=== PATIENT | male | born 1985 | race Caucasian/White ===

== ENCOUNTER → 2017-08-15 10:59 | Outpatient (CLI) | payer MEDICAID, SELFPAY ==
--- NOTE | 2017-08-15 11:05 | RAD_ITS ---
STUDY: X-RAY - LUMBAR SPINE REASON FOR EXAM: Male, 31 years old. Lower back pain. Previous injury. TECHNIQUE: 3 view(s) of the lumbar spine were obtained. COMPARISON: Lumbar spine, August 21, 2016. FINDINGS: Normal lumbar lordosis. There is no substantial scoliosis. There is a normal alignment of the vertebrae. Normal vertebral bodies and endplates. Normal disc space heights. There is no evidence of acute fracture or loss of vertebral axial height. The soft tissue structures are unremarkable. IMPRESSION: No interval change. Normal x-ray examination of the lumbar spine. Electronically Signed: Cesar Peters DO at 18:01 EDT Tel [phone], Service support , RAD/Lumbar Spine 2 or 3 Views
--- NOTE | 2017-08-15 11:22 | RAD_ITS ---
STUDY: X-RAY CHEST REASON FOR EXAM: Male, 31 years old. Shortness of breath. TECHNIQUE: PA and lateral views of the chest. COMPARISON: None. FINDINGS: The lungs are clear and expanded. There is no demonstrated pleural abnormality. Normal size heart. Normal mediastinum and placido. Normal visualized pulmonary arteries. Normal visualized aortic arch and descending thoracic aorta. Normal visualized thoracic spine. Normal visualized ribs, clavicles, and shoulders. There is no demonstrated abnormality of the visualized soft tissue structures of the upper abdomen. RAD/Chest PA and Lateral IMPRESSION: Normal x-ray examination of the chest. Electronically Signed: Sharif Mccallum MD at 15:57 EDT Tel [phone], Service support ,
== END ==
PROVIDERS: Visit Provider Family Medicine
DX: M54.41 Lumbago with sciatica, right side (principal); M54.42 Lumbago with sciatica, left side; G89.29 Other chronic pain; R06.02 Shortness of breath; R07.9 Chest pain, unspecified
CPT/HCPCS: 71046; 72100

== ENCOUNTER 2018-03-01 14:00 | Emergency (ER) | payer MEDICAID, SELFPAY ==
[2018-03-01 14:01] VITALS: BP 185/95; PULSE 95; RESP 22; TEMP 36.8; O2SAT 97; BMI 70.5
--- NOTE | 2018-03-01 14:15 | ED.VISSUMM ---
- ER Visit Summary Date of Service: 03/01/18 Chief Complaint: Right posterior rib cage pain History of Present Illness: The patient is a 32 M history of prior diabetes for which she is not taking any medication. The only prior surgery was a thyroidectomy. Patient states he was carrying an old box TV on Tuesday. On Tuesday he started developing right posterior lateral rib cage pain. He thinks he pulled something while carrying a heavy TV. He denies any falls or trauma. He denies any shortness of breath and said just hurts to move his rib cage when he takes a deep breath or when he twists or turns. Basically any movement makes her right posterior rib cage more painful. He denies any fever or cough. Physical Examination: Well-appearing young male. Vital signs are stable. He is afebrile. His pulse ox is 97% on room air no hypoxia. No distress. H EENT exam unremarkable. Neck nontender. Lungs clear to auscultation bilaterally. He does splint on the right due to discomfort in his posterior lateral rib cage. Heart regular rate and rhythm no murmur. Abdomen is soft but obese. Nontender. He is moving all 4 extremities. Calves are nontender. Neurologically is awake and alert with no focal motor deficits. Back exam there is no cervical, thoracic or lumbar spine tenderness. He is tender on his right posterior and lateral rib cage. There is no ecchymosis or bruising. There is no subcu air. This is consistent with musculoskeletal rib cage pain. Test Results: None Emergency Department Course and Treatment: Patient's history and exam are consistent with a rib cage strain with muscle spasm. Treatment Plan: Motrin for pain. Valium for muscle relaxant. Hot shower. Warm bath. Disposition: Discharge Impression: Acute right posterior lateral rib cage strain with muscle spasm This note was generated with [employer] dictation software. It may contain incorrect words, spelling, and punctuation that were not noted in review of the chart prior to signing ED Disposition - Plan for ED Patient: Disposition: Home or Assisted Living Chief Complaint: Back Instructions: ED Spasm Back No Trauma Prescriptions: Diazepam [Valium] 10 mg PO TID PRN PRN #10 tab PRN Reason: Muscle Spasm Referrals: Care Physician,No Primary [Primary Care Provider] - 1 Week if not improving Additional Instructions: Ice to right posterior rib cage decrease pain and inflammation. Hot shower and warm bath to relax the muscles. Motrin 600-800 mg 3 times a day for pain and inflammation. Valium for muscle spasms. Follow-up your primary care physician if not improving in a week.
--- NOTE | 2018-03-01 14:18 | ED.DEP ---
ED Disposition - Plan for ED Patient: Disposition: Home or Assisted Living Chief Complaint: Back Instructions: ED Spasm Back No Trauma Prescriptions: Diazepam [Valium] 10 mg PO TID PRN PRN #10 tab PRN Reason: Muscle Spasm Referrals: Care Physician,No Primary [Primary Care Provider] - 1 Week if not improving Additional Instructions: Ice to right posterior rib cage decrease pain and inflammation. Hot shower and warm bath to relax the muscles. Motrin 600-800 mg 3 times a day for pain and inflammation. Valium for muscle spasms. Follow-up your primary care physician if not improving in a week.
--- NOTE | 2018-03-01 14:25 | ED.DEP ---
ED Disposition - Plan for ED Patient: Disposition: Home or Assisted Living Chief Complaint: Back Instructions: ED Spasm Back No Trauma Prescriptions: Diazepam [Valium] 10 mg PO TID PRN PRN #10 tab PRN Reason: Muscle Spasm Ibuprofen [Motrin] 800 mg PO Q8H #30 tab Referrals: Care Physician,No Primary [Primary Care Provider] - 1 Week if not improving Additional Instructions: Ice to right posterior rib cage decrease pain and inflammation. Hot shower and warm bath to relax the muscles. Motrin 600-800 mg 3 times a day for pain and inflammation. Valium for muscle spasms. Follow-up your primary care physician if not improving in a week.
== END 2018-03-01 14:30 | disposition home or self-care (01) ==
PROVIDERS: Emergency Provider Emergency Medicine
DX: S29.011A Strain of muscle and tendon of front wall of thorax, initial encounter (principal); S21.201A Unspecified open wound of right back wall of thorax without penetration into thoracic cavity, initial encounter; X50.0XXA Overexertion from strenuous movement or load, initial encounter; Y93.89 Activity, other specified; M62.838 Other muscle spasm
CPT/HCPCS: 99281

== ENCOUNTER → 2020-01-30 10:29 | Outpatient (CLI) | payer MEDICAID, SELFPAY ==
[2020-01-30 11:04] LABS: D-Dimer Quantitative (DVT/PE) 0.63 FEU/ug/m (0.27-0.49)
== END ==
PROVIDERS: Referring Provider Family Medicine; Visit Provider Family Medicine
DX: R07.9 Chest pain, unspecified (principal)
CPT/HCPCS: 85379

== ENCOUNTER 2020-01-30 12:00 | Emergency (ER) | payer MEDICAID, SELFPAY ==
[2020-01-30 12:01] VITALS: BP 149/89; PULSE 106; RESP 17; TEMP 36.6; O2SAT 98; BMI 82.8
--- NOTE | 2020-01-30 12:31 | VDLE_ITS ---
Reason For Study: Swelling/Elevated D-dimer RIGHT LEFT GSV is normal. GSV is normal. FV is compressible, spontaneous, phasic, FV is compressible, spontaneous, phasic, competent and demonstrates normal competent and demonstrates normal augmentation. augmentation. POP V is compressible, spontaneous, phasic, POP V is compressible, spontaneous, phasic, competent and demonstrates normal competent and demonstrates normal augmentation. augmentation. T/P Trunk is compressible. T/P Trunk is compressible. PTV is compressible. PTV is compressible. RT PerV is compressible. LT PerV is compressible. Procedure FV mid visualized with color flow only, Exam performed portable in ED. unable to compress due to body habitus. Unable to visualize bilateral CFV and SFJ due to pt body habitus. Bilateral calf veins only visualzied at distal calf. A preliminary report was called and/or faxed to ED. Interpretation Summary No evidence for acute deep venous thrombosis bilateral lower extremities with patent and compressible bilateral great saphenous veins. Technically limited examination with inability to identify bilateral common femoral/saphenofemoral junction secondary to body habitus. Additional note of inability to identify bilateral calf veins in the proximal and mid sections. Additional note made of inability to perform compressibility of the left femoral vein. Ordering Physician: Zafar Hurley Referring Physician: David Linder Performed By: Xochilt Peterson RVT
--- NOTE | 2020-01-30 12:32 | ED.DCSUM_ITS ---
History of Present Illness Chief Complaint: Abn Labs Informant: Patient Narrative: Patient states that he was sent into the emergency department for abnormal labs. He tells me that he is embarking on a fitness journey and went to see primary care. He states that he had blood work drawn today and was told to come to emergency. He cannot tell me exactly what blood work was drawn or why they needed him to come to emergency. He states that they should be faxing over some information. He notes he chronically has significantly swollen legs. He states for the past couple days he has been on a fast and that they are less swollen than normal. He notes a large amount of swelling over the medial proximal thighs bilaterally. This is gone unchanged. He states that he has had some chronic chest pain or shortness of breath that may be worse over the past couple of days. For this reason he had a d-dimer drawn that came back elevated 0.6. - Past Medical History (1) Morbid obesity Status: Acute Past Medical History - Allergies and Home Meds Allergies/Adverse Reactions: Allergies shellfish derived Allergy (Verified 01/30/20 12:01) Anaphylaxis venom-honey bee [bee venom (honey bee)] Allergy (Verified 01/30/20 12:01) Anaphylaxis Primary Care Physician: David Linder MD [Primary Care Provider] - Keep Shanice appointment Surgical History: noncontributory Smoking Status: Never smoker Drugs: None Review of Systems General: Denies: Chills, Fever, Sweats Eyes: Denies: Visual changes - bilaterally, Diplopia ENT: Denies: Rhinorrhea, Sore throat Cardiovascular: Reports: Chest pain - See history of present illness. Denies: Palpitations Respiratory: Reports: Dyspnea - See history of present illness. Denies: Cough, Dyspnea on exertion Gastrointestinal: Denies: Abdominal pain, Nausea, Vomiting, Diarrhea, Melena, Hematochezia Genitourinary: Denies: Dysuria, Hematuria, Frequency Musculoskeletal: Reports: Swelling. Denies: Back pain, Extremity Pain Skin: Denies: Rash, Wounds Neurological: Denies: Headache, Weakness, Numbness Physical Exam Vital Signs/Narrative: Vital Signs Temp Pulse Resp BP Pulse Ox 01/30/20 12:01 97.9 F 106 H 17 149/89 H 98 Inital Vital Signs reviewed: Yes General: Well nourished, Well developed, Obese, No Acute Distress Head: Normocephalic, Atraumatic Eyes: Perrl, EOMI ENT: Moist mucous membranes, No rhinorrhea Neck: Supple, Nontender Cardiovascular: Regular rate, Regular rhythm, No murmurs Respiratory: No distress, CTA bilaterally, Chest nontender Abdomen: Soft, Nondistended, Normal bowel sounds, Tender - Large ventral hernia that is easily reduced Back: Nontender, Normal Inspection Extremities: Tenderness - Patient with pitting edema of the lower extremities. He has no significant scrotal swelling but does have significant thigh swelling over the proximal medial aspect of the thigh. Skin: Normal color, No rash Neurological: Alert, Oriented x3, Cranial nerves II-XII grossly intact, Normal Strength, Normal Sensation Psychological: Normal affect, Normal Mood Diagnostic/Tx/Re-eval Clinical Impression(s) from Imaging Studies Chest CTA 01/30/20 13:43 IMPRESSION: Normal CTA chest examination, without a demonstrated pulmonary embolism or arterial dissection. Electronically Signed: Sharif Mccallum, at 15:01 EDT , Service support , Laboratory Last Values WBC 7.9 K/mm3 (4.4-11.0) 01/30/20 12:45 RBC 4.74 M/mm3 (4.6-6.2) 01/30/20 12:45 Hgb 12.9 g/dL (13.0-16.5) L 01/30/20 12:45 Hct 41.4 % (40-54) 01/30/20 12:45 MCV 87.3 fL (80-94) 01/30/20 12:45 MCH 27.2 pg (27.0-32.0) 01/30/20 12:45 MCHC 31.2 g/dL (32-36) L 01/30/20 12:45 RDW Std Deviation 43.8 fl (35.1-43.9) 01/30/20 12:45 RDW Coeff of Adrien 13.6 % (11.6-14.6) 01/30/20 12:45 Plt Count 289 K/mm3 (150-450) 01/30/20 12:45 MPV 10.2 fl (6.2-12.0) 01/30/20 12:45 Immature Gran % (Auto) 0.500 % (0.0-0.9) 01/30/20 12:45 Neut % (Auto) 66.9 % (47-70) 01/30/20 12:45 Lymph % (Auto) 23.7 % (19-41) 01/30/20 12:45 [place] % (Auto) 7.4 % (0-10) 01/30/20 12:45 Eos % (Auto) 1.4 % (0-5) 01/30/20 12:45 Baso % (Auto) 0.1 % (0-1) 01/30/20 12:45 Absolute Neuts (auto) 5.3 X10^3/uL (2.0-7.7) 01/30/20 12:45 Absolute Lymphs (auto) 1.87 X10^3/uL (0.83-4.51) 01/30/20 12:45 Nucleated RBC % 0 % (0-5) 01/30/20 12:45 Sodium 138 mmol/L (136-145) 01/30/20 12:45 Potassium 3.6 mmol/L (3.5-5.1) 01/30/20 12:45 Chloride 106 mmol/L (98-107) 01/30/20 12:45 Carbon Dioxide 30.0 mmol/L (21.0-32.0) 01/30/20 12:45 Anion Gap 2 (5-15) L 01/30/20 12:45 BUN 11 mg/dL (7-18) 01/30/20 12:45 Creatinine 1.01 mg/dL (0.70-1.30) 01/30/20 12:45 Estim Creat Clear Calc 107.69 ml/min 01/30/20 12:45 Est GFR (MDRD) Af Amer 107 mL/min (>60) 01/30/20 12:45 Est GFR (MDRD) Non-Af 89 mL/min (>60) 01/30/20 12:45 BUN/Creatinine Ratio 10.9 RATIO (10-20) 01/30/20 12:45 Glucose 114 mg/dL (74-106) H 01/30/20 12:45 Calcium 8.6 mg/dL (8.5-10.1) 01/30/20 12:45 Troponin I < 0.015 ng/mL (<0.045) 01/30/20 12:45 - EKG Initial EKG Interpretation: Sinus Rhythm - EKG demonstrates a normal sinus rhythm at a rate of 91. There is no evidence of right heart strain. - Medical Decision Making Venous duplex of the bilateral legs negative for DVT within the confines of the exam. No evidence of right heart strain EKG and troponin negative. His CTA of his chest was negative for PE. At this point patient be discharged home. I did speak with his primary care physician Dr. Linder at the beginning of his ED course and at the end. ED Disposition - Plan for ED Patient: Disposition: Home or Assisted Living Diagnosis: Morbid obesity, Lymphedema Prescriptions: Furosemide [Lasix] 40 mg PO DAILY 7 Days #7 tab Transmission Status: Pending to [facility] [place] Referrals: David Linder MD [Primary Care Provider] - Keep Shanice appointment
--- NOTE | 2020-01-30 12:36 | EKG12_ITS ---
Test Reason : ABN LABS Blood Pressure : / mmHG Vent. Rate : 091 BPM Atrial Rate : 091 BPM P-R Int : 176 ms QRS Dur : 106 ms QT Int : 364 ms P-R-T Axes : 066 023 034 degrees QTc Int : 447 ms Normal sinus rhythm Normal ECG Confirmed by JEFF ARAIZA, ALEA ([id number]), video editor DAVID LINDER ([id number]) on 02/04/2020 2:21:13 PM Referred By: Confirmed By:ALEA AGUILAR MD
[2020-01-30 12:59] LABS: Absolute Lymphocyte Count 1.87 X10^3/uL (0.83-4.51); Absolute Neutrophil Count 5.3 X10^3/uL (2.0-7.7); Basophil# 0.01 X10^3/uL; Basophil% 0.1 % (0-1); Eosinophil# 0.11 X10^3/uL; Eosinophils% 1.4 % (0-5); Hematocrit 41.4 % (40-54); Hemoglobin 12.9 g/dL (13.0-16.5); Lymphocyte # 1.87 X10^3/ul (4.0); Lymphocyte % 23.7 % (19-41); Mean Corp Hgb Conc 31.2 g/dL (32-36); Mean Corpuscular Hgb 27.2 pg (27.0-32.0); Mean Corpuscular Volume 87.3 fL (80-94); Mean Platelet Vol. 10.2 fl (6.2-12.0); Monocyte# 0.58 X10^3/uL; Monocyte% 7.4 % (0-10); NRBC Flagged by Analyzer 0 % (0-5); Neutrophil # 5.27 X10^3/uL (2.7-7.7); Neutrophil % 66.9 % (47-70); Platelet Count 289 K/mm3 (150-450); RBC Distribution Width CV 13.6 % (11.6-14.6); RBC Distribution Width SD 43.8 fl (35.1-43.9); Red Blood Count 4.74 M/mm3 (4.6-6.2); White Blood Count 7.9 K/mm3 (4.4-11.0)
[2020-01-30 13:15] LABS: Anion Gap 2 (5-15); BUN 11 mg/dL (7-18); BUN/Creat Ratio 10.9 RATIO (10-20); Calcium,Total 8.6 mg/dL (8.5-10.1); Chloride 106 mmol/L (98-107); Creatinine, Serum 1.01 mg/dL (0.70-1.30); EST Glomerular Filtration Rate 89 mL/min (>60); Est Glom Filt Rate - Afr Amer 107 mL/min (>60); Estimated Creatinine Clearance 107.69 ml/min; Glucose 114 mg/dL (74-106); Potassium 3.6 mmol/L (3.5-5.1); Sodium Level 138 mmol/L (136-145)
--- NOTE | 2020-01-30 13:43 | CT_ITS ---
STUDY: CTA CHEST REASON FOR EXAM: Male, 34 years old. Elevated D-dimer, increased SOB and chest pain x several days, bilateral lower extremity edema. Hx asthma. Very large patient. RADIATION DOSAGE (If Supplied By Facility): CTDIvol = ( 32.93 ) mGy, DLP = ( 680.85 ) mGycm TECHNIQUE: The examination was performed with the intravenous administration of IV 100mL Isovue-370. Post-processing of the angiographic images was performed, with multiplanar reformation and 3D reconstruction. Limited study due to the patient''s body habitus. Individualized dose optimization techniques were used for this CT. COMPARISON: None. FINDINGS: Normal enhancement of the main pulmonary artery and right and left pulmonary arteries. Normal enhancement of the bilateral peripheral pulmonary arteries. There is no demonstrated pulmonary embolism. Normal thoracic aorta and visualized great vessels. There is no demonstrated aortic dissection. Normal heart and pericardium. Normal mediastinum. Normal hilar regions. Normal visualized trachea and bronchi. The lungs are well expanded. Normal pulmonary parenchyma. Normal pleura. Normal chest wall structures. Normal osseous structures. Normal visualized upper abdomen. CT/CTA Chest W/WO Contrast IMPRESSION: Normal CTA chest examination, without a demonstrated pulmonary embolism or arterial dissection. Electronically Signed: Sharif Mccallum, at 15:01 EDT , Service support ,
[2020-01-30 15:46] VITALS: BP 153/88; PULSE 81; RESP 18; O2SAT 96
== END 2020-01-30 15:46 | disposition home or self-care (01) ==
PROVIDERS: Emergency Provider Emergency Medicine; PCP Family Medicine
DX: E66.01 Morbid (severe) obesity due to excess calories (principal); I89.0 Lymphedema, not elsewhere classified; R07.9 Chest pain, unspecified
CPT/HCPCS: 71275; 80048; 84484; 85025; 85379; 93005; 93970; 99283; Q9967; A4216

== ENCOUNTER 2025-01-13 16:04 | Emergency (ER) | payer MEDICAID, SELFPAY ==
[2025-01-13 16:06] VITALS: BP 146/83; PULSE 104; RESP 15; TEMP 37.1; O2SAT 98; BMI 80.6
[2025-01-13 16:10] VITALS: BP 146/83; PULSE 105; RESP 21; TEMP 37.1; O2SAT 96
--- NOTE | 2025-01-13 16:12 | EDS_ITS ---
HPI History of Present Illness Chief Complaint: [facility] Medical History (Updated 01/13/25 @ 19:[address] Kimo Hill, DO) Asthma Lymphedema Sleep apnea Medical History no medical history Home Medications ?Medication ?Instructions ?Recorded ?Last Taken ?Type diazepam 10 mg tablet 10 mg PO TID PRN PRN Muscle Spasm 03/01/18 Unknown Rx #10 tabs ibuprofen 400 mg tablet 800 mg (2 x 400 mg) PO Q8H # 30 tabs 03/01/18 Unknown Rx ondansetron 4 mg disintegrating 4 mg PO Q8H PRN PRN Na usea #10 tabs 01/13/25 Unknown Rx tablet oxycodone-acetaminophen 5 mg-325 1 tab PO Q6H PRN PRN Pain 3 days 01/13/25 Unknown Rx mg tablet #12 TABLETS sulfamethoxazole 800 1 tab PO BID 7 days #14 tabs 01/13/25 Unknown Rx mg-trimethoprim 160 mg tablet (Bactrim DS) Allergy/AdvReac Type Severity Reaction Status Date / Time shellfish derived Allergy Anaphylaxis Verified 01/13/25 16:10 venom-honey bee (bee venom Allergy Anaphylaxis Verified 01/13/25 16:10 (honey bee)) Family History no significant family his Surgical History (Updated 01/13/25 @ 16:12 by Wendy Shrestha) History of thyroid surgery Surgical History no surgical history Social History Smoking Status: Current some day smoker tobacco type: pipe EXAM Physical Exam Const Vital Signs: 01/13/25 16:06 01/13/25 16:10 01/13/25 16:14 Temperature 98.7 F 98.7 F Temperature Source Oral Oral Pulse Rate 104 H 105 H Respiratory Rate 15 21 H Respiratory Effort Normal Respiratory Pattern Tachypnea Blood Pressure 146/83 H 146/83 H Blood Pressure Mean 104 104 Pulse Ox 98 96 Oxygen Delivery Method Room Air Room Air 01/13/25 17:05 01/13/25 17:28 01/13/25 19:00 Temperature 99.2 F H 98.9 F Temperature Source Oral Oral Pulse Rate 96 93 88 Respiratory Rate 16 16 16 Respiratory Effort Respiratory Pattern Blood Pressure 130/83 H 125/72 H 125/78 H Blood Pressure Mean 98 89 93 Pulse Ox 97 95 97 Oxygen Delivery Method Room Air Room Air Room Air 01/13/25 19:56 Temperature 98.7 F Temperature Source Pulse Rate 91 Respiratory Rate 22 H Respiratory Effort Respiratory Pattern Blood Pressure 129/77 H Blood Pressure Mean 94 Pulse Ox 96 Oxygen Delivery Method MDM [facility] MDM Narrative Medical decision making narrative: HISTORY OF PRESENT ILLNESS: Chief complaint: Leg pain 39-year-old male history of asthma, edema, sleep apnea presents with concern for a blood clot. He states he is concerned he may have a blood clot under the chronic lymphedema in his left leg. He also notes associated fever. Denies c urrent chest pain or shortness of breath but noted he had chest discomfort shortness of breath yesterday. He states this began 2 days ago. The patient denies recent surgery in the last 4 weeks or immobilization in the last 3 days, denies previous diagnosis of DVT or PE, hemoptysis, unilateral leg swelling or malignancy with treatment the last 6 months or palliative. No estrogen use noted. Denies vomiting but notes associated nausea. REVIEW OF SYSTEMS: Pertinent positives: Leg pain, fever, chest pain, shortness of Pertinent negatives: As per HPI PHYSICAL EXAM: Nursing triage notes reviewed, Vital signs reviewed Constitutional: please see mdm HENT: MMM Eyes: Pupils equal round and reactive to light, Extraocular muscles intact Neck: No stridor, no JVD, full neck ROM Lungs: Clear to auscultation, No wheezing or rales. No increased work of breathing, no conversational dyspnea, no accessory muscle use, no nasal flaring. No respiratory distress noted Heart: Regular rate and rhythm, No murmurs, No rubs and No gallops, 2+ distal pulses (radial, femoral, posterior tibial) in all extremities Abdomen: Soft, there is no tenderness, rigidity, rebound or guarding, no obvious peritoneal signs, no palpable pulsatile abdominal masses, no auscultated abdominal bruit : No CVAT Extremities: Significant lymphedema noted to bilateral medial lower legs. There is an area on the posterior left leg lymphedematous area that is dark and hard to touch. It is slightly warm. There is no purulent drainage noted. [id number] ultrasound over this area did not reveal any drainable abscess. There was no crepitus or bullae noted. Neuro: No new focal neurological deficits, cranial nerves II through XII intact, 5/5 strength in all present extremities. Intact sensation to light touch in all present extremities, 2+ reflexes bilateral patella tendons. Skin: No rash or lesions noted MEDICAL DECISION MAKING: Chief Complaint: please see HPI External records reviewed: Reviewed prior allergies and medication Factors affecting care: none Social determinants of health: none History obtained from others: none Consults: none MDM Narrative: Patient was initially slightly tachycardic to 104, not febrile, exam consistent with likely superficial infection of lymphedematous region. I considered the following differential diagnosis: Sepsis, cellulitis, abscess, ACS, arrhythmia, anemia, electrolyte disturbance, PE I obtained a broad lab and imaging workup to further determine if the patient was suffering from a life-threatening etiology. Initially assessed the patient only normal saline, Zofran for nausea, 4 mg of IV morphine for pain as well as 15 mg IV Toradol for pain and antipyretic effect I initially obtained a CT scan of the patient's extremities given his large body habitus and difficulty with exam to assure there is no obvious drainable abscess however given the patient's large body habitus he cannot fit into CT scanner. In lieu of CT scan I did perform a [id number] ultrasound which showed no obvious fluid collection that is is drainable. ALL IMAGES (IF OBTAINED) HAVE BEEN PERSONALLY REVIEWED AND INTERPRETED BY MYSELF. CBC with leukocytosis suggestive of systemic inflammation, no anemia or thrombocytopenia noted D-dimer elevated consistent with prior D-dimers however in this clinical setting of chest pain and shortness breath concerning for VTE BMP without evidence of significant electrolyte abnormalities, no anion gap, no acute kidney injury. LFTs with elevation in bilirubin slightly above lab reference range, no obvious liver enzyme elevation High-sensitivity troponin is negative, no evidence of myocardial ischemia x 2 BNP within normal limit suggestive no heart failure right heart strain Lactate is wnl indicating no end-organ hypoperfusion and/or hypoxia. CT of the chest shows no definitive evidence of a pulmonary embolism The synthesis of the patient's history, physical exam, lab and images suggest likely a cellulitis. The patient's pain and swelling is over the medial lymphedema tissue. Is not associated with the deep veins of the leg. In terms of the patient's report of chest pain and shortness of breath there is no definitive evidence of pulmonary embolism. Although patient CT scan was not definitive he had no hypoxia, hypotension, signs of right heart strain either labs or images to suggest a large pulmonary embolism. Unfortunately we do not have DVT ultrasound available to scan the patient's leg given his concern for DVT. Ordered an outpatient DVT study for tomorrow morning. Discussed risk and benefits of prophylactic anticoagulation both agreed that this was not a necessary intervention at this time. Strict return precautions will be discussed. The patient and/or family, caregivers express understanding. The patient and/or family, caregivers agrees with the plan. Shared decision making: I will have a discussion with the patient and or visitors regarding risk/benefits of further testing or admission. They will be made aware of of the risk/benefits inherent in this decision they will be given the opportunity to voice understanding. Total critical care time today provided was at least 0 minutes. This excludes separately billable procedures. Critical care time (if documented) is secondary to the patient having high probability of clinically significant/life threatening deterioration in the patient's condition which required my urgent intervention. Impression: 1. Cellulitis 2. Lymphedema 3. Morbid obesity Dispo: Discharge home This note was generated with [employer] dictation software. It may contain incorrect words, spelling, and punctuation that were not noted in review of the chart prior to signing. Lab Data Labs: Laboratory Results - last 24 hr 01/13/25 01/13/25 16:33 18:48 WBC 12.3 H RBC 4.70 Hgb 13.1 Hct 40.2 MCV 85.5 MCH 27.9 MCHC 32.6 RDW Std Deviation 43.1 RDW Coeff of Adrien 13.6 Plt Count 274 MPV 10.6 D-Dimer Quant (PE/DVT) 0.73 H* Sodium 135 Potassium 3.6 Chloride 100 Carbon Dioxide 22.6 Anion Gap 12 BUN 13 Creatinine 1.10 Estim Creat Clear Calc 187.63 Est GFR (MDRD) Non-Af 86 BUN/Creatinine Ratio 11.5 Glucose 125 H Lactic Acid 1.0 Calcium 8.9 Total Bilirubin 1.80 H AST 22 ALT 22 Alkaline Phosphatase 74 Troponin T High Sens < 6 Troponin T Hi Sens 2 Hr 6 NT pro BNP II 126 Total Protein 7.9 Albumin 3.8 Globulin 4.1 Albumin/Globulin Ratio 0.9 Radiography Diagnostic Testing: Clinical Impression(s) from Imaging Studies Chest X-Ray 01/13/25 16:54 IMPRESSION: No Acute Findings. Reading Location: [id number] Chest CTA 01/13/25 17:30 IMPRESSION: 1. Inadequate contrast phase to evaluate for pulmonary embolus. 2. No acute lung disease. Reading Location: [facility] [place] Discharge Plan Triage Chief Complaint: Wound Other Complaint: Chest Pain Edema ED Provider: Kimo Hill Dx/Rx/DC Orders Instructions: Cellulitis Dc, ED Lymphedema Prescriptions: New sulfamethoxazole-trimethoprim [Bactrim DS] 800-160 mg tablet 1 tab PO BID 7 Days Qty: 14 0RF oxycodone-acetaminophen 5-325 mg tablet 1 tab PO Q6H PRN PRN (Reason: Pain) 3 Days Qty: 12 0RF ondansetron 4 mg tablet,disintegrating 4 mg PO Q8H PRN PRN (Reason: Nausea) Qty: 10 0RF No Action diazepam 10 MG tablet 10 mg PO TID PRN PRN (Reason: Muscle Spasm) Qty: 10 0RF ibuprofen 400 MG tablet 800 mg PO Q8H Qty: 30 0RF Other Ambulatory Orders: Venous Duplex US, Unilateral (Stat) Facility: [facility] - Location: [facility] Ordered By: Dr. Kimo Hill Primary Care Provider: David Linder Referrals: David Linder MD [Primary Care Provider] - Hyperbaric Medicine,[facility] and [Non-Staff] - Activity Restrictions/Additional Instructions: Thank you for trusting us with your care today! Your labs images are overall reassuring. There is no sign of a definitive blood clot in your heart or lungs. No sign of damage to your heart. No sign of pn eumonia. No sign of severe sepsis or severe infection. There was signs of mild systemic inflammation with elevated white blood cell count this is likely related to a superficial skin infection of your leg/lymphedema that we called cellulitis. I suspect your pain is related to a superficial infection. This is treated with antibiotics. Please take antibiotics until course is complete. I have also provided nausea medicine to take as needed Please take Tylenol (2 pills, 650 mg), ibuprofen (2 pills, 400 mg) every 6 hours as needed for pain and fever control. If the above regimen does not control your pain please take oxycodone/Tylenol (Percocet) for breakthrough pain control Please return to the emergency department if your symptoms change or worsen. Please follow with your primary care physician for further outpatient evaluation and management. Print Language: Sudanese Disposition Disposition: Home, Self Care Discharge Date/Time: 01/13/25 20:04
--- NOTE | 2025-01-13 16:31 | EKG12_ITS ---
Test Reason : GENERAL Blood Pressure : */* mmHG Vent. Rate : 100 BPM Atrial Rate : 100 BPM P-R Int : 164 ms QRS Dur : 104 ms QT Int : 360 ms P-R-T Axes : 54 10 37 degrees QTcB Int : 464 ms Normal sinus rhythm MINOR Nonspecific ST abnormality Borderline Confirmed by Josiah Rodriguez ([id number]), dictionary editor ROBERT JAMES ([id number]) on 01/14/2025 1:23:06 PM Referred By: Confirmed By: Josiah Rodriguez
[2025-01-13] MEDS: 0.9% Normal Saline (1000mL) 1,000 ML 1000 ML IV (16:48)
--- NOTE | 2025-01-13 16:54 | RAD_ITS ---
PROCEDURE: CHEST 1 VIEW (PORTABLE) 01/13/2025 REASON FOR EXAM: SHORTNESS OF B. TECHNIQUE: Frontal view of the chest. COMPARISON: None. FINDINGS: LUNGS AND PLEURA: No focal airspace consolidation. No pleural effusion or pneumothorax. HEART AND MEDIASTINUM: The cardiac silhouette is borderline enlarged. The mediastinal contour is normal. BONES: No acute osseous abnormality. RAD/Chest 1 View (Portable) IMPRESSION: No Acute Findings. Reading Location: [id number]
[2025-01-13 17:05] VITALS: BP 130/83; PULSE 96; RESP 16; O2SAT 97
--- OUTSIDE RECORDS SUMMARY | 2025-01-13 17:18 | XMS RPT_ITS | CCD ---
Author Organization [facility] Care Team Providers Care Charge Account Identification Clerk Name Role Phone KYLE NICKERSON Unavailable Unavailable KYLE NICKERSON Unavailable Unavailable David Grissom Unavailable Unavailable David Grissom MD Primary Care Provider DAVID GRISSOM Referring Unavailable JACIEL, DAVID Guan Primary Care Unavailable OSMANY MENDIOLA Attending Unavailable David Grissom MD Primary Care Provider ELMIRA DE SOUZA Referring Unavailable DAVID GRISSOM Primary Care Unavailable DAVID GRISSOM Referring Unavailable DAVID GRISSOM Primary Care Unavailable DAVID GRISSOM Referring Unavailable DAVID GRISSOM Primary Care Unavailable LORRAINE AVILES Referring Unavailable ELMIRA DE SOUZA Attending Unavailable DAVID GRISSOM Primary Care Unavailable Linda WOOD CUT ENGRAVER.Concepcion SUNG Unavailable Hilaria WOOD CUT ENGRAVER.Marisabel SUNG Unavailable [phone] Jacqueline Foss Attending Unavailable David Grissom Referring Unavailable David Grissom Primary Care Unavailable ROCIO LESLIE Attending Unavailable DAVID GRISSOM Referring Unavailable DAVID GRISSOM Primary Care Unavailable ROCIO LESLIE Referring Unavailable DAVID GRISSOM Primary Care Unavailable LORRAINE AVILES Attending Unavailable MARISABEL RAMIREZ Referring Unavailable DAVID GRISSOM Primary Care Unavailable DAVID GRISSOM Attending Unavailable DAVID GRISSOM Primary Care Unavailable DAVID GRISSOM Attending Unavailable DAVID GRISSOM Primary Care Unavailable DAVID GRISSOM Referring Unavailable DAVID GRISSOM Primary Care Unavailable Allergies Allergy Classification Reported Allergen(s) Allergy Type Date of Onset Reaction(s) Facility shrimp allergenic extract (1 source) shrimp allergenic extract Drug Allergy 3 Swelling [facility] Work Phone: (20 sources) Bee; Translations: [BEES] Propensity to adverse reactions (disorder) 0 Swelling [facility] Repository (1 source) OTHER; Translations: [OTHER] Propensity to adverse reactions (disorder) [facility] Repository (20 sources) shrimp [Other] Propensity to adverse reactions 0 Swelling [facility] Work Phone: (20 sources) shrimp allergenic extract; Translations: [SHRIMP] Drug Allergy 3 Swelling [facility] Work Phone: (1 source) Shellfish Drug allergy (disorder) 0 [facility] Repository (1 source) venom-honey bee Drug allergy (disorder) 0 [facility] Medications Current Medications Medication Drug Class(es) Dates Sig (Normalized) Sig (Original) [id number] 200 actuat albuterol 0.09 mg/actuat metered dose inhaler (20 sources) beta2-Adrenergic Agonist Start: 04-13-2023 End: 12-10-2024 take 2 puff(s) by inhalation every four hours as needed for wheezing albuterol HFA (VENTOLIN HFA) 90 mcg/actuation inhaler Indications: SOB (shortness of breath) Inhale 2 puffs as instructed every 4 hours as needed for wheezing/shortnes s of breath. 18 g 11 12/10/2024 Active Start: 06-30-2020 End: 11-01-2022 take 2 puff(s) by inhalation every four hours as needed for wheezing albuterol HFA (VENTOLIN HFA) 90 mcg/actuation inhaler Indications: SOB (shortness of breath) Inhale 2 Puffs as instructed every 4 hours as needed for wheezing/shortness of breath. 18 g 2 11/01/2022 Active Comment on above: Inhale 2 Puffs as in structed every 4 hours as needed for wheezing/shortness of breath. 24 hr buPROPion hydrochloride 300 mg extended release oral tablet (20 sources) Aminoketone Start: 04-16-20 End: 10-17-19 25 take 1 tablet by mouth once daily buPROPion XL (WELLBUTRIN XL) 300 mg 24 hr tablet Indications: Anxiety with depression , BMI 70 and over, adult (HCC) Take 1 tablet by mouth once daily. 90 tablet 1 10/16/2024 Active Start: 05-16-2023 End: 11-12-2023 take 1 tablet by mouth once daily buPROPion XL (WELLBUTRIN XL) 300 mg 24 hr tablet Indications: Anxiety with depression , Obesity, morbid (HCC) Take 1 tablet by mouth once daily. 30 tablet 5 05/16/2023 Active Start: 04-08-2022 End: 02-10-2023 take 1 tablet by mouth once daily buPROPion XL (WELLBUTRIN XL) 150 mg 24 hr tablet Indications: Anxiety with depression Take 1 tablet by mouth once daily. 30 tablet 5 04/08/2022 02/10/2023 Discontinued Comment on above: Take 1 tablet by mandi th once daily. clarithromycin 500 mg oral tablet (1 source) Macrolide Antimicrobial Start: End: take 1 tablet by mouth every twelve hours clarithromycin (BIAXIN) 500 mg Indications: Helicobacter pylori infection Take 1 tablet by mouth every 12 hours for 14 days. 28 tablet 02/17/2024 03/02/2024 Active 120 actuat fluticasone propionate 0.23 mg/actuat / salmeterol 0.021 mg/actuat metered dose inhaler (20 sources) Corticosteroid, beta2-Adrenergic Agonist Start: take 2 puff(s) by inhalation twice daily fluticasone-salmeter ol HFA (ADVAIR HFA) 230-21 mcg/actuation inhaler Indications: Asthma, moderate persistent, poorly-controlled (HCC) Inhale 2 puffs as instructed two times a day. 12 g 2 09/01/2024 Active Start: 10-04-2023 End: 08-31-2024 take 2 puff(s) by mouth twice daily fluticasone-salmeterol HFA (ADVAIR HFA) 230-21 mcg/actuation inhaler Indications: Asthma, moderate persistent, poorly-controlled (HCC) inhale 2 puffs by mouth and INTO THE LUNGS twice a day 12 g 5 10/04/2023 08/31/2024 Discontinued Start: 06-28-2022 End: 10-04-2023 take 2 puff(s) by inhalation twice daily fluticasone-salmeterol HFA (ADVAIR HFA) 230-21 mcg/actuation inhaler Indications: Asthma, moderate persistent, poorly-controlled Inhale 2 Puffs as instructed twice daily. 1 Each 06/28/2022 10/04/2023 Discontinued Start: 06-28-2022 take 2 puff(s) by in halation twice daily fluticasone-salmeterol HFA (ADVAIR HFA) 230-21 mcg/actuation inhaler Indications: Asthma, moderate persistent, poorly-controlled Inhale 2 Puffs as instructed twice daily. 1 Each 06/28/2022 Active Comment on above: Inhale 2 Puffs as in structed twice daily. furosemide 40 mg oral tablet (20 sources) Loop Diuretic Start: 05-16-2023 End: 04-14-2025 take 1 tablet by mouth once daily furosemide (LASIX) 40 mg tablet Indications: Lymphedema Take 1 tablet by mouth once daily. 90 tablet 1 10/16/2024 04/14/2025 Active Start: 06-24-2021 End: 04-30-2023 take 1 tablet by mouth once daily furosemide (LASIX) 20 mg tablet Indications: Lymphedema Take 1 tablet by mouth once daily. 90 tablet 1 04/08/2022 11/01/2022 Discontinued Comment on above: Take 1 tablet by mandi once daily. metroNIDAZOLE 500 mg oral tablet (1 source) Nitroimidazole Antimicrobial Start: 02-17-20 End: 03-02-20 take 1 tablet by mouth three times daily metroNIDAZOLE (FLAGYL) 500 mg tablet Indications: Helicobacter pylori infection Take 1 tablet by mouth three times a day for 14 days. 42 tablet 02/17/2024 03/02/2024 Active mupirocin 0.02 mg/mg topical ointment (7 sources) RNA Synthetase Inhibitor Antibacterial Start: 10-17-19 25 mupirocin (BACTROBAN) 2 % ointment Indications: Venous stasis dermatitis Apply 1 application to affected area every 12 hours as needed. 30 g 3 10/16/2024 Active omeprazole 40 mg delayed release oral capsule (20 sources) Proton Pump Inhibitor Start: 02-17-20 End: 03-02-20 take 1 capsule by mouth once daily omeprazole (PRILOSEC) 40 mg capsule Indications: Helicobacter pylori infection Take 1 capsule by mouth once daily for 14 days. 14 capsule 02/17/2024 Active Start: 07-08-2023 End: 02-17-2024 take 1 capsule by mouth once daily before breakfast omeprazole (PRILOSEC) 20 mg capsule Indications: Dysphagia, unspecified type Take 1 capsule by mouth daily before breakfast. 1/2 hr before meal. 30 capsule 5 07/08/2023 02/17/2024 Discontinued Comment on above: Take 1 capsule by [facility] daily before breakfast. 1/2 hr before meal. perflutren lipid microspheres 1.3 mL in NaCl (PF) 0.9% 10 mL injection (DEFINITY) (17 sources) Start: 06-14-2022 End: 09-13-2023 perflutren lipid microspheres 1.3 mL in NaCl (PF) 0.9% 10 mL injection (DEFINITY) 125 ml sodium chloride 9 mg/ml prefilled syringe (17 sources) Start: 06-14-2022 End: 09-13-2023 sodium chloride 0.9 % (flush) 10 mL (BD POSIFLUSH) Completed/Discontinued Medications Medication Drug Class(es) Dates Sig (Normalized) Sig (Original) fluticasone propionate 0.05 mg/actuat metered dose nasal spray (1 source) Corticosteroid Start: 06-24-2021 End: 04-08-2022 take 2 spray(s) by mouth once daily fluticasone (FLONASE) 50 mcg/actuation nasal spray Use 2 Sprays in each nostril once daily. Rinse mouth after use. 1 Each 5 06/24/2021 04/08/2022 Discontinued (Other) Comment on above: Use 2 Sprays in each nostril once daily. Rinse mouth after use. 30 actuat fluticasone furoate 0.2 mg/actuat / vilanterol 0.025 mg/actuat dry powder inhaler (5 sources) Corticosteroid, beta2-Adrenergic Agonist Start: 05-13-2022 End: 06-28-2022 take 1 dose by inhalation once daily fluticasone-vilant nasreen (BREO ELLIPTA) 200-25 mcg/dose inhaler Inhale 1 Inhalation as instructed once daily. 1 Each 5 05/13/2022 06/28/2022 Discontinued Comment on above: Inhale 1 Inhalation as instructed once daily. lisinopril 10 mg oral tablet (20 sources) Angiotensin Converting Enzyme Inhibitor Start: 05-16-2023 End: 10-16-2024 take 1 tablet by mouth once daily lisinopril (ZESTRIL) 10 mg tablet Indications: Primary hypertension Take 1 tablet by mouth once daily. 30 tablet 11 05/16/2023 10/16/2024 Discontinued Comment on above: Take 1 tablet by mandi th once daily. [id number]/sod sulf,bicarb,Cl/KCl (GOLYTELY ORAL) (7 sources) End: 06-30-2023 [id number]/sod sulf,bicarb,Cl/KCl (GOLYTELY ORAL) Take by mouth. 0 06/30/2023 Discontinued (Course of therapy completed) [id number]/sod sulf ,bicarb,Cl/KCl (GOLYTELY ORAL) Take by mouth. 0 Active Comment on above: Take by mouth. polyethylene glycol 3350 210615 mg / potassium chloride 2970 mg / sodium bicarbonate 6740 mg / sodium chloride 5860 mg / sodium sulfate 74733 mg powder for oral solution (11 sources) Osmotic Laxative Start: 01-16-2024 End: 10-16-2024 peg 3350-Electrolytes (GOLYTELY) 236-22.74-6.74 -5.86 gram suspension Refer to printed patient instructions that will be mailed to you. 4000 mL 01/16/2024 10/16/2024 Discontinued Start: 04-16-2022 End: 04-16-2022 peg 3350-Electrolytes (GOLYT NARESH) 236-22.74-6.74 -5.86 gram suspension Indications: Rectal bleeding , Diarrhea, unspecified type Take 4,000 mL by mouth one time only for 1 dose. Refer to printed prep instructions from your provider. 4000 mL 0 04/16/2022 04/16/2022 Active Comment on above: Take 4,000 mL by mandi th one time only for 1 dose. Refer to printed prep instructions from your provider. Problems Active Problems Problem Classification Problem Date Documented Da te Episodic/Chronic Anxiety disorders (20 sources) Mixed anxiety and depressive disorder; Translations: [Other specified anxiety disorders] Onset: 3 Chronic Asthma (20 sources) Moderate persistent asthma uncontrolled; Translations: [Moderate persistent asthma, uncomplicated] Onset: 3 05-13-2022 Chronic Diabetes mellitus without complication (1 source) Hyperglycemia; Translations: [Hyperglycemia, unspecified] Episodic Esophageal disorders (20 sources) Gastroesophageal reflux disease without esophagitis; Translations: [Gastro-esophageal reflux disease without esophagitis] Onset: 2 Chronic Essential hypertension (20 sources) Essential hypertension; Translations: [Essential (primary) hypertension] Onset: 2 Chronic Gastrointestinal hemorrhage (5 sources) Rectal hemorrhage; Translations: [Hemorrhage of anus and rectum] Onset: 4 Episodic Immunizations and screening for infectious disease (3 sources) Viral screening status; Translations: [Encounter for screening for other viral diseases] Episodic Intestinal infection (1 source) Infection caused by Helicobacter pylori; Translations: [Other specified bacterial intestinal infections] 02-17-2024 Episodic Malaise and fatigue (1 source) Fatigue; Translations: [Other fatigue] 10-10-2023 Episodic Mood disorders (1 source) Mood disorders; Translations: [Anxiety and depression] Onset: 3 Other diseases of veins and lymphatics (20 sources) Lymphedema; Translations: [Lymphedema, not elsewhere classified] Onset: 2 Chronic Other diseases of veins and lymphatics (1 source) Lymphedema, not elsewhere classified; Translations: [Lymphedema] Onset: 4 Chronic Other diseases of veins and lymphatics (1 source) Stasis dermatitis; Translations: [Venous insufficiency (chronic) (peripheral)] 10-16-2024 Episodic Other diseases of veins and lymphatics (1 source) Venous insufficiency (chronic) (peripheral); Translations: [Venous stasis dermatitis] Onset: 5 Episodic Other gastrointestinal disorders (1 source) Disorder of abdominal wall; Translations: [Intra-abdominal and pelvic swelling, mass and lump, unspecified site] Episodic Other gastrointestinal disorders (1 source) Diarrhea; Translations: [Diarrhea, unspecified] Episodic Other gastrointestinal disorders (3 sources) Dysphagia; Translations: [Dysphagia, unspecified] 05-16-2023 Episodic Other lower respiratory disease (13 sources) Dyspnea; Translations: [Shortness of breath] Episodic Other lower respiratory disease (2 sources) Wheezing; Translations: [Wheezing] Episodic Other lower respiratory disease (2 sources) Shortness of breath; Translations: [SOB (shortness of breath)] Onset: 4 Episodic Other nutritional; endocrine; and metabolic disorders (20 sources) Morbid obesity; Translations: [Morbid (severe) obesity due to excess calories] Onset: 9 Chronic Other nutritional; endocrine; and metabolic disorders (1 source) Severe obesity; Translations: [Class 3 severe obesity due to excess calories with serious comorbidity and body mass index (BMI) greater than or equal to 70 in adult ([facility])] 11-23-2024 Chronic Other nutritional; endocrine; and metabolic disorders (1 source) Body mass index (BMI) 70 or greater, adult; Translations: [BMI 70 and over, adult ([facility])] Onset: 9 Chronic Other screening for suspected conditions (not mental disorders or infectious disease) (5 sources) Barium swallow abnormal; Translations: [Abnormal findings on diagnostic imaging of other parts of digestive tract] Onset: 4 01-16-2024 Episodic Other upper respiratory infections (1 source) Acute upper respiratory infection; Translations: [Acute upper respiratory infection, unspecified] 07-08-2023 Episodic Residual codes; unclassified (2 sources) Obstructive sleep apnea syndrome; Translations: [Obstructive sleep apnea (adult) (pediatric)] 10-10-2023 Chronic Residual codes; unclassified (2 sources) Obstructive sleep apnea (adult) (pediatric); Translations: [CHRISTOPHER (obstructive sleep apnea)] Onset: 4 Chronic Residual codes; unclassified (1 source) Past history of procedure; Translations: [Personal history of other medical treatment] 06-30-2023 Episodic Residual codes; unclassified (1 source) Non-smoker; Translations: [Other specified health status] 06-30-2023 Episodic Residual codes; unclassified (1 source) Personal history of other medical treatment; Translations: [History of echocardiogram] Onset: 4 Episodic Residual codes; unclassified (1 source) Other specified health status; Translations: [Non-smoker] Onset: 4 Episodic Past or Other Problems Problem Classification Problem Date Documented Da te Episodic/Chronic Abdominal pain (20 sources) Right upper quadrant pain; Translations: [Right upper quadrant pain] Onset: 12-17-2008 Resolved: 04-13-2023 Episodic Esophageal disorders (2 sources) Disorder of esophagus; Translations: [Disease of esophagus, unspecified] Onset: 01-16-2024 07-04-2023 Episodic Nausea and vomiting (20 sources) Nausea; Translations: [Nausea] Onset: 12-17-2008 Resolved: 04-13-2023 Episodic Other gastrointestinal disorders (1 source) Dysphagia, unspecified; Translations: [Dysphagia, unspecified type] Onset: 07-04-2023 Episodic Other lower respiratory disease (20 sources) Dyspnea on exertion; Translations: [Other forms of dyspnea] Onset: 06-14-2022 Episodic Other lower respiratory disease (20 sources) Snoring; Translations: [Snoring] Onset: 07-07-2022 Episodic Other lower respiratory disease (2 sources) Other forms of dyspnea; Translations: [POSADAS (dyspnea on exertion)] Onset: 06-14-2022 Episodic Other lower respiratory disease (1 source) Snoring; Translations: [Snoring] Onset: 07-07-2022 Episodic Other nutritional; endocrine; and metabolic disorders (20 sources) Body mass index 40+ - severely obese; Translations: [Morbid (severe) obesity due to excess calories] Onset: 04-21-2023 Resolved: 10-16-2024 04-21-2023 Chronic Spondylosis; intervertebral disc disorders; other back problems (20 sources) Chronic low back pain; Translations: [Lumbago with sciatica, right side] Onset: 08-24-2017 Episodic Substance-related disorders (15 sources) Marijuana user; Translations: [Cannabis use, unspecified, uncomplicated] Onset: 01-30-2024 01-30-2024 Episodic Results Test Name Value Interpretation Reference Range Facility POLYSOMNOGRAM (PSG)/HOME SLE EP APNEA TEST (HSAT)on 01-02-2025 POLYSOMNOGRAM (PSG)/HOME SLEEP APNEA TEST (HSAT) [facility] ??? [address] [place] [address] ; Split Study Report Name: DEMARCUS APPIAH Date of Study: 01/02/2025 F#: [id number] Age: 39 (: 1985) ESS: 11/22 Neck Circ. (cm): 55.0 Height (cm): 175.3 Weight (kg): 256.3 BMI: 83.4 Referring Provider: ROCIO LESLIE Mailcode: [id number] Sleep history: The patient is a 39 year old male with a history of waking up choking, gasping, or snorting, waking up with dry mouth or sore throat, multiple awakenings from sleep, excessive daytime sleepiness, fatigue, and daytime napping. The patient is a candidate for bariatric surgery. The patient endorses sleeping upright on the couch at home. Pertinent past medical history: Allergic rhinitis, Anxiety, Asthma, Class III obesity, Depression, Chronic headache, Hyperlipidemia, Hypertension Pertinent medications: Albuterol, Wellbutrin Sleep procedure: PSG w/CPAP or Bilevel PAP 4 or > addtl [facility] ([id number]) Procedure: The study was attended continuously by a medical technologist chemistry. The monitored parameters included: left (E1-M2) and right (E2-M1) EOG, frontal (F3-M2 and F4-M1), central (C3-M2 and C4-M1) and occipital (O1-M2 and O2-M1) EEG, mental and submental EMG, left and right anterior tibialis, left and right flexor digitorum superficialis EMG, single ECG waveform, snoring, continuous airflow with, thermistor, nasal pressure transducer, PAP interface, chest and abdominal effort, oxygen saturation, ETCO2, TcpCO2, and body position via video monitoring. Hypopnea definition: The peak signal excursions drop by >= 30% of pre-event baseline using nasal pressure (diagnostic study), PAP device flow (titration study) or an alternative hypopnea sensor (diagnostic study). The duration of the >= 30% drop in signal excursion is >= 10 seconds. There is a greater than or equal to 3% oxygen desaturation from pre-event baseline or the event is associated with an arousal. Respiratory Effort Related Arousal (RERA) definition: 10 seconds characterized by increasing respiratory effort or by flattening of the nasal pressure or PAP flow waveform leading to arousal from sleep when the sequence of breaths does not meet criteria for an apnea or hypopnea. Respiratory Disturbance Index (RDI) definition: RDI = (#apneas + #hypopneas + #RERAs) x 60 / TST. If AHI is 0.0, then RDI = RERA index. SLEEP ARCHITECTURE: The study started at 22:48:28 and ended at 06:13:31. Total sleep time (TST) was 306 minutes resulting in a sleep efficiency of 71.7% (total recording time (TRT) = 426 m). There were 45 awakenings with a total time awake after sleep onset of 110.0 minutes. The sleep latency was 10.5 minutes and the REM latency was 328 minutes. The patient spent 0.0% of sleep time in the supine position. The sleep stage percentages were 9.8% stage N1, 79.4% stage N2, 0.0% stage N3 and 10.8% REM sleep. There were 192 arousals, resulting in an arousal index of 37.6. There were 136 stage shifts. BASELINE RESPIRATORY DATA: Snoring was noted. There were 29 respiratory events consisting of 0 apneas, 29 hypopneas and 0 RERAs. The patient spent 0.0% of baseline sleep time in the supine position. The apnea-hypopnea index (AHI) was 13.3, the respiratory disturbance index (RDI) was 13.3, and the central-apnea index (ISAI) was 0.0. The off-supine AHI was 13.3. The non-REM AHI was 13.3 and the arousal index was 24.4. The mean oxygen saturation was 94.0%, with a minimum oxygen saturation of 87.0%. The patient spent 0.1% (0.1 min) of sleep time with an oxygen saturation below 90% and 0.1% (0.1 min) of sleep time with an oxygen saturation at or below 88%. The wake supine end-tidal CO2 (ETCO2) value was 40-41 mmHg. The maximum ETCO2 was 49 mmHg. The patient spent 0.0% of sleep time with an ETCO2 above 50 mmHg. The wake supine transcutaneous pCO2 (TcpCO2) value was 47-48 mmHg. The maximum TcpCO2 during sleep was 51 mmHg. The patient spent 0.1% of sleep time with a TcpCO2 above 50 mmHg. Ryan-Weinstein/Periodic Breathing was not present. Supplemental oxygen was not administered. REM-Time REM AHI NREM-Time NREM AHI Total-Time Total RDI Total AHI Supine 0.0 m -- 0.0 m -- 0.0 m -- 0.0 Off-Supine 0.0 m -- 130.5 m 13.3 130.5 m 13.3 13.3 Total 0.0 m -- 130.5 m 13.3 130.5 m 13.3 13.3 POSITIVE AIRWAY PRESSURE THERAPY: During the second part of the study, CPAP titration was initiated at 01:31:18 and ended at 05:54:46. The patient did not have difficulty falling back asleep. Snoring was eliminated at a CPAP setting of 6 cmH2O. There were 48 respiratory events consisting of 0 apneas 48 hypopneas and 0 RERAs. The mean oxygen saturation during the study was 92.0%, with a minimum oxygen saturation of 84.0%. The patient spent 4.7% (8.3 min) of sleep time with an oxygen saturation below 90% and 2.8% (5.0 min) of sleep time with an oxygen saturation at or below 88%. Th (more content not included)... Normal [facility] DEM[facility] APP[facility] ([id number]) 1985 M Date Time Provider Department 11/23/24 ELMIRA VILLALPANDO During your visit today, we recorded the following information about you: Birdie Polo 11/23/2024 12:04 PM Signed Appointment scheduled from consult box. Patient was notified via [employer] and advised to log in to review appointment details for scheduled appts on 01/29/25. Allergies As of Date: 11/23/2024 Noted Allergy Reaction BEES 09/26/2009 7 - Swelling SHRIMP 04/13/2023 7 - Swelling Date Reviewed: 10/16/2024 Reviewed by: Luli Hunt LPN - Fully Assessed Prescriptions as of 11/23/2024 - furosemide (LASIX) 40 mg tablet Take 1 tablet by mouth once daily. - buPROPion XL (WELLBUTRIN XL) 300 mg 24 hr tablet Take 1 tablet by mouth once daily. - albuterol HFA (VENTOLIN HFA) 90 mcg/actuation inhaler Inhale 2 puffs as instructed every 4 hours as needed for wheezing/shortness of breath. - mupirocin (BACTROBAN) 2 % ointment Apply 1 application to affected area every 12 hours as needed. - fluticasone-salmeterol HFA (ADVAIR HFA) 230-21 mcg/actuation inhaler Inhale 2 puffs as instructed two times a day. - omeprazole (PRILOSEC) 40 mg capsule Take 1 capsule by mouth once daily for 14 days. Problem List As Of Date 11/23/2024 Noted Resolved Abdominal pain, right upper quadrant [R10.11] 12/17/2008 04/13/2023 Obesity, Morbid [E66.01] 12/17/2008 Nausea [R11.0] 12/17/2008 04/13/2023 Abdominal pain, unspecified site [R10.9] 04/13/2023 Chronic midline low back pain with right-sided *08/24/2017 GERD without esophagitis [K21.9] 04/08/2022 Essential hypertension [I10] 04/08/2022 Lymphedema [I89.0] 04/08/2022 Asthma, moderate persistent, poorly-controlled *05/13/2022 POSADAS (dyspnea on exertion) [R06.09] 06/14/2022 Snoring [R06.83] 07/07/2022 Anxiety and depression [F41.9, F32.A] 07/07/2022 Obesity, Class III, BMI >= 40 [E66.813] 04/21/2023 10/16/2024 Marijuana use [F12.90] 01/30/2024 Encounter Status:Closed by BIRDIE POLO on 11/23/24 [facility] Auto Differential pane l (Bld)on 10-16-2024 Basophils (Bld) [#/Vol] [facility] [facility] Basophils/100 WBC (Bld) 0.1 % [facility] Differential cell count method Nom (Bld) Auto [facility] Eosinophils (Bld) [#/Vol] 0.1 10*3/uL [place] Eosinophils/100 WBC (Bld) 1.3 % [facility] Erythrocyte distribution width (RBC) [Ratio] 14.1 % 11.5 - 15.0 % [facility] Hematocrit (Bld) [Volume fraction] 42.9 % 39.0 - 51.0 % [facility] Hemoglobin (Bld) [Mass/Vol] 14 g/dL 13.0 - 17.0 g/dL [facility] Immature granulocytes (Bld) [#/Vol] 0.03 10*3/uL [facility] Immature granulocytes/100 WBC (Bld) 0.4 % [facility] Lymphocytes (Bld) [#/Vol] 1.82 10*3/uL [facility] Lymphocytes/100 WBC (Bld) 24.1 % [facility] MCH (RBC) [Entitic mass] 27.9 pg 26.0 - 34.0 pg [facility] MCHC (RBC) [Mass/Vol] 32.6 g/dL 30.5 - 36.0 g/dL [facility] MCV (RBC) [Entitic vol] 85.5 fL 80.0 - 100.0 fL [facility] Monocytes (Bld) [#/Vol] 0.5 10*3/uL [place] Monocytes/100 WBC (Bld) 6.6 % [facility] Neutrophils (Bld) [#/Vol] 5.09 10*3/uL [facility] Neutrophils/100 WBC (Bld) 67.5 % [facility] Nucleated RBC (Bld) [#/Vol] [facility] Nucleated RBC/100 WBC (Bld) [Ratio] 0 % /100 WBC [facility] Platelet mean volume (Bld) [Entitic vol] 10.3 fL 9.0 - 12.7 fL [facility] Platelets (Bld) [#/Vol] 274 10*3/uL [facility] RBC (Bld) [#/Vol] 5.02 10*6/uL 4.20 - 6.0 0 m/uL [facility] WBC (Bld) [#/Vol] 7.55 10*3/uL [facility] Basophils (Bld) [#/Vol] 10*3/uL Normal <0.11 [facility] Comment on above: Order Comment: Speci men Type: BLOOD SPECIMENOrdering Facility: [facility] Address: [address] [place], [place] [address] Performed By: #### 5 7021-8 ####[facility] LABCLIA [id number] [place] [address] [place] Basophils/100 WBC (Bld) 0.1 % Normal [facility] Comment on above: Order Comment: Speci men Type: BLOOD SPECIMENOrdering Facility: [facility] Address: [address] [place] [address] Performed By: #### 5 7021-8 ####[facility] LABCLIA [id number] [address], [place] [address] [place] Differential cell count method Nom (Bld) Auto Normal [facility] Comment on above: Order Comment: Speci men Type: BLOOD SPECIMENOrdering Facility: [facility] Address: [address] [place] [address] Performed By: #### 5 7021-8 ####[facility] LABCLIA [id number] [address], [place] [address] [place] Eosinophils (Bld) [#/Vol] 0.10 10*3/uL Normal <0.46 [facility] Comment on above: Order Comment: Speci men Type: BLOOD SPECIMENOrdering Facility: [facility] Address: [address] [place] [address] Performed By: #### 5 7021-8 ####[facility] LABCLIA [id number] [address], [place] [address] [place] Eosinophils/100 WBC (Bld) 1.3 % Normal [facility] Comment on above: Order Comment: Speci men Type: BLOOD SPECIMENOrdering Facility: [facility] Address: [address] [place] [address] Performed By: #### 5 7021-8 ####[facility] LABCLIA [id number] [place] [address] [place] Erythrocyte distribution width (RBC) [Ratio] 14.1 % Normal 11.5-15.0 [facility] Comment on above: Order Comment: Speci men Type: BLOOD SPECIMENOrdering Facility: [facility] Address: [address] [place] [address] Performed By: #### 5 7021-8 ####[facility] LABCLIA [id number] [place] [address] [place] Hematocrit (Bld) [Volume fraction] 42.9 % Normal 39.0-51.0 [facility] Comment on above: Order Comment: Speci men Type: BLOOD SPECIMENOrdering Facility: [facility] Address: [address] [place] [address] Performed By: #### 5 7021-8 ####[facility] LABIA [id number] [place] [address] [place] Hemoglobin (Bld) [Mass/Vol] 14.0 g/dL Normal 13.0-17.0 [facility] Comment on above: Order Comment: Speci men Type: BLOOD SPECIMENOrdering Facility: [facility] Address: [address] [place] [address] Performed By: #### 5 7021-8 ####[facility] LABIA [id number] [place] [address] [place] Immature granulocytes (Bld) [#/Vol] 0.03 10*3/uL Normal <0.10 [facility] Comment on above: Order Comment: Speci men Type: BLOOD SPECIMENOrdering Facility: [facility] Address: [address] [place] [address] Performed By: #### 5 7021-8 ####[facility] LABCLIA [id number] [place] [address] [place] Immature granulocytes/100 WBC (Bld) 0.4 % Normal [facility] Comment on above: Order Comment: Speci men Type: BLOOD SPECIMENOrdering Facility: [facility] Address: [address] [place] [address] Performed By: #### 5 7021-8 ####[facility] LABCLIA [id number] [place] [address] [place] Lymphocytes (Bld) [#/Vol] 1.82 10*3/uL Normal 1.00-4.00 [facility] Comment on above: Order Comment: Speci men Type: BLOOD SPECIMENOrdering Facility: [facility] Address: [address] [place] [address] Performed By: #### 5 7021-8 ####[facility] LABCLIA [id number] [address] [place] Lymphocytes/100 WBC (Bld) 24.1 % Normal [facility] Comment on above: Order Comment: Speci men Type: BLOOD SPECIMENOrdering Facility: [facility] Address: [address] [place] [address] Performed By: #### 5 7021-8 ####[facility] LABCLIA [id number] [place] [address] [place] MCH (RBC) [Entitic mass] 27.9 pg Normal 26.0-34.0 [facility] Comment on above: Order Comment: Speci men Type: BLOOD SPECIMENOrdering Facility: [facility] Address: [address] [place] [address] Performed By: #### 5 7021-8 ####[facility] LABCLIA [id number] [place] [address] [place] MCHC (RBC) [Mass/Vol] 32.6 g/dL Normal 30.5-36.0 [facility] Comment on above: Order Comment: Speci men Type: BLOOD SPECIMENOrdering Facility: [facility] Address: [address] [place] [address] Performed By: #### 5 7021-8 ####[facility] LABCLIA [id number] [place] [address] [place] MCV (RBC) [Entitic vol] 85.5 fL Normal 80.0-100.0 [facility] Comment on above: Order Comment: Speci men Type: BLOOD SPECIMENOrdering Facility: [facility] Address: [address] [place] [address] Performed By: #### 5 7021-8 ####[facility] LABCLIA [id number] [place] [address] [place] Monocytes (Bld) [#/Vol] 0.50 10*3/uL Normal <0.87 [facility] Comment on above: Order Comment: Speci men Type: BLOOD SPECIMENOrdering Facility: [facility] Address: [address] [place] [address] Performed By: #### 5 7021-8 ####[facility] LABCLIA [id number] [place] [address] [place] Monocytes/100 WBC (Bld) 6.6 % Normal [facility] Comment on above: Order Comment: Speci men Type: BLOOD SPECIMENOrdering Facility: [facility] Address: [address] [place] [address] Performed By: #### 5 7021-8 ####[facility] LABCLIA [id number] [place] [address] [place] Neutrophils (Bld) [#/Vol] 5.09 10*3/uL Normal 1.45-7.50 [facility] Comment on above: Order Comment: Speci men Type: BLOOD SPECIMENOrdering Facility: [facility] Address: [address] [place] [address] Performed By: #### 5 7021-8 ####[facility] LABCLIA [id number] [place] [address] [place] Neutrophils/100 WBC (Bld) 67.5 % Normal [facility] Comment on above: Order Comment: Speci men Type: BLOOD SPECIMENOrdering Facility: [facility] Address: [address] [place] [address] Performed By: #### 5 7021-8 ####[facility] LABCLIA [id number] [place] [address] [place] Nucleated RBC (Bld) [#/Vol] 10*3/uL Normal <0.01 [facility] Comment on above: Order Comment: Speci men Type: BLOOD SPECIMENOrdering Facility: [facility] Address: [address] [place] [address] Performed By: #### 5 7021-8 ####[facility] LABIA [id number] [place] [address] [place] Nucleated RBC/100 WBC (Bld) [Ratio] 0.0 /100 WBC Normal [facility] Comment on above: Order Comment: Speci men Type: BLOOD SPECIMENOrdering Facility: [facility] Address: [address] [place] [address] Performed By: #### 5 7021-8 ####[facility] LABIA [id number] [place] [address] [place] Platelet mean volume (Bld) [Entitic vol] 10.3 fL Normal 9.0-12.7 [facility] Comment on above: Order Comment: Speci men Type: BLOOD SPECIMENOrdering Facility: [facility] Address: [address] [place] [address] Performed By: #### 5 7021-8 ####[facility] LABIA [id number] [place] [address] [place] Platelets (Bld) [#/Vol] 274 10*3/uL Normal 150-400 [facility] Comment on above: Order Comment: Speci men Type: BLOOD SPECIMENOrdering Facility: [facility] Address: [address] [place] [address] Performed By: #### 5 7021-8 ####[facility] LABCLIA [id number] [address] [place] [address] [place] RBC (Bld) [#/Vol] 5.02 10*6/uL Normal 4.20-6.00 [facility] Comment on above: Order Comment: Speci men Type: BLOOD SPECIMENOrdering Facility: [facility] Address: [address] [place] [address] Performed By: #### 5 7021-8 ####[facility] LABIA [id number] [place] [address] [place] WBC (Bld) [#/Vol] 7.55 10*3/uL Normal 3.70-11.00 [facility] Comment on above: Order Comment: Speci men Type: BLOOD SPECIMENOrdering Facility: [facility] Address: [address] [place] [address] Performed By: #### 5 7021-8 ####[facility] LABIA [id number] [address] [place] CNOVon 10-16-2024 [facility] DEMARCUS APPIAH ([id number]) 1985 M Date Time Provider Department 10/16/24 1:40 PM [facility] During your visit today, we recorded the following information about you: Pulse Blood pressure Weight 78/minute 130/72 263.5 kg David Grissom MD 10/16/2024 2:05 PM Signed - Apply Bactroban (mupirocin) ointment to the open area on your right thigh once or twice daily after cleaning; keep the skin dry and covered as directed. - Clean the area gently each day with mild soap and water, pat dry before applying ointment. - Watch for signs of infection--new or worsening redness, warmth, swelling, red streaks, increased pain, or fever--and contact the office immediately if these occur. - Attend wound care appointments at [facility] for ongoing lymphedema and venous stasis management; we will send the referral to your insurance?approved provider. - Schedule and attend a cardiology follow-up with Dr. eMndiola in [place]; our office will help you set this up. - Resume your bariatric consultation (last seen 04/22/23) to discuss weight-loss options and possible GLP-1 therapy. - Arrange and attend a sleep medicine evaluation to explore ways to improve your sleep quality and assess for sleep apnea. - Continue your pulmonary follow-up as previously arranged. - Continue taking your prescribed diuretic (water pill), heartburn medication, and Wellbutrin; no blood pressure pills are needed right now since your readings are stable. - Complete the blood tests today as ordered by the provider. - Plan to return for a routine follow-up in six months; keep all specialist appointments and let us know if any new concerns arise before then. David Grissom MD 10/16/2024 3:01 PM Signed Demarcus Appiah is a 38-year-old male with a history of lymphedema, obesity, HTN, anxiety, and depression, presenting for follow-up. HPI Lymphedema: - Chronic lymphedema in bilateral lower extremities. - Reports skin rot on the right thigh with serous fluid drainage. - Denies erythema, warmth, or pain; occasionally stings when touched. - Cleans area with soap and water, applies ointment to promote scabbing. - Previous use of antibiotic cream provided relief. Obesity: - Attempted weight loss through diet and exercise over the past 6 months. - Prefers cardio exercises over weight lifting. - Expresses interest in bariatric surgery; previously seen by bariatrics on 04/22/23. - Recent EGD and colonoscopy performed; treated for H. pylori. - Did not follow up [facility] bariatrics like he was to HTN: - Demarcus has not taken antihypertensive medication for several months. - Continues to take diuretics. Anxiety and Depression: - Currently taking Wellbutrin. - Experiences fluctuating anxiety and depression. - Reports significant stress due to mother's stage 3 lung cancer diagnosis. - Describes mother as best friend and rock. - Feels overwhelmed by the loss of several close friends. - Tends to suppress emotions. - Discussed counseling. Sleep Apnea: - Difficulty sleeping; prefers sleeping at an 80-degree angle. - Previous sleep study was inconclusive due to discomfort with hotel bed. - They were unable to find a [facility] location that could accomodate his weight. MEDICATIONS: Current Outpatient Medications Medication Sig furosemide (LASIX) 40 mg tablet Take 1 tablet by mouth once daily. buPROPion XL (WELLBUTRIN XL) 300 mg 24 hr tablet Take 1 tablet by mouth once daily. albuterol HFA (VENTOLIN HFA) 90 mcg/actuation inhaler Inhale 2 puffs as instructed every 4 hours as needed for wheezing/shortness of breath. mupirocin (BACTROBAN) 2 % ointment Apply 1 application to affected area every 12 hours as needed. fluticasone-salmeterol HFA (ADVAIR HFA) 230-21 mcg/actuation inhaler Inhale 2 puffs as instructed two times a day. omeprazole (PRILOSEC) 40 mg capsule Take 1 capsule by mouth once daily for 14 days. No current facility-administered medications for this visit. ALLERGIES: ALLERGIES Allergen Reactions Bees Swelling Shrimp Swelling PAST MEDICAL HISTORY Diagnosis Date Abdominal pain, unspecified site Allergies Asthma (HCC) Depression POSADAS (dyspnea on exertion) GERD (gastroesophageal reflux disease) History of echocardiogram 07/05/2022 EF = 55 ? 5%. There is trace tricuspid valve regurgitation. There is no pericardial effusion. There is an epicardial fat pad. HTN (hypertension) Lymphedema Morbid obesity with BMI of 70 and over, adult (HCC) PAST SURGICAL HISTORY Procedure Laterality Date PAST SURGICAL HISTORY OF thyroid surgery x 2 FAMILY HISTORY Problem Relation Age of Onset Ischemic Heart Disease Mother 53 LAD lesion/CAD other (lung cancer) Mother other (unknown) Father None Other Colon Cancer No Family History Social History Tobacco Use Smok (more content not included)... Normal [facility] Comprehensive metabolic 2000 panelon 10-16-2024 Albumin [Mass/Vol] 4.3 g/dL Normal 3.9-4.9 [facility] Comment on above: Order Comment: Speci men Type: BLOOD SPECIMENOrdering Facility: [facility] Address: [address] [place] [address] Performed By: #### 2 4323-8, 66385-3 ####[facility] LABCLIA [id number] [place] [address] [place] ALP [Catalytic activity/Vol] 80 U/L Normal 38-113 [facility] Comment on above: Order Comment: Speci men Type: BLOOD SPECIMENOrdering Facility: [facility] Address: [address] [place] [id number] Performed By: #### 2 4323-8, 32646-0 ####[facility] LABCLIA [id number] [address] [place] [address] [place] ALT [Catalytic activity/Vol] 29 U/L Normal 10-54 [facility] Comment on above: Order Comment: Speci men Type: BLOOD SPECIMENOrdering Facility: [facility] Address: [address] [place], [place] [address] Performed By: #### 2 4323-8, 07889-5 ####[facility] LABCLIA [id number] [address], [facility] [place] Anion gap [Moles/Vol] 14 mmol/L Normal 8-15 [facility] Comment on above: Order Comment: Speci men Type: BLOOD SPECIMENOrdering Facility: [facility] Address: [address] [place], [place] [address] Performed By: #### 2 4323-8, 40535-5 ####[facility] LABCLIA [id number] [address], [facility] [place] AST [Catalytic activity/Vol] 23 U/L Normal 14-40 [facility] Comment on above: Order Comment: Speci men Type: BLOOD SPECIMENOrdering Facility: [facility] Address: [address] [place] [id number] Performed By: #### 2 4323-8, 55149-3 ####[facility] LABCLIA [id number] [place] [address] [place] Bilirubin [Mass/Vol] 0.5 mg/dL Normal 0.2-1.3 [facility] Comment on above: Order Comment: Speci men Type: BLOOD SPECIMENOrdering Facility: [facility] Address: [address] [place], [place] [address] Performed By: #### 2 4323-8, 97105-5 ####[facility] LABCLIA [id number] [address] [place] [address] [place] Calcium [Mass/Vol] 9.5 mg/dL Normal 8.5-10.2 [facility] Comment on above: Order Comment: Speci men Type: BLOOD SPECIMENOrdering Facility: [facility] Address: [address] [place], [place] [address] Performed By: #### 2 4323-8, 78613-1 ####[facility] LABCLIA [id number] [address] [place] [address] [place] Chloride [Moles/Vol] 103 mmol/L Normal 98-107 [facility] Comment on above: Order Comment: Speci men Type: BLOOD SPECIMENOrdering Facility: [facility] Address: [address] [place], [place] [address] Performed By: #### 2 432-8, 71797-9 ####[facility] LABCLIA [id number] [address] [place] [address] [place] CO2 [Moles/Vol] 22 mmol/L Normal 22-30 [facility] Comment on above: Order Comment: Speci men Type: BLOOD SPECIMENOrdering Facility: [facility] Address: [address] [place], [place] [address] Performed By: #### 2 4323-8, 09301-9 ####[facility] LABCLIA [id number] [facility] [address] [place] [address] [place] Creatinine [Mass/Vol] 0.92 mg/dL Normal 0.73-1.22 [facility] Comment on above: Order Comment: Speci men Type: BLOOD SPECIMENOrdering Facility: [facility] Address: [address] [place], [place] [address] Performed By: #### 2 4323-8, 86207-4 ####[facility] LABCLIA [id number] [place] [address] [place] Creatinine and Glomerular filtration rate.predicted panel (S/P/Bld) 108 mL/min/1.73m??? Normal >=60 [facility] Comment on above: Order Comment: Jasmin nolan Type: BLOOD SPECIMENOrdering Facility: [facility] Address: [address] [place] [address] Result Comment: Stephany mated Glomerular Filtration Rate (eGFR) is calculated using the 2020 CKD-EPI creatinine equation. This equation utilizes serum creatinine, sex, and age as parameters. The creatinine assay has traceable calibration to isotope dilution-mass spectrometry. Refer to KDIGO guidelines for clinical interpretation. In patients with unstable renal function, e.g. those with acute kidney injury, the eGFR may not accurately reflect actual GFR. Performed By: #### 2 4323-8, 92966-4 ####[facility] LABCLIA [id number] [place] [address] [place] Glucose [Mass/Vol] 88 mg/dL Normal 74-99 [facility] Comment on above: Order Comment: Jasmin nolan Type: BLOOD SPECIMENOrdering Facility: [facility] Address: [address] [place] [address] Result Comment: The [place] Diabetes Association (ADA) provides guidance for cutoff values for fasting glucose and random glucose. The ADA defines fasting as no caloric intake for at least 8 hours. Fasting plasma glucose results between 100 to 125 mg/dL indicate increased risk for diabetes (prediabetes). Fasting plasma glucose results greater than or equal to 126 mg/dL meet the criteria for diagnosis of diabetes. In the absence of unequivocal hyperglycemia, results should be confirmed by repeat testing. In a patient with classic symptoms of hyperglycemia or hyperglycemic crisis, random plasma glucose results greater than or equal to 200 mg/dL meet the criteria for diagnosis of diabetes. Reference: Standards of Medical Care in Diabetes 2016, [place] Diabetes Association. Diabetes Care. 2016.39(Suppl 1). Performed By: #### 2 4323-8, 69511-6 ####[facility] LABCLIA [id number] [place] [id number] [place] Potassium [Moles/Vol] 4.1 mmol/L Normal 3.7-5.1 [facility] Comment on above: Order Comment: Speci men Type: BLOOD SPECIMENOrdering Facility: [facility] Address: [address] [place] [address] Performed By: #### 2 4323-8, 43743-5 ####[facility] LABCLIA [id number] [place] [address] [place] Protein [Mass/Vol] 8.2 g/dL High 6.3-8.0 [facility] Comment on above: Order Comment: Speci men Type: BLOOD SPECIMENOrdering Facility: [facility] Address: [address] [place] [address] Performed By: #### 2 4323-8, 39235-3 ####[facility] LABCLIA [id number] [place] [address] [place] Sodium [Moles/Vol] 139 mmol/L Normal 136-144 [facility] Comment on above: Order Comment: Speci men Type: BLOOD SPECIMENOrdering Facility: [facility] Address: [address] [place] [address] Performed By: #### 2 4323-8, 52451-2 ####[facility] LABCLIA [id number] [place] [address] [place] Urea nitrogen [Mass/Vol] 9 mg/dL Normal 9-24 [facility] Comment on above: Order Comment: Speci men Type: BLOOD SPECIMENOrdering Facility: [facility] Address: [address] [place] [address] Performed By: #### 2 4323-8, 20359-3 ####[facility] LABCLIA [id number] [place] [id number] [place] HbA1c (Bld)on 10-16-2024 Average glucose Estimated from glycated hemoglobin (Bld) [Mass/Vol] 105 mg/dL [facility] Comment on above: eAG: (Estimated aver age glucose) is a calculated value from HgbA1c and is congressional representative of the average blood glucose level in the last 2-3 month period. HbA1c (Bld) [Mass fraction] 5.3 % 4.3 - 5.6 % [facility] Comment on above: [place] Diabetes As sociation guidelines indicate that patients with HgbA1c in the range 5.7-6.4% are at increased risk for development of diabetes, and intervention by lifestyle modification may be beneficial. HgbA1c greater or equal to 6.5% is considered diagnostic of diabetes. [facility] Average glucose Estimated from glycated hemoglobin (Bld) [Mass/Vol] 105 mg/dL Normal [facility] Comment on above: Order Comment: Jasmin nolan Type: BLOOD SPECIMENOrdering Facility: [facility] Address: [address] [place] [address] Result Comment: eAG: (Estimated average glucose) is a calculated value from HgbA1c and is congressional representative of the average blood glucose level in the last 2-3 month period. Performed By: #### 5 5454-3 ####[facility] [id number] [address] STATES OF [facility] HbA1c (Bld) [Mass fraction] 5.3 % Normal 4.3-5.6 [facility] Comment on above: Order Comment: Jasmin nolan Type: BLOOD SPECIMENOrdering Facility: [facility] Address: [address] [place] [address] Result Comment: Amer ican Diabetes Association guidelines indicate that patients with HgbA1c in the range 5.7-6.4% are at increased risk for development of diabetes, and intervention by lifestyle modification may be beneficial. HgbA1c greater or equal to 6.5% is considered diagnostic of diabetes. Performed By: #### 5 5454-3 ####[facility] LABIA [id number] [place] [id number] [place] Lipid 1996 panelon 5 Cholesterol [Mass/Vol] 221 mg/dL High <200 [facility] Comment on above: Order Comment: Jasmin nolan Type: BLOOD SPECIMENOrdering Facility: [facility] Address: [address] [place] [address] Result Comment: <200 mg/dL, Desirable 200-239 mg/dL, Borderline high >239 mg/dL, High Performed By: #### 2 4323-8, 51771-8 ####[facility] LABCLIA [id number] [address] [place] Cholesterol in HDL [Mass/Vol] 30 mg/dL Low >39 [facility] Comment on above: Order Comment: Speci men Type: BLOOD SPECIMENOrdering Facility: [facility] Address: [address] [place] [address] Result Comment: 40-5 9 mg/dL, Acceptable >59 mg/dL, High: Negative risk factor for coronary heart disease <40 mg/dL, Low: Positive risk factor for coronary heart disease Performed By: #### 2 4323-8, ####[facility] LABCLIA [id number] [address] [place] Cholesterol in LDL [Mass/Vol] 169 mg/dL High <100 [facility] Comment on above: Order Comment: Speci men Type: BLOOD SPECIMENOrdering Facility: [facility] Address: [address] [place] [address] Result Comment: <100 mg/dL, Optimal 100-129 mg/dL, Near optimal/above optimal 130-159 mg/dL, Borderline high 160-189 mg/dL, High >189 mg/dL, Very high Secondary prevention optimal LDL Cholesterol levels are recommended to be <70 mg/dL LDL cholesterol is calculated using the Dawson-NIH equation. Performed By: #### 2 4323-8, ####[facility] LABCLIA [id number] [place] [id number] [place] Cholesterol in LDL/Cholesterol in HDL [Mass ratio] 5.63 {ratio} High <2.54 [facility] Comment on above: Order Comment: Speci men Type: BLOOD SPECIMENOrdering Facility: [facility] Address: [address] [place] [address] Result Comment: Refe rence: 1. National Cholesterol Education Program ATP III Guideline At-A-Glance Quick Desk Reference: National Heart, Lung, and Blood [place]. National Institutes of Health. 2001: NIH Publication No. 01-3305. 2. An International Atherosclerosis Society position paper: global recommendations for the management of dyslipidemia: executive summary, Atherosclerosis. 2014: 232(2):410-413. Performed By: #### 2 4323-8, 53623-0 ####[facility] LABCLIA [id number] [place] [address] [place] Cholesterol in VLDL [Mass/Vol] 23 mg/dL Normal <30 [facility] Comment on above: Order Comment: Speci men Type: BLOOD SPECIMENOrdering Facility: [facility] Address: [address] [place] [address] Performed By: #### 2 4323-8, 65781-8 ####[facility] LABCLIA [id number] [place] [address] [place] Cholesterol non HDL [Mass/Vol] 191 mg/dL High <130 [facility] Comment on above: Order Comment: Speci men Type: BLOOD SPECIMENOrdering Facility: [facility] Address: [address] [place] [address] Result Comment: <130 mg/dL, Optimal 130-159 mg/dL, Near optimal/above optimal 160-189 mg/dL, Borderline high 190-219 mg/dL, High >219 mg/dL, Very high Secondary prevention optimal non HDL Cholesterol levels are recommended to be <100 mg/dL Performed By: #### 2 4323-8, 15726-9 ####[facility] LABIA [id number] [address] [address] [place] Cholesterol.total/C holesterol in HDL [Mass ratio] 7.37 {ratio} High <5.10 [facility] Comment on above: Order Comment: Speci men Type: BLOOD SPECIMENOrdering Facility: [facility] Address: [address] [place] [address] Performed By: #### 2 4323-8, 35756-2 ####[facility] LABCLIA [id number] [place] [id number] [place] FASTING TIME 12 hrs Normal [facility] Comment on above: Order Comment: Speci men Type: BLOOD SPECIMENOrdering Facility: [facility] Address: [address] [place] [address] Performed By: #### 2 4323-8, 33953-0 ####[facility] LABCLIA [id number] [place] [address] [place] Triglyceride [Mass/Vol] 118 mg/dL Normal <150 [facility] Comment on above: Order Comment: Speci men Type: BLOOD SPECIMENOrdering Facility: [facility] Address: [address] [place] [address] Result Comment: <150 mg/dL, Normal 150-199 mg/dL, Borderline high 200-499 mg/dL, High >499 mg/dL, Very high Performed By: #### 2 4323-8, 56510-0 ####[facility] LABCLIA [id number] [place] [address] [place] CNOVon 04-16-2024 CNOV Office Visit (FAMPWS ) DEMARCUS APIPAH ([id number]) 1985 M Date Time Provider Department 04/16/24 1:40 PM DAVID GRISSOM FAMPWS During your visit today, we recorded the following information about you: Pulse Blood pressure Weight 82/minute 118/72 260.9 kg David Grissom MD 04/16/2024 2:34 PM Signed Patient presents with: 6 Month Exam HPI: Patient presents today for office visit for follow up. Bp is stable. Edema seems stable mostly stable. Right leg may be a little bit worse. Had EGD and c-scope. + for H pylori completed treatment. Still unable to complete sleep study they are unable to accommodate him with any sort head of bed elevation. He talked to several people about this. He snores. Unsure if he is apneic. He is fatigued during the day Discussed we could have him see sleep med to see if they have any ideas. Pulm: Stable. This time of year is a little worse using albuterol at night. Has not been back to seep pulmonary. Saw cardiology in the last year. Discussed that he has a my chart link to contact bariatrics to get set up for follow up. Note was copied and pasted, without alteration from:last ov: HTN: Does not monitor his BP at home Admits to not taking his Lisinopril for awhile Tried taking med in the morning and states it was making him feel funky Tried taking it at night but states he felt the same He's not entirely sure it was the Lisinopril making him feel that way Denies chest pain Occ shortness of breath Denies headaches and dizziness Denies palpitations and syncope Some edema to B/L feet/ankles and legs goes away after keeping feet up Continues on Lasix Using inhalers prn. Breathing is stable Has canceled his last two sleep studies. He is unable to complete due to not being able to sleep on his back. Colonoscopy was canceled also due to not having a bed big enough to accommodate him. GERD: Continues on Omeprazole No current symptoms Heartburn controlled No GI issues Scheduled with Gastro on 10/14/23 Again discussed follow up with bariatrics. He has an abnormal upper gi. Needs evaulated first per bariatrics. Was seeing therapy for his lymphedema. Has since stopped going. Leg wraps and massages aren't working for him. Leg wraps don't fit around his legs. Discussed weight loss meds. Discussed costs associated with them. MEDICATIONS: Current Outpatient Medications Medication Sig omeprazole (PRILOSEC) 40 mg capsule Take 1 capsule by mouth once daily for 14 days. peg 3350-Electrolytes (GOLYTELY) 236-22.74-6.74 -5.86 gram suspension Refer to printed patient instructions that will be mailed to you. furosemide (LASIX) 40 mg tablet Take 1 tablet by mouth once daily. fluticasone-salmeterol HFA (ADVAIR HFA) 230-21 mcg/actuation inhaler inhale 2 puffs by mouth and INTO THE LUNGS twice a day buPROPion XL (WELLBUTRIN XL) 300 mg 24 hr tablet Take 1 tablet by mouth once daily. lisinopril (ZESTRIL) 10 mg tablet Take 1 tablet by mouth once daily. (Patient not taking: Reported on 01/16/2024) albuterol HFA (VENTOLIN HFA) 90 mcg/actuation inhaler Inhale 2 Puffs as instructed every 4 hours as needed for wheezing/shortness of breath. No current facility-administered medications for this visit. ALLERGIES: ALLERGIES Allergen Reactions Bees Swelling Shrimp Swelling PAST MEDICAL HISTORY Diagnosis Date Abdominal pain, unspecified site Allergies Asthma Depression POSADAS (dyspnea on exertion) GERD (gastroesophageal reflux disease) History of echocardiogram 07/05/2022 EF = 55 ? 5%. There is trace tricuspid valve regurgitation. There is no pericardial effusion. There is an epicardial fat pad. HTN (hypertension) Lymphedema Morbid obesity with BMI of 70 and over, adult (HCC) PAST SURGICAL HISTORY Procedure Laterality Date PAST SURGICAL HISTORY OF thyroid surgery x 2 FAMILY HISTORY Problem Relation Age of Onset Ischemic Heart Disease Mother 53 LAD lesion/CAD other (lung cancer) Mother other (unknown) Father None Other Colon Cancer No Family History Social History Tobacco Use Smoking status: Never Smokeless tobacco: Never Vaping Use Vaping status: Never Used Substance Use Topics Alcohol use: Yes Comment: Occasional, biweekly Drug use: Yes Frequency: 7.0 times per week Types: Marijuana Reviewed current medications, allergies, past medical history, surgical history, family history and social history today. REVIEW OF SYSTEMS All other reviewed and negative other than HPI. HEALTH MAINTENANCE: Reviewed health maintenance issues today and recommended the following in detail. BP Controlled (<130/80) Never done DTaP,Tdap,Td Vaccine(1 - Tdap) Never done Hepatitis B Vaccine(1 of 3 - 19+ 3-dose series) Never done Pneumococcal Vaccine(1 of 2 - PCV) Never done Influenza Vaccine(1) due on 01/01/2024 Covid-19 Vacc (more content not included)... Normal [facility] ANES POSTPROC EVALon 02-09-2 024 ANES POSTPROC EVAL HNO ID: [id number] Author: ALLISON REGALADO MD Service: Anesthesiology Author Type: Anesthesiologist Type: Anesthesia Postprocedure Evaluation Filed: 02/10/2024 12:42 Note Text: POST ANESTHESIA EVALUATION NOTE : 1985 Procedure Summary Date: 02/10/24 Room / Location: [facility] Anesthesia Start: 811 Anesthesia Stop: 840 Procedures: EGD DIAGNOSTIC COLONOSCOPY DIAGNOSTIC Diagnosis: Epigastric pain Abnormal esophagram Rectal bleeding (Preop assessment bariatric surgery morbid obesity) (Screening for colorectal malignant neoplasm) Scheduled Providers: Elmira De Souza DO Responsible Provider: Allison Regalado MD Anesthesia Type: MAC ASA Status: 3 Anesthesia Type: MAC Last Vitals Vitals Value Taken Time BP 114/60 02/10/24 0908 Temp 36.3 ?C (97.3 ?F) 02/10/24 0834 HR SpO2 82 02/10/24 0908 Resp 26 02/10/24 0908 SpO2 94 % 02/10/24 09 Post Anesthesia Patient Status Patient Evaluation: PACU. PACU/ICU Patient Condition: stable. Anticipated Disposition: phase 2 then home. Neurological Status: aware and responsive. Pulmonary Status: breathing comfortably on room air Airway Control: returned to baseline unsupported. Cardiovascular Status: stable. Pain Management: clinically adequate Postoperative Hydration: acceptable. Intraoperative Events: no significant anesthesia events Post Operative Nausea/Vomiting Status: no significant post operative nausea or vomiting Recommendation: continue current plan of care. Anesthesia Observations No Documentation SIGNATURE: Allison Regalado MD PATIENT NAME: Demarcus Appiah DATE: February 10, 2024 TIME: 12:42 PM CSN: [id number] [facility] ANES PRE-OPon 02-10-2024 ANES PRE-OP HNO ID: [id number] Author: ALLISON REGALADO MD Service: Anesthesiology Author Type: Anesthesiologist Type: Anesthesia Preprocedure Evaluation Filed: 02/10/2024 08:44 Note Text: ANESTHESIOLOGY DAY OF SURGERY NOTE : 1985 Procedure Information Date/Time: 02/10/2415 Scheduled providers: Elmira De Souza DO Procedures: EGD DIAGNOSTIC COLONOSCOPY DIAGNOSTIC Location: [facility] Estimated body mass index is 84.68 kg/m? as calculated from the following: Height as of 01/30/24: 175.3 cm (5' 9). Weight as of 01/30/24: 260.1 kg (573 lb 6.7 oz). Most recent hematocrit and potassium results: Hematocrit 47.5 04/13/2023 Potassium 4.8 05/16/2023 Relevant Problems CARDIO (+) POSADAS (dyspnea on exertion) (+) Essential hypertension GI (+) GERD without esophagitis PULMONARY (+) POSADAS (dyspnea on exertion) I - PHYSICAL EVALUATION AIRWAY Patient intubated: No. Tracheostomy tube not present Mallampati: I. TM distance: >3 FB. Neck ROM: full ROM without neurological symptoms. Mouth opening: adequate. Short neck: no. Thick neck: yes Gtz present: yes DENTAL Dental findings: chipped. II - ANESTHESIA PLAN ASA Score: 4 Anesthetic Plan: MAC The patient is a current smoker. NPO Status: adequate Anesthetic plan additional comments: BMI 84 Asthma Depression/anxiety Hypertension Marijuana use Giving glycopyrrolate and precedex in preoperative area.. Beta Amari Monitoring Plan Monitoring plan: standard ASA. Post Procedure Analgesic Plan Postoperative analgesic plan: multimodal analgesia. Informed Consent Anesthetic risks, benefits, alternatives, personnel and consent discussed: yes. Patient / Responsible Libertarian agrees to proceed: yes Patient / Surrogate agrees to blood products: blood products not planned DNR status not reviewed with patient and/or family prior to surgery. Significant changes in the patient condition since the History and Physical, not otherwise documented in primary service progress note: no. Potential Anesthesia issues that may suggest increased risk of complications or contraindication to planned procedure: surgical field avoidance. Potential difficult positioning, potential difficult airway managment field avoidance. The anesthetic will be complicated due to field avoidance because the surgical procedure will be around the airway (head, neck, or shoulder girdle). There will be no direct access to the patient's airway therefore increasing the technical difficulty. Vitals Value Taken Time BP 122/77 02/10/24715 Pulse 76 02/10/24715 Resp 16 02/10/24715 Temp 36.6 ?C (97.9 ?F) 02/10/24 07 SpO2 95 % 02/10/24 07 Outpatient Medications as of 02/10/2024 Medication Sig peg 3350-Electrolytes (GOLYTELY) 236-22.74-6.74 -5.86 gram suspension Refer to printed patient instructions that will be mailed to you. fluticasone-salmeterol HFA (ADVAIR HFA) 230-21 mcg/actuation inhaler inhale 2 puffs by mouth and INTO THE LUNGS twice a day buPROPion XL (WELLBUTRIN XL) 300 mg 24 hr tablet Take 1 tablet by mouth once daily. albuterol HFA (VENTOLIN HFA) 90 mcg/actuation inhaler Inhale 2 Puffs as instructed every 4 hours as needed for wheezing/shortness of breath. furosemide (LASIX) 40 mg tablet Take 1 tablet by mouth once daily. omeprazole (PRILOSEC) 20 mg capsule Take 1 capsule by mouth daily before breakfast. 1/2 hr before meal. (Patient not taking: Reported on 01/16/2024) lisinopril (ZESTRIL) 10 mg tablet Take 1 tablet by mouth once daily. (Patient not taking: Reported on 01/16/2024) Facility-Administered Medications as of 02/10/2024 Medication Dose Route Frequency glycopyrrolate injection (ROBINUL) INTRAVENOUS PRN dexmedeTOMIDine 70.7 mcg bolus from bag/syringe (PRECEDEX) 1 mcg/kg/dose ([place]) INTRAVENOUS ONCE dexmedeTOMIDine 400 mcg in NaCl 0.9% 100 mL (PRECEDEX) 0.2-0.7 mcg/kg/hr ([place]) INTRAVENOUS CONTINUOUS I have interviewed and examined the patient. I have reviewed the medical record and/or the pre-anesthesia evaluation, pertinent labs, and test results. This contains updated information obtained within 48 hours of Surgery/Procedure. SIGNATURE: Allison Regalado MD PATIENT NAME: Demarcus Appiah DATE: February 10, 2024 TIME: 7:57 AM CSN: [id number] [facility] Colonoscopyon 02-10-2024 Colonoscopy [facility] Gastrointestinal Endoscopy Patient Name: Demarcus Appiah Procedure Date: 02/10/2024 8:01 AM Date of : 1985 Admit Type: Outpatient Age: 38 Room: [place] [address] Gender: Male Note Status: Finalized Attending MD: Elmira De Souza DO, [id number] Procedure: Colonoscopy Indications: Screening for colorectal malignant neoplasm Providers: Elmira De Souza DO Patient Profile: This is a 38 year old male. Refer to note in patient chart for documentation of history and physical. Last Colonoscopy: none. The patient's first colonoscopy is today. Referring Physician: Lorraine Coronado (Referring MD) Medicines: See the Anesthesia note for documentation of the administered medications Complications: No immediate complications. Requesting Provider: Procedure: Pre-Anesthesia Assessment: - Prior to the procedure, a History and Physical was performed, and patient medications and allergies were reviewed. The patient is competent. The risks and benefits of the procedure and the sedation options and risks were discussed with the patient. All questions were answered and informed consent was obtained. Patient identification and proposed procedure were verified by the physician in the pre-procedure area. Mental Status Examination: alert and oriented. Airway Examination: normal oropharyngeal airway and neck mobility. Respiratory Examination: clear to auscultation. CV Examination: normal. Prophylactic Antibiotics: The patient does not require prophylactic antibiotics. Prior Anticoagulants: The patient has taken no anticoagulant or antiplatelet agents. ASA Grade Assessment: IV - A patient with severe systemic disease that is a constant threat to life. After reviewing the risks and benefits, the patient was deemed in satisfactory condition to undergo the procedure. The anesthesia plan was to use monitored anesthesia care (MAC). Immediately prior to administration of medications, the patient was re-assessed for adequacy to receive sedatives. The heart rate, respiratory rate, oxygen saturations, blood pressure, adequacy of pulmonary ventilation, and response to care were monitored throughout the procedure. The physical status of the patient was re-assessed after the procedure. After I obtained informed consent, the scope was passed under direct vision. Throughout the procedure, the patient's blood pressure, pulse, and oxygen saturations were monitored continuously. The Colonoscope was introduced through the anus and advanced to the cecum, identified by appendiceal orifice and ileocecal valve. The colonoscopy was performed without difficulty. The patient tolerated the procedure well. The quality of the bowel preparation was good. The ileocecal valve, appendiceal orifice, and rectum were photographed. Scope Withdrawal Time: 0 hours 6 minutes 50 seconds Moderate Sedation: MAC anesthesia was administered by the anesthesia team. Total Procedure Duration: 0 hours 8 minutes 12 seconds Findings: The perianal and digital rectal examinations were normal. The colon (entire examined portion) appeared normal. No biopsies or other specimens were collected for this exam. Impression: - The entire examined colon is normal. - No specimens collected. Recommendation: - Patient has a contact number available for emergencies. The signs and symptoms of potential delayed complications were discussed with the patient. Return to normal activities tomorrow. Written discharge instructions were provided to the patient. - Resume previous diet indefinitely. - Continue present medications. - Repeat colonoscopy in 10 years for screening purposes. Procedure Code(s): --- Professional --- 86890, Colonoscopy, flexible; diagnostic, including collection of specimen(s) by brushing or washing, when performed (separate procedure) Diagnosis Code(s): --- Professional --- Z12.11, Encounter for screening for malignant neoplasm of colon CPT copyright 2020 [employer]. All rights reserved. The codes documented in this report are preliminary and upon edge banding machine offbearer review may be revised to meet current compliance requirements. Attending Participation: I personally performed the entire procedure. Scope In: 8:20:47 AM Scope Out: 8:28:59 AM DO Elmira Thomas DO 02/10/2024 8:33:04 AM This report has been signed electronically by Elmira De Souza DO Number of Addenda: 0 Note Initiated On: 02/10/2024 8:01 AM Estimated Blood Loss: Estimated blood loss: none. Normal [facility] EGD Study observation Narrat jacquelyn 02-10-2024 [facility] Gastrointestinal Endoscopy Patient Name: Demarcus Appiah Procedure Date: 02/10/2024 8:00 AM Date of : 1985 Admit Type: Outpatient Age: 38 Room: [place] [address] Gender: Male Note Status: Finalized Attending MD: Elmira De Souza DO, [id number] Procedure: Upper GI endoscopy Indications: Preoperative assessment for bariatric surgery to treat morbid obesity Providers: Elmira De Souza DO Patient Profile: This is a 38 year old male. Refer to note in patient chart for documentation of history and physical. Referring Physician: Lorraine Coronado (Referring MD) Medicines: See the Anesthesia note for documentation of the administered medications Complications: No immediate complications. Requesting Provider: Procedure: Pre-Anesthesia Assessment: - Prior to the procedure, a History and Physical was performed, and patient medications and allergies were reviewed. The patient is competent. The risks and benefits of the procedure and the sedation options and risks were discussed with the patient. All questions were answered and informed consent was obtained. Patient identification and proposed procedure were verified by the physician in the pre-procedure area. Mental Status Examination: alert and oriented. Airway Examination: normal oropharyngeal airway and neck mobility. Respiratory Examination: clear to auscultation. CV Examination: normal. Prophylactic Antibiotics: The patient does not require prophylactic antibiotics. Prior Anticoagulants: The patient has taken no anticoagulant or antiplatelet agents. ASA Grade Assessment: IV - A patient with severe systemic disease that is a constant threat to life. After reviewing the risks and benefits, the patient was deemed in satisfactory condition to undergo the procedure. The anesthesia plan was to use monitored anesthesia care (MAC). Immediately prior to administration of medications, the patient was re-assessed for adequacy to receive sedatives. The heart rate, respiratory rate, oxygen saturations, blood pressure, adequacy of pulmonary ventilation, and response to care were monitored throughout the procedure. The physical status of the patient was re-assessed after the procedure. After obtaining informed consent, the endoscope was passed under direct vision. Throughout the procedure, the patient's blood pressure, pulse, and oxygen saturations were monitored continuously. The Endoscope was introduced through the mouth, and advanced to the second part of duodenum. The upper GI endoscopy was accomplished without difficulty. The patient tolerated the procedure well. Moderate Sedation: MAC anesthesia was administered by the anesthesia team. Total Procedure Duration: 0 hours 2 minutes 36 seconds Findings: The examined esophagus was normal. The entire examined stomach was normal. Several biopsies were obtained with cold forceps for histology randomly in the stomach. Estimated blood loss: none. Patchy mildly erythematous mucosa without active bleeding and with no stigmata of bleeding was found in the duodenal bulb. Impression: - Normal esophagus. - Normal stomach. - Erythematous duodenopathy. - Several biopsies were obtained in the stomach. Recommendation: - Patient has a contact number available for emergencies. The signs and symptoms of potential delayed complications were discussed with the patient. Return to normal activities tomorrow. Written discharge instructions were provided to the patient. - Resume previous diet indefinitely. - Continue present medications. - Await pathology results. Procedure Code(s): (more content not included)... [facility] Radiology Study observation (narrative) [facility] Flexible sigmoidoscopy study on 02-10-2024 [facility] Gastrointestinal Endoscopy Patient Name: Demarcus Appiah Procedure Date: 02/10/2024 8:01 AM Date of : 1985 Admit Type: Outpatient Age: 38 Room: [place] [address] Gender: Male Note Status: Finalized Attending MD: Elmira De Souza DO, [id number] Procedure: Colonoscopy Indications: Screening for colorectal malignant neoplasm Providers: Elmira De Souza DO Patient Profile: This is a 38 year old male. Refer to note in patient chart for documentation of history and physical. Last Colonoscopy: none. The patient's first colonoscopy is today. Referring Physician: Lorraine Coronado (Referring MD) Medicines: See the Anesthesia note for documentation of the administered medications Complications: No immediate complications. Requesting Provider: Procedure: Pre-Anesthesia Assessment: - Prior to the procedure, a History and Physical was performed, and patient medications and allergies were reviewed. The patient is competent. The risks and benefits of the procedure and the sedation options and risks were discussed with the patient. All questions were answered and informed consent was obtained. Patient identification and proposed procedure were verified by the physician in the pre-procedure area. Mental Status Examination: alert and oriented. Airway Examination: normal oropharyngeal airway and neck mobility. Respiratory Examination: clear to auscultation. CV Examination: normal. Prophylactic Antibiotics: The patient does not require prophylactic antibiotics. Prior Anticoagulants: The patient has taken no anticoagulant or antiplatelet agents. ASA Grade Assessment: IV - A patient with severe systemic disease that is a constant threat to life. After reviewing the risks and benefits, the patient was deemed in satisfactory condition to undergo the procedure. The anesthesia plan was to use monitored anesthesia care (MAC). Immediately prior to administration of medications, the patient was re-assessed for adequacy to receive sedatives. The heart rate, respiratory rate, oxygen saturations, blood pressure, adequacy of pulmonary ventilation, and response to care were monitored throughout the procedure. The physical status of the patient was re-assessed after the procedure. After I obtained informed consent, the scope was passed under direct vision. Throughout the procedure, the patient's blood pressure, pulse, and oxygen saturations were monitored continuously. The Colonoscope was introduced through the anus and advanced to the cecum, identified by appendiceal orifice and ileocecal valve. The colonoscopy was performed without difficulty. The patient tolerated the procedure well. The quality of the bowel preparation was good. The ileocecal valve, appendiceal orifice, and rectum were photographed. Scope Withdrawal Time: 0 hours 6 minutes 50 seconds Moderate Sedation: MAC anesthesia was administered by the anesthesia team. Total Procedure Duration: 0 hours 8 minutes 12 seconds Findings: The perianal and digital rectal examinations were normal. The colon (entire examined portion) appeared normal. No biopsies or other specimens were collected for this exam. Impression: - The entire examined colon is normal. - No specimens collected. Recommendation: - Patient has a contact number available for emergencies. The signs and symptoms of potential delayed complications were discussed with the patient. Return to normal activities tomorrow. Written discharge instructions were provided to the patient. - Resume previous diet indefinitely. - Continue present medications. - Rep (more content not included)... [facility] Radiology Study observation (narrative) [facility] HISTORY PHYSICALon HISTORY PHYSICAL HNO ID: [id number] Author: ELMIRA BERMAN PA-C Service: Gastroenterology Author Type: Physician Hand Ii Tube Bender Type: H&P Filed: 02/10/2024 07:32 Note Text: UPDATED HISTORY AND PHYSICAL EXAMINATION SERVICE DATE: 02/10/2024 SERVICE TIME: 7:17 AM SERVICE: Gastroenterology PHYSICAL EXAM MUST BE COMPLETED ON ADMISSION The History and Physical (completed in the past 30 days) has been reviewed and the patient has been examined. The contents accurately reflect the patient's condition with the following additions or revisions since the HANDP was completed. Patient denies any changes to health since last examination. Planned procedure for today is EGD/Colonoscopy Medication reconciliation list reviewed in [facility]. Past medical history, past surgical history, social history and family history reviewed in [facility]. ALLERGIES Allergen Reactions Bees Swelling Shrimp Swelling BP 122/77 Pulse 76 Temp 36.6 ?C (97.9 ?F) (Temporal) Resp 16 SpO2 95% Examination indicates no changes. On examination today: Lungs: Mild Exp. wheeze bilat. lower lobes.. Heart: RRR, Normal S1/S2, No significant murmurs, rubs, gallops or thrills appreciated. Abdomen: BS+ in all quadrants, abdomen is soft, non tender, and without guarding. Assessment:Epigastric Pain Plan: EGD/Colonoscopy This HANDP can be found in the Electronic Medical Record dated 01/30/24. SIGNATURE: Elmira Berman PA-C PATIENT NAME: Demarcus Appiah DATE: February 10, 2024 TIME: 7:17 AM [facility] NURSING PROGon 02-10-2024 NURSING PROG HNO ID: [id number] Author: GERRY GALVEZ RN Service: ? Author Type: Registered Nurse Type: Nursing Progress Note Filed: 02/10/2024 09:21 Note Text: Uneventful recovery. Discharge paperwork reviewed with patient and family with hard copy provided to patient for personal records. Patient verbalized understanding and declined any questions or concerns prior to discharge. Vital signs stable. Patient expressed readiness to discharge. Personal belongings returned. PIV removed without complication. Patient taken to [facility], by endoscopy staff, via wheelchair. No acute distress observed by RN as patient left recovery area. [facility] SURGICAL PATHOLOGYon 024 ADDENDUM 1: [facility] Comment on above: Order Comment: Speci men Type: TISSUE SPECIMEN Ordering Facility: [facility] Address: [address] [place] [address] Result Comment: Dave tavares the background of chronic gastritis a Helicobacter pylori immunostain was performed on block A and is positive for Helicobacter pylori organisms. Laboratory Developed Test (LDT) Disclaimer: Positive and negative controls stain appropriately. Performance characteristics of immunohistochemical, immunofluorescent and chromogenic in-situ hybridization tests have been determined by [facility]'s Octaviano Francesco [facility] Pathology and Laboratory Medicine [place] [facility]) in a manner consistent with CLIA requirements. One or more of these tests have not been cleared or approved by the FDA. [facility] is regulated under CLIA as qualified to perform high-complexity testing. These tests are used for clinical purposes. They should not be regarded as investigational or for research. LETY/angelina 02/16/2024 Addendum electronically signed by Juan Carlos Gonzales MD on 02/16/2024 at 3:09 PM Performed By: #### S #### [facility] CLIA [id number] LAB CLIA [id number] [address] [place], [place] [address] LABORATORY CLIA [id number] [address] [place] [address] OF [place] CASE REPORT Normal [facility] Comment on above: Order Comment: Speci men Type: TISSUE SPECIMEN Ordering Facility: [facility] Address: [address] [place] [address] Result Comment: Surg [facility] Pathology Report Case: [id number] Authorizing Provider: Elmira De Souza DO Collected: 02/10/2024 08:16 AM Ordering Location: [facility] Received: 02/10/2024 10:49 AM [facility] Pathologist: Juan Carlos Gonzales MD Specimen: Stomach, Biopsy Performed By: #### S #### [facility] CLIA [id number] [address] [place] [address] [facility] CLIA [id number] [address] [place] [address] [facility]EN [facility] CLIA [id number] [address] [place] [address] [place] CLINICAL HISTORY A) R/O H. PYLORI Normal [facility] Comment on above: Order Comment: Speci men Type: TISSUE SPECIMEN Ordering Facility: [facility] Address: [address] [place] [address] Performed By: #### S #### [facility] CLIA [id number] [address] [place] [address] OF [place]EVEN [facility] CLIA [id number] [address] [place] [address] LABORATORY CLIA [id number] [address] [place] [address] OF [place]EV[place] FINAL DIAGNOSIS Normal [facility] Comment on above: Order Comment: Speci men Type: TISSUE SPECIMEN Ordering Facility: [facility] Address: [address] [place] [address] Result Comment: Stom ach, biopsy: - Chronic inactive gastritis. Immunohistochemical stain for Helicobacter pylori pending. LETY/suad 02/13/2024 Performed By: #### S #### [facility] CLIA [id number] [address] [place] [address] OF [place] [facility] CLIA [id number] [address] [place] [address] LABORATORY CLIA [id number] [address] [place] [address] OF [facility] FINAL PERFORMING LAB [facility] Comment on above: Order Comment: Speci men Type: TISSUE SPECIMEN Ordering Facility: [facility] Address: [address] [place] [address] Result Comment: Diag nostic interpretation performed at [facility], [address] [place] [address] CLIA# [id number] Manager Respiratory: Jesus Coates M.D. Performed By: #### S #### [facility] CLIA [id number] [address] [place] [address] [place] [address] [facility] CLIA [id number] [address] [place] [address] LABORATORY CLIA [id number] [address] [place] [address] [facility] Comment on above: Order Comment: Speci men Type: TISSUE SPECIMEN Ordering Facility: [facility] Address: [address] [place] [address] Result Comment: Dave carmona, Biopsy Received in formalin are two pieces of rand, soft tissue aggregating to 0.7 x 0.4 x 0.1 cm. Totally submitted in one cassette. Gross examination performed at [facility], [address] [place] [address] February 10, 2024 1:33 PM Performed By: #### S #### [facility] CLIA [id number] [address] [place] [address] [facility] CLIA [id number] [address] [place] [address] LABORATORY CLIA [id number] [place] [address] OF [facility] Upper GI endoscopyon 02-09-2 024 Upper GI endoscopy [facility] Gastrointestinal Endoscopy Patient Name: Demarcus Appiah Procedure Date: 02/10/2024 8:00 AM Date of : 1985 Admit Type: Outpatient Age: 38 Room: [place] [address] Gender: Male Note Status: Finalized Attending MD: Elmira De Souza DO, [id number] Procedure: Upper GI endoscopy Indications: Preoperative assessment for bariatric surgery to treat morbid obesity Providers: Elmira De Souza DO Patient Profile: This is a 38 year old male. Refer to note in patient chart for documentation of history and physical. Referring Physician: Lorraine Coronado (Referring MD) Medicines: See the Anesthesia note for documentation of the administered medications Complications: No immediate complications. Requesting Provider: Procedure: Pre-Anesthesia Assessment: - Prior to the procedure, a History and Physical was performed, and patient medications and allergies were reviewed. The patient is competent. The risks and benefits of the procedure and the sedation options and risks were discussed with the patient. All questions were answered and informed consent was obtained. Patient identification and proposed procedure were verified by the physician in the pre-procedure area. Mental Status Examination: alert and oriented. Airway Examination: normal oropharyngeal airway and neck mobility. Respiratory Examination: clear to auscultation. CV Examination: normal. Prophylactic Antibiotics: The patient does not require prophylactic antibiotics. Prior Anticoagulants: The patient has taken no anticoagulant or antiplatelet agents. ASA Grade Assessment: IV - A patient with severe systemic disease that is a constant threat to life. After reviewing the risks and benefits, the patient was deemed in satisfactory condition to undergo the procedure. The anesthesia plan was to use monitored anesthesia care (MAC). Immediately prior to administration of medications, the patient was re-assessed for adequacy to receive sedatives. The heart rate, respiratory rate, oxygen saturations, blood pressure, adequacy of pulmonary ventilation, and response to care were monitored throughout the procedure. The physical status of the patient was re-assessed after the procedure. After obtaining informed consent, the endoscope was passed under direct vision. Throughout the procedure, the patient's blood pressure, pulse, and oxygen saturations were monitored continuously. The Endoscope was introduced through the mouth, and advanced to the second part of duodenum. The upper GI endoscopy was accomplished without difficulty. The patient tolerated the procedure well. Moderate Sedation: MAC anesthesia was administered by the anesthesia team. Total Procedure Duration: 0 hours 2 minutes 36 seconds Findings: The examined esophagus was normal. The entire examined stomach was normal. Several biopsies were obtained with cold forceps for histology randomly in the stomach. Estimated blood loss: none. Patchy mildly erythematous mucosa without active bleeding and with no stigmata of bleeding was found in the duodenal bulb. Impression: - Normal esophagus. - Normal stomach. - Erythematous duodenopathy. - Several biopsies were obtained in the stomach. Recommendation: - Patient has a contact number available for emergencies. The signs and symptoms of potential delayed complications were discussed with the patient. Return to normal activities tomorrow. Written discharge instructions were provided to the patient. - Resume previous diet indefinitely. - Continue present medications. - Await pathology results. Procedure Code(s): --- Professional --- 24876, Esophagogastroduodenosc opy, flexible, transoral; with biopsy, single or multiple Diagnosis Code(s): --- Professional --- E66.01, Morbid (severe) obesity due to excess calories Z01.818, Encounter for other preprocedural examination K31.89, Other diseases of stomach and duodenum CPT copyright 2020 [employer]. All rights reserved. The codes documented in this report are preliminary and upon edge banding machine offbearer review may be revised to meet current compliance requirements. Attending Participation: I personally performed the entire procedure. Scope In: 8:15:05 AM Scope Out: 8:17:41 AM DO Elmira Thomas DO 02/10/2024 8:20:17 AM This report has been signed electronically by Elmira De Souza DO Number of Addenda: 0 Note Initiated On: 02/10/2024 8:00 AM Estimated Blood Loss: Estimated blood loss: none. Normal [facility] NURSING PROGon 02-07-2024 NURSING PROG HNO ID: [id number] Author: ELMIRA DAVIES, RN Service: ? Author Type: Registered Nurse Type: Nursing Progress Note Filed: 02/07/2024 13:39 Note Text: [facility] CALL Shun. I'm calling from [facility] endoscopy to provide you with the information for your surgery/procedure tomorrow. Spoke to: Patient CONFIRM Procedure Planned with patient:Colonoscopy with or without biopsies based on clinical findings Esophagogastroduodenosc opy(EGD) for control of bleeding,dilation(any means),imaging,tube placement Are you familiar with where [facility] is located?Yes Address [address] [facility] Patient instructed to enter through the main hospital entrance off [place] at the [address] through the revolving doors and check in at the main desk with your motor vehicle escort driver's license and insurance card. Yes When anesthesia or sedation is being given: Patient instructed you must have an adult motor vehicle escort driver because you will not be able to work or drive for the rest of the day after your test.Yes Patient instructed to have a responsible, adult motor vehicle escort driver to take them home after the procedure Yes. Due to having sedation, there is no working or driving the day of the procedure. Your motor vehicle escort driver is allowed to wait here with you or they may drop you off and come back to pick you up. Colonoscopy: Did you miner pick your bowel prep Yes Remind patient the day prior to the test they should be on a clear liquid diet all day. Clear liquids consist of liquids that you can see through (no reds or purple). Stay well hydrated all day. Do not drink just the bowel prep to clean you out. Drink all of the prep to ensure your test can be completed and polyps are not missed. Remind pt to drink at least 1 cup of clear liquids every hour even after finishing the bowel prep (up until midnight or up until 4 hours before procedure)to keep yourself hydrated and to flush the prep through your system. If pt has eaten solid foods-contact endoscopist and verify if they wish to proceed. Patient instructed: Do not eat anything the morning of the procedure, including gum, hard candy and mints.Yes Patient instructed not bring any valuables, jewelry, or null and wear comfortable clothing. Do not wear makeup, lotion, or finger tuvaluan. Yes Patient instructed: Please bring a list of medications including over the counter, vitamin, and herbals. If you are on inhalers, please do them in the morning before your test and bring them with you.Yes Blood pressure, seizure, or thyroid medications may be taken with a couple sips of water ONLY 4 hours prior to arrival time. Is the patient on blood thinners?no If so,verify if pt contacted the prescribing doctor to see how long they may hold blood thinners prior to procedure. Are you diabetic?No If so, advise pt to contact prescribing doctor to verify if any modifications are needed for insulin and/or pills Reminder:diabetic medication instructions should be given by the patient's ordering physician. If blood sugar drops, they can have CLEAR liquids to bring it up until 3 hours prior to arrival time. Hospitalizations: No Procedure and/or bowel prep instructions given to patient and questions answered: Yes, and they verbalized their understanding of instructions given Any barriers to Patient learning (confusion? 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 Please complete your Pre-Check In paperwork in My Chart if applicable. If patient needs to reschedule please call: [phone] [employer] phone number: [phone] Type of instruction given: Verbal by telephone contact. [facility] HISTORY PHYSICALon HISTORY PHYSICAL HNO ID: [id number] Author: SUSANA PIZANO PA-C Service: ? Author Type: Physician Hand Ii Tube Bender Type: H&P Filed: 01/30/2024 15:57 Note Text: HISTORY AND PHYSICAL EXAMINATION SERVICE DATE: 01/30/2024 SERVICE TIME: 3:57 PM PRIMARY CARE PHYSICIAN: David Grissom MD Assessment Patient has the following medical conditions which may affect jason-operative course: Obesity, Class III, BMI >= 40 Assessment: Body mass index is 84.68 kg/m?. Lymphedema Assessment: severe, especially bilateral thighs with plaque like sores on inner thighs. 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 Reports stopped lisinopril (ZESTRIL, PRINIVIL) due to SE and PCP aware Marijuana use Assessment: smokes nightly, advised to refrain week before surgery Quesada Activity Status Index: METS: Take care of self; that is eating, dressing, bathing, using the toilet (2.75 METs) Cannot walk a block or two on level ground DASI Score: 2.75 Patient denies any chest pain or undue shortness of breath with the above physical activity. Clinical Frailty Scale: 3. Well, with treated comorbid disease STOP-Bang Score: Snores loudly Has been observed to stop breathing or choking/gasping during sleep Has or is being treated for high blood pressure BMI greater than 35 kg/m2 Has a large neck Male patient Denies feeling tired, fatigued, or sleepy during the daytime Patient 50 years old or younger STOP-Bang Score: 6 [id number] Score: Age: <65 Sex: male CHF history: No Hypertension history: Yes Stroke/TIA/thromboembol ism history: No Vascular disease history: No Diabetes history: No [id number] Score: 1 ARISCAT Score: Age: <=50 Preoperative SpO2: >=96% Respiratory infection in the last month: No Preoperative anemia: Yes Surgical incision: upper abdominal Duration of surgery: <2 hrs Emergency procedure: No ARISCAT Score: 26 ANESTHESIA FINDINGS: Intubation History: No history of difficult intubation. No abnormal airway history Significant Anesthesia Considerations: none Airway History: No history of difficult airway No abnormal airway history I - PHYSICAL EVALUATION AIRWAY Patient intubated: No. Tracheostomy tube not present Mallampati: I. TM distance: >3 FB. Neck ROM: full ROM without neurological symptoms. Mouth opening: adequate. Short neck: no. Thick neck: yes Gtz present: yes Lip Bite Test: I DENTAL Dental findings: broken tooth. II - ANESTHESIA PLAN Anesthetic Plan: other Anesthetic plan additional comments: *PACC/TCI - anesthesia choice. Beta Amari Monitoring Plan Post Procedure Analgesic Plan Prepared for Surgery: optimally prepared for surgery. Per PACC guidelines no other testing is required CONSULTS: Patient does not require consults for optimization at this time Planned Anesthetic: other anesthesia choice REASON FOR VISIT: Demarcus Appiah is a 38 year old male who is scheduled for EGD and colonoscopy at the request of Dr. Elmira De Souza for consultation. My final recommendation will be communicated back to the requesting physician by way of shared medical record or letter. Subjective The patient has the following: ACTIVE PROBLEM LIST Obesity, Morbid (Hcc) Chronic Midline Low Back Pain With Right-Sided Sciatica Gerd Without Esophagitis Essential Hypertension Lymphedema Asthma, Moderate Persistent, Poorly-Controlled Posadas (Dyspnea On Exertion) Snoring Anxiety and Depression Obesity, Class III, BMI >= 40 Marijuana Use COVID-19 Immunization Status Overdue - Covid-19 Vaccine () Never done 04/13/2023 Postponed until 04/13/2024 by Luli Hunt LPN (Declined at this time) CHIEF COMPLAINT: Pre-anesthesia optimization HPI: Demarcus Appiah is a 38 year old male presenting for pre-anesthesia consultation. Pt has history of rectal bleeding intermittently, + constipation and epigastric pain. + ventral hernia Above procedure recommended to manage symptoms. Procedure scheduled on 01/31/24 at [facility]. REVIEW OF SYSTEMS: General: No weight loss, malaise or fevers. 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 No neurological symptoms or problems. Respiratory: Positive for: asthma (more content not included)... Normal [facility] 01-16-2024 [facility] Office Visit ([facility] ) DEMARCUS APPIAH ([id number]) 1985 M Date Time Provider Department 01/16/24 11:20 [address]ES GSTPATYR During your visit today, we recorded the following information about you: Pulse Blood pressure Weight Height 71/minute 172/78 263.5 kg 1.753 m Lorraine Aviles PA-C 01/16/2024 10:52 AM Signed CHIEF COMPLAINT: Patient presents with: Abnormality of Esophagus Diarrhea: Blood in stool This consult was requested by Marisabel Ramirez A* for an opinion regarding abnormality of the esophagus, diarrhea. My final recommendations will be communicated to the requesting health care provider by way of the shared medical record for internal providers or letter via the [employer] for external providers. HPI: Demarcus Appiah is a 38 year old male who presents for Abnormality of Esophagus and Diarrhea (Blood in stool ). PMHx of asthma, GERD, HTN, morbid obesity Patient tells me that he is doing well. Notes that he will get stomach pain intermittently, feels like his stomach is expanding. Notes Omeprazole helps pain significant. Denies actual dysphagia, GERD symptoms. Unsure of triggers to his abdominal pain. Trying to eat healthier. Does think greasy foods trigger the stomach pain. Denies nausea, vomiting. Notes bowel movements are normal. Will occasionally have diarrhea with certain foods. Notes some minor rectal bleeding with large stools. Will see a large amount of blood at times. No smoking. Social alcohol use. No pertinent GI family hx. Esophagram 07/04/2023: IMPRESSION: Short segment narrowing of the distal esophagus near the GE junction with associated distal esophageal dysmotility. This is nonobstructive to a 13 mm barium tablet. Latest Ref Rng 05/16/2023 Glucose 74 - 99 mg/dL 113 (H) BUN 9 - 24 mg/dL 15 Creatinine 0.73 - 1.22 mg/dL 1.10 Sodium 136 - 144 mmol/L 139 Potassium 3.7 - 5.1 mmol/L 4.8 Chloride 97 - 105 mmol/L 101 CO2 22 - 30 mmol/L 27 Anion Gap 9 - 18 mmol/L 11 Calcium 8.5 - 10.2 mg/dL 10.0 eGFR >=60 mL/min/1.73m? 88 Legend: (H) High Latest Ref Rng 04/13/2023 WBC 3.70 - 11.00 k/uL 10.34 RBC 4.20 - 6.00 m/uL 5.29 Hemoglobin 13.0 - 17.0 g/dL 14.8 Hematocrit 39.0 - 51.0 % 47.5 MCV 80.0 - 100.0 fL 89.8 MCH 26.0 - 34.0 pg 28.0 MCHC 30.5 - 36.0 g/dL 31.2 RDW-CV 11.5 - 15.0 % 13.8 Platelet Count 150 - 400 k/uL 310 MPV 9.0 - 12.7 fL 10.0 Neut% % 67.9 Abs Neut (ANC) 1.45 - 7.50 k/uL 7.02 Lymph% % 23.2 Abs Lymph 1.00 - 4.00 k/uL 2.40 Concho% % 6.5 Abs Concho <0.87 k/uL 0.67 Eosin% % 1.8 Abs Eosin <0.46 k/uL 0.19 Baso% % 0.2 Abs Baso <0.11 k/uL <0.03 Immature Gran % % 0.4 IMMATURE GRANS (ABS) <0.10 k/uL 0.04 NRBC /100 WBC 0.0 Absolute nRBC <0.01 k/uL <0.01 DTYPE Auto Protein, Total 6.3 - 8.0 g/dL 8.1 (H) Albumin 3.9 - 4.9 g/dL 4.3 Calcium 8.5 - 10.2 mg/dL 9.6 Bilirubin, Total 0.2 - 1.3 mg/dL 0.4 Alkaline Phosphatase 38 - 113 U/L 72 AST 14 - 40 U/L 21 ALT 10 - 54 U/L 27 Glucose 74 - 99 mg/dL 91 BUN 9 - 24 mg/dL 13 Creatinine 0.73 - 1.22 mg/dL 0.89 Sodium 136 - 144 mmol/L 139 Potassium 3.7 - 5.1 mmol/L 4.6 Chloride 97 - 105 mmol/L 102 CO2 22 - 30 mmol/L 25 Anion Gap 9 - 18 mmol/L 12 eGFR >=60 mL/min/1.73m? 112 Total Cholesterol, Nonfasting <200 mg/dL 220 (H) Triglycerides, Nonfasting <150 mg/dL 126 HDL Cholesterol, Nonfasting >39 mg/dL 35 (L) LDL Cholesterol, Nonfasting <100 mg/dL 160 (H) Non HDL Cholesterol, Nonfasting <130 mg/dL 185 (H) VLDL Cholesterol, Nonfasting <30 mg/dL 25 Total Chol/HDL Ratio, Nonfasting <5.10 mg/dL 6.29 (H) LDL/HDL Ratio, Nonfasting <2.54 mg/dL 4.57 (H) Hemoglobin A1C 4.3 - 5.6 % 5.4 Estimated Average Glucose mg/dL 108 TSH 0.270 - 4.200 mIU/L 2.440 Legend: (H) High (L) Low Record Review: [facility] / Outside records reviewed. PAST MEDICAL HISTORY Diagnosis Date Abdominal pain, unspecified site Allergies Asthma Depression POSADAS (dyspnea on exertion) GERD (gastroesophageal reflux disease) History of echocardiogram 07/05/2022 EF = 55 ? 5%. There is trace tricuspid valve regurgitation. There is no pericardial effusion. There is an epicardial fat pad. HTN (hypertension) Lymphedema Morbid obesity with BMI of 70 and over, adult (HCC) PAST SURGICAL HISTORY Procedure Laterality Date PAST SURGICAL HISTORY OF thyroid surgery x 2 Allergies: ALLERGIES Allergen Reactions Bees Swelling Shrimp Swelling Medications: furosemide (LASIX) 40 mg tablet Take 1 tablet by mouth once daily. fluticasone-salmeterol HFA (ADVAIR HFA) 230-21 mcg/actuation inhaler inhale 2 puffs by mouth and INTO THE LUNGS twice a day buPROPion XL (WELLBUTRIN XL) 300 mg 24 hr tablet Take 1 tablet by mouth once daily. albuterol HFA (VENTOLIN HFA) 90 mcg/actuation inhaler Inhale 2 Puffs as instructed every 4 hours as needed for wheezing/shortness of breath. omepraz (more content not included)... Normal [facility] DEMARC[facility] APPIAH ([id number]) 1985 M Date Time Provider Department 01/16/24 [address] GSTNOR During your visit today, we recorded the following information about you: Lisa Anderson 01/16/2024 10:57 AM Signed [facility] schedulers, This patient needs scheduled for his EGD/Colonoscopy. He was sent in the [employer] prep to his pharmacy. Can you please contact him directly to schedule. Thanks! Lisa Anderson Allergies As of Date: 01/16/2024 Noted Allergy Reaction BEES 09/26/2009 7 - Swelling SHRIMP 04/13/2023 7 - Swelling Date Reviewed: 01/16/2024 Reviewed by: Lorraine Aviles PA-C - Fully Assessed Reason for Visit: Scheduling [3921] Prescriptions as of 01/16/2024 - peg 3350-Electrolytes (GOLYTELY) 236-22.74-6.74 -5.86 gram suspension Refer to printed patient instructions that will be mailed to you. - furosemide (LASIX) 40 mg tablet Take 1 tablet by mouth once daily. - fluticasone-salmeterol HFA (ADVAIR HFA) 230-21 mcg/actuation inhaler inhale 2 puffs by mouth and INTO THE LUNGS twice a day - omeprazole (PRILOSEC) 20 mg capsule Take 1 capsule by mouth daily before breakfast. 1/2 hr before meal. - buPROPion XL (WELLBUTRIN XL) 300 mg 24 hr tablet Take 1 tablet by mouth once daily. - lisinopril (ZESTRIL) 10 mg tablet Take 1 tablet by mouth once daily. - albuterol HFA (VENTOLIN HFA) 90 mcg/actuation inhaler Inhale 2 Puffs as instructed every 4 hours as needed for wheezing/shortness of breath. Problem List As Of Date 01/16/2024 Noted Resolved Abdominal pain, right upper quadrant [R10.11] 12/17/2008 04/13/2023 Obesity, Morbid [E66.01] 12/17/2008 Nausea [R11.0] 12/17/2008 04/13/2023 Abdominal pain, unspecified site [R10.9] 04/13/2023 Chronic midline low back pain with right-sided *08/24/2017 GERD without esophagitis [K21.9] 04/08/2022 Essential hypertension [I10] 04/08/2022 Lymphedema [I89.0] 04/08/2022 Asthma, moderate persistent, poorly-controlled *05/13/2022 POSADAS (dyspnea on exertion) [R06.09] 06/14/2022 Snoring [R06.83] 07/07/2022 Anxiety and depression [F41.9, F32.A] 07/07/2022 Obesity, Class III, BMI >= 40 [E66.01] 04/21/2023 Encounter Status:Closed by LISA ANDERSON on 01/16/24 Normal [facility] XR ESOPHAGRAMon 07-04-2023 XR ESOPHAGRAM * * *Final Report* * * DATE OF EXAM: Jul 04 2023 8:55AM LAURA 5378 - XR ESOPHAGRAM / PROCEDURE REASON: R13.10-Dysphagia, unspecified type * * * * Physician Interpretation * * * * ESOPHAGRAM CLINICAL INFORMATION: Dysphagia. Intermittent chest pain TECHNIQUE: A biphasic examination of the esophagus was performed utilizing effervescent granules (E-Z-Gas II - 4 grams), high density barium, and low density barium. Contrast: Oral: 150 ml of EZHD Oral: 200 ml of EZPAQUE Oral: 1 13 mm barium tablet Fluoroscopy radiation summary: Fluoroscopy time: 2:30 (min:sec). Air kerma: 124.4 mGy. RESULT: Caliber: Short segment mild narrowing of the distal esophagus near the GE junction. No ring, web, or mucosal abnormality. Motility: Dysmotility. 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 Hiatal Hernia: Absent. Gastroesophageal Reflux: None elicited with provocative maneuvers including cough, Valsalva, and straight leg raise. Gastric Cardia: Grossly normal. Barium Tablet: Briefly impeded at the esophagogastric junction, passes with additional sips of water and thin barium without obstruction. Other Findings: None. IMPRESSION: Short segment narrowing of the distal esophagus near the GE junction with associated distal esophageal dysmotility. This is nonobstructive to a 13 mm barium tablet. Inspector Watch Train: PSCB Transcribe Date/Time: Jul 04 2023 10:11A Dictated by : MERLY HYDE MD This examination was interpreted and the report reviewed and electronically signed by: MERLY HYDE MD on Jul 04 2023 10:17AM EST [id number] Normal [facility] XR Esophagus Views W contras t Glenn 07-04-2023 [facility] ECG COMPLETEon 07-03-2023 Atrial Rate 72 BPM [facility] Calculated P Warren -19 degrees [facility] Calculated R Warren 38 degrees [facility] Calculated T Warren 15 degrees [facility] P-R Interval 164 ms [facility] QRS Duration 100 ms [facility] QT Interval 392 ms [facility] QTC Calculation (Bazett) 429 ms [facility] Ventricular Rate 72 BPM [facility]-30-2023 [facility] Office Visit (ZARINA ) DEMARCUS APPIAH ([id number]) 1985 M Date Time Provider Department 06/30/23 2:45 PM OSMANY MENDIOLA During your visit today, we recorded the following information about you: Pulse Blood pressure Weight Height 72/minute 136/84 263.6 kg 1.753 m Osmany Mendiola DO 07/03/2023 9:06 PM Signed Referring Provider: David Grissom MD Date: June 30, 2023 Chief Complaint: CARD New Patient Consult (Shortness of breath and Dyspnea on Exertion. ) HISTORY OF PRESENT ILLNESS: Demarcus Appiah is a 37 year old male who presents for CARD New Patient Consult (Shortness of breath and Dyspnea on Exertion. ). He is becoming very frustrated. 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 However in the last several years activity is greatly decreased. He now has legs are markedly enlarged. His activity is becoming less and less. ALLERGIES Allergen Reactions Bees Swelling Shrimp Swelling PAST MEDICAL HISTORY: PAST MEDICAL HISTORY Diagnosis Date Abdominal pain, unspecified site Allergies Asthma Depression POSADAS (dyspnea on exertion) GERD (gastroesophageal reflux disease) History of echocardiogram 07/05/2022 EF = 55 ? 5%. There is trace tricuspid valve regurgitation. There is no pericardial effusion. There is an epicardial fat pad. HTN (hypertension) Lymphedema Morbid obesity with BMI of 70 and over, adult (HCC) PAST SURGICAL HISTORY Procedure Laterality Date PAST SURGICAL HISTORY OF thyroid surgery x 2 FAMILY HISTORY Problem Relation Age of Onset Ischemic Heart Disease Mother 53 LAD lesion/CAD other (lung cancer) Mother other (unknown) Father None Other SOCIAL HISTORY: Tobacco Use: Never Alcohol Use: No Drug Use: No Employer And Job Title: None on file Years Of Education Completed: Not specified Marital Status: Single with 2 children MEDICATIONS: Current Outpatient Medications Medication Sig buPROPion XL (WELLBUTRIN XL) 300 mg 24 hr tablet Take 1 tablet by mouth once daily. lisinopril (ZESTRIL) 10 mg tablet Take 1 tablet by mouth once daily. furosemide (LASIX) 40 mg tablet Take 1 tablet by mouth once daily. albuterol HFA (VENTOLIN HFA) 90 mcg/actuation inhaler Inhale 2 Puffs as instructed every 4 hours as needed for wheezing/shortness of breath. fluticasone-salmeterol HFA (ADVAIR HFA) 230-21 mcg/actuation inhaler Inhale 2 Puffs as instructed twice daily. [id number]/sod sulf,bicarb,Cl/KCl (GOLYTELY ORAL) Take by mouth. (Patient not taking: Reported on 06/30/2023) Current Facility-Administered Medications Medication Dose Route Frequency perflutren lipid microspheres 1.3 mL in NaCl (PF) 0.9% 10 mL injection (DEFINITY) INTRAVENOUS DIRECTED PRN sodium chloride 0.9 % (flush) 10 mL (BD POSIFLUSH) 10 mL INTRAVENOUS DIRECTED PRN I have personally reviewed the patients past medical history including social, family, surgical, diagnostics, and medications. REVIEW OF SYSTEMS: Review of Systems Constitutional: Negative for chills and fatigue. Respiratory: Positive for shortness of breath. Negative for chest tightness. Cardiovascular: Negative for chest pain, palpitations and leg swelling. Neurological: Negative for dizziness, syncope, weakness and light-headedness. Hematological: Does not bruise/bleed easily. Psychiatric/Behavioral: Negative for confusion and hallucinations. Vitals: BP 136/84 (BP Site: Left Arm, BP Position: Sitting, BP Cuff Size: Regular Adult) Pulse 72 Ht 175.3 cm (5' 9) Wt (!) 263.6 kg (581 lb 0.6 oz) BMI 85.80 kg/m? PHYSICAL EXAMINATION: BP 136/84 (BP Site: Left Arm, BP Position: Sitting, BP Cuff Size: Regular Adult) Pulse 72 Ht 175.3 cm (5' 9) Wt (!) 263.6 kg (581 lb 0.6 oz) BMI 85.80 kg/m? Last 3 Encounter BP Readings: Date: BP: 05/23/2023 [not assessed today[ 05/16/2023 162/92 04/21/2023 118/70 Last 3 Encounter Pulse Readings: Date: Pulse: 05/31/2023 74 05/16/2023 91 04/21/2023 79 Last 3 Encounter Wt Readings: Date: Wt: 05/31/2023 261.7 kg (577 lb) 05/16/2023 261.7 kg (577 lb) 04/21/2023 262.4 kg (578 lb 6.4 oz) Physical Exam Vitals reviewed. Constitutional: General: He is awake. He is not in acute distress. Appearance: He is obese. HENT: Head: Normocephalic and atraumatic. Nose: Nose normal. Mouth/Throat: Mouth: Mucous membranes are moist. Eyes: General: Lids are normal. Extraocular Movements: Extraocular movements intact. Cardiovascular: Rate and Rhythm: Normal rate and regular rhythm. Pulses: Carotid pulses are 2+ on the right side and 2+ on the left side. Radial pulses are 2+ on the right side and 2+ on the left side. Femoral pulses are 0 on the right side and 0 on the left side. Popliteal pulses are 0 on the right side and 0 on the left side. Dorsalis pedis pulses are 0 on the right side and 0 on the left side. Posterior tibial pulses are 0 on the rig (more content not included)... Normal [facility] ECG COMPLETEon 06-30-2023 ECG COMPLETE Ventricular Rate : 7 2 BPM Atrial Rate : 72 BPM P-R Interval : 164 ms QRS Duration : 100 ms Q-T Interval : 392 ms QTC Calculation(Bazett) : 429 ms Calculated P Warren : -19 degrees Calculated R Warren : 38 degrees Calculated T Warren : 15 degrees Normal sinus rhythm Nonspecific ST abnormality Abnormal ECG No previous ECGs available Confirmed by OSMANY MENDIOLA DO ([id number]) on 07/03/2023 6:49:16 AM NAME : DEMARCUS APPIAH PID : [id number] : 1985 Gender : Male Race : ORD : [id number] Procedure Date : Jun 30 2023 14:43:30 Edit Date : Jul 03 2023 06:49:20 Diagnosis: Normal sinus rhythm Nonspecific ST abnormality Abnormal ECG No previous ECGs available Confirmed by OSMANY MENDIOLA DO ([id number]) on 07/03/2023 6:49:16 AM Test Reason : HCS Location : 2 : UPCARD Overread By : OSMANY MENDIOLA DO Edited By : OSMANY MENDIOLA DO Referred By : DAVID GRISSOM Acquired by : [id number], Normal [facility] ECHOon 07-05-2022 [facility] LVEF TRANSTHORACIC ECHOon LV Ejection Fraction 55 % [facility] NITRIC OXIDE, EXHALEDon - [facility] No Panel Informationon 05-13 [facility] No Panel Informationon 04-09 [facility] XR Chest PA and Lateralon IMPRESSION: No acute radiographic abnormality. Inspector Watch Train: PSCB Transcribe Date/Time: Apr 08 2022 8:54P Dictated by : RUBY WITT MD This examination was interpreted and the report reviewed and electronically signed by: RUBY WITT MD on Apr 08 2022 8:54PM [facility] DIVISION OF RADIOLOGY * * *Final Report* * * DATE OF EXAM: Apr 08 2022 12:17PM WOX [id number] - XR CHEST 2V FRONTAL/LAT / PROCEDURE REASON: SOB (shortness of breath) * * * * Physician Interpretation * * * * EXAMINATION: CHEST RADIOGRAPH (2 VIEW FRONTAL & LATERAL) CLINICAL HISTORY: SOB (shortness of breath) MQ: XC2_6 EXAM DATE/TIME: 04/08/2022 12:17 PM COMPARISON: 01/30/2020 RESULT: Lines, tubes, and devices: None. Lungs and pleura: No consolidation. No lung mass. No pleural effusion. No pneumothorax. Cardiomediastinal silhouette: Normal cardiomediastinal silhouette. Bones and soft tissues: Unremarkable. DIVISION OF RADIOLOGY Provider[facility]/08/[facility]22 * * *Final Report* * * DATE OF EXAM: Apr 08 2022 12:17PM WOX 5291 - XR CHEST 2V FRONTAL/LAT / PROCEDURE REASON: SOB (shortness of breath) * * * * Physician Interpretation * * * * EXAMINATION: CHEST RADIOGRAPH (2 VIEW FRONTAL & LATERAL) CLINICAL HISTORY: SOB (shortness of breath) MQ: XC2_6 EXAM DATE/TIME: 04/08/2022 12:17 PM COMPARISON: 01/30/2020 RESULT: Lines, tubes, and devices: None. Lungs and pleura: No consolidation. No lung mass. No pleural effusion. No pneumothorax. Cardiomediastinal silhouette: Normal cardiomediastinal silhouette. Bones and soft tissues: Unremarkable. IMPRESSION IMPRESSION: No acute radiographic abnormality. Inspector Watch Train: YANNICK Transcribe Date/Time: Apr 08 2022 8:54P Dictated by : RUBY WITT MD This examination was interpreted and the report reviewed and electronically signed by: RUBY WITT MD on Apr 08 2022 8:54PM EST [facility] Radiology Study observation (narrative) [facility] XR Chest PA and LateralOrder ed By: [facility] Provider on 04-08-2022 [facility] ED PROV NOTEon 11-21-2018 ED PROV NOTE HNO ID: [id number] Author: Rogers Moncada Service: ? Author Type: Physician Type: ED Provider Notes Filed: 12/03/2018 3:41 PM Note Text: [facility] [place] [address] HEALTH INFORMATION MANAGEMENT EMERGENCY DEPARTMENT REPORT Patient: DEMARCUS APPIAH ROGERS MONCADA M.D. [id number] M Status: DEP ER ED Date of Service: 11/17/18 CHIEF COMPLAINT Right-sided back pain. HISTORY OF PRESENT ILLNESS The patient is a 32-year-old white male with right-sided back pain going on for the last two days. The patient has pain with movement, also nausea. States that his right side now hurts as well. Denies any urinary symptoms. Taking over the counter medication with no relief. PAST MEDICAL HISTORY Chronic back pain, hiatal hernia. PAST SURGICAL HISTORY Thyroid cyst removal. SOCIAL HISTORY No tobacco or ethanol use. Does have a history of marijuana use. MEDICATIONS None. ALLERGIES No known drug allergies. REVIEW OF SYSTEMS General: There are no fevers or chills. Head: There is no headache. Neck: There is no neck pain. Back: Positive for right low back pain. Cardiac: There is no chest pain or palpitations. Pulmonary: There is no shortness of breath or cough. Abdomen: There is no abdominal pain. Positive for nausea. No vomiting. Urinary: There is no dysuria or increased frequency. PHYSICAL EXAMINATION General examination shows a morbidly obese male lying in the bed resting comfortably. Vital signs: Blood pressure 138/81, temperature 98, pulse is 70, respiratory rate of 22, pulse oximetry 95% on room air. Head is normocephalic and atraumatic. Ocular examination reveals pupils to be equal, round and reactive to light. Sclerae are anicteric. Examination of the oropharynx reveals mucous membranes to be moist with no erythema, exudate or lesions. Cardiovascular examination reveals normal S2, regular rate and rhythm. No murmurs, gallops or rubs. Pulmonary examination reveals the breath sounds to be clear to auscultation bilaterally with no wheezes, rales or rhonchi. Abdomen is soft, positive bowel sounds and no peritoneal signs. Examination of the extremities reveals no cyanosis, clubbing or edema. Neurological examination, reveals the patient to be alert and oriented x3, no focal deficits. ED EVALUATION CBC, chemistry unremarkable. Urinalysis is negative. Renal ultrasound shows no evidence for hydronephrosis. ED COURSE The patient was given Dilaudid, Toradol and Zofran for pain and nausea control. Was feeling improved upon reevaluation. IMPRESSION Lumbar strain. PLAN The patient's pain is positional, reproducible. Did have some left-sided paraspinal discomfort upon palpation. He has no evidence for evidence for any nephrolithiasis at this point in time. No hematuria. No hydronephrosis. Plan will be for symptomatic treatment with [place], Zofran and Flexeril. Have him follow up with Dr. Alvarado, cone machine operator for operating table unreferred physician. The patient is aware of the management plan and he is in agreement. The patient will be discharged in stable condition. 12/03/18 1535 ROGERS MONCADA M.D. cc: ROGERS MONCADA M.D. << Signature on File>> Reported By: ROGERS MONCADA M.D. Signed By: ROGERS MONCADA M.D. Tests performed at: [id number] [place], [place] [address] Normal [facility] EMERGENCY DEPARTMENT REPORTo n 11-21-2018 [place]ER[place] [address] HEALTH INFORMATION MANAGEMENT EMERGENCY DEPARTMENT REPORT Patient: BIJALROGERS PEREZ M.D. [id number] M Status: [facility] ED Date of Service: 11/17/18 CHIEF COMPLAINT Right-sided back pain. HISTORY OF PRESENT ILLNESS The patient is a 32-year-old white male with right-sided back pain going on for the last two days. The patient has pain with movement, also nausea. States that his right side now hurts as well. Denies any urinary symptoms. Taking over the counter medication with no relief. PAST MEDICAL HISTORY Chronic back pain, hiatal hernia. PAST SURGICAL HISTORY Thyroid cyst removal. SOCIAL HISTORY No tobacco or ethanol use. Does have a history of marijuana use. MEDICATIONS None. ALLERGIES No known drug allergies. REVIEW OF SYSTEMS General: There are no fevers or chills. Head: There is no headache. Neck: There is no neck pain. Back: Positive for right low back pain. Cardiac: There is no chest pain or palpitations. Pulmonary: There is no shortness of breath or cough. Abdomen: There is no abdominal pain. Positive for nausea. No vomiting. Urinary: There is no dysuria or increased frequency. PHYSICAL EXAMINATION General examination shows a morbidly obese male lying in the bed resting comfortably. Vital signs: Blood pressure 138/81, temperature 98, pulse is 70, respiratory rate of 22, pulse oximetry 95% on room air. Head is normocephalic and atraumatic. Ocular examination reveals pupils to be equal, round and reactive to light. Sclerae are anicteric. Examination of the oropharynx reveals mucous membranes to be moist with no erythema, exudate or lesions. Cardiovascular examination reveals normal S2, regular rate and rhythm. No murmurs, gallops or rubs. Pulmonary examination reveals the breath sounds to be clear to auscultation bilaterally with no wheezes, rales or rhonchi. Abdomen is soft, positive bowel sounds and no peritoneal signs. Examination of the extremities reveals no cyanosis, clubbing or edema. Neurological examination, reveals the patient to be alert and oriented x3, no focal deficits. ED EVALUATION CBC, chemistry unremarkable. Urinalysis is negative. Renal ultrasound shows no evidence for hydronephrosis. ED COURSE The patient was given Dilaudid, Toradol and Zofran for pain and nausea control. Was feeling improved upon reevaluation. IMPRESSION Lumbar strain. PLAN The patient's pain is positional, reproducible. Did have some left-sided paraspinal discomfort upon palpation. He has no evidence for evidence for any nephrolithiasis at this point in time. No hematuria. No hydronephrosis. Plan will be for symptomatic treatment with [place], Zofran and Flexeril. Have him follow up with Dr. Alvarado, cone machine operator for operating table unreferred physician. The patient is aware of the management plan and he is in agreement. The patient will be discharged in stable condition. 12/03/18 1535 ROGERS MONCADA M.D. cc: ROGERS MONCADA M.D. << Signature on File>> Reported By: ROGERS MONCADA M.D. Signed By: ROGERS MONCADA M.D. Tests performed at: [address] [address] Normal [facility] BMPon 11-17-2018 Anion gap [Moles/Vol] 15.1 mmol/L Normal 15- [facility] Comment on above: Performed By: #### L 100.0010 #### ML [facility] [address] [place] [address]5635 Calcium [Mass/Vol] 9.1 mg/dL Normal 8.6-10.0 [facility] Comment on above: Performed By: #### L 100.0010 #### ML [facility] [address] [place] [address] 02032 Chloride [Moles/Vol] 104 mmol/L Normal 98-107 [facility] Comment on above: Performed By: #### L 100.0010 #### ML [facility] [address] [place] [address] 75179 CO2 [Moles/Vol] 25 mmol/L Normal 22-29 [facility] Comment on above: Performed By: #### L 100.0010 #### ML [facility] [address] [place] [address] 38185 Creatinine [Mass/Vol] 1.00 mg/dL Normal 0.70-1.20 [facility] Comment on above: Performed By: #### L 100.0010 #### [facility] [address] [place] [address] 04718 eGFR if AFR JAMES > 60 ml/min/1.73m2 Normal U [facility] Comment on above: Result Comment: eGFR >= 60 Indicates normal kidney function. * eGFR IS AN ESTIMATE * (AFR JAMES = ) (non-AFR AM = NON-) MDRD calculation used in the eGFR should not be used to dose medications. For further limitations of the eGFR please refer to the Physician Website or the National Kidney Disease Education Program website (www.nkdep.nih.gov). Performed By: #### L 100.0010 #### ML [facility] [address] [place] [address] 83658 eGFR nonAFR James > 60 ml/Min/1.73m2 Normal [facility] Comment on above: Performed By: #### L 100.0010 #### [facility] [address] [place] [address]97 Glucose [Mass/Vol] 108 mg/dL High 74-106 [facility] Comment on above: Performed By: #### L 100.0010 #### [facility] [address] [place] [address] 62918 Potassium [Moles/Vol] 4.1 mmol/L Normal 3.5-5.0 [facility] Comment on above: Performed By: #### L 100.0010 #### [facility] [address] [place] [address] 84153 Sodium [Moles/Vol] 140 mmol/L Normal 135-145 [facility] Comment on above: Performed By: #### L 100.0010 #### [facility] [address] [place] [address] 61401 Urea nitrogen [Mass/Vol] 13 mg/dL Normal 6-20 [facility] Comment on above: Performed By: #### L 100.0010 #### [facility] [address] [place] [address] 47314 CBCon 11-17-2018 Basophils (Bld) [#/Vol] 0.00 x10(3) Normal 0.00-0.10 [facility] Comment on above: Performed By: #### L 200.0010 #### [facility] [address] [place] [address] 88221 Basophils/100 WBC (Bld) 0.2 % Normal 0.0-1.0 [facility] Comment on above: Performed By: #### L 200.0010 #### [facility] [address] [place] [address] 11581 Eosinophils (Bld) [#/Vol] 0.10 x10(3) Normal 0.00-0.54 [facility] Comment on above: Performed By: #### L 200.0010 #### ML [facility] [address] [place] [address] 25803 Eosinophils/100 WBC (Bld) 1.1 % Normal 0.5-4.9 [facility] Comment on above: Performed By: #### L 200.0010 #### ML [facility] [address] [place] [address]001 Erythrocyte distribution width (RBC) [Ratio] 14.2 % Normal 12.7-15.3 [facility] Comment on above: Performed By: #### L 200.0010 #### [facility] [address] [place] [address] 42588 Hematocrit (Bld) [Volume fraction] 41.3 % Low 42.0-51.0 [facility] Comment on above: Performed By: #### L 200.0010 #### ML [facility] [address] [place] [address] 38262 Hemoglobin (Bld) [Mass/Vol] 14.2 g/dL Normal 14.0-17.2 [facility] Comment on above: Performed By: #### L 200.0010 #### [facility] [address] [place] [address] 52962 Lymphocytes (Bld) [#/Vol] 1.80 x10(3) Normal 1.00-3.50 [facility] Comment on above: Performed By: #### L 200.0010 #### ML [facility] [address] [place] [address] 14755 Lymphocytes/100 WBC (Bld) 25.2 % Normal 16.0-48.0 [facility] Comment on above: Performed By: #### L 200.0010 #### ML [facility] [address] [place] [address] 75712 MCH (RBC) [Entitic mass] 29.3 pg Normal 28.8-32.2 [facility] Comment on above: Performed By: #### L 200.0010 #### ML [facility] [address] [place] [address] 89844 MCHC (RBC) [Mass/Vol] 34.5 g/dL Normal 33.0-36.0 [facility] Comment on above: Performed By: #### L 200.0010 #### ML [facility] [address] [place] [address] 83665 MCV (RBC) [Entitic vol] 85.1 fL Normal 80.0-94.0 [facility] Comment on above: Performed By: #### L 200.0010 #### ML [facility] [address] [place] [address] 67369 Monocytes (Bld) [#/Vol] 0.50 x10(3) Normal 0.30-0.80 [facility] Comment on above: Performed By: #### L 200.0010 #### ML [facility] [address] [place] [address] 87974 Monocytes/100 WBC (Bld) 6.5 % Normal 4.3-11.2 [facility] Comment on above: Performed By: #### L 200.0010 #### ML [facility] [address] [place] [address] 55290 Neutrophils (Bld) [#/Vol] 4.70 x10(3) Normal 1.40-6.50 [facility] Comment on above: Performed By: #### L 200.0010 #### [facility] [address] [place] [address] 91629 Neutrophils/100 WBC (Bld) 67.0 % Normal 45.0-73.0 [facility] Comment on above: Performed By: #### L 200.0010 #### [facility] [address] [place] [address] 68453 Platelet mean volume (Bld) [Entitic vol] 8.4 fL Normal 7.4-9.2 [facility] Comment on above: Performed By: #### L 200.0010 #### [facility] [address] [place] [address] 98130 Platelets (Bld) [#/Vol] 233 X10(3) Normal 150-450 [facility] Comment on above: Performed By: #### L 200.0010 #### [facility] [address] [place] [address] 69887 RBC (Bld) [#/Vol] 4.85 x10(6) Normal 4.80-5.50 [facility] Comment on above: Performed By: #### L 200.0010 #### ML [facility] [address] [place] [address] 48388 WBC (Bld) [#/Vol] 7.1 x10(3) Normal 4.5-10.0 [facility] Comment on above: Performed By: #### L 200.0010 #### [facility] [address] [place] [address] 39552 UA W/C&Son 11-17-2018 Bilirubin Ql (U) Negative Normal NEGATIVE [facility] Comment on above: Order Comment: Urine Specimen Source+ CLEAN CATCH Performed By: #### L 200.3001 #### [facility] [address] [place] [address] 30777 Color (U) YELLOW Normal YELLOW [facility] Comment on above: Order Comment: Urine Specimen Source+ CLEAN CATCH Performed By: #### L 200.3001 #### ML [facility] [address] [place] [address] 32000 Glucose Ql (U) Negative Normal NEGATIVE [facility] Comment on above: Order Comment: Urine Specimen Source+ CLEAN CATCH Performed By: #### L 200.3001 #### [facility] [address] [place] [address] 77164 Hemoglobin Ql (U) Negative Normal NEGATIVE [facility] Comment on above: Order Comment: Urine Specimen Source+ CLEAN CATCH Performed By: #### L 200.3001 #### [facility] [address] [place] [address] 42989 Leukocyte esterase Test strip Ql (U) Negative Normal NEGATIVE [facility] Comment on above: Order Comment: Urine Specimen Source+ CLEAN CATCH Performed By: #### L 200.3001 #### [facility] [address] [place] [address] 01651 Nitrite Ql (U) Negative Normal NEGATIVE [facility] Comment on above: Order Comment: Urine Specimen Source+ CLEAN CATCH Performed By: #### L 200.3001 #### [facility] [address] [place] [address] 41243 pH (U) 5.5 [pH] Normal 5.0-8.0 [facility] Comment on above: Order Comment: Urine Specimen Source+ CLEAN CATCH Performed By: #### L 200.3001 #### [facility] [address] [place] [address] 75436 Protein Ql (U) Negative Normal NEGATIVE [facility] Comment on above: Order Comment: Urine Specimen Source+ CLEAN CATCH Performed By: #### L 200.3001 #### [facility] [address] [place] [address] 68496 URINE APPEARANC CLEAR Normal CLEAR [facility] Comment on above: Order Comment: Urine Specimen Source+ CLEAN CATCH Performed By: #### L 200.3001 #### [facility] [address] [place] [address] 62127 URINE KETONE Negative Normal NEGATIVE [facility] Comment on above: Order Comment: Urine Specimen Source+ CLEAN CATCH Performed By: #### L 200.3001 #### [facility] [address] [place] [address] 72266 URINE SPECIFIC 1.020 Normal 1.001-1.035 [facility] Comment on above: Order Comment: Urine Specimen Source+ CLEAN CATCH Performed By: #### L 200.3001 #### [facility] [address] [place] [address] 95046 URINE UROBILINO 1.0 EU/DL Normal 0.2-1.0 [facility] Comment on above: Order Comment: Urine Specimen Source+ CLEAN CATCH Performed By: #### L 200.3001 #### [facility] [address] [place] [address] 09333 US RETRO LTDon 11-17-2018 US RETRO LTD [address] [address] Name: EMILIEHIMANSHUDEMARCUS Phys: ROGERS MONCADA M.D. : [birth year] Age: 32 Sex: M Acct: [id number] Loc: ED Exam Date: 11/17/18 Status: REG ER Radiology No.: [id number] Unit Number: [id number] Exam # Type/Exam [id number] US / US RETRO LTD RT Complete ultrasound of the retroperitoneum for the kidneys HISTORY: Right lower back pain COMPARISON: None Study is difficult due to patient body habitus and bowel gas. Right kidney 11.6 cm length and left kidney 13 cm length. No definite stone, mass or collecting system dilatation is evident. No perinephric fluid seen. There is no free fluid identified. The urinary bladder is not well distended. There is no focal bladder lesion seen. IMPRESSION: No evidence for hydronephrosis on this exam. Electronically signed by: Elmira Montano MD 11/17/2018 11:13 AM CDT < > Reported By: ELMIRA MONTANO M.D. Signed In PowerScribe By: ELMIRA MONTANO M.D. << Signature on File>> Reported By: ELMIRA MONTANO M.D. Signed By: ELMIRA MONTANO M.D. Tests performed at: [address] [address] Normal [facility] CNCOon 09-02-2017 CNCO Letter Text [facility] [address] [place] [address]Emkc: [phone] Qlpmlbh E. Shafer, MDMay 2017Demarcus Appiah[address] [facility] 4[facility] [id number] Demarcus Appiah,We missed seeing you for your scheduled appointment with Dr. Nickerson on08/26/17.Our goal is to offer the best possible care to our patients, so we areconcerned when you are unable to keep a scheduled appointment.Please call us at [phone] so that we can reschedule your appointment fora day and time that will work for you.If you find it difficult to keep your appointment, please notify our officeat least 24 hours in advance so that we may reschedule your appointment.We are glad that you have chosen [facility] for yourcardiovascular needs and hope to continue serving you in the future.Sincerely,Shania Nickerson MD(Signed electronically to expedite mailing) Normal [facility] Vital Signs Date Time Vital Sign Value Performing Clinician [facility]-23-2024 09:38-0400 Body mass index (BMI) [Ratio] 83.44 kg/m2 Rocio Leslie DO Work Phone: [facility] 11-23-2024 09:38-0400 Body weight 256.28 kg Rocio Leslie DO Work Phone: [facility] 10-16-2024 13:24-0400 Body mass index (BMI) [Ratio] 85.8 kg/m2 David Grissom MD Work Phone: [facility] 10-16-2024 13:24-0400 Body weight 263.54 kg aDvid Grissom MD Work Phone: [facility] 10-16-2024 13:24-0400 Diastolic blood pressure 72 mm[Hg] David Grissom MD Work Phone: [facility] 10-16-2024 13:24-0400 Heart rate 78 /min David Grissom MD Work Phone: [facility] 10-16-2024 13:24-0400 SaO2% (BldA) [Mass fraction] 95 % David Grissom MD Work Phone: [facility] 10-16-2024 13:24-0400 Systolic blood pressure 130 mm[Hg] David Grissom MD Work Phone: [facility] 02-10-2024 09:08-0400 Diastolic blood pressure 60 mm[Hg] Elmira Beckhame DO Work Phone: [facility] 02-10-2024 09:08-0400 Heart rate 83 /min Elmira De Souza DO Work Phone: [facility] 02-10-2024 09:08-0400 Respiratory rate 26 /min Elmira De Souza DO Work Phone: [facility] 02-10-2024 09:08-0400 SaO2% (BldA) [Mass fraction] 94 % Elmira Beckhame DO Work Phone: [facility] 02-10-2024 09:08-0400 Systolic blood pressure 114 mm[Hg] Elmira Beckhame DO Work Phone: [facility] 02-10-2024 08:34-0400 Body temperature 97.3 [degF] Elmira Beckhame DO Work Phone: [facility] 01-30-2024 14:50-0400 Diastolic blood pressure 94 mm[Hg] Pacc 1 Work Phone: [facility] 01-30-2024 14:50-0400 Systolic blood pressure 140 mm[Hg] Pacc 1 Work Phone: [facility] 01-30-2024 14:42-0400 Body height 175.3 cm Pacc 1 Work Phone: [facility] 01-30-2024 14:42-0400 Body mass index (BMI) [Ratio] 84.68 kg/m2 Pacc 1 Work Phone: [facility] 01-30-2024 14:42-0400 Body temperature 98.91 [degF] Pacc 1 Work Phone: [facility] 01-30-2024 14:42-0400 Body weight 260.1 kg Pacc 1 Work Phone: [facility] 01-30-2024 14:42-0400 Heart rate 83 /min Pac 1 Work Phone: [facility] 01-30-2024 14:42-0400 Respiratory rate 20 /min Pac 1 Work Phone: [facility] 01-30-2024 14:42-0400 SaO2% (BldA) [Mass fraction] 98 % Pacc 1 Work Phone: [facility] 01-16-2024 10:25-0400 Body height 175.3 cm Lorraine Aviles PA-C Work Phone: [facility] 01-16-2024 10:25-0400 Body mass index (BMI) [Ratio] 85.8 kg/m2 Lorraine Aviles PA-C Work Phone: [facility] 01-16-2024 10:25-0400 Body weight 263.54 kg Lorraine Aviles PA-C Work Phone: [facility] 01-16-2024 10:25-0400 Diastolic blood pressure 78 mm[Hg] Lorraine Aviles PA-C Work Phone: [facility] 01-16-2024 10:25-0400 Heart rate 71 /min Lorraine Aviles PA-C Work Phone: [facility] 01-16-2024 10:25-0400 Systolic blood pressure 172 mm[Hg] Lorraine Aviles PA-C Work Phone: [facility] 10-10-2023 14:15-0400 Body height 175.3 cm David Grissom MD Work Phone: [facility] 10-10-2023 14:15-0400 Body mass index (BMI) [Ratio] 85.8 kg/m2 David Grissom MD Work Phone: [facility] 10-10-2023 14:15-0400 Body weight 263.54 kg David Grissom MD Work Phone: [facility] 10-10-2023 14:15-0400 Diastolic blood pressure 80 mm[Hg] David Grissom MD Work Phone: [facility] 10-10-2023 14:15-0400 Heart rate 84 /min David Grissom MD Work Phone: [facility] 10-10-2023 14:15-0400 SaO2% (BldA) [Mass fraction] 97 % David Grissom MD Work Phone: [facility] 10-10-2023 14:15-0400 Systolic blood pressure 136 mm[Hg] David Grissom MD Work Phone: [facility] 07-08-2023 11:08-0500 Body height 175.3 cm David Grissom MD Work Phone: [facility] 07-08-2023 11:08-0500 Body temperature 98.6 [degF] David Grissom MD Work Phone: [facility] 07-08-2023 11:08-0500 Body weight 263.54 kg David Grissom MD Work Phone: [facility] 07-08-2023 11:08-0500 Diastolic blood pressure 82 mm[Hg] David Grissom MD Work Phone: [facility] 07-08-2023 11:08-0500 Heart rate 97 /min David Grissom MD Work Phone: [facility] 07-08-2023 11:08-0500 SaO2% (BldA) [Mass fraction] 96 % David Grissom MD Work Phone: [facility] 07-08-2023 11:08-0500 Systolic blood pressure 124 mm[Hg] David Grissom MD Work Phone: [facility] 06-30-2023 14:42-0500 Body height 175.3 cm Osmany Mendiola DO Work Phone: [facility] 06-30-2023 14:42-0500 Body weight 263.56 kg Osmany 24 Quan Work Phone: [facility] 06-30-2023 14:42-0500 Diastolic blood pressure 84 mm[Hg] Osmany Gross DO Work Phone: [facility] 06-30-2023 14:42-0500 Heart rate 72 /min Osmany Gross DO Work Phone: [facility] 06-30-2023 14:42-0500 Systolic blood pressure 136 mm[Hg] Osmany Gross DO Work Phone: [facility] 07-02-2022 07:59-0500 Body height 177.8 cm Pacc 1 Work Phone: [facility] 07-02-2022 07:59-0500 Body temperature 99 [degF] Pacc 1 Work Phone: [facility] 07-02-2022 07:59-0500 Body weight 254.47 kg Pacc 1 Work Phone: [facility] 07-02-2022 07:59-0500 Diastolic blood pressure 62 mm[Hg] Pacc 1 Work Phone: [facility] 07-02-2022 07:59-0500 Heart rate 71 /min Pacc 1 Work Phone: [facility] 07-02-2022 07:59-0500 Respiratory rate 18 /min Pacc 1 Work Phone: [facility] 07-02-2022 07:59-0500 SaO2% (BldA) [Mass fraction] 94 % Pacc 1 Work Phone: [facility] 07-02-2022 07:59-0500 Systolic blood pressure 136 mm[Hg] Pacc 1 Work Phone: [facility] 06-28-2022 09:50-0500 Body weight 253.56 kg Sofya Bower PA-C Work Phone: [facility] 06-28-2022 09:50-0500 Diastolic blood pressure 84 mm[Hg] Sofya Bower PA-C Work Phone: [facility] 06-28-2022 09:50-0500 Heart rate 81 /min Sofya Cheli PA-C Work Phone: [facility] 06-28-2022 09:50-0500 Respiratory rate 20 /min Sofya Cheli PA-C Work Phone: [facility] 06-28-2022 09:50-0500 SaO2% (BldA) [Mass fraction] 97 % Sofya Cainone PA-C Work Phone: [facility] 06-28-2022 09:50-0500 Systolic blood pressure 126 mm[Hg] Sofya Cainone PA-C Work Phone: [facility] 06-14-2022 09:47-0500 Diastolic blood pressure 88 mm[Hg] Raman Martinez MD Work Phone: [facility] 06-14-2022 09:47-0500 Heart rate 85 /min Raman Martinez MD Work Phone: [facility] 06-14-2022 09:47-0500 SaO2% (BldA) [Mass fraction] 95 % Raman Martinez MD Work Phone: [facility] 06-14-2022 09:47-0500 Systolic blood pressure 140 mm[Hg] Raman Martinez MD Work Phone: [facility] 05-13-2022 14:54-0500 Body height 177.8 cm Kayleen Villalpando MD Work Phone: [facility] 05-13-2022 14:54-0500 Body weight 257.19 kg Kayleen Villalpando MD Work Phone: [facility] 05-13-2022 14:54-0500 Heart rate 83 /min Kayleen Villalpando MD Work Phone: [facility] 05-13-2022 14:54-0500 Respiratory rate 12 /min Kayleen Villalpando MD Work Phone: [facility] 05-13-2022 14:54-0500 SaO2% (BldA) [Mass fraction] 95 % Kayleen Villalpando MD Work Phone: [facility] 04-16-2022 09:22-0500 Body height 180.3 cm Zafar Castrejon MD Work Phone: [facility] 04-16-2022 09:22-0500 Body temperature 98.8 [degF] Zafar Castrejon MD Work Phone: [facility] 04-16-2022 09:22-0500 Body weight 259.91 kg Zafar Castrejon MD Work Phone: [facility] 04-16-2022 09:22-0500 Diastolic blood pressure 86 mm[Hg] Zafar Castrejon MD Work Phone: [facility] 04-16-2022 09:22-0500 Heart rate 115 /min Zafar Castrejon MD Work Phone: [facility] 04-16-2022 09:22-0500 SaO2% (BldA) [Mass fraction] 94 % Zafar Castrejon MD Work Phone: [facility] 04-16-2022 09:22-0500 Systolic blood pressure 138 mm[Hg] Zafar Castrejon MD Work Phone: [facility] 04-08-2022 10:15-0500 Body height 180.3 cm David Grissom MD Work Phone: [facility] 04-08-2022 10:15-0500 Body weight 264.9 kg David Grissom MD Work Phone: [facility] 04-08-2022 10:15-0500 Diastolic blood pressure 90 mm[Hg] David Grissom MD Work Phone: [facility] 04-08-2022 10:15-0500 Heart rate 96 /min David Grissom MD Work Phone: [facility] 04-08-2022 10:15-0500 SaO2% (BldA) [Mass fraction] 96 % David Grissom MD Work Phone: [facility] 04-08-2022 10:15-0500 Systolic blood pressure 130 mm[Hg] David Grissom MD Work Phone: [facility] Encounters Encounter Date Encounter Type Care Provider Facility Start: 01-10-2025 End: 01-10-2025 Refill David Grissom MD Work Phone: [facility] Comment on above: Refill Request Start: 01-02-2025 End: 01-02-2025 ambulatory ROCIO LESLIE Facility:[facility] Start: 12-10-2024 End: 12-10-2024 Refill David Grissom MD Work Phone: [facility] Comment on above: Refill Request Start: 11-26-2024 End: 01-03-2025 Chart abstracting Psg Neur Main Work Phone: Neurology Comment on above: PSG Check In Start: 11-23-2024 End: 11-23-2024 Telephone encounter Elmira Villalpando DO Work Phone: [facility] Start: 11-23-2024 End: 11-23-2024 Admission to same day surgery center Rocio Leslie DO Work Phone: General Surgery Comment on above: Class 3 severe obesi ty due to excess calories with serious comorbidity and body mass index (BMI) greater than or equal to 70 in adult ([facility]) (Primary Dx); BMI 70 and over, adult ([facility]); CHRISTOPHER (obstructive sleep apnea); Uncomplicated asthma, unspecified asthma severity, unspecified whether persistent ([facility]); Lymphedema Start: 11-23-2024 End: 11-23-2024 Telemedicine consultation with patient Rocio Leslie DO Work Phone: General Surgery Start: 11-23-2024 End: 11-23-2024 ambulatory ROCIO LESLIE Facility:[facility] Start: 11-15-2024 ambulatory Jacqueline Foss Facility:[facility] Start: 10-17-2024 End: 12-17-2024 Follow-up encounter David Grissom MD Work Phone: [facility] Start: 10-16-2024 End: 10-16-2024 ambulatory DAVID GRISSOM Facility:[facility] Start: 10-16-2024 End: 10-16-2024 Patient encounter procedure David Grissom MD Work Phone: [facility] Comment on above: Essential hypertensi on (Primary Dx); Lymphedema; Anxiety with depression; BMI 70 and over, adult (HCC); SOB (shortness of breath); Asthma, moderate persistent, poorly-controlled (HCC); POSADAS (dyspnea on exertion); Snoring; GERD without esophagitis; Anxiety and depression; Venous stasis dermatitis; Screening for diabetes mellitus Start: 10-16-2024 End: 10-16-2024 ambulatory DAVID GRISSOM Facility:[facility] Start: 08-31-2024 End: 09-01-2024 Refill David Grissom MD Work Phone: [facility] Comment on above: Refill Request Start: 06-25-2024 End: 06-25-2024 Refill David Grissom MD Work Phone: [facility] Comment on above: Refill Request Start: 04-16-2024 End: 04-16-2024 ambulatory DAVID GRISSOM Facility:[facility] Start: 02-17-2024 End: 02-17-2024 Orders Only Lorraine Aviles PA-C Work Phone: [facility] Comment on above: Helicobacter pylori infection (Primary Dx) Start: 02-10-2024 ambulatory LORRAINE Duarte ty:[facility] Start: 02-10-2024 End: 02-10-2024 Subsequent hospital visit by physician Elmira De Souza DO Work Phone: [facility] Comment on above: Epigastric pain [R10 .13] Start: 02-07-2024 End: 02-07-2024 ambulatory Elmira De Souza DO Work Phone: [facility] Start: 01-30-2024 End: 01-30-2024 Admission to establishment [place] [address] Work Phone: Pre Anesthesia Start: 01-30-2024 End: 01-30-2024 Anesthesia consultation [place] [address] Work Phone: Pre Anesthesia Comment on above: Pre-op evaluation (P rimary Dx); Obesity, Class III, BMI >= 40; Lymphedema; Asthma, moderate persistent, poorly-controlled; POSADAS (dyspnea on exertion); Snoring; GERD without esophagitis; Chronic midline low back pain with right-sided sciatica; Anxiety and depression; Essential hypertension; Marijuana use Start: 01-30-2024 End: 01-30-2024 Preprocedural examination done [place] [address] Work Phone: [facility] Work Phone: Start: 01-30-2024 End: 01-30-2024 ambulatory [facility] Facility:[facility] Start: 01-30-2024 Encounter for other preprocedural examination [facility] Start: 01-16-2024 End: 01-16-2024 Telephone encounter Lorraine Aviles PA-C Work Phone: [facility] [place] Comment on above: Scheduling Start: 01-16-2024 End: 01-16-2024 Patient encounter procedure Lorraine Aviles PA-C Work Phone: [facility] Comment on above: Epigastric pain (Nkechi dotty Dx); Abnormal esophagram; Rectal bleeding Start: 01-16-2024 End: 01-16-2024 ambulatory LORRAINE AVILES Facility:[facility] Start: 01-11-2024 End: 01-11-2024 Refill David Grissom MD Work Phone: [facility] [place] Comment on above: Refill Request Start: 11-02-2023 Refill David Grissom MD Work Phone: [facility] [place] Comment on above: Refill Request Start: 10-10-2023 End: 10-10-2023 Patient encounter procedure David Grissom MD Work Phone: [facility] [place] Comment on above: Essential hypertensi on (Primary Dx); Asthma, moderate persistent, poorly-controlled; GERD without esophagitis; Obesity, morbid (HCC); POSADAS (dyspnea on exertion); Snoring; Fatigue, unspecified type; CHRISTOPHER (obstructive sleep apnea) Start: 10-04-2023 Refill Sofya Hartman PA-C Work Phone: Pulmonary Medicine Comment on above: Refill Request Start: 10-02-2023 End: 10-02-2023 ambulatory [facility] Facility:[facility] Start: 10-02-2023 Chart abstracting Jennifer Mattson MD Work Phone: Neurology Start: 08-22-2023 End: 08-22-2023 ambulatory Rebeca [place] [facility] Physical Therapy Comment on above: Lymphedema (Primary Dx) Start: 07-08-2023 End: 07-08-2023 Patient encounter procedure David Grissom MD Work Phone: [facility] [place] Comment on above: URI, acute (Primary Dx); Dysphagia, unspecified type; Asthma, moderate persistent, poorly-controlled; Anxiety and depression; Obesity, Class III, BMI >= 40; Lymphedema; Essential hypertension; Obesity, morbid (HCC) Start: 07-04-2023 Telephone encounter Marisabel Ramirez APRN.MARKET RESEARCH SENIOR PROJECT MANAGER Work Phone: [facility] [place] Comment on above: Results Start: 07-04-2023 ambulatory [facility] Facility :[facility] Start: 07-04-2023 End: 07-04-2023 Subsequent hospital visit by physician Gi/Gu [facility] Work Phone: Radiology Comment on above: Dysphagia, unspecifi ed type [R13.10] Start: 06-30-2023 End: 06-30-2023 [facility] Facility:[id number] Start: 06-30-2023 End: 06-30-2023 Patient encounter procedure Osmany Mendiola DO Work Phone: [facility] Cardiology Comment on above: SOB (shortness of br eath) (Primary Dx); POSADAS (dyspnea on exertion); Essential hypertension; History of echocardiogram; Non-smoker Start: 05-16-2023 Telephone encounter David Grissom MD Work Phone: [facility] [place] Comment on above: Orders Start: 11-01-2022 Refill David Grissom MD Work Phone: [facility] [place] Comment on above: Refill Request Start: 08-09-2022 Telephone encounter Elis THURMAN Pre Anesthesia Comment on above: Appointment Start: 07-21-2022 ambulatory Elmira S Clin e DO Work Phone: [facility] Start: 07-09-2022 ambulatory Helder brito MD Work Phone: [facility] Comment on above: EGD and Colonoscopy Start: 07-09-2022 E-mail encounter giana m caregiver Helder Galdamez MD Work Phone: [facility] Start: 07-05-2022 End: 07-05-2022 Patient encounter procedure Echocardiogram [facility] Work Phone: Cardiology Comment on above: SOB (shortness of br eath); POSADAS (dyspnea on exertion) Start: 07-02-2022 End: 07-02-2022 Admission to establishment [facility] [place] 1 Work Phone: [facility] [place] Start: 07-02-2022 End: 07-02-2022 ambulatory [facility] 1 Work Phone: Pre Anesthesia Comment on above: Pre-operative examin ation (Primary Dx); POSADAS (dyspnea on exertion); Obesity, morbid (HCC); Lymphedema; GERD without esophagitis; Essential hypertension; Chronic midline low back pain with right-sided sciatica; Asthma, moderate persistent, poorly-controlled; Snoring; Anxiety and depression Start: 07-02-2022 End: 07-02-2022 Preprocedural examination done [facility] [place] 1 Work Phone: Pre Anesthesia Start: 06-30-2022 Telephone encounter Vita Forbes APRN.ROLLED GOLD PLATER Work Phone: Pre Anesthesia Comment on above: Appointment Start: 06-28-2022 End: 06-28-2022 ambulatory [facility] Work Phone: PULM LAB [facility] Comment on above: Spirometry Start: 06-28-2022 End: 06-28-2022 Patient encounter procedure [facility] Comment on above: Asthma, moderate per sistent, poorly-controlled (Primary Dx); Wheezing; Morbid obesity (HCC) Start: 06-14-2022 End: 06-14-2022 Patient encounter procedure Raman Martinez MD Work Phone: Cardiology Comment on above: Obesity, morbid (HCC ) (Primary Dx); SOB (shortness of breath); POSADAS (dyspnea on exertion); Essential hypertension Start: 05-17-2022 Chart abstracting [facility] Work Phone: Neurology Start: 05-13-2022 End: 05-13-2022 ambulatory Pulm Lab [facility] Work Phone: PULM LAB [facility] Comment on above: Spirometry Start: 05-13-2022 End: 05-13-2022 Patient encounter procedure Pulm Lab [facility] Work Phone: [place] [facility] Comment on above: Asthma, moderate per sistent, poorly-controlled (Primary Dx); Morbid obesity (HCC) Start: 04-16-2022 End: 04-16-2022 Patient encounter procedure Zafar Castrejon MD Work Phone: General Surgery Comment on above: Rectal bleeding (Nkechi dotty Dx); Upper abdominal pain; Abdominal wall bulge; Diarrhea, unspecified type Start: 04-09-2022 Telephone encounter David Grissom MD Work Phone: [facility] Comment on above: Results Start: 04-09-2022 End: 04-09-2022 Subsequent hospital visit by physician [facility] 2 Work Phone: Radiology Comment on above: Abdominal pain, righ t upper quadrant [R10.11] Start: 04-08-2022 End: 04-08-2022 Subsequent hospital visit by physician [facility] [place] Work Phone: Radiology Comment on above: SOB (shortness of br eath) [R06.02] Start: 04-08-2022 End: 04-08-2022 Patient encounter procedure David Grissom MD Work Phone: [facility] Comment on above: Essential hypertensi on (Primary Dx); Lymphedema; Morbid obesity, BMI unknown (HCC); SOB (shortness of breath); Hyperglycemia; Anxiety with depression; Abdominal pain, right upper quadrant; Nausea; Chronic midline low back pain with right-sided sciatica; Rectal bleeding; GERD without esophagitis; Need for hepatitis C screening test; Screening for HIV (human immunodeficiency virus); Need for influenza vaccination Start: 08-26-2017 Ambulatory KYLE NICKERSON Facility :[facility] Procedures Date Procedure Procedure Detail Performing Clinician Start: 10-16-2024 Lipid 1996 panel - Serum or Plasma Prateek Villalpando DO Work Phone: Start: 02-10-2024 Colonoscopy flx dx w/collj spec when pfrmd Lorraine Aviles PA-C Work Phone: Start: 02-10-2024 Esophagogastroduodenoscopy transoral diagnostic Lorraine Aviles PA-C Work Phone: Start: 07-04-2023 Radiologic exam esophagus single contrast study David Grissom MD Work Phone: Start: 06-30-2023 Ecg routine ecg w/least 12 lds i&r only Osmanyinna Camargo Angelica DO Work Phone: Start: 04-13-2023 Lipid 1996 panel - Serum or Plasma Henok Grissom MD Work Phone: Start: 07-05-2022 Echo tthrc r-t 2d w/wom-mode compl spec&colr d Raman Martinez MD Work Phone: Start: 07-05-2022 LVEF TRANSTHORACIC ECHO Raman mix MD Work Phone: Start: 06-28-2022 Nitric oxide gas determination Kayleen Villalpando MD Work Phone: Start: 05-13-2022 Nitric oxide gas determination Kayleen Villalpando MD Work Phone: Start: 05-13-2022 Co diffusing capacity David Grissom MD Work Phone: Start: 04-09-2022 Us abdominal real time w/image limited David Grissom MD Work Phone: Start: 04-08-2022 Radiologic exam chest 2 views David Grissom MD Work Phone: Start: 01-30-2020 Lipid 1996 panel - Serum or Plasma Us 2 Work Phone: Plan of Treatment Date Care Activity Detail Author Start: 10-16-2029 Lipid panel Lipid Screening [facility] Start: 04-13-2028 Lipid panel Lipid Screening [facility] Start: 10-16-2025 Annual PCP Team Chronic Disease Visit Annual PCP Team Chronic Disease Visit [facility] Start: 04-17-2025 End: 04-17-2025 Patient encounter procedure 04/17/2025 3:20 PM EST Office Visit Family [place] [address] [place] [phone] David Grissom MD [address] [place] [phone] 6 month follow up Family [place] Comment on above: 6 month follow up Start: 04-16-2025 Annual PCP Team Chronic Disease Visit Annual PCP Team Chronic Disease Visit [facility] Start: 04-16-2025 BP Controlled (<130/80) BP Controlled (<130/80) [facility] inic Start: 04-16-2025 Covid-19 Vaccine ( season) Covid-19 Vaccine ( season) [facility] Comment on above: Postponed from 01/01/2024 (Declined at t his time) Start: 04-16-2025 Hepatitis B Vaccine (1 of 3 - 19+ 3-dose series) Hepatitis B Vaccine (1 of 3 - 19+ 3-dose series) [facility] Comment on above: Postponed from 12/28/2002 (Declined at t his time) Start: 04-16-2025 Pneumococcal vaccination Pneumococcal Vaccine (1 of 2 - PCV) [facility] Comment on above: Postponed from 12/28/2002 (Declined at t his time) Start: 04-16-2025 Urine microalbumin profile DTaP,Tdap,Td Vaccine (1 - Tdap) [facility] Comment on above: Postponed from 12/28/2002 (Declined at t his time) Start: 01-29-2025 Lipid 1996 panel - Serum or Plasma Lipid Screening [facility] Start: 01-29-2025 LIPID SCREEN LIPID SCREEN [facility] Start: 01-29-2025 End: 01-29-2025 Patient encounter procedure 01/29/2025 8:15 AM EDT Office Visit Vascular Medicine [address] [place] [address] Elmira Villalpando DO [address] [place] [address] Dx: Lymphedema Vascular Medicine Comment on above: Dx: Lymphedema Start: 01-02-2025 End: 01-02-2025 Patient encounter procedure 01/02/2025 7:45 PM EDT Office Visit Neurology [address] [place] [address] Main, Psg Neur [address] [place] [address] [facility] Neurology Comment on above: PSG Start: 12-31-2024 Influenza vaccination [facility] Start: 12-11-2024 End: 12-11-2024 Patient encounter procedure 12/11/2024 7:00 AM EDT Office Visit [facility] Cardiology [address] [place] [address] [place] [phone] Angel Shrestha APRN.[facility] [address] [place], [place] [id number] SOB-POSADAS-BMI 70 and over, adult (HCC) [Z68.45] [facility] Cardiology Comment on above: SOB-POSADAS-BMI 70 and over, adult (HCC) [Z6 8.45] Start: 12-03-2024 End: 12-03-2024 Patient encounter procedure 12/03/2024 1:30 PM EDT Office Visit [facility] Cardiology [address] [place] [address] [place] [phone] Osmany Mendiola DO [address] [place] [address] Dr [address] [place] [address] BMI 70 and over, adult (HCC) [Z68.45] [facility] Cardiology Comment on above: BMI 70 and over, adult (HCC) [Z68.45] Start: 11-30-2024 End: 11-30-2024 Patient encounter procedure 11/30/2024 11:00 AM EDT Office Visit Neurology [address] [place] [address] Maria Victoria Winkler APRN.ROLLED GOLD PLATER [address] [place] [address] POSADAS (dyspnea on exertion) [R06.09]; Snoring [R06.83] Neurology Comment on above: POSADAS (dyspnea on exertion) [R06.09]; Snor ing [R06.83] Start: 11-23-2024 End: 11-23-2024 Admission to same day surgery center 11/23/2024 9:15 AM EDT [facility] Surgery [address] [place], [place] [id number] Rocio Leslie, DO [address] [place] [address] BMI 70 and over, adult (HCC) [Z68.45] General Surgery Comment on above: BMI 70 and over, adult (HCC) [Z68.45] Start: 10-29-2024 Influenza vaccination Influenza Vaccine (#1) [facility] Comment on above: Postponed from 01/01/2024 (Declined at t his time) Start: 10-17-2024 End: 10-17-2024 Patient encounter procedure 10/17/2024 9:30 AM EDT Office Visit Pulmonary Medicine [address] [place] [address] Maribel Curry APRN.ROLLED GOLD PLATER [address] [place] [address] refill reuqest- last seen 2022 Pulmonary Medicine Comment on above: refill reuqest- last seen 2022 Start: 10-16-2024 End: 10-16-2025 Comprehensive metabolic 2000 panel - Serum or Plasma [facility] Work Phone: Comment on above: Expected: 10/16/2024, Expires: Start: 10-16-2024 End: 10-16-2025 Lipid 1996 panel - Serum or Plasma [facility] Comment on above: Expected: 10/16/2024, Expires: Start: 10-16-2024 End: 10-16-2024 Patient encounter procedure 10/16/2024 1:40 PM EDT Office Visit [facility] [place] [address] [place], [place] [address] David Grissom MD [address] [place], [place] [phone] 6 month follow up [facility] [place] Comment on above: 6 month follow up Start: 10-09-2024 Annual PCP Team Chronic Disease Visit Annual PCP Team Chronic Disease Visit [facility] Start: 07-07-2024 Annual PCP Team Chronic Disease Visit Annual PCP Team Chronic Disease Visit [facility] Start: 06-28-2024 End: 06-28-2024 Patient encounter procedure 06/28/2024 3:00 PM EST Office Visit [facility] Cardiology [address] [place] [address] [place] [phone] Angel Shrestha APRN.[address] [place] [address] 1 year follow up, hx of Shortness of breath. [facility] Cardiology Comment on above: 1 year follow up, hx of Shortness of naren ath. Start: 06-27-2024 End: 06-27-2024 Patient encounter procedure [facility] Comment on above: 1 year follow up, hx of Shortness of naren ath. Start: 05-23-2024 BP Controlled (<130/80) BP Controlled (<130/80) [facility] in Start: 05-16-2024 Annual PCP Team Chronic Disease Visit Annual PCP Team Chronic Disease Visit [facility] Start: 04-16-2024 End: 04-16-2024 Patient encounter procedure 04/16/2024 1:40 PM EST Office Visit [facility] [place] [address] [place] [address] David Grissom MD [address] [place] [address] 6 month follow up [facility] [place] Comment on above: 6 month follow up Start: 04-13-2024 Covid-19 Vaccine (#1) Covid-19 Vaccine (#1) [facility] Comment on above: Postponed from 06/29/1984 (Declined at t his time) Start: 04-13-2024 Covid-19 Vaccine ( season) Covid-19 Vaccine ( season) [facility] Comment on above: Postponed from 12/31/2022 (Declined at t his time) Start: 04-13-2024 Hepatitis B Vaccine (1 of 3 - 19+ 3-dose series) Hepatitis B Vaccine (1 of 3 - 19+ 3-dose series) [facility] Comment on above: Postponed from 12/28/2002 (Declined at t his time) Start: 04-13-2024 Hepatitis B Vaccine (1 of 3 - 3-dose series) Hepatitis B Vaccine (1 of 3 - 3-dose series) [facility] Comment on above: Postponed from 1983 (Declined at t his time) Start: 04-13-2024 Pneumococcal vaccination Pneumococcal Vaccine (1 of 2 - PCV) [facility] Comment on above: Postponed from 12/28/1989 (Declined at t his time) Start: 04-13-2024 Urine microalbumin profile DTaP,Tdap,Td Vaccine (1 - Tdap) [facility] Comment on above: Postponed from 12/28/2002 (Declined at t his time) Start: 03-23-2024 End: 03-23-2024 Patient encounter procedure Neurology Comment on above: POSADAS (dyspnea on exertion) [R06.09]; Snor ing [R06.83]; Fatigue, unspecified type [R53.83]; CHRISTOPHER (obstructive sleep apnea) [G47.33] Start: 02-10-2024 End: 02-10-2024 Patient encounter procedure 02/10/2024 8:15 AM EDT Appointment [facility] [place] [address] Elmira De Souza DO [address] [place] [address] Epigastric pain [R10.13] [facility] Comment on above: Epigastric pain [R10.13] Start: 01-27-2024 End: 01-27-2024 Anesthesia consultation 01/27/2024 9:20 AM EDT PAT Pre Anesthesia [address] [place] [address] 1, Pacc [place] [address] [place] [address] EGD&COL Pre Anesthesia Comment on above: EGD&COL Start: 01-16-2024 End: 01-16-2024 Patient encounter procedure 01/16/2024 11:20 AM EDT Office Visit Gastroenterology [place] [address] [place], [place] [address] [phone] Lorraine Aviles PA-C [address] [place] [address] 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] [facility] [place] Comment on above: 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] Start: 01-01-2024 Covid-19 Vaccine ( season) Covid-19 Vaccine ( season) [facility] Start: 01-01-2024 Covid-19 Vaccine ( season) Covid-19 Vaccine ( season) [facility] Start: 01-01-2024 Influenza vaccination Influenza Vaccine (#1) [facility] Start: 11-25-2023 End: 11-25-2023 Patient encounter procedure 11/25/2023 2:15 PM EDT Office Visit G[facility]enterology [place] [place] [phone] Lorraine Aviles PA-C [address] [place] [address] 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] [facility] [place] Comment on above: 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] Start: 10-24-2023 End: 10-24-2023 Follow-up encounter 10/24/2023 1:00 PM EDT [facility] Neurology [address] [place] [address] Tulio Goodwin, WOOD CUT ENGRAVER.ROLLED GOLD PLATER [address] [place] [address] HST followup Neurology Comment on above: HST followup Start: 10-14-2023 End: 10-14-2023 Patient encounter procedure 10/14/2023 1:25 PM EDT Office Visit Gastroenterology [place] [address] [place] [phone] Lorraine Aviles PA-C [address] [place] [address] 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] [facility] [place] Comment on above: 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] Start: 10-10-2023 End: 10-10-2023 Patient encounter procedure 10/10/2023 2:20 PM EDT Office Visit Family Marlen [place] [address] [place], [place] [phone] David Grissom MD [address] [place], [place] [phone] 3 month follow up Family [place] Comment on above: 3 month follow up Start: 10-02-2023 End: 10-02-2023 Patient encounter procedure 10/02/2023 9:05 PM EDT Office Visit Neurology [address] [place], [place] [phone] CHRISTOPHER (obstructive sleep apnea) [G47.33] Neurology Comment on above: CHRISTOPHER (obstructive sleep apnea) [G47.33] Start: 08-26-2023 End: 08-26-2023 Patient encounter procedure 08/26/2023 1:25 PM EDT Office Visit Gastroenterology [place] [address] [place] [phone] Lorraine Aviles PA-C [address] [place] [address] 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] [facility] [place] Comment on above: 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] Start: 04-08-2023 ANNUAL PCP TEAM CHRONIC DISEASE VISIT ANNUAL PCP TEAM CHRONIC DISEASE VISIT [facility] Start: 12-31-2022 Influenza vaccination [facility] Start: 05-02-2022 DEPRESSION ASSESSMENT DEPRESSION ASSESSMENT [facility] Start: 04-08-2022 End: 06-08-2022 CBC W Auto Differential panel - Blood [facility] Work Phone: Comment on above: Expected: 04/08/2022, Expires: 3 Start: 04-08-2022 End: 06-08-2022 Comprehensive metabolic 2000 panel - Serum or Plasma [facility] Work Phone: Comment on above: Expected: 04/08/2022, Expires: 3 Start: 04-08-2022 End: 06-08-2022 Hemoglobin A1c in Blood [facility] Work Phone: Comment on above: Expected: 04/08/2022, Expires: 3 Start: 04-08-2022 End: 06-08-2022 Hepatitis C virus Ab [Presence] in Serum [facility] Work Phone: Comment on above: Expected: 04/08/2022, Expires: 3 Start: 04-08-2022 End: 06-08-2022 HIV 1+2 Ab [Presence] in Serum or Plasma by Immunoassay [facility] Work Phone: Comment on above: Expected: 04/08/2022, Expires: 3 Start: 04-08-2022 End: 06-08-2022 Lipase [Enzymatic activity/volume] in Serum or Plasma [facility] Work Phone: Comment on above: Expected: 04/08/2022, Expires: 3 Start: 04-08-2022 End: 06-08-2022 Natriuretic peptide.B prohormone N-Terminal [Mass/volume] in Serum or Plasma [facility] Work Phone: Comment on above: Expected: 04/08/2022, Expires: 3 Start: 12-31-2021 Influenza vaccination INFLUENZA (#1) [facility] Start: 12-28-2010 HPV Vaccine (1 - 3-dose SCDM series) HPV Vaccine (1 - 3-dose SCDM series) [facility] Start: 12-28-2002 Urine microalbumin profile [facility] Start: 12-28-2001 BP CONTROLLED (<130/80) BP CONTROLLED (<130/80) [facility]ic Start: 12-28-2001 HEPATITIS C SCREENING HEPATITIS C SCREENING [facility] Start: 12-28-2001 HIV SCREENING HIV SCREENING [facility] Start: 12-28-1989 PNEUMOCOCCAL (1 - PCV) PNEUMOCOCCAL (1 - PCV) [facility] Start: 12-28-1989 Pneumococcal vaccination Pneumococcal Vaccine (1 - PCV) [facility] Start: 06-29-1984 COVID-19 VACCINE (#1) COVID-19 VACCINE (#1) [facility] Start: 1983 HEPATITIS B (1 of 3 - 3-dose series) HEPATITIS B (1 of 3 - 3-dose series) [facility] Start: 1983 Hepatitis B Vaccine (1 of 3 - 3-dose series) Hepatitis B Vaccine (1 of 3 - 3-dose series) [facility] End: 04-16-2023 COLONOSCOPY DIAGNOSTIC COLONOSCOPY DIAGNOSTIC Endoscopy Routine Rectal bleeding Diarrhea, unspecified type 1 Occurrences starting 04/16/2022 until 04/16/2023 [facility] Work Phone: Comment on above: 1 Occurrences starting 04/16/2022 until 04/16/2023 COVID & INFLUENZA A/ B & RSV NAAT, ROUTINE COVID & INFLUENZA A/B & RSV NAAT, ROUTINE Microbiology Routine URI, acute 07/08/2023 11:34 AM EST [facility] Work Phone: End: 04-08-2023 ECG COMPLETE ECG COMPLETE ECG Routine SOB (shortness of breath) 1 Occurrences starting 04/08/2022 until 04/08/2023 [facility] Work Phone: Comment on above: 1 Occurrences starting 04/08/2022 until 04/08/2023 End: 06-14-2023 Echocardiography ECHO Cardiology Routine SOB (shortness of breath) POSADAS (dyspnea on exertion) 1 Occurrences starting 06/14/2022 until 06/14/2023 [facility] Work Phone: Comment on above: 1 Occurrences starting 06/14/2022 until 06/14/2023 End: 04-16-2023 EGD DIAGNOSTIC EGD DIAGNOSTIC Endoscopy Routine Upper abdominal pain Abdominal wall bulge Diarrhea, unspecified type 1 Occurrences starting 04/16/2022 until 04/16/2023 [facility] Work Phone: Comment on above: 1 Occurrences starting 04/16/2022 until 04/16/2023 End: 01-15-2025 EGD DIAGNOSTIC EGD DIAGNOSTIC Endoscopy Routine Epigastric pain Abnormal esophagram 1 Occurrences starting 01/16/2024 until 01/15/2025 [facility] Work Phone: Comment on above: 1 Occurrences starting 01/16/2024 until 01/15/2025 End: 01-15-2025 Flexible sigmoidoscopy study COLONOSCOPY DIAGNOSTIC Endoscopy Routine Rectal bleeding 1 Occurrences starting 01/16/2024 until 01/15/2025 [facility] Comment on above: 1 Occurrences starting 01/16/2024 until 01/15/2025 Helicobacter pylori Ag [Presence] in Stool by Immunoassay HELICOBACTER PYLORI ANTIGEN BY EIA, STOOL Microbiology Routine Helicobacter pylori infection Ordered: 02/17/2024 [facility] Work Phone: Comment on above: Ordered: 02/17/2024 INFLUENZA VACCINE QUADRIVALENT 6 MO - 64 YRS IM INFLUENZA VACCINE QUADRIVALENT 6 MO - 64 YRS IM Immunization/Injection Routine Need for influenza vaccination Ordered: 04/08/2022 [facility] Work Phone: Comment on above: Ordered: 04/08/2022 End: 05-08-2023 LUNG DIFFUSION CAPACITY (DLCO) LUNG DIFFUSION CAPACITY (DLCO) PFT Routine SOB (shortness of breath) 1 Occurrences starting 04/08/2022 until 05/08/2023 [facility] Work Phone: Comment on above: 1 Occurrences starting 04/08/2022 until 05/08/2023 End: 05-08-2023 LUNG VOLUMES LUNG VOLUMES PFT Routine SOB (shortness of breath) 1 Occurrences starting 04/08/2022 until 05/08/2023 [facility] Work Phone: Comment on above: 1 Occurrences starting 04/08/2022 until 05/08/2023 End: 06-12-2023 NITRIC OXIDE, EXHALED NITRIC OXIDE, EXHALED PFT Routine Asthma, moderate persistent, poorly-controlled 1 Occurrences starting 05/13/2022 until 06/12/2023 [facility] Work Phone: Comment on above: 1 Occurrences starting 05/13/2022 until 06/12/2023 End: 07-28-2023 NITRIC OXIDE, EXHALED NITRIC OXIDE, EXHALED PFT Routine Asthma, moderate persistent, poorly-controlled 1 Occurrences starting 06/28/2022 until 07/28/2023 [facility] Work Phone: Comment on above: 1 Occurrences starting 06/28/2022 until 07/28/2023 End: 05-08-2023 OXIMETRY WITH AMBULATION OXIMETRY WITH AMBULATION PFT Routine SOB (shortness of breath) 1 Occurrences starting 04/08/2022 until 05/08/2023 [facility] Work Phone: Comment on above: 1 Occurrences starting 04/08/2022 until 05/08/2023 End: 04-08-2023 Polysomnogram POLYSOMNOGRAM (PSG) Procedures Routine SOB (shortness of breath) 1 Occurrences starting 04/08/2022 until 04/08/2023 [facility] Work Phone: Comment on above: 1 Occurrences starting 04/08/2022 until 04/08/2023 End: 10-09-2024 Polysomnogram POLYSOMNOGRAM (PSG) Procedures Routine POSADAS (dyspnea on exertion) Snoring Fatigue, unspecified type CHRISTOPHER (obstructive sleep apnea) 1 Occurrences starting 10/10/2023 until 10/09/2024 [facility] Work Phone: Comment on above: 1 Occurrences starting 10/10/2023 until 10/09/2024 End: 11-23-2025 Polysomnogram POLYSOMNOGRAM (PSG) Procedures Routine CHRISTOPHER (obstructive sleep apnea) 1 Occurrences starting 11/23/2024 until 11/23/2025 [facility] Work Phone: Comment on above: 1 Occurrences starting 11/23/2024 until 11/23/2025 End: 05-08-2023 Radiologic exam chest 2 views XR CHEST 2V FRONTAL/LAT Radiology Routine SOB (shortness of breath) 1 Occurrences starting 04/08/2022 until 05/08/2023 [facility] Work Phone: Comment on above: 1 Occurrences starting 04/08/2022 until 05/08/2023 Radiologic exam ches t 2 views XR CHEST 2V FRONTAL/LAT Radiology Routine SOB (shortness of breath) 04/08/2022 12:17 PM EST [facility] Work Phone: End: 05-08-2023 SPIROMETRY - BASELINE AND POST DILATOR SPIROMETRY - BASELINE AND POST DILATOR PFT Routine SOB (shortness of breath) 1 Occurrences starting 04/08/2022 until 05/08/2023 [facility] Work Phone: Comment on above: 1 Occurrences starting 04/08/2022 until 05/08/2023 SURGICAL PATHOLOGY [facility] Work Phone: Comment on above: Release Upon Ordering for 1 Occurrences starting 02/10/2024, 1 completed End: 05-08-2023 Us abdominal real time w/image limited US ABD RT UPPER QUADRANT Radiology Routine Abdominal pain, right upper quadrant 1 Occurrences starting 04/08/2022 until 05/08/2023 [facility] Work Phone: Comment on above: 1 Occurrences starting 04/08/2022 until 05/08/2023 End: 06-14-2024 XR Esophagus Views W contrast PO XR ESOPHAGRAM Radiology Routine Dysphagia, unspecified type 1 Occurrences starting 05/16/2023 until 06/14/2024 [facility] Work Phone: Comment on above: 1 Occurrences starting 05/16/2023 until 06/14/2024 [facility] Immunizations Immunization Date Immunization Notes Care Provider Fa francisco j 04-13-2023 influenza, injectabl e, quadrivalent, contains preservative David Grissom MD Work Phone: [facility] 04-13-2023 influenza virus vacc ine, unspecified formulation David Grissom MD Work Phone: [facility] Payers Date Payer Category Payer Self-pay 2022 Medicaid [id number] 2017 Medicaid [id number] Medicaid [id number] Unknown [id number] Social History Date Type Detail Facility Start: 04-08-2022 End: 01-30-2024 Tobacco smoking status NHIS Never smoked tobacco [facility] Start: 04-08-2022 Tobacco use and exposure Former smokeless tobacco user [facility] Start: 04-08-2022 End: 10-10-2023 Alcohol intake Current non-drinker of alcohol (finding) [facility] Start: 06-05-2020 End: 06-06-2020 History SDOH Alcohol Frequency 2 [facility] Start: 06-05-2020 End: 06-06-2020 History SDOH Alcohol Std Drinks 1 [facility] Start: 06-05-2020 History SDOH Social Connections Phone 3 [facility] Start: 06-05-2020 History SDOH Social Connections Living 7 [facility] Start: 06-05-2020 History SDOH Physical Activity MPS 6 [facility] Start: 06-05-2020 History SDOH Stress 4 [facility] Start: 06-05-2020 Education 10 [facility] Start: 1985 Sex Assigned At Male [facility] Start: 06-05-2020 End: 01-27-2024 History of Social function [facility] Start: 06-05-2020 End: 01-27-2024 Social connection and isolation panel [facility] Do you belong to any clubs or organizations such as hoahaoism groups, unions, fraternal or athletic groups, or school groups? No [facility] Are you now , , , , never or living with a partner? Never [facility] How often to you hav e a drink containing alcohol? Monthly or less [facility] How many standard dr inks containing alcohol do you have on a typical day? 1 or 2 [facility] How often do you hav e 6 or more drinks on 1 occasion? Never [facility] How hard is it for y ou to pay for the very basics like food, housing, medical care, and heating Very hard [facility] Start: 04-02-2012 Adult Depression Screening Assessment 6 [facility] Work Phone: Do you feel stress - tense, restless, nervous, or anxious, or unable to sleep at night because your mind is troubled all the time - these days [OSQ] Rather much [facility] (I/We) worried wheth er (my/our) food would run out before (I/we) got money to buy more. Sometimes true [facility] In the past 12 month s, was there a time when you were not able to pay the mortgage or rent on time? Yes [facility] Start: 06-05-2020 Gender identity Identifies as male gender (finding) [facility] Start: 06-05-2020 Sexual orientation Heterosexual (finding) [facility] Start: 01-16-2024 End: 12-10-2024 Alcoholic beverage intake Current drinker of alcohol (finding) [facility] Start: 01-16-2024 Alcohol Comment Occasional [facility] Start: 01-30-2024 Tobacco use and exposure Smokeless tobacco non-user [facility] Start: 01-30-2024 Alcohol Comment Occasional, biweekly [facility] How often to you hav e a drink containing alcohol? 2-4 times a month [facility] How many standard dr inks containing alcohol do you have on a typical day? 3 or 4 [facility] How hard is it for y ou to pay for the very basics like food, housing, medical care, and heating Somewhat hard [facility] Functional Status Date Assessment Result Facility 10-16-2024 Total score [AUDIT-C] 3 10/17/19 10:45 AM EDT User, Mychart [facility] 10-16-2024 How often to you hav e a drink containing alcohol? 2-4 times a month 10/16/2024 10:45 AM EDT User, Mycnohemyt 2-4 times a month [facility] 10-16-[address] inks containing alcohol do you have on a typical day? 3 or 4 10/16/2024 10:45 AM EDT User, Mychart 3 or 4 [facility] 10-16-2024 How often do you hav e 6 or more drinks on 1 occasion? Never 10/16/2024 10:45 AM EDT User, Mychart Never [facility] Clinical Notes 12-17-2008 to 01-10-2025 Telephone Encounter - Roxy Dubon MA - 01/10/2025 3:04 PM EDTTelephone Encounter - Roxy Dubon MA - 01/10/2025 3:04 PM EDTTTara mcfarland - 01/03/2025 4:07 AM EDTPatient Instructions Note Date & Type Note Facility 01-10-2025 Telephone encounter Note Albuterol inhaler was refilled for a year supply 12/10/24 to [facility]. Pt notified via [email or web address] to check with pharmacy. Roxy Dubon MA [facility] 01-10-2025 Miscellaneous Notes Albuterol inhaler was refilled for a year supply 12/10/24 to [facility]. Pt notified via [email or web address] to check with pharmacy. Roxy Dubon MA documented in this encounter [facility] 01-03-2025 Note HNO ID: [id number] Author: ?, ?, ? Service: ? Author Type: ? Type: Progress Notes Filed: 01/03/2025 04:09 Note Text: Sleep Study Check-In Documentation Date: January 03, 2025 Name: Demarcus Appiah Patient was accompanied by Self. Location: IC Latex allergy: No Tape allergy: No Current medications were reviewed with the patient:Yes Sleep aid taken by patient for the sleep study: [place] of sleep aid: Not Applicable Procedure was explained to the patient and all questions were answered. PAP treatment discussed and shown to patient: Yes If PAP used enter mask info: Mask Name: AirFit F40 Make: ResMed MaskType: Full Face Mask Size Large Chin Strap Used: No Knowledge Program (KP): KP was not completed in epic by patient and accepted Study type: Split Study-Polysomnogram with CPAP titration Adverse Event: No Comments: Patient was advised to follow up with their ordering provider regarding test results. Tara Wylie [facility] 01-03-2025 History of Presen t illness Narrative Sleep Study Check-In Documentation Date: January 03, 2025 Name: Demarcus Appiah Patient was accompanied by Self. Location: IC Latex allergy: No Tape allergy: No Current medications were reviewed with the patient:Yes Sleep aid taken by patient for the sleep study: [place] of sleep aid: Not Applicable Procedure was explained to the patient and all questions were answered. PAP treatment discussed and shown to patient: Yes If PAP used enter mask info: Mask Name: AirFit F40 Make: ResMed MaskType: Full Face Mask Size Large Chin Strap Used: No Knowledge Program (KP): KP was not completed in epic by patient and accepted Study type: Split Study-Polysomnogram with CPAP titration Adverse Event: No Comments: Patient was advised to follow up with their ordering provider regarding test results. Tara Wylie November 27, 2024 Standing PSG Orders signed in the last 90 days None Future PSG Orders signed in the last 90 days Ordered Auth. provider CONSULT TO SLEEP MEDICINE - ADULT [[id number]] 10/16/24 David Grissom MD Assoc. diagnoses: POSADAS (dyspnea on exertion) [R06.09], Snoring [R06.83] Q: Does consulting provider have [facility] access?: A: Yes POLYSOMNOGRAM (PSG) [[id number]] 11/23/24 Rocio Leslie DO Assoc. diagnoses: CHRISTOPHER (obstructive sleep apnea) [G47.33] Q: Indications - Select All That Apply: A: Sleep related hypoxemia or hypoventilation Q: Comorbidities: A: NONE Q: Is the patient non-ambulatory or will they be accompanied by a caregiver?: A: No Q: Current use of supplemental oxygen during sleep period?: A: No Q: Add supplemental oxygen if needed per sleep lab policy?: A: No Q: Is this a repeat Sleep Study?: A: No All Prior Sleep Studies (past 365 days) 11/23/2024 09:45 Sleep Studies POLYSOMNOGRAM (PSG) POLYSOMNOGRAM (PSG) Order Status: Ordered, Future Expires: 11/23/25 BMI Readings from Last 2 Encounters: 11/23/24 : 83.44 kg/m 10/16/24 : 85.80 kg/m PAST MEDICAL HISTORY Diagnosis Date Abdominal pain, unspecified site Allergies Asthma (HCC) Depression POSADAS (dyspnea on exertion) GERD (gastroesophageal reflux disease) History of echocardiogram 07/05/2022 EF = 55 5%. There is trace tricuspid valve regurgitation. There is no pericardial effusion. There is an epicardial fat pad. HTN (hypertension) Lymphedema Morbid obesity with BMI of 70 and over, adult (HCC) The medical record was reviewed to determine if the proposed sleep study conforms to the AASM Practice Parameters for the Indications for Polysomnography and Related Procedures, or if the sleep study is indicated for other reasons. Indications for study: CHRISTOPHER suspected with comorbid medical or sleep disorders: Fjunriwj-kh-osmauc pulmonary disease Morbid obesity (BMI>40 kg/m2) Sleep study to be performed: Split Study-Polysomnogram with PAP titration Special instructions: Split night study if AHI > 15. Start with 5 cmH2O then titrate per protocol Target REM/supine sleep Add EtCO2 and Transcutaneous CO2 Angie Sluga - Sleep Medicine Staff Note: I have read the above protocol, edited as needed, and agree to the plan. Huong Bautista III, PhD 3:19 PM, 11/27/2024 November 26, 2024 An order has been received for Polysomnogram (PSG) from Rocio Pantoja, juan LAI. [facility] Staff. Visit prep complete. Comments :No The sleep study is scheduled for 01/02. Insurance: Payor: [facility] MEDICAID / Plan: [facility] COMMUNITY PLAN MEDICAID [facility] / Product Type: Medicaid / Payer/Plan Subscr Sex Relation Sub. Ins. ID Effective Group Num 1. [facility] MEDICAID * DEMARCUS APPIAH 1985 Male Self [id number] 06/02/22 [facility] [address] Gareth Bailey documented in this encounter [facility] 12-10-2024 Telephone encounter Note Prescription Refill Information The patient has been identified by name and date of : Yes Caregiver verified no other encounters exist for this prescription request: Yes Caregiver confirmed with patient/requestor that no other refills are due, in the near future, with this provider at this time: Yes The last office visit in the department: 10/16/24 Does the patient have a future office visit with this provider/department: Yes Requested Prescriptions Pending Prescriptions Disp Refills albuterol HFA (VENTOLIN HFA) 90 mcg/actuation inhaler 18 g 11 Sig: Inhale 2 puffs as instructed every 4 hours as needed for wheezing/shortness of breath. Galilea Giordano December 10, 2024 9:55 AM [facility] 12-10-2024 Miscellaneous Notes Prescription Refill Information The patient has been identified by name and date of : Yes Caregiver verified no other encounters exist for this prescription request: Yes Caregiver confirmed with patient/requestor that no other refills are due, in the near future, with this provider at this time: Yes The last office visit in the department: 10/16/24 Does the patient have a future office visit with this provider/department: Yes Requested Prescriptions Pending Prescriptions Disp Refills albuterol HFA (VENTOLIN HFA) 90 mcg/actuation inhaler 18 g 11 Sig: Inhale 2 puffs as instructed every 4 hours as needed for wheezing/shortness of breath. Galilea Giordano December 10, 2024 9:55 AM documented in this encounter [facility] 11-27-2024 Note HNO ID: [id number] Author: HUONG BAUTISTA III, PhD Service: ? Author Type: Physician Type: Progress Notes Filed: 01/03/2025 04:09 Note Text: November 27, 2024 Standing PSG Orders signed in the last 90 days None Future PSG Orders signed in the last 90 days Ordered Auth. provider CONSULT TO SLEEP MEDICINE - ADULT [[id number]] 10/16/24 David Grissom MD Assoc. diagnoses: POSADAS (dyspnea on exertion) [R06.09], Snoring [R06.83] Q: Does consulting provider have [facility] Epic access?: A: Yes POLYSOMNOGRAM (PSG) [[id number]] 11/23/24 Rocio Leslie DO Assoc. diagnoses: CHRISTOPHER (obstructive sleep apnea) [G47.33] Q: Indications - Select All That Apply: A: Sleep related hypoxemia or hypoventilation Q: Comorbidities: A: NONE Q: Is the patient non-ambulatory or will they be accompanied by a caregiver?: A: No Q: Current use of supplemental oxygen during sleep period?: A: No Q: Add supplemental oxygen if needed per sleep lab policy?: A: No Q: Is this a repeat Sleep Study?: A: No All Prior Sleep Studies (past 365 days) 11/23/2024 09:45 Sleep Studies POLYSOMNOGRAM (PSG) POLYSOMNOGRAM (PSG) Order Status: Ordered, Future Expires: 11/23/25 BMI Readings from Last 2 Encounters: 11/23/24 : 83.44 kg/m? 10/16/24 : 85.80 kg/m? PAST MEDICAL HISTORY Diagnosis Date Abdominal pain, unspecified site Allergies Asthma (HCC) Depression POSADAS (dyspnea on exertion) GERD (gastroesophageal reflux disease) History of echocardiogram 07/05/2022 EF = 55 ? 5%. There is trace tricuspid valve regurgitation. There is no pericardial effusion. There is an epicardial fat pad. HTN (hypertension) Lymphedema Morbid obesity with BMI of 70 and over, adult (HCC) The medical record was reviewed to determine if the proposed sleep study conforms to the AASM Practice Parameters for the Indications for Polysomnography and Related Procedures, or if the sleep study is indicated for other reasons. Indications for study: CHRISTOPHER suspected with comorbid medical or sleep disorders: Mklymrbx-mz-spotay pulmonary disease Morbid obesity (BMI>40 kg/m2) Sleep study to be performed: Split Study-Polysomnogram with PAP titration Special instructions: Split night study if AHI > 15. Start with 5 cmH2O then titrate per protocol Target REM/supine sleep Add EtCO2 and Transcutaneous CO2 Angie Sluga - Sleep Medicine Staff Note: I have read the above protocol, edited as needed, and agree to the plan. Huong Bautista III, PhD 3:19 PM, 11/27/2024 [facility] 11-26-2024 Note HNO ID: [id number] Author: ?, ?, ? Service: ? Author Type: ? Type: Progress Notes Filed: 01/03/2025 04:09 Note Text: November 26, 2024 An order has been received for Polysomnogram (PSG) from Rocio Pantoja DO, a B. [facility] Staff. Visit prep complete. Comments :No The sleep study is scheduled for 01/02. Insurance: Payor: [facility] MEDICAID / Plan: [facility] COMMUNITY PLAN MEDICAID OF [place] / Product Type: Medicaid / Payer/Plan Subscr Sex Relation Sub. Ins. ID Effective Group Num 1. [facility] MEDICAID * DEMARCUS APPIAH 1985 Male Self [id number] 06/02/22 [facility] [address] Gareth Venessa Bailey [facility] 11-23-2024 Miscellaneous Notes Appointment scheduled from consult box. Patient was notified via [employer] and advised to log in to review appointment details for scheduled appts on 01/29/25. documented in this encounter [facility] 11-23-2024 Telephone encounter Note Appointment scheduled from consult box. Patient was notified via [employer] and advised to log in to review appointment details for scheduled appts on 01/29/25. [facility] 11-23-2024 Note HNO ID: [id number] Author: ROCIO LESLIE DO Service: ? Author Type: Physician Type: Progress Notes Filed: 11/23/2024 14:24 Note Text: BMI Obesity Medicine Initial Bariatric Surgery Consult November 23, 2024 BMI Surgical Pathway Visit type: Obesity Medicine Visit Consultation requested by his PCP for an opinion regarding bariatric surgery. My final recommendations will be communicated back to the requesting physician by way of shared Medical record or letter to requesting physician via US mail. Patient Summary:: Demarcus Appiah is a 38 year old male who presents on November 23, 2024 for surgical evaluation and treatment of obesity. The patient is interested in laparoscopic sleeve gastrectomy and has decided to have the procedure with Jenna Engel MD. He was initially seen by the bariatric surgeon IN 2022 and at that visit was instructed to have an upper and lower endoscopy which she has completed. Patient procrastinated but is now ready to proceed with bariatric surgery after completing the required diagnostic studies requested by the bariatric surgeon. Weight History: He reports a family history of obesity and childhood onset weight gain. He states his weight gain is related to the following factors, including thyroid disease age 7. His weight in HS was 250 lbs, progressive weight loss from lifestyle changes, depression, and when he developed lymphedema 5 years ago. The development of lymphedema caused him to be less active. Weight Graph: (Please see graph scanned in chart) Obesigenic Medications: NO Diet: (Please see BMI RD note) Reported quality of diet: unhealthy diet except the portions are large and enjoys pizza, etc. History of eating disorders: denies Previous Obesity Treatments: self-directed and dietitian. Exercise: Regular exercise: he can walk a short distance, limited by lymphedema Barriers to regular exercise? None Stress test: no Functional Status: Take care of self; that is eating, dressing, bathing, using the toilet (2.75 METs) ?Sleep: CHRISTOPHER has never has a sleep study ; CPAP NO Duration: greater than 6 hours, sleep upright on the couch STOP BANG 1. Snoring : Do you snore loudly (louder than talking, heard through closed doors)? YES 2. Tired : Do you often feel tired, fatigued, or sleepy during daytime? NO 3. Observed : Has anyone observed you stop breathing during your sleep? YES 4. Blood Pressure: Do you have or are you being treated for high blood pressure? NO 5. BMI : BMI more than 35 kg/m2? YES 6. Age : Age over 50 yr old? NO 7. Neck circumference: Neck circumference greater than 40 cm? Yes 8. Gender : Gender male? YES STOP BANG Score 5, high ??Stress: (Please see BMI Psychology note) Past Medical History PAST MEDICAL HISTORY Diagnosis Date Abdominal pain, unspecified site Allergies Asthma (HCC) Depression POSADAS (dyspnea on exertion) GERD (gastroesophageal reflux disease) History of echocardiogram 07/05/2022 EF = 55 ? 5%. There is trace tricuspid valve regurgitation. There is no pericardial effusion. There is an epicardial fat pad. HTN (hypertension) Lymphedema Morbid obesity with BMI of 70 and over, adult (HCC) Erythematous duodenopathy noted on EGD Lymphedema Hyperlipidemia Prediabetes, 6.0, 01/30/20 No history of UT, COPD, peptic ulcer disease, hypothyroidism, cancer, DVT, PE, CVA, T2DM, gout, kidney stones, CKD, and smoking history. Current Outpatient Medications on File Prior to Visit Medication Sig furosemide (LASIX) 40 mg tablet Take 1 tablet by mouth once daily. buPROPion XL (WELLBUTRIN XL) 300 mg 24 hr tablet Take 1 tablet by mouth once daily. albuterol HFA (VENTOLIN HFA) 90 mcg/actuation inhaler Inhale 2 puffs as instructed every 4 hours as needed for wheezing/shortness of breath. mupirocin (BACTROBAN) 2 % ointment Apply 1 application to affected area every 12 hours as needed. fluticasone-salmeterol HFA (ADVAIR HFA) 230-21 mcg/actuation inhaler Inhale 2 puffs as instructed two times a day. omeprazole (PRILOSEC) 40 mg capsule Take 1 capsule by mouth once daily for 14 days. No current facility-administered medications on file prior to visit. ALLERGIES Allergen Reactions Bees Swelling Shrimp Swelling PAST SURGICAL HISTORY Procedure Laterality Date PAST SURGICAL HISTORY OF thyroid surgery x 2 Any problems with anesthesia with the above surgeries: No FAMILY HISTORY Problem Relation Age of Onset Ischemic Heart Disease Mother 53 LAD lesion/CAD other (lung cancer) Mother other (unknown) Father None Other Colon Cancer No Family History Social History Tobacco Use Smoking status: Never Smokeless tobacco: Never Vaping Use Vaping status: Never Used Substance Use Topics Alcohol use: Yes Comment: Occasional, biweekly Drug use: Yes Frequency: 7.0 times per week Types: Marijuana Review Of Systems Respiratory: No history of cough, hemoptysis, recent chest infection (more content not included)... [place] [id number] History of Presen t illness Narrative BMI Obesity Medicine Initial Bariatric Surgery Consult November 23, 2024 BMI Surgical Pathway Visit type: Obesity Medicine Visit Consultation requested by his PCP for an opinion regarding bariatric surgery. My final recommendations will be communicated back to the requesting physician by way of shared Medical record or letter to requesting physician via US mail. Patient Summary:: Demarcus Appiah is a 38 year old male who presents on November 23, 2024 for surgical evaluation and treatment of obesity. The patient is interested in laparoscopic sleeve gastrectomy and has decided to have the procedure with Jenna Engel MD. He was initially seen by the bariatric surgeon IN 2022 and at that visit was instructed to have an upper and lower endoscopy which she has completed. Patient procrastinated but is now ready to proceed with bariatric surgery after completing the required diagnostic studies requested by the bariatric surgeon. Weight History: He reports a family history of obesity and childhood onset weight gain. He states his weight gain is related to the following factors, including thyroid disease age 7. His weight in HS was 250 lbs, progressive weight loss from lifestyle changes, depression, and when he developed lymphedema 5 years ago. The development of lymphedema caused him to be less active. Weight Graph: (Please see graph scanned in chart) Obesigenic Medications: NO Diet: (Please see BMI RD note) Reported quality of diet: unhealthy diet except the portions are large and enjoys pizza, etc. History of eating disorders: denies Previous Obesity Treatments: self-directed and dietitian. Exercise: Regular exercise: he can walk a short distance, limited by lymphedema Barriers to regular exercise? None Stress test: no Functional Status: Take care of self; that is eating, dressing, bathing, using the toilet (2.75 METs) ?Sleep: CHRISTOPHER has never has a sleep study ; CPAP NO Duration: greater than 6 hours, sleep upright on the couch STOP BANG 1. Snoring : Do you snore loudly (louder than talking, heard through closed doors)? YES 2. Tired : Do you often feel tired, fatigued, or sleepy during daytime? NO 3. Observed : Has anyone observed you stop breathing during your sleep? YES 4. Blood Pressure: Do you have or are you being treated for high blood pressure? NO 5. BMI : BMI more than 35 kg/m2? YES 6. Age : Age over 50 yr old? NO 7. Neck circumference: Neck circumference greater than 40 cm? Yes 8. Gender : Gender male? YES STOP BANG Score 5, high ??Stress: (Please see BMI Psychology note) Past Medical History PAST MEDICAL HISTORY Diagnosis Date Abdominal pain, unspecified site Allergies Asthma (HCC) Depression POSADAS (dyspnea on exertion) GERD (gastroesophageal reflux disease) History of echocardiogram 07/05/2022 EF = 55 5%. There is trace tricuspid valve regurgitation. There is no pericardial effusion. There is an epicardial fat pad. HTN (hypertension) Lymphedema Morbid obesity with BMI of 70 and over, adult (HCC) Erythematous duodenopathy noted on EGD Lymphedema Hyperlipidemia Prediabetes, 6.0, 01/30/20 No history of UT, COPD, peptic ulcer disease, hypothyroidism, cancer, DVT, PE, CVA, T2DM, gout, kidney stones, CKD, and smoking history. Current Outpatient Medications on File Prior to Visit Medication Sig furosemide (LASIX) 40 mg tablet Take 1 tablet by mouth once daily. buPROPion XL (WELLBUTRIN XL) 300 mg 24 hr tablet Take 1 tablet by mouth once daily. albuterol HFA (VENTOLIN HFA) 90 mcg/actuation inhaler Inhale 2 puffs as instructed every 4 hours as needed for wheezing/shortness of breath. mupirocin (BACTROBAN) 2 % ointment Apply 1 application to affected area every 12 hours as needed. fluticasone-salmeterol HFA (ADVAIR HFA) 230-21 mcg/actuation inhaler Inhale 2 puffs as instructed two times a day. omeprazole (PRILOSEC) 40 mg capsule Take 1 capsule by mouth once daily for 14 days. No current facility-administered medications on file prior to visit. ALLERGIES Allergen Reactions Bees Swelling Shrimp Swelling PAST SURGICAL HISTORY Procedure Laterality Date PAST SURGICAL HISTORY OF thyroid surgery x 2 Any problems with anesthesia with the above surgeries: No FAMILY HISTORY Problem Relation Age of Onset Ischemic Heart Disease Mother 53 LAD lesion/CAD other (lung cancer) Mother other (unknown) Father None Other Colon Cancer No Family History Social History Tobacco Use Smoking status: Never Smokeless tobacco: Never Vaping Use Vaping status: Never Used Substance Use Topics Alcohol use: Yes Comment: Occasional, biweekly Drug use: Yes Frequency: 7.0 times per week Types: Marijuana Review Of Systems Respiratory: No history of cough, hemoptysis, recent chest infection, wheezing, + wheezing and shortness of breath with exertion, + asthma, mild persistent (uses the inhaler twice a week) Cardiovascular: No history of chest pain,palpitation,orthopnea,cynos is,pedel edema Gastrointestinal: No blood in stool, pain with BM, tarry stool, persistent diarrhea or constipation. Denies any acid reflux, heartburn, and abdominal pain. Genitourinary: No burning with urination, blood in urine or incontinence. Hematology/Lymphology: negative for cancer; dvt;vte; hypercoagulable disorder (Factor V Leiden); iron deficiency; sickle cell anemia; lymphedema; + lymphedema. Musculoskeletal: no history of gout, NSAID use, or use of a mobility device Endocrine: No history of diabetes,cold intolerance,heat,intolerance,jessie ydypsia Neuro: No history of headaches, syncope, paralysis, seizures or tremors Physical Exam. Current self reported weight is 565 lbs There were no vitals taken for this visit. Impression Demarcus Appiah is a 38 year old male with Class III obesity He has the following metabolic complications of obesity pre-diabetes, dyslipidemia, hypertension, obstructive sleep apnea, lymphedema, and metabolic syndrome and other medical conditions as below. We reviewed principles of energy metabolism, caloric intake and expenditure, and rationale for treatment program. We discussed the importance of healthy lifestyle modification. He is a candidate for bariatric and metabolic surgery. He was previously seen by the bariatric surgeon in 2022 and was required to complete an EGD and colonoscopy before proceeding with bariatric surgery. The patient procrastinated and was referred by his primary care physician to restart the pathway for bariatric surgery. I have asked the patient to complete the online seminar and individual patient worksheet. He will eventually be evaluated by our multidisciplinary team in preparation for surgery. : N/A Patient Active Problem List Marijuana use Snoring Anxiety and depression POSADAS (dyspnea on exertion) Asthma, moderate persistent, poorly-controlled (HCC) GERD without esophagitis Essential hypertension Lymphedema Chronic midline low back pain with right-sided sciatica Obesity, morbid (HCC) Resolved Hospital Problems No resolved problems to display. Plan Based on the severity and resistance of the obesity to more conservative weight loss approaches, I believe a surgical intervention is the best and most appropriate intervention. He has a ? month insurance requirement prior to surgery. Again he will complete the online seminar and individual patient worksheet to determine if he has coverage for bariatric surgery with [facility] Medicaid. Reviewed BMI Nutritional Tips for Bariatric Surgery pamphlet Encouraged the patient to improve physical activity. We discussed the benefits of both cardiovascular and strength exercises. Discussed the importance of taking post-operative vitamins and reviewed vitamin levels ordered today. Patient understands that any variations of B vitamins or Vitamin D will be corrected pre-operatively. BMI Obesity Med Patient Tasks Preop Workup Chest x-ray: I will not order chest x-ray as he has an upcoming appointment with pulmonary medicine EKG:I will not order an EKG as he has an upcoming appointment with cardiology on December 05, 2024 [place]:Schedule at a later date if he has insurance coverage for bariatric surgery Labs: Lab test will be ordered on a follow-up visit Sleep study: Needed (he has an appointment with sleep medicine November 30, 2024). If sleep apnea diagnosed, he will need to get the first prescription of Zepbound from sleep medicine as he has Medicaid insurance. I did inform the patient about the recommendations for use of Zepbound in patients with sleep apnea. Cardiology:Needed (he has an appoint with cardiology on December 05, 2024) Pulmonary:Needed (I will schedule an appointment with pulmonary medicine for evaluation for possible obesity hypoventilation syndrome and asthma treatment plan) Vascular:Needed (I will schedule an appointment with vascular medicine). I spent a total of 45 minutes on the date of the service which included completing clinical documentation, obtaining and/or reviewing separately obtained history, counseling and educating the patient/family/caregiver, and ordering medications, tests, or procedures. I have communicated my name and active licensure. The patient's identity and physical location were verified at the time of this visit. Either the patient or their legal congressional representative has been informed of the risks and benefits of -- and alternatives to -- treatment through a remote evaluation and consents to proceed with the evaluation remotely. Rocio Leslie DO documented in this encounter [facility] 10-16-2024 Note HNO ID: [id number] Author: DAVID GRISSOM MD Service: ? Author Type: Physician Type: Progress Notes Filed: 10/16/2024 15:01 Note Text: Demarcus Appiah is a 38-year-old male with a history of lymphedema, obesity, HTN, anxiety, and depression, presenting for follow-up. HPI Lymphedema: - Chronic lymphedema in bilateral lower extremities. - Reports skin rot on the right thigh with serous fluid drainage. - Denies erythema, warmth, or pain; occasionally stings when touched. - Cleans area with soap and water, applies ointment to promote scabbing. - Previous use of antibiotic cream provided relief. Obesity: - Attempted weight loss through diet and exercise over the past 6 months. - Prefers cardio exercises over weight lifting. - Expresses interest in bariatric surgery; previously seen by bariatrics on 04/22/23. - Recent EGD and colonoscopy performed; treated for H. pylori. - Did not follow up wtih bariatrics like he was to HTN: - Demarcus has not taken antihypertensive medication for several months. - Continues to take diuretics. Anxiety and Depression: - Currently taking Wellbutrin. - Experiences fluctuating anxiety and depression. - Reports significant stress due to mother's stage 3 lung cancer diagnosis. - Describes mother as best friend and rock. - Feels overwhelmed by the loss of several close friends. - Tends to suppress emotions. - Discussed counseling. Sleep Apnea: - Difficulty sleeping; prefers sleeping at an 80-degree angle. - Previous sleep study was inconclusive due to discomfort with hotel bed. - They were unable to find a F location that could accomodate his weight. MEDICATIONS: Current Outpatient Medications Medication Sig furosemide (LASIX) 40 mg tablet Take 1 tablet by mouth once daily. buPROPion XL (WELLBUTRIN XL) 300 mg 24 hr tablet Take 1 tablet by mouth once daily. albuterol HFA (VENTOLIN HFA) 90 mcg/actuation inhaler Inhale 2 puffs as instructed every 4 hours as needed for wheezing/shortness of breath. mupirocin (BACTROBAN) 2 % ointment Apply 1 application to affected area every 12 hours as needed. fluticasone-salmeterol HFA (ADVAIR HFA) 230-21 mcg/actuation inhaler Inhale 2 puffs as instructed two times a day. omeprazole (PRILOSEC) 40 mg capsule Take 1 capsule by mouth once daily for 14 days. No current facility-administered medications for this visit. ALLERGIES: ALLERGIES Allergen Reactions Bees Swelling Shrimp Swelling PAST MEDICAL HISTORY Diagnosis Date Abdominal pain, unspecified site Allergies Asthma (HCC) Depression POSADAS (dyspnea on exertion) GERD (gastroesophageal reflux disease) History of echocardiogram 07/05/2022 EF = 55 ? 5%. There is trace tricuspid valve regurgitation. There is no pericardial effusion. There is an epicardial fat pad. HTN (hypertension) Lymphedema Morbid obesity with BMI of 70 and over, adult (HCC) PAST SURGICAL HISTORY Procedure Laterality Date PAST SURGICAL HISTORY OF thyroid surgery x 2 FAMILY HISTORY Problem Relation Age of Onset Ischemic Heart Disease Mother 53 LAD lesion/CAD other (lung cancer) Mother other (unknown) Father None Other Colon Cancer No Family History Social History Tobacco Use Smoking status: Never Smokeless tobacco: Never Vaping Use Vaping status: Never Used Substance Use Topics Alcohol use: Yes Comment: Occasional, biweekly Drug use: Yes Frequency: 7.0 times per week Types: Marijuana Reviewed current medications, allergies, past medical history, surgical history, family history and social history today. REVIEW OF SYSTEMS Constitutional: (+) perceived weight loss, (-) fever Skin: (+) right thigh skin lesion with serous drainage, (+) right thigh stinging pain with palpation Psychiatric: (+) mood swings, (+) depressed mood HEALTH MAINTENANCE: Reviewed health maintenance issues today and recommended the following in detail. There are no preventive care reminders to display for this patient. LAB REVIEWED: Labs: Tests: - Colonoscopy: No findings mentioned. - EGD: Positive for H. pylori; patient was treated. Imaging: VITALS: BP 130/72 Pulse 78 Wt (!) 263.5 kg (581 lb) SpO2 95% BMI 85.80 kg/m? Last 4 Encounter Wt Readings: Date: Wt: 10/16/2024 263.5 kg (581 lb) 04/16/2024 260.9 kg (575 lb 3.2 oz) 01/30/2024 260.1 kg (573 lb 6.7 oz) 01/16/2024 263.5 kg (581 lb) PHYSICAL EXAMINATION: GENERAL: NAD, alert and oriented. SKIN: Chronic venous stasis changes noted on the right thigh. Area with serous fluid on the bottom of the right thigh. No signs of cellulitis. No rash or skin lesions. NECK: Supple, no lymphadenopathy, normal thyroid, no carotid bruits. LUNGS: Clear to auscultation bilaterally, no wheezes/rhonchi/rales. HEART: Regular rate and rhythm, no murmurs. No ectopy. EXTREMITIES: Lymphedema noted in lower extremities. No deformities, no skin discoloration, no edema. NEURO: Awake, a (more content not included)... [facility] 10-16-2024 History of Presen t illness Narrative Demarcus Appiah is a 38-year-old male with a history of lymphedema, obesity, HTN, anxiety, and depression, presenting for follow-up. HPI Lymphedema: - Chronic lymphedema in bilateral lower extremities. - Reports skin rot on the right thigh with serous fluid drainage. - Denies erythema, warmth, or pain; occasionally stings when touched. - Cleans area with soap and water, applies ointment to promote scabbing. - Previous use of antibiotic cream provided relief. Obesity: - Attempted weight loss through diet and exercise over the past 6 months. - Prefers cardio exercises over weight lifting. - Expresses interest in bariatric surgery; previously seen by bariatrics on 04/22/23. - Recent EGD and colonoscopy performed; treated for H. pylori. - Did not follow up wt bariatrics like he was to HTN: - Demarcus has not taken antihypertensive medication for several months. - Continues to take diuretics. Anxiety and Depression: - Currently taking Wellbutrin. - Experiences fluctuating anxiety and depression. - Reports significant stress due to mother's stage 3 lung cancer diagnosis. - Describes mother as best friend and rock. - Feels overwhelmed by the loss of several close friends. - Tends to suppress emotions. - Discussed counseling. Sleep Apnea: - Difficulty sleeping; prefers sleeping at an 80-degree angle. - Previous sleep study was inconclusive due to discomfort with hotel bed. - They were unable to find a F location that could accomodate his weight. MEDICATIONS: Current Outpatient Medications Medication Sig furosemide (LASIX) 40 mg tablet Take 1 tablet by mouth once daily. buPROPion XL (WELLBUTRIN XL) 300 mg 24 hr tablet Take 1 tablet by mouth once daily. albuterol HFA (VENTOLIN HFA) 90 mcg/actuation inhaler Inhale 2 puffs as instructed every 4 hours as needed for wheezing/shortness of breath. mupirocin (BACTROBAN) 2 % ointment Apply 1 application to affected area every 12 hours as needed. fluticasone-salmeterol HFA (ADVAIR HFA) 230-21 mcg/actuation inhaler Inhale 2 puffs as instructed two times a day. omeprazole (PRILOSEC) 40 mg capsule Take 1 capsule by mouth once daily for 14 days. No current facility-administered medications for this visit. ALLERGIES: ALLERGIES Allergen Reactions Bees Swelling Shrimp Swelling PAST MEDICAL HISTORY Diagnosis Date Abdominal pain, unspecified site Allergies Asthma (HCC) Depression POSADAS (dyspnea on exertion) GERD (gastroesophageal reflux disease) History of echocardiogram 07/05/2022 EF = 55 5%. There is trace tricuspid valve regurgitation. There is no pericardial effusion. There is an epicardial fat pad. HTN (hypertension) Lymphedema Morbid obesity with BMI of 70 and over, adult (HCC) PAST SURGICAL HISTORY Procedure Laterality Date PAST SURGICAL HISTORY OF thyroid surgery x 2 FAMILY HISTORY Problem Relation Age of Onset Ischemic Heart Disease Mother 53 LAD lesion/CAD other (lung cancer) Mother other (unknown) Father None Other Colon Cancer No Family History Social History Tobacco Use Smoking status: Never Smokeless tobacco: Never Vaping Use Vaping status: Never Used Substance Use Topics Alcohol use: Yes Comment: Occasional, biweekly Drug use: Yes Frequency: 7.0 times per week Types: Marijuana Reviewed current medications, allergies, past medical history, surgical history, family history and social history today. REVIEW OF SYSTEMS Constitutional: (+) perceived weight loss, (-) fever Skin: (+) right thigh skin lesion with serous drainage, (+) right thigh stinging pain with palpation Psychiatric: (+) mood swings, (+) depressed mood HEALTH MAINTENANCE: Reviewed health maintenance issues today and recommended the following in detail. There are no preventive care reminders to display for this patient. LAB REVIEWED: Labs: Tests: - Colonoscopy: No findings mentioned. - EGD: Positive for H. pylori; patient was treated. Imaging: VITALS: BP 130/72 Pulse 78 Wt (!) 263.5 kg (581 lb) SpO2 95% BMI 85.80 kg/m Last 4 Encounter Wt Readings: Date: Wt: 10/16/2024 263.5 kg (581 lb) 04/16/2024 260.9 kg (575 lb 3.2 oz) 01/30/2024 260.1 kg (573 lb 6.7 oz) 01/16/2024 263.5 kg (581 lb) PHYSICAL EXAMINATION: GENERAL: NAD, alert and oriented. SKIN: Chronic venous stasis changes noted on the right thigh. Area with serous fluid on the bottom of the right thigh. No signs of cellulitis. No rash or skin lesions. NECK: Supple, no lymphadenopathy, normal thyroid, no carotid bruits. LUNGS: Clear to auscultation bilaterally, no wheezes/rhonchi/rales. HEART: Regular rate and rhythm, no murmurs. No ectopy. EXTREMITIES: Lymphedema noted in lower extremities. No deformities, no skin discoloration, no edema. NEURO: Awake, alert and oriented x3, cranial nerves II-XII grossly intact, normal gait, no involuntary motions. ASSESSMENT AND PLAN 1. Essential hypertension (I10) - Blood pressure readings are stable; patient has not been taking antihypertensive medication for several months. - Continue monitoring blood pressure; no immediate need to resume antihypertensive medication. 2. Lymphedema (I89.0) 3. Venous stasis dermatitis (I87.2) - Chronic lymphedema with associated venous stasis changes observed on the right thigh; no signs of cellulitis. - Referred to [facility] for comprehensive management of lymphedema and venous stasis dermatitis. - Prescribed Bactroban topical antibiotic to be applied to affected areas. - Advised to monitor for signs of infection, including increased warmth, erythema, and purulent discharge, and to report any such symptoms immediately. 4. Anxiety with depression (F41.8) 5. Anxiety and depression (F41.9) - Patient experiencing fluctuating anxiety and depression, exacerbated by personal stressors including mother's stage 3 lung cancer diagnosis. - Currently on Wellbutrin; continue current medication regimen. - Discussed potential benefits of counseling; patient to consider seeking support. 6. BMI 70 and over, adult (HCC) (Z68.45) - Discussed significant impact of obesity on overall health and lymphedema. - Referred back to bariatrics for weight management; patient previously evaluated on 04/22/23. - Ordered blood work to assess metabolic status and explore potential pharmacological interventions for weight loss. 7. SOB (shortness of breath) (R06.02) 8. POSADAS (dyspnea on exertion) (R06.09) 9. Asthma, moderate persistent, poorly-controlled (HCC) (J45.40) - SOB and POSADAS likely multifactorial, including poorly controlled asthma and obesity. - Patient to continue following with pulmonary. - Referred back to cardiology for further evaluation. 10. Snoring (R06.83) - Persistent snoring and poor sleep quality reported. - Referred to Sleep Medicine for further evaluation and management. 11. GERD without esophagitis (K21.9) - Continue current heartburn medication. 12. Screening for diabetes mellitus (Z13.1) - Ordered fasting blood glucose and HbA1c to screen for diabetes mellitus. (See patient after visit summary for additional instructions to patient) David Grsisom MD Recording using ambient bitFlyer software for draft documentation of the visit was discussed with the patient/authorized congressional representative; all questions welcomed and answered. Patient/authorized congressional representative agreed to proceed documented in this encounter [facility] 10-16-2024 Instructions David Grissom MD - 10/16/2024 2:05 PM EDT - Apply Bactroban (mupirocin) ointment to the open area on your right thigh once or twice daily after cleaning; keep the skin dry and covered as directed. - Clean the area gently each day with mild soap and water, pat dry before applying ointment. - Watch for signs of infection--new or worsening redness, warmth, swelling, red streaks, increased pain, or fever--and contact the office immediately if these occur. - Attend wound care appointments at [facility] for ongoing lymphedema and venous stasis management; we will send the referral to your insurance?approved provider. - Schedule and attend a cardiology follow-up with Dr. Mendiola in [place]; our office will help you set this up. - Resume your bariatric consultation (last seen 04/22/23) to discuss weight-loss options and possible GLP-1 therapy. - Arrange and attend a sleep medicine evaluation to explore ways to improve your sleep quality and assess for sleep apnea. - Continue your pulmonary follow-up as previously arranged. - Continue taking your prescribed diuretic (water pill), heartburn medication, and Wellbutrin; no blood pressure pills are needed right now since your readings are stable. - Complete the blood tests today as ordered by the provider. - Plan to return for a routine follow-up in six months; keep all specialist appointments and let us know if any new concerns arise before then. documented in this encounter [facility] 08-31-2024 Telephone encounter Note NURA 04/21/23 Pss Team- Please offer patient a follow up. Patient phones requesting refills as follows: Requested Prescriptions Pending Prescriptions Disp Refills fluticasone-salmeterol HFA (ADVAIR HFA) 230-21 mcg/actuation inhaler 12 g 5 Please review and advise. Erika Godoy LPN [facility] 08-31-2024 Miscellaneous Notes NURA 04/21/23 Pss Team- Please offer patient a follow up. Patient phones requesting refills as follows: Requested Prescriptions Pending Prescriptions Disp Refills fluticasone-salmeterol HFA (ADVAIR HFA) 230-21 mcg/actuation inhaler 12 g 5 Please review and advise. Erika Godoy LPN documented in this encounter [facility] 08-31-2024 Telephone encounter Note Prescription Refill Information The patient has been identified by name and date of : Yes Caregiver verified no other encounters exist for this prescription request: Yes Caregiver confirmed with patient/requestor that no other refills are due, in the near future, with this provider at this time: Yes The last office visit in the department: 04/16/24 Does the patient have a future office visit with this provider/department: Yes, 10/16/24 Requested Prescriptions Pending Prescriptions Disp Refills albuterol HFA (VENTOLIN HFA) 90 mcg/actuation inhaler 18 g 11 Sig: Inhale 2 puffs as instructed every 4 hours as needed for wheezing/shortness of breath. *Last rx written 06/25/24 1 inhaler with 11 refills. Pt is not due for refill. MC message to pt advising of the same. Seth Gonzales LPN August 31, 2024 3:14 PM [facility] 08-31-2024 Miscellaneous Notes Prescription Refill Information The patient has been identified by name and date of : Yes Caregiver verified no other encounters exist for this prescription request: Yes Caregiver confirmed with patient/requestor that no other refills are due, in the near future, with this provider at this time: Yes The last office visit in the department: 04/16/24 Does the patient have a future office visit with this provider/department: Yes, 10/16/24 Requested Prescriptions Pending Prescriptions Disp Refills albuterol HFA (VENTOLIN HFA) 90 mcg/actuation inhaler 18 g 11 Sig: Inhale 2 puffs as instructed every 4 hours as needed for wheezing/shortness of breath. *Last rx written 06/25/24 1 inhaler with 11 refills. Pt is not due for refill. MC message to pt advising of the same. Seth Gonzales LPN August 31, 2024 3:14 PM documented in this encounter [facility] 06-25-2024 Telephone encounter Note Last apt 04/16/2024 Next apt 10/16/2024 Patient has been identified by name and date of : Yes Last office visit in this department: 04/16/2024 RX INSTRUCTIONS: Patient aware RX will be sent to pharmacy. No need to notify patient. Patient phones requesting refills as follows: Requested Prescriptions Pending Prescriptions Disp Refills albuterol HFA (VENTOLIN HFA) 90 mcg/actuation inhaler 18 g 11 Sig: Inhale 2 Puffs as instructed every 4 hours as needed for wheezing/shortness of breath. Please review and advise. Meghan Balbuena [facility] 06-25-2024 Miscellaneous Notes Last apt 04/16/2024 Next apt 10/16/2024 Patient has been identified by name and date of : Yes Last office visit in this department: 04/16/2024 RX INSTRUCTIONS: Patient aware RX will be sent to pharmacy. No need to notify patient. Patient phones requesting refills as follows: Requested Prescriptions Pending Prescriptions Disp Refills albuterol HFA (VENTOLIN HFA) 90 mcg/actuation inhaler 18 g 11 Sig: Inhale 2 Puffs as instructed every 4 hours as needed for wheezing/shortness of breath. Please review and advise. Meghan Balbuena documented in this encounter [facility] 04-16-2024 Note HNO ID: [id number] Author: DAVID GRISSOM MD Service: ? Author Type: Physician Type: Progress Notes Filed: 04/16/2024 14:34 Note Text: Patient presents with: 6 Month Exam HPI: Patient presents today for office visit for follow up. Bp is stable. Edema seems stable mostly stable. Right leg may be a little bit worse. Had EGD and c-scope. + for H pylori completed treatment. Still unable to complete sleep study they are unable to accommodate him with any sort head of bed elevation. He talked to several people about this. He snores. Unsure if he is apneic. He is fatigued during the day Discussed we could have him see sleep med to see if they have any ideas. Pulm: Stable. This time of year is a little worse using albuterol at night. Has not been back to seep pulmonary. Saw cardiology in the last year. Discussed that he has a my chart link to contact bariatrics to get set up for follow up. Note was copied and pasted, without alteration from:last ov: HTN: Does not monitor his BP at home Admits to not taking his Lisinopril for awhile Tried taking med in the morning and states it was making him feel funky Tried taking it at night but states he felt the same He's not entirely sure it was the Lisinopril making him feel that way Denies chest pain Occ shortness of breath Denies headaches and dizziness Denies palpitations and syncope Some edema to B/L feet/ankles and legs goes away after keeping feet up Continues on Lasix Using inhalers prn. Breathing is stable Has canceled his last two sleep studies. He is unable to complete due to not being able to sleep on his back. Colonoscopy was canceled also due to not having a bed big enough to accommodate him. GERD: Continues on Omeprazole No current symptoms Heartburn controlled No GI issues Scheduled with Gastro on 10/14/23 Again discussed follow up with bariatrics. He has an abnormal upper gi. Needs evaulated first per bariatrics. Was seeing therapy for his lymphedema. Has since stopped going. Leg wraps and massages aren't working for him. Leg wraps don't fit around his legs. Discussed weight loss meds. Discussed costs associated with them. MEDICATIONS: Current Outpatient Medications Medication Sig omeprazole (PRILOSEC) 40 mg capsule Take 1 capsule by mouth once daily for 14 days. peg 3350-Electrolytes (GOLYTELY) 236-22.74-6.74 -5.86 gram suspension Refer to printed patient instructions that will be mailed to you. furosemide (LASIX) 40 mg tablet Take 1 tablet by mouth once daily. fluticasone-salmeterol HFA (ADVAIR HFA) 230-21 mcg/actuation inhaler inhale 2 puffs by mouth and INTO THE LUNGS twice a day buPROPion XL (WELLBUTRIN XL) 300 mg 24 hr tablet Take 1 tablet by mouth once daily. lisinopril (ZESTRIL) 10 mg tablet Take 1 tablet by mouth once daily. (Patient not taking: Reported on 01/16/2024) albuterol HFA (VENTOLIN HFA) 90 mcg/actuation inhaler Inhale 2 Puffs as instructed every 4 hours as needed for wheezing/shortness of breath. No current facility-administered medications for this visit. ALLERGIES: ALLERGIES Allergen Reactions Bees Swelling Shrimp Swelling PAST MEDICAL HISTORY Diagnosis Date Abdominal pain, unspecified site Allergies Asthma Depression POSADAS (dyspnea on exertion) GERD (gastroesophageal reflux disease) History of echocardiogram 07/05/2022 EF = 55 ? 5%. There is trace tricuspid valve regurgitation. There is no pericardial effusion. There is an epicardial fat pad. HTN (hypertension) Lymphedema Morbid obesity with BMI of 70 and over, adult (HCC) PAST SURGICAL HISTORY Procedure Laterality Date PAST SURGICAL HISTORY OF thyroid surgery x 2 FAMILY HISTORY Problem Relation Age of Onset Ischemic Heart Disease Mother 53 LAD lesion/CAD other (lung cancer) Mother other (unknown) Father None Other Colon Cancer No Family History Social History Tobacco Use Smoking status: Never Smokeless tobacco: Never Vaping Use Vaping status: Never Used Substance Use Topics Alcohol use: Yes Comment: Occasional, biweekly Drug use: Yes Frequency: 7.0 times per week Types: Marijuana Reviewed current medications, allergies, past medical history, surgical history, family history and social history today. REVIEW OF SYSTEMS All other reviewed and negative other than HPI. HEALTH MAINTENANCE: Reviewed health maintenance issues today and recommended the following in detail. BP Controlled (<130/80) Never done DTaP,Tdap,Td Vaccine(1 - Tdap) Never done Hepatitis B Vaccine(1 of 3 - 19+ 3-dose series) Never done Pneumococcal Vaccine(1 of 2 - PCV) Never done Influenza Vaccine(1) due on 01/01/2024 Covid-19 Vaccine(2023- season) Never done VITALS: BP 118/72 Pulse 82 SpO2 95% Last 4 Encounter Wt Readings: Date: Wt: 01/30/2024 260.1 kg (573 lb 6.7 oz) 01/16/2024 263.5 kg (581 lb) 10/10/2023 263.5 kg (581 lb) 07/08/2023 263.5 kg (581 lb) (more content not included)... [facility] 02-10-2024 Nurse Note Uneventful recovery. Discharge paperwork reviewed with patient and family with hard copy provided to patient for personal records. Patient verbalized understanding and declined any questions or concerns prior to discharge. Vital signs stable. Patient expressed readiness to discharge. Personal belongings returned. PIV removed without complication. Patient taken to main lobby, by endoscopy staff, via wheelchair. No acute distress observed by RN as patient left recovery area. [facility] 02-10-2024 Nurse Note Uneventful recovery. Discharge paperwork reviewed with patient and family with hard copy provided to patient for personal records. Patient verbalized understanding and declined any questions or concerns prior to discharge. Vital signs stable. Patient expressed readiness to discharge. Personal belongings returned. PIV removed without complication. Patient taken to [facility], by endoscopy staff, via wheelchair. No acute distress observed by RN as patient left recovery area. documented in this encounter [facility] 02-10-2024 History and physical note UPDATED HISTORY AND PHYSICAL EXAMINATION SERVICE DATE: 02/10/2024 SERVICE TIME: 7:17 AM SERVICE: Gastroenterology PHYSICAL EXAM MUST BE COMPLETED ON ADMISSION The History and Physical (completed in the past 30 days) has been reviewed and the patient has been examined. The contents accurately reflect the patient's condition with the following additions or revisions since the H&P was completed. Patient denies any changes to health since last examination. Planned procedure for today is EGD/Colonoscopy Medication reconciliation list reviewed in [facility]. Past medical history, past surgical history, social history and family history reviewed in [facility]. ALLERGIES Allergen Reactions Bees Swelling Shrimp Swelling BP 122/77 Pulse 76 Temp 36.6 C (97.9 F) (Temporal) Resp 16 SpO2 95% Examination indicates no changes. On examination today: Lungs: Mild Exp. wheeze bilat. lower lobes.. Heart: RRR, Normal S1/S2, No significant murmurs, rubs, gallops or thrills appreciated. Abdomen: BS+ in all quadrants, abdomen is soft, non tender, and without guarding. Assessment:Epigastric Pain Plan: EGD/Colonoscopy This H&P can be found in the Electronic Medical Record dated 01/30/24. SIGNATURE: Elmira Berman PA-C PATIENT NAME: Demarcus Appiah DATE: February 10, 2024 TIME: 7:17 AM [facility] Work Phone: 02-10-2024 History and physical note UPDATED HISTORY AND PHYSICAL EXAMINATION SERVICE DATE: 02/10/2024 SERVICE TIME: 7:17 AM SERVICE: Gastroenterology PHYSICAL EXAM MUST BE COMPLETED ON ADMISSION The History and Physical (completed in the past 30 days) has been reviewed and the patient has been examined. The contents accurately reflect the patient's condition with the following additions or revisions since the H&P was completed. Patient denies any changes to health since last examination. Planned procedure for today is EGD/Colonoscopy Medication reconciliation list reviewed in [facility]. Past medical history, past surgical history, social history and family history reviewed in [facility]. ALLERGIES Allergen Reactions Bees Swelling Shrimp Swelling BP 122/77 Pulse 76 Temp 36.6 C (97.9 F) (Temporal) Resp 16 SpO2 95% Examination indicates no changes. On examination today: Lungs: Mild Exp. wheeze bilat. lower lobes.. Heart: RRR, Normal S1/S2, No significant murmurs, rubs, gallops or thrills appreciated. Abdomen: BS+ in all quadrants, abdomen is soft, non tender, and without guarding. Assessment:Epigastric Pain Plan: EGD/Colonoscopy This H&P can be found in the Electronic Medical Record dated 01/30/24. SIGNATURE: Elmira Berman PA-C PATIENT NAME: Demarcus Appiah DATE: February 10, 2024 TIME: 7:17 AM documented in this encounter [facility] 02-07-2024 Nurse Note [facility] CALL Shun. I'm calling from [facility] endoscopy to provide you with the information for your surgery/procedure tomorrow. Spoke to: Patient CONFIRM Procedure Planned with patient:Colonoscopy with or without biopsies based on clinical findings Esophagogastroduodenoscopy(EGD) for control of bleeding,dilation(any means),imaging,tube placement Are you familiar with where [facility] is located?Yes Address [address] [facility] Patient instructed to enter through the main hospital entrance off [address] at [address] through the revolving doors and check in at the main desk with your motor vehicle escort driver's license and insurance card. Yes When anesthesia or sedation is being given: Patient instructed you must have an adult motor vehicle escort driver because you will not be able to work or drive for the rest of the day after your test.Yes Patient instructed to have a responsible, adult motor vehicle escort driver to take them home after the procedure Yes. Due to having sedation, there is no working or driving the day of the procedure. Your motor vehicle escort driver is allowed to wait here with you or they may drop you off and come back to pick you up. Colonoscopy: Did you miner pick your bowel prep Yes Remind patient the day prior to the test they should be on a clear liquid diet all day. Clear liquids consist of liquids that you can see through (no reds or purple). Stay well hydrated all day. Do not drink just the bowel prep to clean you out. Drink all of the prep to ensure your test can be completed and polyps are not missed. Remind pt to drink at least 1 cup of clear liquids every hour even after finishing the bowel prep (up until midnight or up until 4 hours before procedure)to keep yourself hydrated and to flush the prep through your system. If pt has eaten solid foods-contact endoscopist and verify if they wish to proceed. Patient instructed: Do not eat anything the morning of the procedure, including gum, hard candy and mints.Yes Patient instructed not bring any valuables, jewelry, or null and wear comfortable clothing. Do not wear makeup, lotion, or finger tuvaluan. Yes Patient instructed: Please bring a list of medications including over the counter, vitamin, and herbals. If you are on inhalers, please do them in the morning before your test and bring them with you.Yes Blood pressure, seizure, or thyroid medications may be taken with a couple sips of water ONLY 4 hours prior to arrival time. Is the patient on blood thinners?no If so,verify if pt contacted the prescribing doctor to see how long they may hold blood thinners prior to procedure. Are you diabetic?No If so, advise pt to contact prescribing doctor to verify if any modifications are needed for insulin and/or pills Reminder:diabetic medication instructions should be given by the patient's ordering physician. If blood sugar drops, they can have CLEAR liquids to bring it up until 3 hours prior to arrival time. Hospitalizations: No Procedure and/or bowel prep instructions given to patient and questions answered: Yes, and they verbalized their understanding of instructions given Any barriers to Patient learning (confusion? 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 Please complete your Pre-Check In paperwork in My Chart if applicable. If patient needs to reschedule please call: [phone] [facility] phone number: [phone] Type of instruction given: Verbal by telephone contact. [facility] 02-07-2024 Nurse Note [facility] Shun. I'm calling from [facility] endoscopy to provide you with the information for your surgery/procedure tomorrow. Spoke to: Patient CONFIRM Procedure Planned with patient:Colonoscopy with or without biopsies based on clinical findings Esophagogastroduodenoscopy(EGD) for control of bleeding,dilation(any means),imaging,tube placement Are you familiar with where [facility] is located?Yes Address [address] [facility] Patient instructed to enter through the main hospital entrance off [address] at [address] through the revolving doors and check in at the main desk with your motor vehicle escort driver's license and insurance card. Yes When anesthesia or sedation is being given: Patient instructed you must have an adult motor vehicle escort driver because you will not be able to work or drive for the rest of the day after your test.Yes Patient instructed to have a responsible, adult motor vehicle escort driver to take them home after the procedure Yes. Due to having sedation, there is no working or driving the day of the procedure. Your motor vehicle escort driver is allowed to wait here with you or they may drop you off and come back to pick you up. Colonoscopy: Did you miner pick your bowel prep Yes Remind patient the day prior to the test they should be on a clear liquid diet all day. Clear liquids consist of liquids that you can see through (no reds or purple). Stay well hydrated all day. Do not drink just the bowel prep to clean you out. Drink all of the prep to ensure your test can be completed and polyps are not missed. Remind pt to drink at least 1 cup of clear liquids every hour even after finishing the bowel prep (up until midnight or up until 4 hours before procedure)to keep yourself hydrated and to flush the prep through your system. If pt has eaten solid foods-contact endoscopist and verify if they wish to proceed. Patient instructed: Do not eat anything the morning of the procedure, including gum, hard candy and mints.Yes Patient instructed not bring any valuables, jewelry, or null and wear comfortable clothing. Do not wear makeup, lotion, or finger tuvaluan. Yes Patient instructed: Please bring a list of medications including over the counter, vitamin, and herbals. If you are on inhalers, please do them in the morning before your test and bring them with you.Yes Blood pressure, seizure, or thyroid medications may be taken with a couple sips of water ONLY 4 hours prior to arrival time. Is the patient on blood thinners?no If so,verify if pt contacted the prescribing doctor to see how long they may hold blood thinners prior to procedure. Are you diabetic?No If so, advise pt to contact prescribing doctor to verify if any modifications are needed for insulin and/or pills Reminder:diabetic medication instructions should be given by the patient's ordering physician. If blood sugar drops, they can have CLEAR liquids to bring it up until 3 hours prior to arrival time. Hospitalizations: No Procedure and/or bowel prep instructions given to patient and questions answered: Yes, and they verbalized their understanding of instructions given Any barriers to Patient learning (confusion? 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 Please complete your Pre-Check In paperwork in My Chart if applicable. If patient needs to reschedule please call: [phone] [facility] phone number: [phone] Type of instruction given: Verbal by telephone contact. documented in this encounter [facility] 01-30-2024 Instructions Susana Pizano PA-C - 01/30/2024 2:46 PM EDT PATIENT PREOPERATIVE INSTRUCTIONS Elmira De Souza DO has scheduled you for your procedure at this surgery center: [facility]: [phone] -- [place] [address]. Please read below carefully for your personalized instructions. Arrival Time for Surgery: - The Surgery Center or hospital where you are having surgery will call the afternoon before surgery (or Tuesday for Tuesday surgery) with a scheduled arrival time. - If you have not heard by 4 pm, please contact the surgery center above. Please be aware that emergency situations arise, which may delay or change your surgical time. If this happens, we will notify you as soon as possible and regret any inconvenience. Dietary Restrictions: - Follow diet instructions from surgeon's office, which may include liquid diet prior to your procedure/surgery. Please stop all clear liquids at least 2 hours prior to scheduled arrival time. - Do not drink any alcohol after midnight the night before your surgery. Medications: Unless instructed differently below, stay on all of your medications until your surgery. Approved medications to take the morning of surgery with a sip of water: inhaler, buPROPion XL (WELLBUTRIN XL) DO NOT TAKE YOUR FUROSEMIDE THE MORNING OF SURGERY. If you take any medications for erectile dysfunction-Cialis (Tadalafil), Levitra, Staxyn (Vardenafil) Viagra (Sildenenafil please do not take these for 48 hours before surgery. If you start any new medications after today's visit, please contact the surgeon's office. Blood Thinning Medications: - Stop NSAIDS (Ibuprofen, Advil, Aleve, Motrin, Celebrex, Mobic, etc.) 7 days before surgery, as directed by your surgeon. - Stop Aspirin 7 days before surgery, as directed by your surgeon. - Stop Vitamin E, ALL multi-vitamins, herbals and dietary supplements 14 days before surgery. - You may take Tylenol (Acetaminophen) or any of your pain medications that do not contain aspirin or NSAIDS as needed. Important Reminders: - If you use CPAP/BIPAP, bring the machine with you to the surgery center. - If you are prescribed inhalers for breathing, continue using them. - Candy, mints, and tobacco products are NOT permitted the morning of surgery. - Hearing aids, dentures and glasses may be worn the morning of surgery. - NO jewelry, body piercings, makeup, hairpins or contacts are to be worn the day of surgery. If you develop symptoms such as a fever, cold, or flu, or have other changes to your health within TWO DAYS of scheduled surgery or the morning of surgery, please contact the surgery center above. Personal Belongings: -Please have photo ID and insurance cards. -If you do not have a copy of advance directives on file with us, please bring a copy with you on the day of surgery. - Leave ALL valuables and money at home or with family members. For Outpatient Procedures: - YOU MUST HAVE A RESPONSIBLE BULLET LUBRICANT MIXER TAKE YOU HOME. A CONDUCTOR YARD OR DENTAL INSURANCE BILLER CANNOT BE MADE A RESPONSIBLE BULLET LUBRICANT MIXER. - We recommend that a responsible person stays with you overnight to take care of you. - You cannot stay in a hotel alone after outpatient surgery. You will not be permitted to have your surgery, if you do not have someone to take care of you. If you already have an Advance Directive, please fax a copy to [phone] or email to for it to be added to your chart. If you do not have an Advance Directive, you can find the appropriate form and more information at [email or web address]. We recommend that you complete the Advance Directive form found on the website and bring it with you the day of your surgery. It can be witnessed and scanned into your chart that day. Susana Pizano PA-C documented in this encounter [facility] 01-30-2024 History and physical note HISTORY AND PHYSICAL EXAMINATION SERVICE DATE: 01/30/2024 SERVICE TIME: 3:57 PM PRIMARY CARE PHYSICIAN: David Grissom MD Assessment Patient has the following medical conditions which may affect jason-operative course: Obesity, Class III, BMI >= 40 Assessment: Body mass index is 84.68 kg/m . Lymphedema Assessment: severe, especially bilateral thighs with plaque like sores on inner thighs. 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 Reports stopped lisinopril (ZESTRIL, PRINIVIL) due to SE and PCP aware Marijuana use Assessment: smokes nightly, advised to refrain week before surgery [place]uesada Activity Status Index: METS: Take care of self; that is eating, dressing, bathing, using the toilet (2.75 METs) Cannot walk a block or two on level ground DASI Score: 2.75 Patient denies any chest pain or undue shortness of breath with the above physical activity. Clinical Frailty Scale: 3. Well, with treated comorbid disease STOP-Bang Score: Snores loudly Has been observed to stop breathing or choking/gasping during sleep Has or is being treated for high blood pressure BMI greater than 35 kg/m^2 Has a large neck Male patient Denies feeling tired, fatigued, or sleepy during the daytime Patient 50 years old or younger STOP-Bang Score: 6 [id number] Score: Age: <65 Sex: male CHF history: No Hypertension history: Yes Stroke/TIA/thromboembolism history: No Vascular disease history: No Diabetes history: No [id number] Score: 1 ARISCAT Score: Age: <=50 Preoperative SpO2: >=96% Respiratory infection in the last month: No Preoperative anemia: Yes Surgical incision: upper abdominal Duration of surgery: <2 hrs Emergency procedure: No ARISCAT Score: 26 ANESTHESIA FINDINGS: Intubation History: No history of difficult intubation. No abnormal airway history Significant Anesthesia Considerations: none Airway History: No history of difficult airway No abnormal airway history I - PHYSICAL EVALUATION AIRWAY Patient intubated: No. Tracheostomy tube not present Mallampati: I. TM distance: >3 FB. Neck ROM: full ROM without neurological symptoms. Mouth opening: adequate. Short neck: no. Thick neck: yes Gtz present: yes Lip Bite Test: I DENTAL Dental findings: broken tooth. II - ANESTHESIA PLAN Anesthetic Plan: other Anesthetic plan additional comments: *PACC/TCI - anesthesia choice. Beta Amari Monitoring Plan Post Procedure Analgesic Plan Prepared for Surgery: optimally prepared for surgery. Per PACC guidelines no other testing is required CONSULTS: Patient does not require consults for optimization at this time Planned Anesthetic: other anesthesia choice REASON FOR VISIT: Demarcus Appiah is a 38 year old male who is scheduled for EGD and colonoscopy at the request of Dr. Elmira De Souza for consultation. My final recommendation will be communicated back to the requesting physician by way of shared medical record or letter. Subjective The patient has the following: ACTIVE PROBLEM LIST Obesity, Morbid (Hcc) Chronic Midline Low Back Pain With Right-Sided Sciatica Gerd Without Esophagitis Essential Hypertension Lymphedema Asthma, Moderate Persistent, Poorly-Controlled Posadas (Dyspnea On Exertion) Snoring Anxiety and Depression Obesity, Class III, BMI >= 40 Marijuana Use COVID-19 Immunization Status Overdue - Covid-19 Vaccine (2023- season) Never done 04/13/2023 Postponed until 04/13/2024 by Luli Hunt LPN (Declined at this time) CHIEF COMPLAINT: Pre-anesthesia optimization HPI: Demarcus Appiah is a 38 year old male presenting for pre-anesthesia consultation. Pt has history of rectal bleeding intermittently, + constipation and epigastric pain. + ventral hernia Above procedure recommended to manage symptoms. Procedure scheduled on 01/31/24 at [facility]. REVIEW OF SYSTEMS: General: No weight loss, malaise or fevers. 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 No neurological symptoms or problems. Respiratory: Positive for: asthma (advair daily, rescue inhaler most nights) and dyspnea (POSADAS). Negative for: COPD, current cough, tobacco use, URI < 2 weeks and obstructive sleep apnea. Cardiovascular: Positive for: hypertension Negative for: arrhythmia, atrial fibrillation, CAD, chest pain, DVT/PE, hyperlipidemia and murmur/valvular heart disease. GI: See HPI. Positive for: GERD (omeprazole prn) Negative for: dysphagia, irritable bowel syndrome, inflammatory bowel disease, liver disease and ETOH >2 drinks/day. : No history of dysuria, frequency or incontinence, stones or chronic kidney disease. No difficulty urinating, nocturia > 1 time per night or hematuria. Endocrine: + s/p thyroidectomy x 2 glands. No history of diabetes. Has not taken steroids within the past 30 days. No history of endocrinological symptoms or problems. Hematology: No history of bleeding or clotting disorder. Patient is not taking anti-coagulation or platelet medications. No history of hematological symptoms or problems. Oncology: No history of CA metastasis, chemo within 30 days, or radiotherapy within 90 days. No history of oncological symptoms or problems. Psych: Positive for: anxiety, depression and drug dependency (marijuana - daily smokes). Musculoskeletal: + lymphedema Positive for: back pain (no surgeries). Skin: Positive for: lesions (lymphadema rash to bilateral thighs). PAST MEDICAL HISTORY Diagnosis Date Abdominal pain, unspecified site Allergies Asthma Depression POSADAS (dyspnea on exertion) GERD (gastroesophageal reflux disease) History of echocardiogram 07/05/2022 EF = 55 5%. There is trace tricuspid valve regurgitation. There is no pericardial effusion. There is an epicardial fat pad. HTN (hypertension) Lymphedema Morbid obesity with BMI of 70 and over, adult (HCC) PAST SURGICAL HISTORY Procedure Laterality Date PAST SURGICAL HISTORY OF thyroid surgery x 2 FAMILY HISTORY Problem Relation Age of Onset Ischemic Heart Disease Mother 53 LAD lesion/CAD other (lung cancer) Mother other (unknown) Father None Other Colon Cancer No Family History Social History Tobacco Use Smoking status: Never Smokeless tobacco: Never Vaping Use Vaping status: Never Used Substance Use Topics Alcohol use: Yes Comment: Occasional, biweekly Drug use: Yes Frequency: 7.0 times per week Types: Marijuana Prior to Admission medications as of 01/30/24 1446 Medication Sig Last Dose Taking peg 3350-Electrolytes (GOLYTELY) 236-22.74-6.74 -5.86 gram suspension Refer to printed patient instructions that will be mailed to you. Taking Yes furosemide (LASIX) 40 mg tablet Take 1 tablet by mouth once daily. Taking Yes fluticasone-salmeterol HFA (ADVAIR HFA) 230-21 mcg/actuation inhaler inhale 2 puffs by mouth and INTO THE LUNGS twice a day Taking Yes buPROPion XL (WELLBUTRIN XL) 300 mg 24 hr tablet Take 1 tablet by mouth once daily. Taking Yes albuterol HFA (VENTOLIN HFA) 90 mcg/actuation inhaler Inhale 2 Puffs as instructed every 4 hours as needed for wheezing/shortness of breath. Taking Yes omeprazole (PRILOSEC) 20 mg capsule Take 1 capsule by mouth daily before breakfast. 1/2 hr before meal. Patient not taking: Reported on 01/16/2024 Not Taking lisinopril (ZESTRIL) 10 mg tablet Take 1 tablet by mouth once daily. Patient not taking: Reported on 01/16/2024 Not Taking No medication comments found. ALLERGIES Allergen Reactions Bees Swelling Shrimp Swelling Objective PHYSICAL EXAM: General: alert and oriented and morbidly obese. Pertinent negatives noted - not distressed. +body odor. Skin: normal color, no rash or lesions. Positive for ulcers (inner thighs). HEENT: EOM intact and pupils equal round. Pertinent negatives noted - no carotid bruit. Cardiovascular: regular rate and rhythm, normal S1 and S2, no rub, murmurs, or gallop. Respiratory: normal breath sounds, no wheezes or crackles. No chest wall deformity or tenderness. Abdomen: soft. Pertinent negatives noted - not tender. Extremities: Positive for edema and vascular insufficiency. Severe lymphadema. Neurological: normal cognition and motor skills. Positive for abnormal gait. PAIN ASSESSMENT: VITALS: BP 140/94 Pulse 83 Temp 98.9 Resp 20 Ht 5' 9 (1.75m) Wt 573 lb 6.7 oz (260.1kg) SpO2 98% BMI 84.64 kg/(m^2). Diagnostic tests reviewed for today's visit: Lab Value Units Date High Low HB No results within date range. HCT No results within date range. WBC No results within date range. PLT No results within date range. NA No results within date range. K No results within date range. GLUC No results within date range. BUN No results within date range. CREAT No results within date range. PTSEC No results within date range. INR No results within date range. APTT No results within date range. ALT No results within date range. AST No results within date range. TBILI No results within date range. TSH No results within date range. Lab Value Units Date High Low HCGQT No results within date range. UHCG No results within date range. HCG, BODY* No results within date range. Lab Value Units Date High Low ABORHD No results within date range. ABSCREEN No results within date range. Hemoglobin A1C (%) Date Value 04/13/2023 5.4 04/08/2022 5.2 06/24/2021 5.5 07/10/2020 5.7 01/30/2020 6.0 08/13/2017 5.7 Recent Results (from the past 8760 hour(s)) ECG COMPLETE Collection Time: 06/30/23 2:43 PM Result Value Ventricular Rate 72 Atrial Rate 72 P-R Interval 164 QRS Duration 100 QT Interval 392 QTC Calculation (Bazett) 429 Calculated P Warren -19 Calculated R Warren 38 Calculated T Warren 15 Impression Normal sinus rhythm Nonspecific ST abnormality Abnormal ECG No previous ECGs available Confirmed by OSMANY MENDIOLA DO ([id number]) on 07/03/2023 6:49:16 AM Recent Results (from the past 40213 hour(s)) ECHO Collection Time: 07/05/22 10:32 AM Impression CONCLUSIONS: - Technically difficult exam due to body habitus. - Exam indication: Shortness of Breath - The left ventricle is normal in size. Left ventricular systolic function is normal. EF = 55 5% (visual est.) Definity contrast used for endocardial border detection. Indeterminate left ventricular diastolic dysfunction. - The right ventricle is normal in size. Right ventricular systolic function is normal. - There are no significant valvular abnormalities. - This is a technically difficult study due to limited acoustic window and is of moderate diagnostic confidence. - The patient has not had a prior CC echocardiographic exam for comparison. * * * Final * * * The Following Tests/Procedures Have Been Initiated: No orders of the defined types were placed in this encounter. Instructions Given to Patient: Instructions located in the after visit summary. Patient given verbal and written preop instructions and voices comprehension and compliance. SIGNATURE: Susana Pizano PA-C PATIENT NAME: Demarcus Appiah DATE: 01/30/2024 TIME: 11:51 AM PAGER/CONTACT #: T [facility] 01-30-2024 History and physical note HISTORY AND PHYSICAL EXAMINATION SERVICE DATE: 01/30/2024 SERVICE TIME: 3:57 PM PRIMARY CARE PHYSICIAN: David Grissom MD Assessment Patient has the following medical conditions which may affect jason-operative course: Obesity, Class III, BMI >= 40 Assessment: Body mass index is 84.68 kg/m . Lymphedema Assessment: severe, especially bilateral thighs with plaque like sores on inner thighs. 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 Reports stopped lisinopril (ZESTRIL, PRINIVIL) due to SE and PCP aware Marijuana use Assessment: smokes nightly, advised to refrain week before surgery Quesada Activity Status Index: METS: Take care of self; that is eating, dressing, bathing, using the toilet (2.75 METs) Cannot walk a block or two on level ground DASI Score: 2.75 Patient denies any chest pain or undue shortness of breath with the above physical activity. Clinical Frailty Scale: 3. Well, with treated comorbid disease STOP-Bang Score: Snores loudly Has been observed to stop breathing or choking/gasping during sleep Has or is being treated for high blood pressure BMI greater than 35 kg/m^2 Has a large neck Male patient Denies feeling tired, fatigued, or sleepy during the daytime Patient 50 years old or younger STOP-Bang Score: 6 [id number] Score: Age: <65 Sex: male CHF history: No Hypertension history: Yes Stroke/TIA/thromboembolism history: No Vascular disease history: No Diabetes history: No [id number] Score: 1 ARISCAT Score: Age: <=50 Preoperative SpO2: >=96% Respiratory infection in the last month: No Preoperative anemia: Yes Surgical incision: upper abdominal Duration of surgery: <2 hrs Emergency procedure: No ARISCAT Score: 26 ANESTHESIA FINDINGS: Intubation History: No history of difficult intubation. No abnormal airway history Significant Anesthesia Considerations: none Airway History: No history of difficult airway No abnormal airway history I - PHYSICAL EVALUATION AIRWAY Patient intubated: No. Tracheostomy tube not present Mallampati: I. TM distance: >3 FB. Neck ROM: full ROM without neurological symptoms. Mouth opening: adequate. Short neck: no. Thick neck: yes Gtz present: yes Lip Bite Test: I DENTAL Dental findings: broken tooth. II - ANESTHESIA PLAN Anesthetic Plan: other Anesthetic plan additional comments: *PACC/TCI - anesthesia choice. Beta Amari Monitoring Plan Post Procedure Analgesic Plan Prepared for Surgery: optimally prepared for surgery. Per PACC guidelines no other testing is required CONSULTS: Patient does not require consults for optimization at this time Planned Anesthetic: other anesthesia choice REASON FOR VISIT: Demarcus Appiah is a 38 year old male who is scheduled for EGD and colonoscopy at the request of Dr. Elmira De Souza for consultation. My final recommendation will be communicated back to the requesting physician by way of shared medical record or letter. Subjective The patient has the following: ACTIVE PROBLEM LIST Obesity, Morbid (Hcc) Chronic Midline Low Back Pain With Right-Sided Sciatica Gerd Without Esophagitis Essential Hypertension Lymphedema Asthma, Moderate Persistent, Poorly-Controlled Posadas (Dyspnea On Exertion) Snoring Anxiety and Depression Obesity, Class III, BMI >= 40 Marijuana Use COVID-19 Immunization Status Overdue - Covid-19 Vaccine (2023- season) Never done 04/13/2023 Postponed until 04/13/2024 by Luli Hunt LPN (Declined at this time) CHIEF COMPLAINT: Pre-anesthesia optimization HPI: Demarcus Appiah is a 38 year old male presenting for pre-anesthesia consultation. Pt has history of rectal bleeding intermittently, + constipation and epigastric pain. + ventral hernia Above procedure recommended to manage symptoms. Procedure scheduled on 01/31/24 at [facility]. REVIEW OF SYSTEMS: General: No weight loss, malaise or fevers. 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 No neurological symptoms or problems. Respiratory: Positive for: asthma (advair daily, rescue inhaler most nights) and dyspnea (POSADAS). Negative for: COPD, current cough, tobacco use, URI < 2 weeks and obstructive sleep apnea. Cardiovascular: Positive for: hypertension Negative for: arrhythmia, atrial fibrillation, CAD, chest pain, DVT/PE, hyperlipidemia and murmur/valvular heart disease. GI: See HPI. Positive for: GERD (omeprazole prn) Negative for: dysphagia, irritable bowel syndrome, inflammatory bowel disease, liver disease and ETOH >2 drinks/day. : No history of dysuria, frequency or incontinence, stones or chronic kidney disease. No difficulty urinating, nocturia > 1 time per night or hematuria. Endocrine: + s/p thyroidectomy x 2 glands. No history of diabetes. Has not taken steroids within the past 30 days. No history of endocrinological symptoms or problems. Hematology: No history of bleeding or clotting disorder. Patient is not taking anti-coagulation or platelet medications. No history of hematological symptoms or problems. Oncology: No history of CA metastasis, chemo within 30 days, or radiotherapy within 90 days. No history of oncological symptoms or problems. Psych: Positive for: anxiety, depression and drug dependency (marijuana - daily smokes). Musculoskeletal: + lymphedema Positive for: back pain (no surgeries). Skin: Positive for: lesions (lymphadema rash to bilateral thighs). PAST MEDICAL HISTORY Diagnosis Date Abdominal pain, unspecified site Allergies Asthma Depression POSADAS (dyspnea on exertion) GERD (gastroesophageal reflux disease) History of echocardiogram 07/05/2022 EF = 55 5%. There is trace tricuspid valve regurgitation. There is no pericardial effusion. There is an epicardial fat pad. HTN (hypertension) Lymphedema Morbid obesity with BMI of 70 and over, adult (HCC) PAST SURGICAL HISTORY Procedure Laterality Date PAST SURGICAL HISTORY OF thyroid surgery x 2 FAMILY HISTORY Problem Relation Age of Onset Ischemic Heart Disease Mother 53 LAD lesion/CAD other (lung cancer) Mother other (unknown) Father None Other Colon Cancer No Family History Social History Tobacco Use Smoking status: Never Smokeless tobacco: Never Vaping Use Vaping status: Never Used Substance Use Topics Alcohol use: Yes Comment: Occasional, biweekly Drug use: Yes Frequency: 7.0 times per week Types: Marijuana Prior to Admission medications as of 01/30/24 1446 Medication Sig Last Dose Taking peg 3350-Electrolytes (GOLYTELY) 236-22.74-6.74 -5.86 gram suspension Refer to printed patient instructions that will be mailed to you. Taking Yes furosemide (LASIX) 40 mg tablet Take 1 tablet by mouth once daily. Taking Yes fluticasone-salmeterol HFA (ADVAIR HFA) 230-21 mcg/actuation inhaler inhale 2 puffs by mouth and INTO THE LUNGS twice a day Taking Yes buPROPion XL (WELLBUTRIN XL) 300 mg 24 hr tablet Take 1 tablet by mouth once daily. Taking Yes albuterol HFA (VENTOLIN HFA) 90 mcg/actuation inhaler Inhale 2 Puffs as instructed every 4 hours as needed for wheezing/shortness of breath. Taking Yes omeprazole (PRILOSEC) 20 mg capsule Take 1 capsule by mouth daily before breakfast. 1/2 hr before meal. Patient not taking: Reported on 01/16/2024 Not Taking lisinopril (ZESTRIL) 10 mg tablet Take 1 tablet by mouth once daily. Patient not taking: Reported on 01/16/2024 Not Taking No medication comments found. ALLERGIES Allergen Reactions Bees Swelling Shrimp Swelling Objective PHYSICAL EXAM: General: alert and oriented and morbidly obese. Pertinent negatives noted - not distressed. +body odor. Skin: normal color, no rash or lesions. Positive for ulcers (inner thighs). HEENT: EOM intact and pupils equal round. Pertinent negatives noted - no carotid bruit. Cardiovascular: regular rate and rhythm, normal S1 and S2, no rub, murmurs, or gallop. Respiratory: normal breath sounds, no wheezes or crackles. No chest wall deformity or tenderness. Abdomen: soft. Pertinent negatives noted - not tender. Extremities: Positive for edema and vascular insufficiency. Severe lymphadema. Neurological: normal cognition and motor skills. Positive for abnormal gait. PAIN ASSESSMENT: VITALS: BP 140/94 Pulse 83 Temp 98.9 Resp 20 Ht 5' 9 (1.75m) Wt 573 lb 6.7 oz (260.1kg) SpO2 98% BMI 84.64 kg/(m^2). Diagnostic tests reviewed for today's visit: Lab Value Units Date High Low HB No results within date range. HCT No results within date range. WBC No results within date range. PLT No results within date range. NA No results within date range. K No results within date range. GLUC No results within date range. BUN No results within date range. CREAT No results within date range. PTSEC No results within date range. INR No results within date range. APTT No results within date range. ALT No results within date range. AST No results within date range. TBILI No results within date range. TSH No results within date range. Lab Value Units Date High Low HCGQT No results within date range. UHCG No results within date range. HCG, BODY* No results within date range. Lab Value Units Date High Low ABORHD No results within date range. ABSCREEN No results within date range. Hemoglobin A1C (%) Date Value 04/13/2023 5.4 04/08/2022 5.2 06/24/2021 5.5 07/10/2020 5.7 01/30/2020 6.0 08/13/2017 5.7 Recent Results (from the past 8760 hour(s)) ECG COMPLETE Collection Time: 06/30/23 2:43 PM Result Value Ventricular Rate 72 Atrial Rate 72 P-R Interval 164 QRS Duration 100 QT Interval 392 QTC Calculation (Bazett) 429 Calculated P Warren -19 Calculated R Warren 38 Calculated T Warren 15 Impression Normal sinus rhythm Nonspecific ST abnormality Abnormal ECG No previous ECGs available Confirmed by OSMANY MENDIOLA DO ([id number]) on 07/03/2023 6:49:16 AM Recent Results (from the past 86123 hour(s)) ECHO Collection Time: 07/05/22 10:32 AM Impression CONCLUSIONS: - Technically difficult exam due to body habitus. - Exam indication: Shortness of Breath - The left ventricle is normal in size. Left ventricular systolic function is normal. EF = 55 5% (visual est.) Definity contrast used for endocardial border detection. Indeterminate left ventricular diastolic dysfunction. - The right ventricle is normal in size. Right ventricular systolic function is normal. - There are no significant valvular abnormalities. - This is a technically difficult study due to limited acoustic window and is of moderate diagnostic confidence. - The patient has not had a prior CC echocardiographic exam for comparison. * * * Final * * * The Following Tests/Procedures Have Been Initiated: No orders of the defined types were placed in this encounter. Instructions Given to Patient: Instructions located in the after visit summary. Patient given verbal and written preop instructions and voices comprehension and compliance. SIGNATURE: Susana Pizano PA-C PATIENT NAME: Demarcus Appiah DATE: 01/30/2024 TIME: 11:51 AM PAGER/CONTACT #: documented in this encounter [facility] 01-16-2024 Miscellaneous Notes [facility] schedulers, This patient needs scheduled for his EGD/Colonoscopy. He was sent in the [employer] prep to his pharmacy. Can you please contact him directly to schedule. Thanks! Lisa Anderson documented in this encounter [facility] 01-16-2024 Telephone encounter Note [facility] [employer] [facility] schedulers, This patient needs scheduled for his EGD/Colonoscopy. He was sent in the [employer] prep to his pharmacy. Can you please contact him directly to schedule. Thanks! Lisa Anderson [facility] 01-16-2024 Instructions Lorraine Aviles PA-C - 01/16/2024 10:43 AM EDT Images from the original note were not included. Bowel Preparation Instructions for: Miralax-Gatorade Preparations IF YOU DO NOT FOLLOW THESE DIRECTIONS, YOUR COLONOSCOPY WILL BE CANCELLED. [place] Instructions: Your bowel must be empty so that your doctor can clearly view your colon. Follow all of the instructions in this handout EXACTLY as they are written. Do NOT eat any solid food the ENTIRE day before your colonoscopy. Buy your bowel preparation at least 5 days before your colonoscopy. Four (4) Dulcolax laxative tablets containing 5mg of bisacodyl each (NOT Dulcolax stool softener) One (1) 8.3oz. bottle Miralax (238 grams) or generic equivalent 2 x 32oz. Bottles of Gatorade (NOT RED) Diabetic Patients: Use G2 (Gatorade 2) TRANSPORTATION on the Day of Your Exam A responsible adult MUST be present with you at Check In prior to your colonoscopy and REMAIN in the endoscopy area until you are discharged. You are NOT ALLOWED to drive, take a taxi or bus, or leave the Endoscopy Center ALONE. If you do not have a responsible motor vehicle escort driver (family member or friend) with you to take you home, your exam cannot be done with sedation and will be cancelled. Please bring a list of all of your current medications, including any [id number] medications with you. Medications If you take insulin, diabetic medications or blood thinners such as Coumadin (warfarin), Plavix (clopidogrel), Ticlid (ticlopidine hydrochloride), Agrylin (anagrelide), Xarelto (Rivaroxaban), Pradaxa (Dabigatran), Eliquis (Apixaban), and Effient (Prasugrel). You MUST call the doctors who orders those medicines for instructions on altering the dosage before your colonoscopy. All other medications should be taken the day of the exam with a sip of water including ASPIRIN. Five (5) Days Before Your Colonoscopy Do NOT take medicines that stop diarrhea - such as Imodium, Kaopectate, or Pepto Bismol. Do NOT take fiber supplements - such as Metamucil, Citrucel, or Perdiem. Do NOT take products that contain iron - such as multi-vitamins (the label lists what is in the products). Three (3) Days Before Your Colonoscopy Do NOT eat high-fiber foods - such as popcorn, beans, seeds (flax, sunflower, quinoa), multigrain bread, nuts, salad/vegetables, or fresh and dried fruit. 1 Bowel Preparation Instructions for: Miralax-Gatorade Preparations One (1) Day Before Your Colonoscopy Only drink clear liquids the ENTIRE DAY before your colonoscopy. Do NOT eat any solid foods. Drink at least 8 ounces of clear liquids every hour after waking up. The clear liquids you can drink include: Clear Liquid (NO RED LIQUIDS) DO NOT DRINK Gatorade, Pedialyte or Powerade Clear broth or bouillon Coffee or tea (no milk or non-dairy creamer) Carbonated and non-carbonated soft drinks Jerel-Aid or other fruit flavored drinks Strained fruit juices (no pulp) Jell-O, popsicles, hard candy Water Alcohol Milk or non-dairy creamers Noodles or vegetables in soup Juice with pulp Liquid you cannot see through Do not use tobacco/vaping products Mix 1/2 of Miralax bottle (119 grams) in each 32 ounces of Gatorade bottle until dissolved. Keep cool in the refrigerator. DO NOT ADD ICE. The bowel preparation solution will be consumed in two parts. Part 1 5:00 PM - Evening before your colonoscopy Take 4 Dulcolax tablets. 6 PM - Evening before your colonoscopy Drink 32 oz. of the mixed solution. Drink an 8 oz. glass of bowel preparation every 15 minutes for a total of 4 glasses. Fifteen (15) minutes later, drink an 8 oz. glass of of clear liquids every 15 minutes for a total of 2 glasses. You may continue to drink clear liquids till midnight. Part 2 On the day of your colonoscopy you may drink clear liquids up to (three) 3 hours prior to procedure. 4 1/2 hours before your colonoscopy Take another 32 oz. bottle of mixed solution. Drink an 8 oz. glass of bowel prep every 15 minutes for a total of 4 glasses. Fifteen (15) minutes later, drink an 8 oz. glass of clear liquids every 15 minutes for a total of 2 glasses. You may continue to drink clear liquids up to (three) 3 hours before your exam. 2 04/2019 documented in this encounter [facility] 01-16-2024 Note HNO ID: [id number] Author: LORRAINE AVILES PA-C Service: ? Author Type: Physician Hand Ii Tube Bender Type: Progress Notes Filed: 01/16/2024 10:52 Note Text: CHIEF COMPLAINT: Patient presents with: Abnormality of Esophagus Diarrhea: Blood in stool This consult was requested by Marisabel Ramirez A* for an opinion regarding abnormality of the esophagus, diarrhea. My final recommendations will be communicated to the requesting health care provider by way of the shared medical record for internal providers or letter via the [employer] for external providers. HPI: Demarcus Appiah is a 38 year old male who presents for Abnormality of Esophagus and Diarrhea (Blood in stool ). PMHx of asthma, GERD, HTN, morbid obesity Patient tells me that he is doing well. Notes that he will get stomach pain intermittently, feels like his stomach is expanding. Notes Omeprazole helps pain significant. Denies actual dysphagia, GERD symptoms. Unsure of triggers to his abdominal pain. Trying to eat healthier. Does think greasy foods trigger the stomach pain. Denies nausea, vomiting. Notes bowel movements are normal. Will occasionally have diarrhea with certain foods. Notes some minor rectal bleeding with large stools. Will see a large amount of blood at times. No smoking. Social alcohol use. No pertinent GI family hx. Esophagram 07/04/2023: IMPRESSION: Short segment narrowing of the distal esophagus near the GE junction with associated distal esophageal dysmotility. This is nonobstructive to a 13 mm barium tablet. Latest Ref Rng 05/16/2023 Glucose 74 - 99 mg/dL 113 (H) BUN 9 - 24 mg/dL 15 Creatinine 0.73 - 1.22 mg/dL 1.10 Sodium 136 - 144 mmol/L 139 Potassium 3.7 - 5.1 mmol/L 4.8 Chloride 97 - 105 mmol/L 101 CO2 22 - 30 mmol/L 27 Anion Gap 9 - 18 mmol/L 11 Calcium 8.5 - 10.2 mg/dL 10.0 eGFR >=60 mL/min/1.73m? 88 Legend: (H) High Latest Ref Rng 04/13/2023 WBC 3.70 - 11.00 k/uL 10.34 RBC 4.20 - 6.00 m/uL 5.29 Hemoglobin 13.0 - 17.0 g/dL 14.8 Hematocrit 39.0 - 51.0 % 47.5 MCV 80.0 - 100.0 fL 89.8 MCH 26.0 - 34.0 pg 28.0 MCHC 30.5 - 36.0 g/dL 31.2 RDW-CV 11.5 - 15.0 % 13.8 Platelet Count 150 - 400 k/uL 310 MPV 9.0 - 12.7 fL 10.0 Neut% % 67.9 Abs Neut (ANC) 1.45 - 7.50 k/uL 7.02 Lymph% % 23.2 Abs Lymph 1.00 - 4.00 k/uL 2.40 Concho% % 6.5 Abs Concho <0.87 k/uL 0.67 Eosin% % 1.8 Abs Eosin <0.46 k/uL 0.19 Baso% % 0.2 Abs Baso <0.11 k/uL <0.03 Immature Gran % % 0.4 IMMATURE GRANS (ABS) <0.10 k/uL 0.04 NRBC /100 WBC 0.0 Absolute nRBC <0.01 k/uL <0.01 DTYPE Auto Protein, Total 6.3 - 8.0 g/dL 8.1 (H) Albumin 3.9 - 4.9 g/dL 4.3 Calcium 8.5 - 10.2 mg/dL 9.6 Bilirubin, Total 0.2 - 1.3 mg/dL 0.4 Alkaline Phosphatase 38 - 113 U/L 72 AST 14 - 40 U/L 21 ALT 10 - 54 U/L 27 Glucose 74 - 99 mg/dL 91 BUN 9 - 24 mg/dL 13 Creatinine 0.73 - 1.22 mg/dL 0.89 Sodium 136 - 144 mmol/L 139 Potassium 3.7 - 5.1 mmol/L 4.6 Chloride 97 - 105 mmol/L 102 CO2 22 - 30 mmol/L 25 Anion Gap 9 - 18 mmol/L 12 eGFR >=60 mL/min/1.73m? 112 Total Cholesterol, Nonfasting <200 mg/dL 220 (H) Triglycerides, Nonfasting <150 mg/dL 126 HDL Cholesterol, Nonfasting >39 mg/dL 35 (L) LDL Cholesterol, Nonfasting <100 mg/dL 160 (H) Non HDL Cholesterol, Nonfasting <130 mg/dL 185 (H) VLDL Cholesterol, Nonfasting <30 mg/dL 25 Total Chol/HDL Ratio, Nonfasting <5.10 mg/dL 6.29 (H) LDL/HDL Ratio, Nonfasting <2.54 mg/dL 4.57 (H) Hemoglobin A1C 4.3 - 5.6 % 5.4 Estimated Average Glucose mg/dL 108 TSH 0.270 - 4.200 mIU/L 2.440 Legend: (H) High (L) Low Record Review: [facility] / Outside records reviewed. PAST MEDICAL HISTORY Diagnosis Date Abdominal pain, unspecified site Allergies Asthma Depression POSADAS (dyspnea on exertion) GERD (gastroesophageal reflux disease) History of echocardiogram 07/05/2022 EF = 55 ? 5%. There is trace tricuspid valve regurgitation. There is no pericardial effusion. There is an epicardial fat pad. HTN (hypertension) Lymphedema Morbid obesity with BMI of 70 and over, adult (HCC) PAST SURGICAL HISTORY Procedure Laterality Date PAST SURGICAL HISTORY OF thyroid surgery x 2 Allergies: ALLERGIES Allergen Reactions Bees Swelling Shrimp Swelling Medications: furosemide (LASIX) 40 mg tablet Take 1 tablet by mouth once daily. fluticasone-salmeterol HFA (ADVAIR HFA) 230-21 mcg/actuation inhaler inhale 2 puffs by mouth and INTO THE LUNGS twice a day buPROPion XL (WELLBUTRIN XL) 300 mg 24 hr tablet Take 1 tablet by mouth once daily. albuterol HFA (VENTOLIN HFA) 90 mcg/actuation inhaler Inhale 2 Puffs as instructed every 4 hours as needed for wheezing/shortness of breath. omeprazole (PRILOSEC) 20 mg capsule Take 1 capsule by mouth daily before breakfast. 1/2 hr before meal. (Patient not taking: Reported on 01/16/2024) lisinopril (ZESTRIL) 10 mg tablet Take 1 tablet by mouth once daily. (Patient not taking: Reported on 01/16/2024 (more content not included)... [facility] 01-16-2024 History of Presen t illness Narrative CHIEF COMPLAINT: Patient presents with: Abnormality of Esophagus Diarrhea: Blood in stool This consult was requested by Marisabel Ramirez A* for an opinion regarding abnormality of the esophagus, diarrhea. My final recommendations will be communicated to the requesting health care provider by way of the shared medical record for internal providers or letter via the [employer] for external providers. HPI: Demarcus Appiah is a 38 year old male who presents for Abnormality of Esophagus and Diarrhea (Blood in stool ). PMHx of asthma, GERD, HTN, morbid obesity Patient tells me that he is doing well. Notes that he will get stomach pain intermittently, feels like his stomach is expanding. Notes Omeprazole helps pain significant. Denies actual dysphagia, GERD symptoms. Unsure of triggers to his abdominal pain. Trying to eat healthier. Does think greasy foods trigger the stomach pain. Denies nausea, vomiting. Notes bowel movements are normal. Will occasionally have diarrhea with certain foods. Notes some minor rectal bleeding with large stools. Will see a large amount of blood at times. No smoking. Social alcohol use. No pertinent GI family hx. Esophagram 07/04/2023: IMPRESSION: Short segment narrowing of the distal esophagus near the GE junction with associated distal esophageal dysmotility. This is nonobstructive to a 13 mm barium tablet. Latest Ref Rng 05/16/2023 Glucose 74 - 99 mg/dL 113 (H) BUN 9 - 24 mg/dL 15 Creatinine 0.73 - 1.22 mg/dL 1.10 Sodium 136 - 144 mmol/L 139 Potassium 3.7 - 5.1 mmol/L 4.8 Chloride 97 - 105 mmol/L 101 CO2 22 - 30 mmol/L 27 Anion Gap 9 - 18 mmol/L 11 Calcium 8.5 - 10.2 mg/dL 10.0 eGFR >=60 mL/min/1.73m 88 Legend: (H) High Latest Ref Rng 04/13/2023 WBC 3.70 - 11.00 k/uL 10.34 RBC 4.20 - 6.00 m/uL 5.29 Hemoglobin 13.0 - 17.0 g/dL 14.8 Hematocrit 39.0 - 51.0 % 47.5 MCV 80.0 - 100.0 fL 89.8 MCH 26.0 - 34.0 pg 28.0 MCHC 30.5 - 36.0 g/dL 31.2 RDW-CV 11.5 - 15.0 % 13.8 Platelet Count 150 - 400 k/uL 310 MPV 9.0 - 12.7 fL 10.0 Neut% % 67.9 Abs Neut (ANC) 1.45 - 7.50 k/uL 7.02 Lymph% % 23.2 Abs Lymph 1.00 - 4.00 k/uL 2.40 Concho% % 6.5 Abs Concho <0.87 k/uL 0.67 Eosin% % 1.8 Abs Eosin <0.46 k/uL 0.19 Baso% % 0.2 Abs Baso <0.11 k/uL <0.03 Immature Gran % % 0.4 IMMATURE GRANS (ABS) <0.10 k/uL 0.04 NRBC /100 WBC 0.0 Absolute nRBC <0.01 k/uL <0.01 DTYPE Auto Protein, Total 6.3 - 8.0 g/dL 8.1 (H) Albumin 3.9 - 4.9 g/dL 4.3 Calcium 8.5 - 10.2 mg/dL 9.6 Bilirubin, Total 0.2 - 1.3 mg/dL 0.4 Alkaline Phosphatase 38 - 113 U/L 72 AST 14 - 40 U/L 21 ALT 10 - 54 U/L 27 Glucose 74 - 99 mg/dL 91 BUN 9 - 24 mg/dL 13 Creatinine 0.73 - 1.22 mg/dL 0.89 Sodium 136 - 144 mmol/L 139 Potassium 3.7 - 5.1 mmol/L 4.6 Chloride 97 - 105 mmol/L 102 CO2 22 - 30 mmol/L 25 Anion Gap 9 - 18 mmol/L 12 eGFR >=60 mL/min/1.73m 112 Total Cholesterol, Nonfasting <200 mg/dL 220 (H) Triglycerides, Nonfasting <150 mg/dL 126 HDL Cholesterol, Nonfasting >39 mg/dL 35 (L) LDL Cholesterol, Nonfasting <100 mg/dL 160 (H) Non HDL Cholesterol, Nonfasting <130 mg/dL 185 (H) VLDL Cholesterol, Nonfasting <30 mg/dL 25 Total Chol/HDL Ratio, Nonfasting <5.10 mg/dL 6.29 (H) LDL/HDL Ratio, Nonfasting <2.54 mg/dL 4.57 (H) Hemoglobin A1C 4.3 - 5.6 % 5.4 Estimated Average Glucose mg/dL 108 TSH 0.270 - 4.200 mIU/L 2.440 Legend: (H) High (L) Low Record Review: [facility] / Outside records reviewed. PAST MEDICAL HISTORY Diagnosis Date Abdominal pain, unspecified site Allergies Asthma Depression POSADAS (dyspnea on exertion) GERD (gastroesophageal reflux disease) History of echocardiogram 07/05/2022 EF = 55 5%. There is trace tricuspid valve regurgitation. There is no pericardial effusion. There is an epicardial fat pad. HTN (hypertension) Lymphedema Morbid obesity with BMI of 70 and over, adult (HCC) PAST SURGICAL HISTORY Procedure Laterality Date PAST SURGICAL HISTORY OF thyroid surgery x 2 Allergies: ALLERGIES Allergen Reactions Bees Swelling Shrimp Swelling Medications: furosemide (LASIX) 40 mg tablet Take 1 tablet by mouth once daily. fluticasone-salmeterol HFA (ADVAIR HFA) 230-21 mcg/actuation inhaler inhale 2 puffs by mouth and INTO THE LUNGS twice a day buPROPion XL (WELLBUTRIN XL) 300 mg 24 hr tablet Take 1 tablet by mouth once daily. albuterol HFA (VENTOLIN HFA) 90 mcg/actuation inhaler Inhale 2 Puffs as instructed every 4 hours as needed for wheezing/shortness of breath. omeprazole (PRILOSEC) 20 mg capsule Take 1 capsule by mouth daily before breakfast. 1/2 hr before meal. (Patient not taking: Reported on 01/16/2024) lisinopril (ZESTRIL) 10 mg tablet Take 1 tablet by mouth once daily. (Patient not taking: Reported on 01/16/2024) FAMILY HISTORY Problem Relation Age of Onset Ischemic Heart Disease Mother 53 LAD lesion/CAD other (lung cancer) Mother other (unknown) Father None Other Colon Cancer No Family History Employer And Job Title: None on file Years Of Education Completed: Not specified Marital Status: Single with 2 children Social History Tobacco Use Smoking status: Never Smokeless tobacco: Former Vaping Use Vaping status: Never Used Substance Use Topics Alcohol use: Yes Comment: Occasional Drug use: No Review of Systems: Review of Systems Constitutional: Positive for fatigue. Respiratory: Positive for chest tightness, shortness of breath and wheezing. Cardiovascular: Positive for chest pain. Gastrointestinal: Positive for blood in stool and diarrhea. All other systems reviewed and are negative. Are you taking any blood thinners? No Physical Examination: BP 172/78 Pulse 71 Ht 5' 9 (1.75m) Wt 581 lb (263.5kg) BMI 85.76 kg/(m^2). Physical Exam Constitutional: Appearance: Normal appearance. He is obese. HENT: Head: Normocephalic and atraumatic. Eyes: General: No scleral icterus. Extraocular Movements: Extraocular movements intact. Conjunctiva/sclera: Conjunctivae normal. Pupils: Pupils are equal, round, and reactive to light. Cardiovascular: Rate and Rhythm: Normal rate and regular rhythm. Pulses: Normal pulses. Heart sounds: Normal heart sounds. Pulmonary: Effort: Pulmonary effort is normal. Breath sounds: Normal breath sounds. Abdominal: General: Abdomen is flat. Bowel sounds are normal. Palpations: Abdomen is soft. Tenderness: There is no abdominal tenderness. Hernia: A hernia (ventral hernia on exam) is present. Comments: Exam limited due to body habitus Musculoskeletal: General: Swelling present. Normal range of motion. Cervical back: Normal range of motion and neck supple. Skin: General: Skin is warm and dry. Coloration: Skin is not jaundiced. Neurological: General: No focal deficit present. Mental Status: He is alert and oriented to person, place, and time. Psychiatric: Mood and Affect: Mood normal. Behavior: Behavior normal. Thought Content: Thought content normal. Judgment: Judgment normal. Assessment/Plan (R10.13) Epigastric pain (primary encounter diagnosis) (R93.3) Abnormal esophagram (K62.5) Rectal bleeding 1. Epigastric pain -- Patient with epigastric pain, bloating that responds well to Omeprazole. -- Does have large ventral hernia in this area. -- Okay to use Omeprazole PRN -- EGD for further evaluation - EGD DIAGNOSTIC; Future 2. Abnormal esophagram -- Esophagram is showing narrowing at the GEJ -- Okay to use Omeprazole PRN -- EGD for further evaluation - EGD DIAGNOSTIC; Future 3. Rectal bleeding -- Patient with rectal bleeding intermittently for the last several months. Will pass large amounts of blood at a time. -- Was supposed to have colonoscopy at [place] but was cancelled and never rescheduled. Order placed. - COLONOSCOPY DIAGNOSTIC; Future Follow up in office PRN. Recommended to please call office/go to ER if fever, chills, chest pain, SOB, diarrhea, nausea, emesis, worsening abdominal pain, dehydration occurs I spent a total of 20 minutes on the date of the service which included preparing to see the patient, [id number] patient care, completing clinical documentation, obtaining and/or reviewing separately obtained history, performing a medically appropriate examination, counseling and educating the patient/family/caregiver, and ordering medications, tests, or procedures. Lorraine Aviles PA-C January 16, 2024 10:46 AM documented in this encounter [facility] 01-11-2024 Telephone encounter Note Patient dropped his pills at the sink and is now about 26 days removed from when he can next refill his furosemide. He is asking if a 30 day script can be called into [facility] in [place]. He would like the intermediate accountant script left as is. Patient has already gone 1 week without med and says he is very swollen PSS advised patient to let his insurance know so that they will cover the additional med due to loss. Patient voice understanding. [facility] 01-11-2024 Miscellaneous Notes Patient dropped his pills at the sink and is now about 26 days removed from when he can next refill his furosemide. He is asking if a 30 day script can be called into [facility] in [place]. He would like the shelter script left as is. Patient has already gone 1 week without med and says he is very swollen PSS advised patient to let his insurance know so that they will cover the additional med due to loss. Patient voice understanding. Prescription Refill Information The patient has been identified by name and date of : Yes Caregiver verified no other encounters exist for this prescription request: Yes Caregiver confirmed with patient/requestor that no other refills are due, in the near future, with this provider at this time: Yes The last office visit in the department: 10-10-23 Does the patient have a future office visit with this provider/department: Yes Requested Prescriptions Pending Prescriptions Disp Refills furosemide (LASIX) 40 mg tablet 30 tablet 0 Sig: Take 1 tablet by mouth once daily. Sofya Balbuena January 11, 2024 9:40 AM documented in this encounter [facility] 01-11-2024 Telephone encounter Note Prescription Refill Information The patient has been identified by name and date of : Yes Caregiver verified no other encounters exist for this prescription request: Yes Caregiver confirmed with patient/requestor that no other refills are due, in the near future, with this provider at this time: Yes The last office visit in the department: 10-10-23 Does the patient have a future office visit with this provider/department: Yes Requested Prescriptions Pending Prescriptions Disp Refills furosemide (LASIX) 40 mg tablet 30 tablet 0 Sig: Take 1 tablet by mouth once daily. Sofya Balbuena January 11, 2024 9:40 AM [facility] 11-02-2023 Telephone encounter Note Prescription Refill Information The patient has been identified by name and date of : Yes Caregiver verified no other encounters exist for this prescription request: Yes Caregiver confirmed with patient/requestor that no other refills are due, in the near future, with this provider at this time: Yes The last office visit in the department: 10/10/23 Does the patient have a future office visit with this provider/department: Yes Requested Prescriptions Pending Prescriptions Disp Refills furosemide (LASIX) 40 mg tablet 90 tablet 1 Sig: Take 1 tablet by mouth once daily. Gerry Miller [facility] November 02, 2023 10:53 AM [facility] 11-02-2023 Miscellaneous Notes Prescription Refill Information The patient has been identified by name and date of : Yes Caregiver verified no other encounters exist for this prescription request: Yes Caregiver confirmed with patient/requestor that no other refills are due, in the near future, with this provider at this time: Yes The last office visit in the department: 10/10/23 Does the patient have a future office visit with this provider/department: Yes Requested Prescriptions Pending Prescriptions Disp Refills furosemide (LASIX) 40 mg tablet 90 tablet 1 Sig: Take 1 tablet by mouth once daily. Gerry Miller [facility] November 02, 2023 10:53 AM documented in this encounter [facility] 10-10-2023 Note Addended by: Uvaldo GRISSOM on: 10/10/2023 03:14 PM Modules accepted: Orders [facility] 10-10-2023 Miscellaneous Notes Addended by: DAVID GRISSOM on: 10/10/2023 03:14 PM Modules accepted: Orders documented in this encounter [facility] 10-10-2023 History of Presen t illness Narrative Patient presents with: Follow Up HPI: Patient presents today for office visit for follow up. HTN: Does not monitor his BP at home Admits to not taking his Lisinopril for awhile Tried taking med in the morning and states it was making him feel funky Tried taking it at night but states he felt the same He's not entirely sure it was the Lisinopril making him feel that way Denies chest pain Occ shortness of breath Denies headaches and dizziness Denies palpitations and syncope Some edema to B/L feet/ankles and legs goes away after keeping feet up Continues on Lasix Using inhalers prn. Breathing is stable Has canceled his last two sleep studies. He is unable to complete due to not being able to sleep on his back. Colonoscopy was canceled also due to not having a bed big enough to accommodate him. GERD: Continues on Omeprazole No current symptoms Heartburn controlled No GI issues Scheduled with Gastro on 10/14/23 Again discussed follow up with bariatrics. He has an abnormal upper gi. Needs evaulated first per bariatrics. Was seeing therapy for his lymphedema. Has since stopped going. Leg wraps and massages aren't working for him. Leg wraps don't fit around his legs. Discussed weight loss meds. Discussed costs associated with them. MEDICATIONS: Current Outpatient Medications Medication Sig fluticasone-salmeterol HFA (ADVAIR HFA) 230-21 mcg/actuation inhaler inhale 2 puffs by mouth and INTO THE LUNGS twice a day omeprazole (PRILOSEC) 20 mg capsule Take 1 capsule by mouth daily before breakfast. 1/2 hr before meal. buPROPion XL (WELLBUTRIN XL) 300 mg 24 hr tablet Take 1 tablet by mouth once daily. lisinopril (ZESTRIL) 10 mg tablet Take 1 tablet by mouth once daily. furosemide (LASIX) 40 mg tablet Take 1 tablet by mouth once daily. albuterol HFA (VENTOLIN HFA) 90 mcg/actuation inhaler Inhale 2 Puffs as instructed every 4 hours as needed for wheezing/shortness of breath. No current facility-administered medications for this visit. ALLERGIES: ALLERGIES Allergen Reactions Bees Swelling Shrimp Swelling PAST MEDICAL HISTORY Diagnosis Date Abdominal pain, unspecified site Allergies Asthma Depression POSADAS (dyspnea on exertion) GERD (gastroesophageal reflux disease) History of echocardiogram 07/05/2022 EF = 55 5%. There is trace tricuspid valve regurgitation. There is no pericardial effusion. There is an epicardial fat pad. HTN (hypertension) Lymphedema Morbid obesity with BMI of 70 and over, adult (HCC) PAST SURGICAL HISTORY Procedure Laterality Date PAST SURGICAL HISTORY OF thyroid surgery x 2 FAMILY HISTORY Problem Relation Age of Onset Ischemic Heart Disease Mother 53 LAD lesion/CAD other (lung cancer) Mother other (unknown) Father None Other Social History Tobacco Use Smoking status: Never Smokeless tobacco: Former Vaping Use Vaping Use: Never used Substance Use Topics Alcohol use: No Drug use: No Reviewed current medications, allergies, past medical history, surgical history, family history and social history today. REVIEW OF SYSTEMS All other reviewed and negative other than HPI. HEALTH MAINTENANCE: Reviewed health maintenance issues today and recommended the following in detail. BP Controlled (<130/80) Never done VITALS: BP 136/80 Pulse 84 Ht 175.3 cm (5' 9) Wt (!) 263.5 kg (581 lb) SpO2 97% BMI 85.80 kg/m Last 4 Encounter Wt Readings: Date: Wt: 07/08/2023 263.5 kg (581 lb) 06/30/2023 263.6 kg (581 lb 0.6 oz) 05/31/2023 261.7 kg (577 lb) 05/16/2023 261.7 kg (577 lb) PHYSICAL EXAMINATION: General appearance: Well appearing, alert, in no acute distress, well-hydrated, well nourished. Skin: Skin color, texture, turgor normal, no suspicious rashes or lesions Head: Normocephalic, no masses, lesions, tenderness or abnormalities Lungs: Lungs clear to auscultation. No wheezing, rhonchi, rales Heart: RRR without murmur, gallop, or rubs. No ectopy Abdomen: Normal abdominal exam, Abdomen soft, non-tender. Bowel sounds normal. No masses, organomegaly Chronic lymphedema. ASSESSMENT/PLAN: 1. Essential hypertension - ICD9: 401.9, ICD10: I10 (primary diagnosis) - Controlled - Continue current medications 2. Asthma, moderate persistent, poorly-controlled - ICD9: 493.90, ICD10: J45.40 - stable. 3. GERD without esophagitis - ICD9: 530.81, ICD10: K21.9 - continue meds. 4. Obesity, morbid (HCC) - ICD9: 278.01, ICD10: E66.01 - follow progress. 5. POSADAS (dyspnea on exertion) - ICD9: 786.09, ICD10: R06.09 - follow with pulmonary and cardiology. See if we can set up for sleep study at main campus. He is to consider bariatrics surgery after gi. 6. Snoring - ICD9: 786.09, ICD10: R06.83 - as above. David Grissom MD documented in this encounter [facility] 10-02-2023 History of Presen t illness Narrative October 02, 2023 Standing PSG Orders signed in the last 90 days None Future PSG Orders signed in the last 90 days None All Prior Sleep Studies (past 365 days) 06/01/2023 17:03 Sleep Studies POLYSOMNOGRAM (PSG) POLYSOMNOGRAM (PSG) Order Status: Ordered, Future Expires: 05/31/24 BMI Readings from Last 2 Encounters: 07/08/23 : 85.80 kg/m 06/30/23 : 85.80 kg/m PAST MEDICAL HISTORY Diagnosis Date Abdominal pain, unspecified site Allergies Asthma Depression POSADAS (dyspnea on exertion) GERD (gastroesophageal reflux disease) History of echocardiogram 07/05/2022 EF = 55 5%. There is trace tricuspid valve regurgitation. There is no pericardial effusion. There is an epicardial fat pad. HTN (hypertension) Lymphedema Morbid obesity with BMI of 70 and over, adult (HCC) The medical record was reviewed to determine if the proposed sleep study conforms to the [facility] Practice Parameters for the Indications for Polysomnography and Related Procedures, or if the sleep study is indicated for other reasons. Indications for study: CHRISTOPHER suspected without comorbid medical or sleep disorders Sleep study to be performed: Polysomnogram Special instructions: Target REM/supine sleep Add EtCO2 or Transcutaneous CO2 if available Jennifer Mattson MD - Sleep Medicine fellow Note: I have read the above protocol, edited as needed, and agree to the plan. Jennifer Mattson MD 8:15 PM, 10/02/2023 documented in this encounter [facility] 08-22-2023 History of Presen t illness Narrative Episode Visit Count: 3 Therapist That Will Accept/Oversee The Plan Of Care: Rebeca Wahl Start of Care Date: 05/23/23 Onset Date: 05/02/20 (a few years) Plan of Care Certification Date: 08/22/23 Next Certification Due Date: 10/22/23 Patient Identified by Name and Date of : Yes REHABILITATION AND SPORTS THERAPY PHYSICAL THERAPY RE-EVALUATION PLAN OF CARE UPDATE: Assessment: Demarcus Appiah demonstrates no improvement in standing, walking, physical activities, driving, and dressing. He has not progressed d/t having to care for his mother after she had surgery and was not able to continue with appointments until now. Patient continues to present with impairments in edema management, gait, overall function, and soft tissue condition that interfere with standing, walking in the community, physical activities, dressing (in and out of vehicles) . Current prognosis is Good due to: current objective clinical presentation, good overall health status, Prognosis may be limited due to, good support system/ coping skills Fair due to: chronic nature of impairments, limited support system, limited tolerance to activity, Prognosis may be improved by chronic nature of impairmentsgood support system/ coping skills. He will benefit from continued skilled therapy services to meet the updated goals for this plan of care as noted below. Goals for Episode of Care: created on 05/23/23 through 07/22/23 Goals updated on 08/22/2023. Patient / family knowledgeable re: all pertinent aspects of CDT (Partially Met) Patient / family independent with donning / doffing compression garment and proper wearing schedule and care of garment (Not Met) Patient / family independent with home exercise program (Partially Met)-was doing incorrectly Patient will decrease circumferential measurements by 0.5 to 3.0 cm in the following areas: B LE for decreased recurrence of infection, improved mobility, improved range of motion and allow appropriate fit in compressive garment. (Not Met) Pt will obtain appropriate compression garments to allow for most effective self-management following discharge. (Not Met) Pt will demonstrate more normal gait pattern to allow for improved function and mobility. (Not Met) Patient Goals: Volume reduction, improve mobility and function. Planned Interventions, Frequency, and Duration: 3x/week, 8 weeks Total Number of Visits Planned: 24 Patient to be seen for Therapeutic exercise (97744), Manual therapy (03707), Self-prison management (07179), Patient/Family/Caregiver Education PLAN FOR NEXT VISIT: Assess pt response to Kinesiotape. Continue MLD, and taping or compression wrapping. Review self-massage techniques. SUBJECTIVE: Pt reports his mom had emergency gallbladder surgery and his daughter had medical appointments for her eyes and he has not been able to come for therapy until now. He reports compliance with HEP, but has not been able to use the wraps. Later he reports he only was doing the foot/ankle movements and lost his paper with the LE decongestive exercise series. Functional Limitations: standing, walking in the community, physical activities, dressing (in and out of vehicles) Pain: Pain Pain Level: (not rated numerically) Pain Location: Leg - Right, Leg - Left (shins, knees, everything below my waist) Post Treatment Pain Post Treatment Pain Level: No Change PROMIS Scales T-scores: mean of general population = 50. 5 points is clinically meaningfully difference Percentiles provide an indication of how the patient's score ranks in relation to the general population. Higher percentile rankings indicate better function/quality of life. 50th percentile is the average of the general population and indicates half of respondents had a worse score. OBJECTIVE MEASURES WITH LEVEL OF FUNCTION: Lymphedema Pitting Edema Comments:: 1+ B lower leg Fibrosis Comments:: distal/inferior lobules B, mild firmness B distal thighs/knees/lower legs Dryness/Flaking of Skin Comments:: mild dryness throughout Lower Extremity Circumferential Measurements R 1st toe (proximal phalanx): 11 R Metatarsal Phalangeal (MTP): 31 R Arch: 32 R 5 cm from floor: 35 cm R 10 cm from floor: 33.5 cm R 15 cm from floor: 39 cm R 20 cm from floor: 45 cm R 25 cm from floor: 54.5 cm R 30 cm from floor: 62 cm R 35 cm from floor: 64.5 cm R 40 cm from floor: 62.5 cm R 45 cm from floor: 124 cm (73 knee only, 124 knee with lobule) R 50 cm from floor: 135.5 cm (94 lobule only) R 55 cm from floor: 133 cm L 1st toe (proximal phalanx): 11 L Metatarsal Phalangeal (MTP): 29 L Arch: 31.5 L 5 cm from floor: 36.5 cm L 10 cm from floor: 34.5 cm L 15 cm from floor: 40 cm L 20 cm from floor: 62 cm L 25 cm from floor: 60 cm L 30 cm from floor: 64 cm L 35 cm from floor: 60.5 cm L 40 cm from floor: 70.5 cm L 45 cm from floor: 111 cm (70.5 knee only, 111 with lobule) L 50 cm from floor: 122 cm (75.5 lobule only) Affected Leg: Bilateral, Right Leg Larger Calculate Volume : Yes R Lower Extremity Volume: 68787 L Lower Extremity Volume: 75679 Difference in Volume: 7589 Difference in % : 30.72 Gait Gait Observation: Pt ambulates independently without assistive device, with effort demonstrating wide base of support and B hip circumduction d/t size of medial thigh lobules. TREATMENT: Re-evaluation: Performed due to return of patient to therapy for same diagnosis. Therapeutic Exercise: 1: Reviewed LE decongestive exercises with pt and re-issued illustrated handout for home reference. Skilled Intervention: Patient was educated in proper exercise technique and purpose for exercises. Reviewed and educated patient on additions/changes for home exercise program as above (*). Skilled judgment was used in selection of appropriate interventions. Provided written instruction for home exercise program to facilitate proper performance and compliance. Correct performance of therapeutic exercises was facilitated with verbal and visual cuing. Additional time necessary for objective measurements and reassessment due to re-evaluation (lapse in treatment). Patient education as noted. Manual Therapy: 1: Initiated short session of MLD for B LEs, to knees, including lobules. Deferred short neck series d/t history of thyroid issues. 2: Instructed pt in self-massage techniques for B distal lobules over areas of fibrosis. Pt to perform several times throughout the day. 3: Applied Kinesiotex Gold tape to B medial thigh lobules. Esducated pt in care/wear of tape and when to remove (skin irritation, discomfort, etc.) Skilled Intervention: Manual skills to improve joint mobility, ROM, and decrease pain. Utilized anatomy knowledge of the therapist, and assessment of patient's response to intervention. Manual techniques to facilitate lymphatic dynamics and improve condition of tissue. Billing * Re-Evaluation Complexity: 1 Unit Therapeutic Exercise Treatment Minutes: 8 Manual TherapyTreatment Minutes: 37 Skilled Treatment Time Minutes (timed and untimed codes): 57 Total Session Time (minutes): 57 Session Start Time : 1001 Session Stop Time : 1058 Rebeca Wahl PT documented in this encounter [facility] 07-08-2023 History of Presen t illness Narrative Patient presents with: Follow Up Cough HPI: Patient presents today for office visit for 6wk follow up. Sleep study scheduled for 07/11/23. XR Esophagram IMPRESSION: Short segment narrowing of the distal esophagus near the GE junction with associated distal esophageal dysmotility. This is nonobstructive to a 13mm barium tablet. Mentions he started with tickle in his throat that progressed into a dry cough 3 days ago. Progressed into a productive cough with chest congestion. Wheezing. Chest hurts when coughing with a stinging, burning feeling. Has felt fatigued. No fever. Some body aches. No new gi issues other than mild diarrhea. Has seen cardiology, Dr Mendiola for his shortness of breath. Has been seeing therapy for his lymphedema. He had to cancel the last one. His wraps did help. Was referred to gastro for his abnormal esophagogram. No current gi issues. Has been referred to bariatric surgery. They had also requested he have an egd prior to consideration for treatment. He has seen pulmonary as well. See previous ov copied and pasted: Has seen bariatrics and pulmonary. He does see cardiology in May. No chest pain since last seen. Shortness of breath is chronic. I did encourage him to continue to follow up which has been an issues in the past. He is unsure if his edema is better on the lasix. No redness or warmth of the skin. He is unsure if he snores. Is tired during the day at times. Discussed assessing for sleep apnea. See previous ov: Last seen a year ago. Was to follow up in four weeks and did not follow up. Was to have gi evaluation, cardiology, pulmonary and bariatrics evaluation. He did not see bariatrics. Did have echo done. Did see pulmonary, gi and cardiology but did not follow up as he was supposed to. He did not follow up with his gi issue because the bleeding stopped. We again discussed that his compliance is his biggest issue. His weight needs to be reduced or he is at the risk of . No chest pain currently. Did have some chest pain a week ago. It was very dull in center of chest. Was constant for several days. Was worse when he breathed in deep. And was sore to touch. None since. Again discussed things like weight loss meds etc. Asking about higher dose of lasix? Not seeing as much as an effect from it as before. PSYCH: Currently tolerating medications well: Yes . Side effects: No. Sleep issues: No. Energy changes: No. Appetite changes: eating well has made him feel better. Current depression: Yes. Current anxiety: Yes. Emotional Winter is definitely harder for him MEDICATIONS: Current Outpatient Medications Medication Sig buPROPion XL (WELLBUTRIN XL) 300 mg 24 hr tablet Take 1 tablet by mouth once daily. lisinopril (ZESTRIL) 10 mg tablet Take 1 tablet by mouth once daily. furosemide (LASIX) 40 mg tablet Take 1 tablet by mouth once daily. albuterol HFA (VENTOLIN HFA) 90 mcg/actuation inhaler Inhale 2 Puffs as instructed every 4 hours as needed for wheezing/shortness of breath. fluticasone-salmeterol HFA (ADVAIR HFA) 230-21 mcg/actuation inhaler Inhale 2 Puffs as instructed twice daily. Current Facility-Administered Medications Medication Dose Route Frequency perflutren lipid microspheres 1.3 mL in NaCl (PF) 0.9% 10 mL injection (DEFINITY) INTRAVENOUS DIRECTED PRN sodium chloride 0.9 % (flush) 10 mL (BD POSIFLUSH) 10 mL INTRAVENOUS DIRECTED PRN ALLERGIES: ALLERGIES Allergen Reactions Bees Swelling Shrimp Swelling PAST MEDICAL HISTORY Diagnosis Date Abdominal pain, unspecified site Allergies Asthma Depression POSADAS (dyspnea on exertion) GERD (gastroesophageal reflux disease) History of echocardiogram 07/05/2022 EF = 55 5%. There is trace tricuspid valve regurgitation. There is no pericardial effusion. There is an epicardial fat pad. HTN (hypertension) Lymphedema Morbid obesity with BMI of 70 and over, adult (HCC) PAST SURGICAL HISTORY Procedure Laterality Date PAST SURGICAL HISTORY OF thyroid surgery x 2 FAMILY HISTORY Problem Relation Age of Onset Ischemic Heart Disease Mother 53 LAD lesion/CAD other (lung cancer) Mother other (unknown) Father None Other Social History Tobacco Use Smoking status: Never Smokeless tobacco: Former Vaping Use Vaping Use: Never used Substance Use Topics Alcohol use: No Drug use: No Reviewed current medications, allergies, past medical history, surgical history, family history and social history today. REVIEW OF SYSTEMS All other reviewed and negative other than HPI. HEALTH MAINTENANCE: Reviewed health maintenance issues today and recommended the following in detail. BP Controlled (<130/80) Never done VITALS: BP 124/82 Pulse 97 Temp 37 C (98.6 F) Ht 175.3 cm (5' 9) Wt (!) 263.5 kg (581 lb) SpO2 96% BMI 85.80 kg/m Last 4 Encounter Wt Readings: Date: Wt: 06/30/2023 263.6 kg (581 lb 0.6 oz) 05/31/2023 261.7 kg (577 lb) 05/16/2023 261.7 kg (577 lb) 04/21/2023 262.4 kg (578 lb 6.4 oz) PHYSICAL EXAMINATION: General appearance: Well appearing, alert, in no acute distress, well-hydrated, well nourished. Skin: Skin color, texture, turgor normal, no suspicious rashes or lesions Head: Normocephalic, no masses, lesions, tenderness or abnormalities Lungs: Lungs clear to auscultation. No wheezing, rhonchi, rales Heart: RRR without murmur, gallop, or rubs. No ectopy Abdomen: Normal abdominal exam, Abdomen soft, non-tender. Bowel sounds normal. No masses, organomegaly ASSESSMENT/PLAN: 1. URI, acute - ICD9: 465.9, ICD10: J06.9 (primary diagnosis) - Discussed viral etiology and rationale for treatment. - Symptomatic treatment with prn analgesia - Supportive care with fluids and rest - COVID & INFLUENZA A/B & RSV NAAT, ROUTINE 2. Dysphagia, unspecified type - ICD9: 787.20, ICD10: R13.10 - currently asymptomatic. Needs egd, add ompeprazoole. 3. Asthma, moderate persistent, poorly-controlled - ICD9: 493.90, ICD10: J45.40 - continue to use inhalgers. 4. Anxiety and depression - ICD9: 300.00, 311, ICD10: F41.9, F32.A - stable 5. Obesity, Class III, BMI >= 40 - ICD9: 278.01, ICD10: E66.01 - needs egd prior to surgery. 6. Lymphedema - ICD9: 457.1, ICD10: I89.0 - stable. 7. Essential hypertension - ICD9: 401.9, ICD10: I10 - Controlled - Continue current medications 8. Obesity, morbid (HCC) - ICD9: 278.01, ICD10: E66.01 David Grissom MD documented in this encounter [facility] 07-05-2023 Miscellaneous Notes Pt transferred to [facility] to schedule with Gastro. Mary Grace Dowell LPN Patient informed and verbalized understanding. Advised him to wait to hear from scheduling. Charley Ruiz MA Please let patient know that esophagram showed gastric dysmotility. Distal esophagus dysmotility. I am making a referral for him to see a GI. Electronically signed by Marisabel Ramirez APRN.MARK[employer] RESEARCH SENIOR PROJECT MANAGER at 07/04/2023 5:16 PM EST documented in this encounter [facility] 07-04-2023 History of Presen t illness Narrative Radiology Service Progress Note PATIENT NAME: Demarcus Appiah DATE OF SERVICE: July 04, 2023 TIME: 8:56 AM PATIENT IDENTITY VERIFICATION COMPLETED USING TWO (2) IDENTIFIERS: Name and Date of confirmed by patient verbally. FALL SCREENING: Has the patient had 2 falls in the last year or 1 fall with injury or currently using an Ambulatory Assistive Device (Walker, Cane, Wheelchair, Crutches, etc.)? No PATIENT GENDER DATA: Male PATIENT RELEVANT IMPLANT DATA REVIEWED: Not Applicable PATIENT PRESENTS WITH AN IMPLANTABLE OR ATTACHED CHAIN MAKER: No RADIOLOGY DEPARTMENT: General X-ray: Exam(s) Completed: GI/ Procedure(s): Esophogram with barium contrast PERIPHERAL IV DATA: Not applicable SIGNED BY: RT Brionna(R) July 04, 2023 8:56 AM documented in this encounter [facility] 07-04-2023 Note HNO ID: [id number] Author: MAY CASE RT(Nya) Service: Radiology Author Type: Technologist Type: Progress Notes Filed: 07/04/2023 08:57 Note Text: Radiology Service Progress Note PATIENT NAME: Demarcus Appiah DATE OF SERVICE: July 04, 2023 TIME: 8:56 AM PATIENT IDENTITY VERIFICATION COMPLETED USING TWO (2) IDENTIFIERS: Name and Date of confirmed by patient verbally. FALL SCREENING: Has the patient had 2 falls in the last year or 1 fall with injury or currently using an Ambulatory Assistive Device (Walker, Cane, Wheelchair, Crutches, etc.)? No PATIENT GENDER DATA: Male PATIENT RELEVANT IMPLANT DATA REVIEWED: Not Applicable PATIENT PRESENTS WITH AN IMPLANTABLE OR ATTACHED CHAIN MAKER: No RADIOLOGY DEPARTMENT: General X-ray: Exam(s) Completed: GI/ Procedure(s): Esophogram with barium contrast PERIPHERAL IV DATA: Not applicable SIGNED BY: RT Brionna(Nya) July 04, 2023 8:56 AM [facility] 06-30-2023 Note HNO ID: [id number] Author: OSMANY MENDIOLA DO Service: ? Author Type: Physician Type: Progress Notes Filed: 07/03/2023 21:06 Note Text: Referring Provider: David Grissom MD Date: June 30, 2023 Chief Complaint: CARD New Patient Consult (Shortness of breath and Dyspnea on Exertion. ) HISTORY OF PRESENT ILLNESS: Demarcus Appiah is a 37 year old male who presents for CARD New Patient Consult (Shortness of breath and Dyspnea on Exertion. ). He is becoming very frustrated. 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 However in the last several years activity is greatly decreased. He now has legs are markedly enlarged. His activity is becoming less and less. ALLERGIES Allergen Reactions Bees Swelling Shrimp Swelling PAST MEDICAL HISTORY: PAST MEDICAL HISTORY Diagnosis Date Abdominal pain, unspecified site Allergies Asthma Depression POSADAS (dyspnea on exertion) GERD (gastroesophageal reflux disease) History of echocardiogram 07/05/2022 EF = 55 ? 5%. There is trace tricuspid valve regurgitation. There is no pericardial effusion. There is an epicardial fat pad. HTN (hypertension) Lymphedema Morbid obesity with BMI of 70 and over, adult (HCC) PAST SURGICAL HISTORY Procedure Laterality Date PAST SURGICAL HISTORY OF thyroid surgery x 2 FAMILY HISTORY Problem Relation Age of Onset Ischemic Heart Disease Mother 53 LAD lesion/CAD other (lung cancer) Mother other (unknown) Father None Other SOCIAL HISTORY: Tobacco Use: Never Alcohol Use: No Drug Use: No Employer And Job Title: None on file Years Of Education Completed: Not specified Marital Status: Single with 2 children MEDICATIONS: Current Outpatient Medications Medication Sig buPROPion XL (WELLBUTRIN XL) 300 mg 24 hr tablet Take 1 tablet by mouth once daily. lisinopril (ZESTRIL) 10 mg tablet Take 1 tablet by mouth once daily. furosemide (LASIX) 40 mg tablet Take 1 tablet by mouth once daily. albuterol HFA (VENTOLIN HFA) 90 mcg/actuation inhaler Inhale 2 Puffs as instructed every 4 hours as needed for wheezing/shortness of breath. fluticasone-salmeterol HFA (ADVAIR HFA) 230-21 mcg/actuation inhaler Inhale 2 Puffs as instructed twice daily. [id number]/sod sulf,bicarb,Cl/KCl (GOLYTELY ORAL) Take by mouth. (Patient not taking: Reported on 06/30/2023) Current Facility-Administered Medications Medication Dose Route Frequency perflutren lipid microspheres 1.3 mL in NaCl (PF) 0.9% 10 mL injection (DEFINITY) INTRAVENOUS DIRECTED PRN sodium chloride 0.9 % (flush) 10 mL (BD POSIFLUSH) 10 mL INTRAVENOUS DIRECTED PRN I have personally reviewed the patients past medical history including social, family, surgical, diagnostics, and medications. REVIEW OF SYSTEMS: Review of Systems Constitutional: Negative for chills and fatigue. Respiratory: Positive for shortness of breath. Negative for chest tightness. Cardiovascular: Negative for chest pain, palpitations and leg swelling. Neurological: Negative for dizziness, syncope, weakness and light-headedness. Hematological: Does not bruise/bleed easily. Psychiatric/Behavioral: Negative for confusion and hallucinations. Vitals: BP 136/84 (BP Site: Left Arm, BP Position: Sitting, BP Cuff Size: Regular Adult) Pulse 72 Ht 175.3 cm (5' 9) Wt (!) 263.6 kg (581 lb 0.6 oz) BMI 85.80 kg/m? PHYSICAL EXAMINATION: BP 136/84 (BP Site: Left Arm, BP Position: Sitting, BP Cuff Size: Regular Adult) Pulse 72 Ht 175.3 cm (5' 9) Wt (!) 263.6 kg (581 lb 0.6 oz) BMI 85.80 kg/m? Last 3 Encounter BP Readings: Date: BP: 05/23/2023 [not assessed today[ 05/16/2023 162/92 04/21/2023 118/70 Last 3 Encounter Pulse Readings: Date: Pulse: 05/31/2023 74 05/16/2023 91 04/21/2023 79 Last 3 Encounter Wt Readings: Date: Wt: 05/31/2023 261.7 kg (577 lb) 05/16/2023 261.7 kg (577 lb) 04/21/2023 262.4 kg (578 lb 6.4 oz) Physical Exam Vitals reviewed. Constitutional: General: He is awake. He is not in acute distress. Appearance: He is obese. HENT: Head: Normocephalic and atraumatic. Nose: Nose normal. Mouth/Throat: Mouth: Mucous membranes are moist. Eyes: General: Lids are normal. Extraocular Movements: Extraocular movements intact. Cardiovascular: Rate and Rhythm: Normal rate and regular rhythm. Pulses: Carotid pulses are 2+ on the right side and 2+ on the left side. Radial pulses are 2+ on the right side and 2+ on the left side. Femoral pulses are 0 on the right side and 0 on the left side. Popliteal pulses are 0 on the right side and 0 on the left side. Dorsalis pedis pulses are 0 on the right side and 0 on the left side. Posterior tibial pulses are 0 on the right side and 0 on the left side. Heart sounds: Murmur heard. Systolic murmur is present with a grade of 2/6. Comments: PMI not displaced. The heart sounds are distant. Distal pulses are difficult to find Pulmonary: Effort: Pulmonary effort is normal. Breath (more content not included)... [facility] 06-30-2023 History of Presen t illness Narrative Images from the original note were not included. Referring Provider: David Grissom MD Date: June 30, 2023 Chief Complaint: CARD New Patient Consult (Shortness of breath and Dyspnea on Exertion. ) HISTORY OF PRESENT ILLNESS: Demarcus Appiah is a 37 year old male who presents for CARD New Patient Consult (Shortness of breath and Dyspnea on Exertion. ). He is becoming very frustrated. 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 However in the last several years activity is greatly decreased. He now has legs are markedly enlarged. His activity is becoming less and less. ALLERGIES Allergen Reactions Bees Swelling Shrimp Swelling PAST MEDICAL HISTORY: PAST MEDICAL HISTORY Diagnosis Date Abdominal pain, unspecified site Allergies Asthma Depression POSADAS (dyspnea on exertion) GERD (gastroesophageal reflux disease) History of echocardiogram 07/05/2022 EF = 55 5%. There is trace tricuspid valve regurgitation. There is no pericardial effusion. There is an epicardial fat pad. HTN (hypertension) Lymphedema Morbid obesity with BMI of 70 and over, adult (HCC) PAST SURGICAL HISTORY Procedure Laterality Date PAST SURGICAL HISTORY OF thyroid surgery x 2 FAMILY HISTORY Problem Relation Age of Onset Ischemic Heart Disease Mother 53 LAD lesion/CAD other (lung cancer) Mother other (unknown) Father None Other SOCIAL HISTORY: Tobacco Use: Never Alcohol Use: No Drug Use: No Employer And Job Title: None on file Years Of Education Completed: Not specified Marital Status: Single with 2 children MEDICATIONS: Current Outpatient Medications Medication Sig buPROPion XL (WELLBUTRIN XL) 300 mg 24 hr tablet Take 1 tablet by mouth once daily. lisinopril (ZESTRIL) 10 mg tablet Take 1 tablet by mouth once daily. furosemide (LASIX) 40 mg tablet Take 1 tablet by mouth once daily. albuterol HFA (VENTOLIN HFA) 90 mcg/actuation inhaler Inhale 2 Puffs as instructed every 4 hours as needed for wheezing/shortness of breath. fluticasone-salmeterol HFA (ADVAIR HFA) 230-21 mcg/actuation inhaler Inhale 2 Puffs as instructed twice daily. [id number]/sod sulf,bicarb,Cl/KCl (GOLYTELY ORAL) Take by mouth. (Patient not taking: Reported on 06/30/2023) Current Facility-Administered Medications Medication Dose Route Frequency perflutren lipid microspheres 1.3 mL in NaCl (PF) 0.9% 10 mL injection (DEFINITY) INTRAVENOUS DIRECTED PRN sodium chloride 0.9 % (flush) 10 mL (BD POSIFLUSH) 10 mL INTRAVENOUS DIRECTED PRN I have personally reviewed the patients past medical history including social, family, surgical, diagnostics, and medications. REVIEW OF SYSTEMS: Review of Systems Constitutional: Negative for chills and fatigue. Respiratory: Positive for shortness of breath. Negative for chest tightness. Cardiovascular: Negative for chest pain, palpitations and leg swelling. Neurological: Negative for dizziness, syncope, weakness and light-headedness. Hematological: Does not bruise/bleed easily. Psychiatric/Behavioral: Negative for confusion and hallucinations. Vitals: BP 136/84 (BP Site: Left Arm, BP Position: Sitting, BP Cuff Size: Regular Adult) Pulse 72 Ht 175.3 cm (5' 9) Wt (!) 263.6 kg (581 lb 0.6 oz) BMI 85.80 kg/m PHYSICAL EXAMINATION: BP 136/84 (BP Site: Left Arm, BP Position: Sitting, BP Cuff Size: Regular Adult) Pulse 72 Ht 175.3 cm (5' 9) Wt (!) 263.6 kg (581 lb 0.6 oz) BMI 85.80 kg/m Last 3 Encounter BP Readings: Date: BP: 05/23/2023 [not assessed today[ 05/16/2023 162/92 04/21/2023 118/70 Last 3 Encounter Pulse Readings: Date: Pulse: 05/31/2023 74 05/16/2023 91 04/21/2023 79 Last 3 Encounter Wt Readings: Date: Wt: 05/31/2023 261.7 kg (577 lb) 05/16/2023 261.7 kg (577 lb) 04/21/2023 262.4 kg (578 lb 6.4 oz) Physical Exam Vitals reviewed. Constitutional: General: He is awake. He is not in acute distress. Appearance: He is obese. HENT: Head: Normocephalic and atraumatic. Nose: Nose normal. Mouth/Throat: Mouth: Mucous membranes are moist. Eyes: General: Lids are normal. Extraocular Movements: Extraocular movements intact. Cardiovascular: Rate and Rhythm: Normal rate and regular rhythm. Pulses: Carotid pulses are 2+ on the right side and 2+ on the left side. Radial pulses are 2+ on the right side and 2+ on the left side. Femoral pulses are 0 on the right side and 0 on the left side. Popliteal pulses are 0 on the right side and 0 on the left side. Dorsalis pedis pulses are 0 on the right side and 0 on the left side. Posterior tibial pulses are 0 on the right side and 0 on the left side. Heart sounds: Murmur heard. Systolic murmur is present with a grade of 2/6. Comments: PMI not displaced. The heart sounds are distant. Distal pulses are difficult to find Pulmonary: Effort: Pulmonary effort is normal. Breath sounds: Normal breath sounds. Comments: Poor effort Abdominal: General: Bowel sounds are normal. There is distension. Palpations: Abdomen is soft. Tenderness: There is no abdominal tenderness. Comments: No ascitic wave and nontender Musculoskeletal: General: Swelling and tenderness present. Normal range of motion. Cervical back: Neck supple. Right lower le+ Edema present. Left lower le+ Edema present. Skin: General: Skin is warm. Capillary Refill: Capillary refill takes less than 2 seconds. Coloration: Skin is pale. Findings: No rash or wound. Neurological: General: No focal deficit present. Mental Status: He is alert and oriented to person, place, and time. Motor: Weakness present. Coordination: Coordination is intact. Psychiatric: Attention and Perception: Attention normal. Mood and Affect: Mood and affect normal. Speech: Speech normal. Behavior: Behavior normal. Behavior is cooperative. Thought Content: Thought content normal. Judgment: Judgment normal. LABS: Glucose (mg/dL) Date Value 05/16/2023 113 06/24/2021 105 Potassium (mmol/L) Date Value 05/16/2023 4.8 06/24/2021 3.9 Sodium (mmol/L) Date Value 05/16/2023 139 06/24/2021 139 Chloride (mmol/L) Date Value 05/16/2023 101 06/24/2021 102 CO2 (mmol/L) Date Value 05/16/2023 27 06/24/2021 26 Creatinine (mg/dL) Date Value 05/16/2023 1.10 06/24/2021 0.91 BUN (mg/dL) Date Value 05/16/2023 15 06/24/2021 14 Anion Gap (mmol/L) Date Value 05/16/2023 11 06/24/2021 11 Calcium (mg/dL) Date Value 06/24/2021 9.6 Calcium, Total (mg/dL) Date Value 05/16/2023 10.0 Protein, Total (g/dL) Date Value 04/13/2023 8.1 01/30/2020 7.5 Albumin (g/dL) Date Value 04/13/2023 4.3 01/30/2020 4.2 Bilirubin, Total (mg/dL) Date Value 04/13/2023 0.4 01/30/2020 0.4 Alkaline Phosphatase (U/L) Date Value 04/13/2023 72 01/30/2020 64 AST (U/L) Date Value 04/13/2023 21 01/30/2020 20 ALT (U/L) Date Value 04/13/2023 27 01/30/2020 32 Hemoglobin (g/dL) Date Value 04/13/2023 14.8 07/10/2020 14.2 Hematocrit (%) Date Value 04/13/2023 47.5 07/10/2020 44.1 WBC (k/uL) Date Value 04/13/2023 10.34 07/10/2020 9.29 Cholesterol, Total (mg/dL) Date Value 01/30/2020 185 Total Cholesterol, Nonfasting (mg/dL) Date Value 04/13/2023 220 HDL Cholesterol (mg/dL) Date Value 01/30/2020 28 HDL Cholesterol, Nonfasting (mg/dL) Date Value 04/13/2023 35 LDL Cholesterol (mg/dL) Date Value 01/30/2020 135 LDL Cholesterol, Nonfasting (mg/dL) Date Value 04/13/2023 160 Triglyceride (mg/dL) Date Value 01/30/2020 109 Triglycerides, Nonfasting (mg/dL) Date Value 04/13/2023 126 EKG: ASSESSMENT/PLAN: 1. SOB (shortness of breath) - ICD9: 786.05, ICD10: R06.02 (primary diagnosis) -Patient did complain of shortness of breath during this visit. Patient is worried about his size causing shortness of breath. He says the size of the last 2 years is greatly increased. He says he is trying to curb his appetite Activities again very difficult. 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 Echocardiogram last year demonstrated no evidence of pulmonary hypertension. I was surprised by that. - ECG COMPLETE EKG is normal -Patient did state that he did have episodes of chest pain prior to this visit. Diagnostic workup can be difficult for his chest discomfort. List catheterization while stress test tables have weight limits. He is above that weight limit. Therefore diagnostic testing is unable to be performed 3. Essential hypertension - ICD9: 401.9, ICD10: I10 Patient's blood pressure in the office today was recorded as 136/84. Target systolic BP 140 or less and diastolic BP 90 or less. Continue current medications. 4. History of echocardiogram - ICD9: V15.89, ICD10: Z92.89 Done 07/05/2022 and showed EF = 55 5%. There is trace tricuspid valve regurgitation. There is no pericardial effusion. There is an epicardial fat pad. 5. Non-smoker - ICD9: V49.89, ICD10: Z78.9 Patient is a non-smoker. I, Angie Vincent MA , scribing for Dr. Osmany Mendiola, was present in the room during the examination Follow up in: [address] Mendiola for hx of Shortness of breath. Prior to entering the room, I reviewed the last progress note including the diagnosis and plan of action. When available, I then reviewed the last heart catheterization, stress test, echocardiogram and EKG. I proceeded to review the medial therapy and any side effects the patient may have had in the past. I was able to look at the last several EKGs. A new EKG was performed today and an interetation was performed. I reviewed its interpretation with the family and compared it to the previous EKGs that we have in the medical records. Changes were described to the patient. In a pictorial format; I described the DC and QRS intervals. This was to show the effects of antiarrhythmic therapy on the electrical system. I was able to look at the past several EKG's. A new EKG was performed today and interpretation was noted. I reviewed this interpretation with the patient, and the family when available, and compared it to the previous EKG's that we have in the medical record. Since my office visit was carried out with a scribe, while in the exam room I was able to devote one hundred percent of my time in [id number] conversation with the patient. I answered all the questions and explained the diagnosis of we could repeat echocardiogram looking for pulmonary hypertension. But this was a year ago. Patient's weight is too big to allow stress testing MRI.. Greater that 51% of my time was spent with [id number] conversation with the patient. I have discussed the recommended treatment, alternative therapies and other options in detail. I've discussed the best benefit and side effects of these recommended treatments. I've attempted to answer all the questions to the patient's satisfaction and understanding. With approval, we would recommend an pursue the current therapy such as continue weight reduction. After leaving the exam room, I went back into the patient's chart and coordinated care with my nurse ordering the proper testing and medicinal changes. Letter was performed with voice recognition algorithms and sent to the referring team. The chart was completed. Including the pre-exam, exam and post-exam, the total time spent in the patient's management was greater than 15 minutes I, Dr. Osmany Mendiola, have reviewed and agree with the information in the medical record. Osmany Mendiola DO documented in this encounter [facility] 05-16-2023 Miscellaneous Notes Please set up documented in this encounter [facility] 11-01-2022 Miscellaneous Notes NURA 04/08/22 NOV not scheduled Please review and advise. Thank you. SAVANAH Bose Patient has been identified by name and date of : Yes Last office visit in this department: 04/08/2022 RX INSTRUCTIONS: Patient aware RX will be sent to pharmacy. No need to notify patient. Patient phones requesting refills as follows: Requested Prescriptions Pending Prescriptions Disp Refills albuterol HFA (VENTOLIN HFA) 90 mcg/actuation inhaler 18 g 2 Sig: Inhale 2 Puffs as instructed every 4 hours as needed for wheezing/shortness of breath. furosemide (LASIX) 20 mg tablet 90 tablet 1 Sig: Take 1 tablet by mouth once daily. Please review and advise. Nathalie Waggoner documented in this encounter [facility] 08-09-2022 Miscellaneous Notes Patient was scheduled for in person [facility] appt at 0920 today. Patient did not check in for appt, called patient at 0935 to see if they were planning on coming. Pt to call [facility] scheduling to schedule [facility] appt after he reviews his availability. . documented in this encounter [facility] 07-21-2022 Nurse Note [facility] Shun. I'm calling from [facility] endoscopy to provide you with the information for your surgery/procedure tomorrow. Spoke to: Patient CONFIRM Procedure Planned with patient:Colonoscopy with or without biopsies based on clinical findings Esophagogastroduodenoscopy(EGD) with or without biopies based on clinical findings, removal of polyps or lesions Are you familiar with where [facility] is located?yes Address [facility] Patient instructed to enter through the main hospital entrance off [address] at [address] through the revolving doors and check in at the main desk with your motor vehicle escort driver's license and insurance card. yes When anesthesia or sedation is being given: Patient instructed you must have an adult motor vehicle escort driver because you will not be able to work or drive for the rest of the day after your test.yes Can you please confirm the name and relationship of your motor vehicle escort driver. Alba - mother What is the best number for your motor vehicle escort driver to be reached at tomorrow for updates? [phone] Your motor vehicle escort driver is allowed to wait here with you or they may drop you off and come back to pick you up. So you are prepared and comfortable on the day of your procedure, I want to make you aware of several safety measures we've put in place. You will be asked to sanitize your hands and will be provided with a mask to wear the entire time you are in our building. You may choose to bring your own masks from home. Additionally, the furniture has been rearranged to promote social distancing Colonoscopy: Have you had solid foods today (if call done 1 day out)?no (or instruct this must be done on Tuesday.) Did you miner pick your bowel prep Yes Remind patient the day prior to the test they should be on a clear liquid diet all day. Clear liquids consist of liquids that you can see through (no reds or purple). Stay well hydrated all day. Do not drink just the bowel prep to clean you out. Drink all of the prep to ensure your test can be completed and polyps are not missed. Remind pt to drink at least 1 cup of clear liquids every hour even after finishing the bowel prep (up until midnight or up until 4 hours before procedure)to keep yourself hydrated and to flush the prep through your system. If pt has eaten solid foods-contact endoscopist and verify if they wish to proceed. Patient instructed: Do not eat anything the morning of the procedure, including gum, hard candy and mints.yes Patient instructed not bring any valuables, jewelry, or null and wear comfortable clothing. Do not wear makeup, lotion, or finger tuvaluan. yes Patient instructed: Please bring a list of medications including over the counter, vitamin, and herbals. If you are on inhalers, please do them in the morning before your test and bring them with you.yes Blood pressure, seizure, or thyroid medications may be taken with a couple sips of water ONLY 4 hours prior to arrival time. Is the patient on blood thinners?no If so,verify if pt contacted the prescribing doctor to see how long they may hold blood thinners prior to procedure. Are you diabetic?no If so, advise pt to contact prescribing doctor to verify if any modifications are needed for insulin and/or pills Reminder:diabetic medication instructions should be given by the patient's ordering physician. If blood sugar drops, they can have CLEAR liquids to bring it up until 3 hours prior to arrival time. Hospitalizations: No Procedure and/or bowel prep instructions given to patient and questions answered: Yes, and they verbalized their understanding of instructions given Any barriers to Patient learning (confusion? 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 If patient needs to reschedule please call: [phone] [facility] phone number: [phone] Type of instruction given: Verbal by telephone contact. documented in this encounter [facility] 07-09-2022 Nurse Note [facility] Shun. I'm calling from [facility] endoscopy to provide you with the information for your surgery/procedure tomorrow. Spoke to: Patient CONFIRM Procedure Planned with patient:Colonoscopy with or without biopsies based on clinical findings Esophagogastroduodenoscopy(EGD) with or without biopies based on clinical findings, removal of polyps or lesions Are you familiar with where [facility] is located?no Address [facility] Patient instructed to enter through the main hospital entrance off [address] at [address] through the revolving doors and check in at the main desk with your motor vehicle escort driver's license and insurance card. yes When anesthesia or sedation is being given: Patient instructed you must have an adult motor vehicle escort driver because you will not be able to work or drive for the rest of the day after your test.yes Can you please confirm the name and relationship of your motor vehicle escort driver. TBA What is the best number for your motor vehicle escort driver to be reached at tomorrow for updates? TBA Your motor vehicle escort driver is allowed to wait here with you or they may drop you off and come back to pick you up. So you are prepared and comfortable on the day of your procedure, I want to make you aware of several safety measures we've put in place. You will be asked to sanitize your hands and will be provided with a mask to wear the entire time you are in our building. You may choose to bring your own masks from home. Additionally, the furniture has been rearranged to promote social distancing Colonoscopy: Have you had solid foods today (if call done 1 day out)?no (or instruct this must be done on Tuesday.) Did you miner pick your bowel prep Yes Remind patient the day prior to the test they should be on a clear liquid diet all day. Clear liquids consist of liquids that you can see through (no reds or purple). Stay well hydrated all day. Do not drink just the bowel prep to clean you out. Drink all of the prep to ensure your test can be completed and polyps are not missed. Remind pt to drink at least 1 cup of clear liquids every hour even after finishing the bowel prep (up until midnight or up until 4 hours before procedure)to keep yourself hydrated and to flush the prep through your system. If pt has eaten solid foods-contact endoscopist and verify if they wish to proceed. Patient instructed: Do not eat anything the morning of the procedure, including gum, hard candy and mints.yes Patient instructed not bring any valuables, jewelry, or null and wear comfortable clothing. Do not wear makeup, lotion, or finger tuvaluan. yes Patient instructed: Please bring a list of medications including over the counter, vitamin, and herbals. If you are on inhalers, please do them in the morning before your test and bring them with you.yes Blood pressure, seizure, or thyroid medications may be taken with a couple sips of water ONLY 4 hours prior to arrival time. Is the patient on blood thinners?no If so,verify if pt contacted the prescribing doctor to see how long they may hold blood thinners prior to procedure. Are you diabetic?no If so, advise pt to contact prescribing doctor to verify if any modifications are needed for insulin and/or pills Reminder:diabetic medication instructions should be given by the patient's ordering physician. If blood sugar drops, they can have CLEAR liquids to bring it up until 3 hours prior to arrival time. Hospitalizations: No Procedure and/or bowel prep instructions given to patient and questions answered: Yes, and they verbalized their understanding of instructions given Any barriers to Patient learning (confusion? 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 If patient needs to reschedule please call: [phone] [facility] phone number: [phone] Type of instruction given: Verbal by telephone contact. documented in this encounter [facility] 07-05-2022 History of Presen t illness Narrative 24 ga angio started to RAC. Good blood return. Flushed easily with NSS. Dressing applied. Definity (Lot # [id number] exp 10/30/2022 ) mixed per protocol. 3 cc administered throughout procedure. 7 cc discarded. Pt tolerated procedure well. No C/o's, Hep lock D/c'd and dressing applied. Patient discharged ambulatory with Cavalry Officer. Gerry Preston RN documented in this encounter [facility] 07-02-2022 History and physical note HISTORY AND PHYSICAL EXAMINATION SERVICE DATE: 07/02/2022 SERVICE TIME: 5:53 AM PRIMARY CARE PHYSICIAN: David Grissom MD REASON FOR VISIT: Demarcus Appiah is a 36 year old male who is scheduled for EGD at the request of Dr. Zafar Castrejon for consultation. My final recommendation will be communicated back to the requesting physician by way of shared medical record or letter. Subjective The patient has the following: ACTIVE PROBLEM LIST Abdominal Pain, Right Upper Quadrant Obesity, Morbid (Hcc) Nausea Abdominal Pain, Unspecified Site Chronic Midline Low Back Pain With Right-Sided Sciatica Gerd Without Esophagitis Essential Hypertension Lymphedema Asthma, Moderate Persistent, Poorly-Controlled Posadas (Dyspnea On Exertion) Snoring Anxiety and Depression COVID-19 Immunization Status Overdue - COVID-19 VACCINE (1) Overdue - never done No completion, postpone, frequency change, or communication history exists for this topic. CHIEF COMPLAINT: Pre-op exam HPI: Demarcus Appiah is a 36 year old seen for PAC due to scheduled above surgery because GERD/rectal bleeding. 04/16/2022, Dr. Castrejon HPI: The patient is a 36 year old male referred for endoscopy. Demarcus notes the following GI complaints: Intermittent blood in stool over the past year. States there is sometimes blood clots in his stools. Has been going on for some time. Has been occurring at least a year. Has occasional rectal discomfort. Has occasionally filled the bowel with clots. Last time was a few weeks ago. Most recent bms have been ok. Painful hard knot in upper abdomen. He can feel a bulge in his upper abdomen. Happens with certain movement No heartburn. Is on nexium Demarcus notes occasional diarrhea. Demarcus denies constipation. Demarcus denies a change in bowel habits. Demarcus denies melena. Demarcus notes bright red blood per rectum. Demarcus denies hemorrhoids. Demarcus has not undergone prior endoscopy. The patient is being seen by me today at the request of Dr. Sandoval for my opinion and advice regarding Upper abdominal pain Abdominal wall bulge Rectal bleeding (primary encounter diagnosis) Diarrhea, unspecified type. REVIEW OF SYSTEMS: General: No weight loss, malaise or fevers. 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 No neurological symptoms or problems. Respiratory: +POSADAS, chronic Positive for: asthma (on rx and as needed). Negative for: COPD, pneumonia within 6 weeks, tobacco use, URI < 2 weeks and obstructive sleep apnea. Cardiovascular: No history of HTN requiring medication, no history of angina, CHF, UT, cardiac surgery or stents. Denies rest pain, gangrene or revascularization/amputation for PVD. No history of cardiovascular symptoms or problems. GI: See HPI. Positive for: abdominal pain (related to HPI) and GERD (otc rx as needed) Negative for: dysphagia, hepatitis, irritable bowel syndrome, inflammatory bowel disease, liver disease, nausea, pancreatitis, vomiting and ETOH >2 drinks/day. : No history of dysuria, frequency or incontinence, stones or chronic kidney disease. No difficulty urinating, nocturia > 1 time per night or hematuria. Endocrine: No history of diabetes. Has not taken steroids within the past 30 days. No history of endocrinological symptoms or problems. Hematology: No history of bleeding or clotting disorder. Patient is not taking anti-coagulation or platelet medications. No history of hematological symptoms or problems. Oncology: No history of CA metastasis, chemo within 30 days, or radiotherapy within 90 days. No history of oncological symptoms or problems. Psych: Positive for: anxiety (on rx) and depression (on rx). Musculoskeletal: Positive for: back pain (otc rx as needed) and swelling (lymphedema, on rx). Skin: Negative for lesions, rash and itching. PAST MEDICAL HISTORY Diagnosis Date Abdominal pain, unspecified site Allergies Depression HTN (hypertension) Lymphedema Morbid obesity with BMI of 70 and over, adult (HCC) PAST SURGICAL HISTORY Procedure Laterality Date PAST SURGICAL HISTORY OF thyroid surgery x 2 FAMILY HISTORY Problem Relation Age of Onset Ischemic Heart Disease Mother 53 LAD lesion/CAD other (lung cancer) Mother other (unknown) Father None Other Social History Tobacco Use Smoking status: Never Smokeless tobacco: Former Vaping Use Vaping Use: Never used Substance Use Topics Alcohol use: No Drug use: No Prior to Admission medications as of 07/05/22 1306 Medication Sig Last Dose Taking albuterol HFA (VENTOLIN HFA) 90 mcg/actuation inhaler Inhale 2 Puffs as instructed every 4 hours as needed for wheezing/shortness of breath. Taking Yes fluticasone-salmeterol HFA (ADVAIR HFA) 230-21 mcg/actuation inhaler Inhale 2 Puffs as instructed twice daily. Taking Yes furosemide (LASIX) 20 mg tablet Take 1 tablet by mouth once daily. Taking Yes buPROPion XL (WELLBUTRIN XL) 150 mg 24 hr tablet Take 1 tablet by mouth once daily. Taking Yes No medication comments found. ALLERGIES Allergen Reactions Bees Swelling Shrimp [Other] Swelling Objective PHYSICAL EXAM: General: alert and oriented (x3), healthy appearance and morbidly obese. Pertinent negatives noted - not distressed. BMI 80. Skin: normal color, no rash or lesions. HEENT: EOM intact and pupils equal round. Pertinent negatives noted - no carotid bruit. Cardiovascular: regular rate and rhythm, normal S1 and S2, no rub, murmurs, or gallop. Respiratory: normal breath sounds, no wheezes or crackles. No chest wall deformity or tenderness. Abdomen: soft. Pertinent negatives noted - not tender. Extremities: no deformity, no edema or tenderness, no joint swelling or clubbing. Neurological: normal cognition and motor skills. Gait normal. No weakness or sensory deficit. PAIN ASSESSMENT: VITALS: BP 136/62 Pulse 71 Temp (Src) 99 (Temporal) Resp 18 Ht 5' 10 (1.78m) Wt 561 lb (254.5kg) SpO2 94% BMI 80.50 kg/(m^2). Diagnostic tests reviewed for today's visit: Lab Value Units Date High Low HB 14.5 g/dL 04/08/2022 17.0 13.0 HCT 47.0 % 04/08/2022 51.0 39.0 WBC 9.68 k/uL 04/08/2022 11.00 3.70 PLT 303 k/uL 04/08/2022 400 150 NA 140 mmol/L 04/08/2022 144 136 K 4.7 mmol/L 04/08/2022 5.1 3.7 GLUC 109 mg/dL 04/08/2022 99 74 BUN 15 mg/dL 04/08/2022 24 9 CREAT 0.98 mg/dL 04/08/2022 1.22 0.73 PTSEC No results within date range. INR No results within date range. APTT No results within date range. ALT 29 U/L 04/08/2022 54 10 AST 23 U/L 04/08/2022 40 14 TBILI 0.6 mg/dL 04/08/2022 1.3 0.2 TSH No results within date range. Lab Value Units Date High Low HCGQT No results within date range. UHCG No results within date range. HCG, BODY* No results within date range. Lab Value Units Date High Low ABORHD No results within date range. ABSCREEN No results within date range. Hemoglobin A1C (%) Date Value 04/08/2022 5.2 06/24/2021 5.5 07/10/2020 5.7 01/30/2020 6.0 08/13/2017 5.7 Recent Results (from the past 8760 hour(s)) ECG COMPLETE Collection Time: 04/08/22 10:46 AM Result Value Ventricular Rate 81 Atrial Rate 81 P-R Interval 158 QRS Duration 104 QT Interval 382 QTC Calculation (Bazett) 443 Calculated P Warren -10 Calculated R Warren 18 Calculated T Warren 17 Impression NORMAL SINUS RHYTHM NORMAL ECG Confirmed by MD YESI, SOPHIA () on 04/09/2022 1:07:35 PM Recent Results (from the past 92053 hour(s)) ECHO Collection Time: 07/05/22 10:32 AM Impression CONCLUSIONS: - Technically difficult exam due to body habitus. - Exam indication: Shortness of Breath - The left ventricle is normal in size. Left ventricular systolic function is normal. EF = 55 5% (visual est.) Definity contrast used for endocardial border detection. Indeterminate left ventricular diastolic dysfunction. - The right ventricle is normal in size. Right ventricular systolic function is normal. - There are no significant valvular abnormalities. - This is a technically difficult study due to limited acoustic window and is of moderate diagnostic confidence. - The patient has not had a prior CC echocardiographic exam for comparison. * * * Final * * * Assessment Patient has the following medical conditions which may affect jason-operative course: POSADAS (dyspnea on exertion) Assessment: chronic, multifactorial, following pulmonary and cardiology Updated echo 07/05/2022 CONCLUSIONS: - Technically difficult exam due to body habitus. - Exam indication: Shortness of Breath - The left ventricle is normal in size. Left ventricular systolic function is normal. EF = 55 5% (visual est.) Definity contrast used for endocardial border detection. Indeterminate left ventricular diastolic dysfunction. - The right ventricle is normal in size. Right ventricular systolic function is normal. - There are no significant valvular abnormalities. - This is a technically difficult study due to limited acoustic window and is of moderate diagnostic confidence. - The patient has not had a prior CC echocardiographic exam for comparison. 06/14/2022 Dr. Martinez IMPRESSION: Mr. Appiah is a 36 year old morbidly obese gentleman with a history of asthma and strong family history of premature coronary disease who is referred for evaluation of shortness of breath and dyspnea on exertion. PLAN AND RECOMMENDATIONS: 1. Obesity, morbid (HCC) - ICD9: 278.01, ICD10: E66.01 (primary diagnosis) I encouraged patient with his current workout. 2. SOB (shortness of breath) - ICD9: 786.05, ICD10: R06.02 Patient's symptoms likely multifactorial. He is being evaluated for obstructive sleep apnea. I discussed the benefits of CPAP in the event that he is found to have apneic episodes. He does sleep in an upright position with likely minimizes some of his symptoms. I have scheduled him for a 2D echocardiogram for assessment of LV function. Hopefully will have an evaluation of his pulmonary pressures. - ECHO - PERFLUTREN LIPID MICROSPHERES 1.1 MG/ML INJECTION IN NS 10 ML - SODIUM CHLORIDE 0.9 % (FLUSH) INJECTION SYRINGE 3. POSADAS (dyspnea on exertion) - ICD9: 786.09, ICD10: R06.09 - ECHO - PERFLUTREN LIPID MICROSPHERES 1.1 MG/ML INJECTION IN NS 10 ML - SODIUM CHLORIDE 0.9 % (FLUSH) INJECTION SYRINGE 4. Essential hypertension - ICD9: 401.9, ICD10: I10 Patient reports that he does not have a history of known hypertension. He does have strong family history of premature coronary disease. Last fasting blood work was from January 2020. Could consider initiation of statin therapy based on his prior blood work evaluation. The other alternative would be to wait till he undergoes weight loss surgery and reevaluate fasting lipid panel at that time. Raman Martinez MD Obesity, Morbid Assessment: Body mass index is 80.5 kg/m . Lymphedema Assessment: chronic, on rx GERD without esophagitis Assessment: otc rx as needed Essential hypertension Assessment: on rx Last 14 BP Last 14 Encounter BP Readings: Date: BP: 07/02/2022 136/62 06/28/2022 126/84 06/14/2022 140/88 04/16/2022 138/86 04/08/2022 130/90 06/24/2021 142/90 07/10/2020 130/82 06/30/2020 146/90 01/30/2020 132/86 08/13/2017 122/80 02/24/2011 118/74 08/13/2010 114/60 09/26/2009 130/88 03/10/2009 110/72 Chronic midline low back pain with right-sided sciatica Assessment: otc analgesics as needed Asthma, moderate persistent, poorly-controlled Assessment: controlled on daily rx and as needed, following pulmonary DATA: Exhaled nitric oxide (Charlene), 06/28/2022: 57 (normal < 20). 05/13/2022: 33 PFT, 05/13/2022 IMPRESSION: Spirometry indicates moderate obstruction. There is a significant bronchodilator response. The Lung volumes (FRC,ERV,RV) are in a pattern reflecting body habitus. The diffusing capacity is normal. Electronically Signed On 05-13-2022 16:14:45 EST by Kayleen Villalpando M.D. CXR, 04/08/2022 IMPRESSION: No acute radiographic abnormality. Snoring Assessment: Stop-BANG score 6, BMI 80 Anxiety and depression Assessment: stable on rx per pt [place] Activity Status Index: METS: Climb a flight of stairs or walk up a hill (5.50 METs) DASI Score: 5.5 Patient denies any chest pain or undue shortness of breath with the above physical activity. Clinical Frailty Scale: 3. Well, with treated comorbid disease STOP-Bang Score: Snores loudly Often feels tired, fatigued, or sleepy during the daytime Has or is being treated for high blood pressure BMI greater than 35 kg/m^2 Has a large neck Male patient Has not been observed to stop breathing or choking/gasping during sleep Patient 50 years old or younger STOP-Bang Score: 6 [id number] Score: Age: <65 Sex: male CHF history: No Hypertension history: No Stroke/TIA/thromboembolism history: No Vascular disease history: No Diabetes history: No [id number] Score: 0 ARISCAT Score: Age: <=50 Preoperative SpO2: 91-95% Respiratory infection in the last month: No Preoperative anemia: Yes Surgical incision: peripheral Duration of surgery: <2 hrs Emergency procedure: No ARISCAT Score: 19 ASA Class: 3 ANESTHESIA FINDINGS: Intubation History: No history of difficult intubation Significant Anesthesia Considerations: none Airway History: No history of difficult airway I - PHYSICAL EVALUATION AIRWAY Patient intubated: No. Tracheostomy tube not present Mallampati: III. TM distance: >3 FB. Neck ROM: full ROM without neurological symptoms. Mouth opening: adequate. Short neck: no. Thick neck: yes Gtz present: yes DENTAL Dental findings: teeth intact. II - ANESTHESIA PLAN ASA Score: 3 Anesthetic Plan: other Anesthetic plan additional comments: *PACC/TCI - anesthesia choice. Beta Amari Monitoring Plan Post Procedure Analgesic Plan Informed Consent Anesthetic risks, benefits, alternatives, personnel and consent discussed: yes. Patient / Responsible Libertarian agrees to proceed: yes Patient / Surrogate agrees to blood products: blood products not planned Prepared for Surgery: optimally prepared for surgery, pending [see comment]. echo CONSULTS: Patient does not require consults for optimization at this time Planned Anesthetic: other anesthesia choice The Following Tests/Procedures Have Been Initiated: No orders of the defined types were placed in this encounter. Instructions Given to Patient: Instructions located in the after visit summary. Patient given verbal and written preop instructions and voices comprehension and compliance. SIGNATURE: Vita Forbes APRN.CNP PATIENT NAME: Demarcus Appiah DATE: July 02, 2022 TIME: 8:29 AM PAGER/CONTACT #: documented in this encounter [facility] 07-02-2022 Instructions Vita Forbes APRN.CNP - 07/02/2022 8:29 AM EST PATIENT PREOPERATIVE INSTRUCTIONS Zafar Castrejon MD has scheduled you for your procedure at this surgery center: [facility]: [phone] -- [address] [facility] [address]. Please read below carefully for your personalized instructions. Dietary Restrictions: - Follow bowel prep instructions given by surgeon's office - You may have 12 ounces of clear liquids (water, clear juices such as apple juice or gatorade, carbonated beverages, clear tea, black coffee, jello) until 2 hours before scheduled arrival at facility. No red/purple coloring and no creamer/sugar Medications: Unless instructed differently below, stay on all of your medications until your surgery. Approved medications to take the morning of surgery with a sip of water: All rx meds are except furosemide (LASIX) Do not take morning and/or evening prior surgery If you take any medications for erectile dysfunction-Cialis (Tadalafil), Levitra, Staxyn (Vardenafil) Viagra (Sildenenafil please do not take these for 48 hours before surgery. If you start any new medications after today's visit, please contact the surgeon's office. Blood Thinning Medications: - Stop NSAIDS (Ibuprofen, Advil, Aleve, Motrin, Celebrex, Mobic, etc.) 7 days before surgery, as directed by your surgeon. - Stop Aspirin 7 days before surgery, as directed by your surgeon. - Stop Vitamin E, ALL multi-vitamins, herbals and dietary supplements 7 days before surgery. - You may take Tylenol (Acetaminophen) or any of your pain medications that do not contain aspirin or NSAIDS as needed. Important Reminders: - Candy, mints, and tobacco products are NOT permitted the morning of surgery. - Hearing aids, dentures and glasses may be worn the morning of surgery. - NO jewelry, body piercings, makeup, hairpins or contacts are to be worn the day of surgery. If you develop symptoms such as a fever, cold, or flu, or have other changes to your health within TWO DAYS of scheduled surgery or the morning of surgery, please contact the surgery center above. Personal Belongings: -Please have photo ID and insurance cards. -If you do not have a copy of advance directives on file with us, please bring a copy with you on the day of surgery. - Leave ALL valuables and money at home or with family members. For Outpatient Procedures: - YOU MUST HAVE A RESPONSIBLE BULLET LUBRICANT MIXER TAKE YOU HOME. A CONDUCTOR YARD OR DENTAL INSURANCE BILLER CANNOT BE MADE A RESPONSIBLE BULLET LUBRICANT MIXER. - We recommend that a responsible person stays with you overnight to take care of you. - You cannot stay in a hotel alone after outpatient surgery. You will not be permitted to have your surgery, if you do not have someone to take care of you. Arrival Time for Surgery: - The Surgery Center or hospital where you are having surgery will call the afternoon before surgery (or Tuesday for Tuesday surgery) with a scheduled arrival time. - If you have not heard by 4 pm, please contact the surgery center above. Please be aware that emergency situations arise, which may delay or change your surgical time. If this happens, we will notify you as soon as possible and regret any inconvenience. If you already have an Advance Directive, please fax a copy to [phone] or email to for it to be added to your chart. If you do not have an Advance Directive, you can find the appropriate form and more information at [email or web address]. We recommend that you complete the Advance Directive form found on the website and bring it with you the day of your surgery. It can be witnessed and scanned into your chart that day. Vita Forbes APRN.ANA LILIA documented in this encounter [facility] 06-30-2022 Miscellaneous Notes This nurse spoke with the patient at 0940 regarding no show to appointment. Patient states that he forgot about the appointment. Please reach out to patient to reschedule. Shaunna Pizano RN documented in this encounter [facility] 06-28-2022 Procedure note Associated Ord er(s): NITRIC OXIDE, EXHALED RESPIRATORY THERAPY ORAL EXHALED NITRIC OXIDE SERVICE DATE: 06/28/2022 SERVICE TIME: 10:00 AM Oral Exhaled Nitric Oxide measurement: 57.0 (ppb) (A) Normal: Adult 5-20 ppb, pediatric (<12 years) 5-15 ppb High Normal / Increased: Adult 20-35 ppb, pediatric (<12 years) 15-25 ppb Moderately raised exhaled Nitric Oxide may indicate underlying inflammation, but note that: Cold and influenza can raise exhaled Nitric Oxide and some patients have higher baseline exhaled Nitric Oxide levels than others. High: Adult >35 ppb, pediatric (<12 years) >25 ppb Indicative of ongoing eosinophilic inflammation. Symptomatic patient likely to respond to steroids. Possible causes (if already on steroids): Poor compliance, recent allergen exposure, steroid dose inadequate, and steroid resistance. Note that not all patients with high exhaled nitric oxide levels display symptoms. Oral Exhaled Nitric Oxide measurement (Previous Encounters) Test Date Oral Exhaled Nitric Oxide (ppb) 06/28/2022 57.0 (A) 05/13/2022 33.0 NAME: JOSELYN Gomez PATIENT NAME: Demarcus Appiah DATE: June 28, 2022 TIME: 10:00 AM documented in this encounter [facility] 06-28-2022 History of Presen t illness Narrative PULM FUNCTION SMARTBLOCK: Provider: Kayleen Villalpando MD Assisting Tech: JOSELYN Gomez Exhaled Nitric Oxide: 1 documented in this encounter [facility] 06-28-2022 History of Presen t illness Narrative Patient: Demarcus Appiah PCP: David Grissom MD CC: asthma HPI: Demarcus Appiah 36 year old morbidly obese male non smoker with PMH significant for depression, HTN, history of exercise-induced asthma as a child. Initially seen by Dr. Villalpando on 05/13/2022 at which time he was started on Breo. However, patient was not able to start Breo secondary to insurance coverage. He is using his Albuterol at least 4-5 times daily. Today, patient states his asthma has not been well controlled over the last 7-10 days. Notes increased wheezing and shortness of breath. Patient reports he is trying to be more active with standing and walking. Symptoms are worse at night and wakes him frequently. Has chest tightness and pressure. Has non-productive cough with wheezing. No heartburn or reflux symptoms. Actively trying to lose weight with increasing exercise/activity as well as following a high protein low carb diet. PAST MEDICAL HISTORY Diagnosis Date Abdominal pain, unspecified site Allergies Depression HTN (hypertension) Lymphedema Morbid obesity with BMI of 70 and over, adult (HCC) Allergies: Bees Swelling Shrimp [Other] Swelling fluticasone-vilanterol (BREO ELLIPTA) 200-25 mcg/dose inhaler^Inhale 1 Inhalation as instructed once daily.^Disp: 1 Each^Rfl: 5 (Patient not taking: Reported on 06/14/2022) albuterol HFA (VENTOLIN HFA) 90 mcg/actuation inhaler^Inhale 2 Puffs as instructed every 4 hours as needed for wheezing/shortness of breath.^Disp: 18 g^Rfl: 2 furosemide (LASIX) 20 mg tablet^Take 1 tablet by mouth once daily.^Disp: 90 tablet^Rfl: 1 buPROPion XL (WELLBUTRIN XL) 150 mg 24 hr tablet^Take 1 tablet by mouth once daily.^Disp: 30 tablet^Rfl: 5 Social History Tobacco Use Smoking status: Never Smokeless tobacco: Former Vaping Use Vaping Use: Never used Substance Use Topics Alcohol use: No Drug use: No Family History Problem Relation Age of Onset Ischemic Heart Disease Mother 53 LAD lesion/CAD other (lung cancer) Mother other (unknown) Father None Other PAST SURGICAL HISTORY Procedure Laterality Date PAST SURGICAL HISTORY OF thyroid surgery x 2 I reviewed the past medical history, family history, social history and surgical history with changes noted above and updated in EMR. IMMUNIZATIONS Prevnar - xx Pneumovax 23 - xx Influenza - xx COVID-19 - xx ROS: General: Generally feels wheezing. Appetite good. Eyes, Ears, nose, throat: No post nasal drip, rhinorrhea, purulent nasal discharge, epistaxis. No hoarseness. Vision stable. Cardiac: No angina, edema. Sleep in recliner. Resp: See HPI. GI: No heartburn, dysphagia. Bloody stools, has colonoscopy scheduled. Musculoskeletal: No pain. Neuro: No headache, focal weakness, tremor. Skin: No rash. Otherwise negative. PHYSICAL EXAMINATION: BP 126/84 Pulse 81 Resp 20 Wt (!) 253.6 kg (559 lb) SpO2 97% BMI 80.21 kg/m Gen: No acute distress. Cooperative with examination. HEENT: Normocephalic. Sclera, conjunctiva clear. Oral hygeine and dentition good. Resp: No stridor, accessory respiratory muscle use, supra-sternal or intercostal retractions. Scattered wheezes throughout. No crackles. CV: Regular rythm. Heart tones normal. Radial pulses normal. Abd: Non distended. MSK: No kyphoscoliosis. Ext: Warm and well perfused. No clubbing, cyanosis, edema. Skin: No rash, ecchymoses. Neuro: Mental status normal. Affect normal. No tremor. DATA: Exhaled nitric oxide (Charlene), 06/28/2022: 57 (normal < 20). 05/13/2022: 33 PFT, 05/13/2022 IMPRESSION: Spirometry indicates moderate obstruction. There is a significant bronchodilator response. The Lung volumes (FRC,ERV,RV) are in a pattern reflecting body habitus. The diffusing capacity is normal. Electronically Signed On 05-13-2022 16:14:45 EST by Kayleen Villalpando M.D. CXR, 04/08/2022 IMPRESSION: No acute radiographic abnormality. ASSESSMENT/PLAN: 1. Asthma, moderate persistent, poorly-controlled - ICD9: 493.90, ICD10: J45.40 (primary diagnosis) Start Advair HFA which is on formulary. Rinse mouth after each use to help prevent oral thrush. Albuterol HFA inhaler, 2 inhalations 10-15 minutes prior to activities associated with shortness of breath, and as needed for rescue relief of shortness of breath or wheezing, up to 4 times daily. Will check nitric oxide after being on ICS/LABA. Continue Nexium - NITRIC OXIDE, EXHALED - FLUTICASONE PROPIONATE 230 MCG-SALMETEROL 21 MCG/ACTUATION HFA INHALER 2. Wheezing - ICD9: 786.07, ICD10: R06.2 See #1 3. Morbid obesity (HCC) - ICD9: 278.01, ICD10: E66.01 Weight loss advised. Encouraged patient to continue with increased physical activity and change in eating habits. Sofya Bower PA-C documented in this encounter [facility] 06-14-2022 Instructions Raman Martinez MD - 06/14/2022 10:00 AM EST We are going to schedule you for an echocardiogram documented in this encounter [facility] 06-14-2022 History of Presen t illness Narrative Images from the original note were not included. [facility]OLOGY Cardiology ([facility]) [address] [place] [id number] OUTPATIENT VISIT DATE 06/14/2022 PRIMARY CARE PHYSICIAN: David Grissom [address] [place] [address] REFERRING PHYSICIAN: David Grissom [address] [facility] [address] CHIEF COMPLAINT: Dyspnea HISTORY OF PRESENT ILLNESS: Mr. Appiah is a 36 year old morbidly obese gentleman with a history of asthma who is referred for shortness of breath and dyspnea on exertion. Patient has been exercising for about a month now trying to lose weight. He has been watching his diet and is being considered for possible bariatric surgery. He has a strong family history of premature coronary disease. His mother had her first myocardial infarction in her 50s. He denies feelings of chest pain or pressure. He has been gaining functional capacity since he has been on an exercise regimen. He tells me he is starting to feel little bit better but is discouraged with his weight loss. He has not had symptoms consistent with CHF including PND or orthopnea. However, he sleeps in sitting position most nights. He denies feelings of heart racing, palpitations, lightheadedness, dizziness, or syncope. PAST MEDICAL HISTORY Diagnosis Date Abdominal pain, unspecified site Allergies Depression HTN (hypertension) Lymphedema Morbid obesity with BMI of 70 and over, adult (HCC) PAST SURGICAL HISTORY Procedure Laterality Date PAST SURGICAL HISTORY OF thyroid surgery x 2 SOCIAL HISTORY Social History Tobacco Use Smoking status: Never Smokeless tobacco: Former Vaping Use Vaping Use: Never used Substance Use Topics Alcohol use: No Drug use: No FAMILY HISTORY Problem Relation Age of Onset Ischemic Heart Disease Mother 53 LAD lesion/CAD other (lung cancer) Mother other (unknown) Father None Other ALLERGIES: ALLERGIES Allergen Reactions Bees Swelling Shrimp [Other] Swelling MEDICATIONS: albuterol HFA (VENTOLIN HFA) 90 mcg/actuation inhaler Inhale 2 Puffs as instructed every 4 hours as needed for wheezing/shortness of breath. furosemide (LASIX) 20 mg tablet Take 1 tablet by mouth once daily. buPROPion XL (WELLBUTRIN XL) 150 mg 24 hr tablet Take 1 tablet by mouth once daily. fluticasone-vilanterol (BREO ELLIPTA) 200-25 mcg/dose inhaler Inhale 1 Inhalation as instructed once daily. (Patient not taking: Reported on 06/14/2022) REVIEW OF SYSTEMS: Review of Systems Constitutional: Negative for chills, fever, malaise/fatigue and weight loss. HENT: Negative for hearing loss and sore throat. Eyes: Negative for blurred vision and double vision. Respiratory: Negative. Cardiovascular: Negative. Gastrointestinal: Negative. Genitourinary: Negative for dysuria, frequency, hematuria and urgency. Musculoskeletal: Negative. Skin: Negative. Neurological: Negative for dizziness, seizures, loss of consciousness, weakness and headaches. Endo/Heme/Allergies: Negative for environmental allergies. Does not bruise/bleed easily. Psychiatric/Behavioral: Negative for depression. PHYSICAL EXAMINATION: BP 140/88 Pulse 85 SpO2 95% General: Pleasant gentleman sitting appears comfortable no apparent distress. He is alert and oriented x3 HEENT: Carotid upstrokes are brisk without bruits. No JVD appreciated although limited examination due to body habitus. Pulmonary: Lungs are clear no rales, wheezes, rhonchi Cardiovascular: Normal S1, S2 with regular rate and rhythm. No murmurs, rubs, or gallops CARDIOVASCULAR MEDICINE TESTING: IMPRESSION: Mr. Appiah is a 36 year old morbidly obese gentleman with a history of asthma and strong family history of premature coronary disease who is referred for evaluation of shortness of breath and dyspnea on exertion. PLAN AND RECOMMENDATIONS: 1. Obesity, morbid (HCC) - ICD9: 278.01, ICD10: E66.01 (primary diagnosis) I encouraged patient with his current workout. 2. SOB (shortness of breath) - ICD9: 786.05, ICD10: R06.02 Patient's symptoms likely multifactorial. He is being evaluated for obstructive sleep apnea. I discussed the benefits of CPAP in the event that he is found to have apneic episodes. He does sleep in an upright position with likely minimizes some of his symptoms. I have scheduled him for a 2D echocardiogram for assessment of LV function. Hopefully will have an evaluation of his pulmonary pressures. - ECHO - PERFLUTREN LIPID MICROSPHERES 1.1 MG/ML INJECTION IN NS 10 ML - SODIUM CHLORIDE 0.9 % (FLUSH) INJECTION SYRINGE 3. POSADAS (dyspnea on exertion) - ICD9: 786.09, ICD10: R06.09 - ECHO - PERFLUTREN LIPID MICROSPHERES 1.1 MG/ML INJECTION IN NS 10 ML - SODIUM CHLORIDE 0.9 % (FLUSH) INJECTION SYRINGE 4. Essential hypertension - ICD9: 401.9, ICD10: I10 Patient reports that he does not have a history of known hypertension. He does have strong family history of premature coronary disease. Last fasting blood work was from January 2020. Could consider initiation of statin therapy based on his prior blood work evaluation. The other alternative would be to wait till he undergoes weight loss surgery and reevaluate fasting lipid panel at that time. Raman Martinez MD documented in this encounter [facility] 05-24-2022 History of Presen t illness Narrative The patient did not show up for the scheduled sleep study. The patient will be contacted to reschedule the sleep study. Rona Hicks May 18, 2022 Standing PSG Orders signed in the last 90 days None Future PSG Orders signed in the last 90 days Ordered Auth. provider POLYSOMNOGRAM (PSG) [[id number]] 04/08/22 David Grissom MD Assoc. diagnoses: SOB (shortness of breath) [R06.02] Q: Indications - Select All That Apply: A: Obstructive sleep apnea Q: STOP-BANG conditions - Select All That Apply: A: GENDER = male A2: BMI > 35 kg/m2 A3: SNORING that is loud or disruptive A4: TIREDNESS, fatigue or sleepiness during the day A5: NECK circumference (male >43 cm/17 in; female > 41 cm/16 in) Q: Comorbidities: A: Cognitive or physical impairment Q: Is the patient non-ambulatory or will they be accompanied by a caregiver?: A: No Q: Current use of supplemental oxygen during sleep period?: A: No Q: Add supplemental oxygen if needed per sleep lab policy?: A: Yes Q: Is this a repeat Sleep Study?: A: No Comment: Bmi is over 80 All Prior Sleep Studies (past 365 days) Some values may be hidden. Unless noted otherwise, only the newest values recorded on each date are displayed. Sleep Studies POLYSOMNOGRAM (PSG) Future Expected: Expires: 04/08/23 BMI Readings from Last 2 Encounters: 05/13/22 : 81.36 kg/m 05/13/22 : 81.36 kg/m PAST MEDICAL HISTORY Diagnosis Date Abdominal pain, unspecified site Allergies Depression HTN (hypertension) Lymphedema Morbid obesity with BMI of 70 and over, adult (HCC) The medical record was reviewed to determine if the proposed sleep study conforms to the [facility] Practice Parameters for the Indications for Polysomnography and Related Procedures, or if the sleep study is indicated for other reasons. Indications for study: CHRISTOPHER suspected with comorbid medical or sleep disorders: Morbid obesity (BMI>40 kg/m2) Sleep study to be performed: Split Study-Polysomnogram with PAP titration Special instructions: Split night study if AHI > 15. Start with 5 cmH2O then titrate per protocol Target REM/supine sleep Add EtCO2 and Transcutaneous CO2 [facility] [place] - Sleep Medicine Staff Note: I have read the above protocol, edited as needed, and agree to the plan. Huong Bautista III, PhD 2:47 PM, 05/19/2022 May 17, 2022 An order has been received for Polysomnogram (PSG) from Dr. David Grissom,, a B. [facility] Staff. Visit prep complete. Comments :Yes, Bmi is over 80 The sleep study is scheduled for 05/24. Insurance: Payor: [facility] MEDICAID / Plan: [facility] COMMUNITY PLAN MEDICAID OF [place] / Product Type: Medicaid / Payer/Plan Subscr Sex Relation Sub. Ins. ID Effective Group Num 1. [facility] MEDICAID * DEMARCUS APPIAH 1985 Male Self [id number] 05/02/17 [place] [address] Ida Conteh documented in this encounter [facility] 05-13-2022 History of Presen t illness Narrative Images from the original note were not included. . [facility] [place] Note Patient name: Demarcus Appiah PCP: David Grissom MD Referring Physician: Same Consultation requested by Dr. Grissom for an opinion regarding SOB and wheezing. My final recommendations will be communicated back to the requesting physician by way of shared Medical record or letter to requesting physician via US mail. CC: Shortness of breath/wheezing HPI: Demarcus Appiah 36 year old seriously obese (weight 573 lbs) male non-smoker with PMH significant depression, HTN, history of exercise-induced asthma as a child being referred for evaluation of wheezing and SOB. Has albuterol as needed. Noting increased shortness of breath over the past year and a half. Progressive in nature. Occurring at rest and with activity. Noting wheezing mainly at night. Using albuterol with nonsustained relief. No chest pain, cough, sputum production. Known allergies to shellfish and he believes he may be allergic to his daughter's cat. He has a cat of his own which does not cause any issues. Daughter's cat causes itchy eyes and shortness of breath. Also having significant abdominal issues. Appears to have a large ventral hernia. He has had intermittent abdominal pain but denies GERD symptoms. Abdominal pain relieved with use of Nexium. Shortness of breath worsened by exposure to dry air and when he has significant abdominal issues. DATA: SERVICE DATE: 05/13/2022 SERVICE TIME: 2:45 PM Oral Exhaled Nitric Oxide measurement: 33.0 (ppb) Review of pulmonary function test shows mild improvement post bronchodilators restriction noticed and normal diffusing capacity Labs: Component Ref Range & Units 1 mo ago WBC 3.70 - 11.00 k/uL 9.68 RBC 4.20 - 6.00 m/uL 5.21 Hemoglobin 13.0 - 17.0 g/dL 14.5 Hematocrit 39.0 - 51.0 % 47.0 MCV 80.0 - 100.0 fL 90.2 MCH 26.0 - 34.0 pg 27.8 MCHC 30.5 - 36.0 g/dL 30.9 RDW-CV 11.5 - 15.0 % 14.0 Platelet Count 150 - 400 k/uL 303 MPV 9.0 - 12.7 fL 10.4 Neut% % 66.3 Abs Neut 1.45 - 7.50 k/uL 6.42 Lymph% % 20.9 Abs Lymph 1.00 - 4.00 k/uL 2.02 Concho% % 8.5 Abs Concho <0.87 k/uL 0.82 Eosin% % 3.6 Abs Eosin <0.46 k/uL 0.35 Baso% % 0.3 Abs Baso <0.11 k/uL 0.03 Immature Gran % % 0.4 Abs Immature Gran <0.10 k/uL 0.04 NRBC /100 WBC 0.0 Absolute nRBC <0.01 k/uL <0.01 Imaging / Diagnostic Studies: DATE OF EXAM: Apr 08 2022 12:17PM WOX [id number] - XR CHEST 2V FRONTAL/LAT / EXAMINATION: CHEST RADIOGRAPH (2 VIEW FRONTAL & LATERAL) CLINICAL HISTORY: SOB (shortness of breath) MQ: XC2_6 EXAM DATE/TIME: 04/08/2022 12:17 PM COMPARISON: 01/30/2020 RESULT: Lines, tubes, and devices: None. Lungs and pleura: No consolidation. No lung mass. No pleural effusion. No pneumothorax. Cardiomediastinal silhouette: Normal cardiomediastinal silhouette. Bones and soft tissues: Unremarkable. I personally reviewed the images which shows a normal chest PAST MEDICAL HISTORY Diagnosis Date Abdominal pain, unspecified site Allergies Depression HTN (hypertension) Lymphedema Morbid obesity with BMI of 70 and over, adult (HCC) ALLERGIES Allergen Reactions Bees Swelling Shrimp [Other] Swelling fluticasone-vilanterol (BREO ELLIPTA) 200-25 mcg/dose inhaler Inhale 1 Inhalation as instructed once daily. albuterol HFA (VENTOLIN HFA) 90 mcg/actuation inhaler Inhale 2 Puffs as instructed every 4 hours as needed for wheezing/shortness of breath. furosemide (LASIX) 20 mg tablet Take 1 tablet by mouth once daily. buPROPion XL (WELLBUTRIN XL) 150 mg 24 hr tablet Take 1 tablet by mouth once daily. Social History Tobacco Use Smoking status: Never Smokeless tobacco: Former Vaping Use Vaping Use: Never used Substance Use Topics Alcohol use: No Drug use: No Disabled. Pets: Cats and dogs FAMILY HISTORY Problem Relation Age of Onset Ischemic Heart Disease Mother 53 LAD lesion/CAD other (lung cancer) Mother other (unknown) Father None Other PAST SURGICAL HISTORY Procedure Laterality Date PAST SURGICAL HISTORY OF thyroid surgery x 2 PMH, Social history, family history and surgical history reviewed and updated in EMR REVIEW OF SYSTEMS: CONSTITUTIONAL: No fevers, chills, nightsweats, unintended weight loss HEENT: Denies nasal congestion/sinus symptoms. No problems with allergies. Uses OTC antihistamine EYES: No diplopia or blurry vision. Itchy eyes CARDIOVASCULAR: No chest pain, palpitations. Sleeps in a recliner. Lymphedema PULM: See HPI GI: No dysphagia/odynophagia, denies reflux sx. intermittent abdominal pain and change in bowel habits. Recent bloody stools : No urinary complaints, including dysuria, gross hematuria or pyuria. NEURO: No new balance problems, peripheral weakness/paresthesias or numbness of concern. MUSC-SKEL: No joint pain, swelling, or erythema. PSY: Depression INTEGUMENTARY: No new skin changes,, rashes, eczema PHYSICAL EXAMINATION: Pulse 83 Resp 12 Ht 5' 10 (1.78m) Wt 567 lb (257.2kg) SpO2 95% BMI 81.36 kg/(m^2). General Appearance: Morbidly obese, NAD Skin: Skin color, texture, turgor normal, no suspicious rashes or lesions. Multiple tattoos Head: Normocephalic, no masses, lesions, tenderness or abnormalities. Eyes: Sclera, conjunctiva normal Oropharynx: Adequate dentition, no lesions, Mallampati 2 Neck: No obvious JVD, no palpable masses Lungs: Not labored, normal to percussion, no wheezes or crackles Heart: Regular rate and rhythm, distant heart tones, no obvious murmur Extremities: Lymphedema, no clubbing Musculoskeletal: No joint deformities or effusions Neurologic: Alert and oriented, no focal findings Lymph Nodes: No cervical lymphadenopathy and No supraclavicular lymphadenopathy. Assessment/Plan: 1. Moderate persistent asthma, poorly controlled -Started Breo Ellipta with continued use of albuterol as needed -Limit allergen exposure -GERD may be contributing factor. Recommend continued use of Nexium -Follow Charlene 2. Morbid obesity -Weight loss strongly encouraged. Patient may consider bariatric surgery but will need to change eating habits/food addiction -Obesity portends poor control of asthma Kayleen Villalpando MD [facility] [place] documented in this encounter [facility] 05-13-2022 Nurse Note Intake information documented in the prior visit with JOSELYN Gomez today. documented in this encounter [facility] 04-16-2022 History of Presen t illness Narrative HISTORY AND PHYSICAL Demarcus Appiah 1985 REFERRING PHYSICIAN: Verónica Sandoval APRN.[employer] CHIEF COMPLAINT: Consult (GERD and Rectal Bleeding) HPI: The patient is a 36 year old male referred for endoscopy. Demarcus notes the following GI complaints: Intermittent blood in stool over the past year. States there is sometimes blood clots in his stools. Has been going on for some time. Has been occurring at least a year. Has occasional rectal discomfort. Has occasionally filled the bowel with clots. Last time was a few weeks ago. Most recent bms have been ok. Painful hard knot in upper abdomen. He can feel a bulge in his upper abdomen. Happens with certain movement No heartburn. Is on nexium Demarcus notes occasional diarrhea. Demarcus denies constipation. Demarcus denies a change in bowel habits. Demarcus denies melena. Demarcus notes bright red blood per rectum. Demarcus denies hemorrhoids. Demarcus has not undergone prior endoscopy. The patient is being seen by me today at the request of Dr. Sandoval for my opinion and advice regarding Upper abdominal pain Abdominal wall bulge Rectal bleeding (primary encounter diagnosis) Diarrhea, unspecified type. PAST MEDICAL HISTORY Diagnosis Date Abdominal pain, unspecified site PAST SURGICAL HISTORY Procedure Laterality Date PAST SURGICAL HISTORY OF thyroid surgery x 2 Current Outpatient Medications Medication Sig albuterol HFA (VENTOLIN HFA) 90 mcg/actuation inhaler Inhale 2 Puffs as instructed every 4 hours as needed for wheezing/shortness of breath. furosemide (LASIX) 20 mg tablet Take 1 tablet by mouth once daily. buPROPion XL (WELLBUTRIN XL) 150 mg 24 hr tablet Take 1 tablet by mouth once daily. peg 3350-Electrolytes (GOLYTELY) 236-22.74-6.74 -5.86 gram suspension Take 4,000 mL by mouth one time only for 1 dose. Refer to printed prep instructions from your provider. No current facility-administered medications for this visit. ALLERGIES: Bees and Shrimp [Other] PERSONAL HISTORY: Social History Tobacco Use Smoking status: Never Smokeless tobacco: Former Vaping Use Vaping Use: Never used Substance Use Topics Alcohol use: No Drug use: No FAMILY HISTORY: FAMILY HISTORY Problem Relation Age of Onset None Other Ischemic Heart Disease Mother 53 LAD lesion/CAD other (lung cancer) Mother other (unknown) Father REVIEW OF SYMPTOMS: The review of systems data was entered by the nurse and reviewed by me Nursing Notes: Dotty Mullins LPN 04/16/2022 9:25 AM Signed REVIEW OF SYSTEMS: General: The patient denies fatigue, denies weight loss, denies weight gain, denies feeling hot, and denies feelings of cold. Eyes: The patient denies glaucoma, denies eye injury/surgery, wears glasses or contacts. Ear/Nose/Throat: The patient notes allergies, denies hayfever, denies ear infections, and denies bloody noses. Cardiovascular: The patient denies chest pain, denies heart disease, denies high blood pressure,denies cardiac stent, denies prior heart attack, denies irregular heart beat, denies high cholesterol, denies poor circulation, denies heart failure, other cardiac issues, notes claudication, denies cold feet, denies peripheral arterial stent. Respiratory: The patient denies tuberculosis, denies pneumonia, denies frequent cough, denies pulmonary embolism, notes shortness of breath, and denies coughing up blood. Gastrointestinal: The patient denies difficulty swallowing, denies acid reflux, denies ulcers, denies vomiting, denies jaundice/hepatitis, denies gallbladder problems, denies black or tarry stools, denies hemorrhoids, notes bleeding from rectum, denies diverticulitis, denies constipation, notes diarrhea, denies loss of stool control, and denies hernias. Kidney/Bladder: The patient denies kidney stones, denies urine infections, and denies bloody urine. Skin: The patient denies a history of skin cancer, denies bleeding/changing moles, and denies a history of skin rash. Neurologic: The patient denies a history of epilepsy/convulsions, notes headaches, denies head/spinal injuries, and denies stroke/TIA. Psychiatric: The patient denies psychiatric medications, notes depression, and denies voices, denies substance abuse. Endocrine: The patient notes thyroid disorders, denies diabetes, and denies hormonal problems. Hematologic: The patient denies a history of bruising, denies bleeding, and denies anemia, denies blood clots. Infections: The patient denies a history of measles and mumps, denies rheumatic fever, and denies sexually transmitted diseases. Musculoskeletal: The patient notes back pain/injury, notes back problems, denies sciatica, denies knee/foot trouble, denies arthritis, or denies gout. When was patient's last Mammogram screening? N/A Last Colonoscopy: none Dotty Mullins LPN PHYSICAL EXAMINATION: General: The patient is 36 year old male, well nourished, well hydrated in no acute distress. The patient is oriented to time, place, and person. VITALS: Blood pressure 138/86, pulse 115, temperature 37.1 C (98.8 F), height 180.3 cm (5' 11), weight (!) 259.9 kg (573 lb), SpO2 94 %. Body mass index is 79.92 kg/m . HEENT: Normal cephalic, ataumatic, pupils are equally round, sclera are anicteric, mucous membranes are moist, oropharynx is clear. Neck has no masses, asymmetry or lymphadenopathy. Thyroid is unremarkable. Respiratory: Clear to auscultation and percussion. Normal respiratory excursion and pattern. Cardiac: Examination is regular rate and rhythm. Abdominal exam: Soft, nontender, with no palpable masses. No hepatosplenomegaly. No palpable hernias. Rectal exam: exam deferred Extremities: no clubbing, cyanosis or edema. No adenopathy. Other: LABORATORY VALUES: As Noted RADIOLOGIC STUDIES: As Noted Assessment IMPRESSION: Upper abdominal pain Abdominal wall bulge Rectal bleeding (primary encounter diagnosis) Diarrhea, unspecified type PLAN: I plan to perform upper and lower endoscopy. We discussed the risks and benefits of the planned endoscopy. I have informed the patient that complications can occur including failure to complete the endoscopy and perforation. The patient had the opportunity to ask questions concerning the planned endoscopy. My staff has also explained the procedure to the patient in understandable terms and has given the patient printed material concerning the procedure. The patient freely consents to surgery. We will be biopsying the duodenum stomach and esophagus as well as random colon biopsies. I plan to use golytely bowel preparation for endoscopy The patient has recall from their previous endoscopy performed under conscious sedation. I therefore plan to perform the procedure under monitored anesthetic care. Diagnoses: (K62.5) Rectal bleeding (primary encounter diagnosis) (R10.10) Upper abdominal pain (R19.00) Abdominal wall bulge (R19.7) Diarrhea, unspecified type My findings have been communicated to Dr. Sandoval via shared medical record. This note will be forwarded to Dr. David Grissom MD. Return to Clinic: The patient is instructed to follow-up with me 1 week post operatively. Zafar Castrejon III, MD documented in this encounter [facility] 04-16-2022 Instructions Zafar Castrejon MD - 04/16/2022 9:34 AM EST Images from the original note were not included. Bowel Preparation Instructions for: Golytely, Nulytely, Trilyte or Colyte (polyethylene glycol 3350 and electrolytes) IF YOU DO NOT FOLLOW THESE DIRECTIONS, YOUR COLONOSCOPY WILL BE CANCELLED. [place] Instructions: Your bowel must be empty so that your doctor can clearly view your colon. Follow all of the instructions in this handout EXACTLY as they are written. Do NOT eat any solid food the ENTIRE day before your colonoscopy. Drink only clear liquids. Buy your bowel preparation at least 5 days before your colonoscopy. TRANSPORTATION on the Day of Your Exam A responsible person MUST be present with you at Check In prior to your colonoscopy and REMAIN in the endoscopy area until you are discharged. You are NOT ALLOWED to drive, take a taxi or bus, or leave the Endoscopy Center ALONE. If you do not have a responsible motor vehicle escort driver (family member or friend) with you to take you home, your exam cannot be done with sedation and will be cancelled. Please bring a list of all of your current medications, including any Over-the Counter medications with you. Medications If you take insulin, diabetic medications or blood thinners such as Coumadin (warfarin), Plavix (clopidogrel), Ticlid (ticlopidine hydrochloride), Agrylin (anagrelide), Xarelto (Rivaroxaban), Pradaxa (Dabigatran), Eliquis (Apixaban), and Effient (Prasugrel). You MUST call the doctors who orders those medicines for instructions on altering the dosage before your colonoscopy. All other medications should be taken the day of the exam with a sip of water including ASPIRIN. Five (5) Days Before Your Colonoscopy Do NOT take medicines that stop diarrhea - such as Imodium, Kaopectate, or Pepto Bismol. Do NOT take fiber supplements - such as Metamucil, Citrucel, or Perdiem. Do NOT take products that contain iron - such as multi-vitamins (the label lists what is in the products). Do NOT take Vitamin E. Buy the prescription bowel preparation solution at your local pharmacy or drugstore pharmacy. 04/2019 Bowel Preparation Instructions for: Golytely, Nulytely, Trilyte or Colyte (polyethylene glycol 3350 and electrolytes) Three (3) Days Before Your Colonoscopy Do NOT eat high-fiber foods - such as popcorn, beans, seeds (flax, sunflower, quinoa), multigrain bread, nuts, salad/vegetables, or fresh and dried fruit. One (1) Day Before Your Colonoscopy Only drink clear liquids the ENTIRE DAY before your colonoscopy. Do NOT eat any solid foods. Drink at least 8 ounces of clear liquids every hour after waking up. The clear liquids you can drink include: Clear Liquid (NO RED LIQUIDS) DO NOT DRINK Gatorade, Pedialyte or Powerade Clear broth or bouillon Coffee or tea (no milk or non-dairy creamer) Carbonated and non-carbonated soft drinks Jerel-Aid or other fruit flavored drinks Strained fruit juices (no pulp) Jell-O, popsicles, hard candy Water Alcohol Milk or non-dairy creamers Noodles or vegetables in soup Juice with pulp Liquid you cannot see through Do not use tobacco/vaping products The bowel preparation solution will be consumed in two parts. Mix the solution the evening before your colonoscopy and refrigerate before drinking. You may add the flavor pack that came with the bowel preparation. Do NOT add ice, sugar or any other flavorings to the solution. Part 1 At 6:00 PM - Evening before your colonoscopy Drink an 8-oz glass of bowel preparation every 10 minutes for a total of 8 glasses. You may continue to drink clear liquids until midnight. Part 2 On the day of your colonoscopy you may drink clear liquids up to (three) 3 hours before your procedure. 4 1/2 hours before your colonoscopy Drink an 8-oz glass of bowel preparation every 10 minutes for a total of 8 glasses. Fifteen (15) minutes later, drink an 8-oz glass of clear liquids every 15 minutes for a total of 2 glasses. You may continue to drink clear liquids up to (three) 3 hours before your exam. 2 04/2019 documented in this encounter [facility] 04-16-2022 Nurse Note REVIEW OF SYSTEMS: General: The patient denies fatigue, denies weight loss, denies weight gain, denies feeling hot, and denies feelings of cold. Eyes: The patient denies glaucoma, denies eye injury/surgery, wears glasses or contacts. Ear/Nose/Throat: The patient notes allergies, denies hayfever, denies ear infections, and denies bloody noses. Cardiovascular: The patient denies chest pain, denies heart disease, denies high blood pressure,denies cardiac stent, denies prior heart attack, denies irregular heart beat, denies high cholesterol, denies poor circulation, denies heart failure, other cardiac issues, notes claudication, denies cold feet, denies peripheral arterial stent. Respiratory: The patient denies tuberculosis, denies pneumonia, denies frequent cough, denies pulmonary embolism, notes shortness of breath, and denies coughing up blood. Gastrointestinal: The patient denies difficulty swallowing, denies acid reflux, denies ulcers, denies vomiting, denies jaundice/hepatitis, denies gallbladder problems, denies black or tarry stools, denies hemorrhoids, notes bleeding from rectum, denies diverticulitis, denies constipation, notes diarrhea, denies loss of stool control, and denies hernias. Kidney/Bladder: The patient denies kidney stones, denies urine infections, and denies bloody urine. Skin: The patient denies a history of skin cancer, denies bleeding/changing moles, and denies a history of skin rash. Neurologic: The patient denies a history of epilepsy/convulsions, notes headaches, denies head/spinal injuries, and denies stroke/TIA. Psychiatric: The patient denies psychiatric medications, notes depression, and denies voices, denies substance abuse. Endocrine: The patient notes thyroid disorders, denies diabetes, and denies hormonal problems. Hematologic: The patient denies a history of bruising, denies bleeding, and denies anemia, denies blood clots. Infections: The patient denies a history of measles and mumps, denies rheumatic fever, and denies sexually transmitted diseases. Musculoskeletal: The patient notes back pain/injury, notes back problems, denies sciatica, denies knee/foot trouble, denies arthritis, or denies gout. When was patient's last Mammogram screening? N/A Last Colonoscopy: none Dotty Mullins LPN documented in this encounter [facility] 04-09-2022 Miscellaneous Notes Attempted to call, no answer or no voicemail. Letter sent to patient. Kinza Miranda Ma ----- Message from David Grissom MD sent at 04/09/2022 8:05 AM EST ----- Negative. Please let him know documented in this encounter [facility] 04-09-2022 History of Presen t illness Narrative Radiology Service Progress Note PATIENT NAME: Demarcus Appiah DATE OF SERVICE: April 09, 2022 TIME: 2:25 PM PATIENT IDENTITY VERIFICATION COMPLETED USING TWO (2) IDENTIFIERS: Name and Date of confirmed by patient verbally. FALL SCREENING: Has the patient had 2 falls in the last year or 1 fall with injury or currently using an Ambulatory Assistive Device (Walker, Cane, Wheelchair, Crutches, etc.)? No PATIENT GENDER DATA: Male PATIENT RELEVANT IMPLANT DATA REVIEWED: Not Applicable RADIOLOGY DEPARTMENT: Ultrasound PERIPHERAL IV DATA: Not applicable SIGNED BY: Gracie Chow RDMS T April 09, 2022 2:25 PM documented in this encounter [facility] 04-08-2022 Miscellaneous Notes Addended by: DAVID GRISSOM on: 04/08/2022 10:54 AM Modules accepted: Orders, SmartSet documented in this encounter [facility] 04-08-2022 History of Presen t illness Narrative Patient presents with: Follow Up HPI: Patient presents today for office visit for follow up. Discussed that he comes in every year or two and we have the same conversations and complaints however he has not done anything to help. Concerned about breathing. Over the past year has had increased shortness of breath and wheezing. Wakes up at night gasping for air. Currently using mothers Albuterol Sulfate HFA 90mcg inhaler multiple times a day. Gets winded even getting up to use the restroom and has to use inhaler. Waking up wheezing. Has to sleep sitting up on couch. Is a snorer. Is fatigued during the day. Had cta done in the past. Edema controlled with Lasix. Refill needed. Trying to exercise at least once a day and watch diet. PSYCH: Mood is down. Feeling depressed and sad most of the time. States I hate me. Would like to discuss treatment options. States I know I need something to help me in my daily life. Intermittent blood in stool over the past year. States there is sometimes blood clots in his stools. Has been going on for some time. Has been occurring at least a year. Has occasional rectal discomfort. Has occasionally filled the bowel with clots. Last time was a few weeks ago. Most recent bms have been ok. Painful hard knot in upper abdomen. He can feel a bulge in his upper abdomen. Happens with certain movement No heartburn. Is on nexium Again discussed bariatric surgery. Has been referred several times. Is losing weight by watching diet. Today is not an actual weight. We again discussed a sleep study. In hind sight he thinks he did better on wellbutrin. See previous ov: See HPI: Nursing Notes: Kinza Ruth Eisenberg 08/13/2017 9:12 AM Signed WEIGHT: Patient last weighed himself over a year ago. At that time his weight was about 480 lbs. Today he weighs 554 lbs. Over the past 6 months, he has gained more weight. His legs are swollen. He has trouble sleeping laying down. He sleeps on his couch sitting up. He suffers from chronic back pain that is getting worse. He is having trouble working without his back pain flaring up to the point he feels dizzy. Old back injury, fell through porch. He has been dieting over the last 2 months by eating a lot of protein, fruits, smoothies, and salads. He cut out pop and sweets. He will put olives, croutons, chicken, tao bits, onions, greens, and ranch dressing. He feels like he is not as bloated as he was. DEPRESSION: He has been dealing with depression. Started when he lost his close friend. He lost his job about 1.5 years ago. He lives with his mom. He feels like a loser. He has custody of his 2 daughters and he wants to live for them. Having issues with his legs and back. Has hx of remote back injury. Fell through a porch. Has had remote xrays and chiropractic treatments. Has constant back pain. Buttocks go numb frequently. Pain down both legs. No loss of control of bowel or bladder. Is miserable due to pain. Feels it limits his ability to do things. Complains of chronic leg edema. Not really red or warm. No hx of dvt. I am sure is related to his morbid obesity. No hx of areas of skin breakdown. Does get dry skin on legs. Has a lump on his right thigh. Enlarging has been there for some time. No trauma. Has a hx of chronic gerd symptoms. That is stable currently. Has occasional chest pain and shortness of breath when he attempts to do anything. Pain is substernal. No radiation of pain. Obviously worsened since his weight gain. Is chronically fatigued. Does snore. Sleeps sitting up on a cough due to sinus issues. Discussed his depression. Tearful. Feeling down related to his situation. Has two girls he has custody of Lives with him Mom. Can't work. Feels useless at times. Would not hurt himself because of his girls Used to see a counselor years ago. Discussed diet issues. See above. Discussed portion control. Plant based or keto diets He is willing to see [facility] institute. Had orderd duplex, labs, lasix Physical therapy and xray of his lumbar spine. Did chest xray,ekg and ordered cardiology consult. Ordered bariatric consult Ordered wellbutrin and psych consult. Asked him to follow up in four weeks. It appears he went to one physical therapy appt. Duplex was negative. He no showed for his psych appt and cardiology appt and canceled his sleep study. Discussed importance of complaince. He complains of pain in his left thigh in the fatty area. No fever or chills. Is anxiety and depressed. Nursing Notes: Kinza Miranda Ma 08/13/2017 9:12 AM Signed WEIGHT: Patient last weighed himself over a year ago. At that time his weight was about 480 lbs. Today he weighs 554 lbs. Over the past 6 months, he has gained more weight. His legs are swollen. He has trouble sleeping laying down. He sleeps on his couch sitting up. He suffers from chronic back pain that is getting worse. He is having trouble working without his back pain flaring up to the point he feels dizzy. Old back injury, fell through porch. He has been dieting over the last 2 months by eating a lot of protein, fruits, smoothies, and salads. He cut out pop and sweets. He will put olives, croutons, chicken, tao bits, onions, greens, and ranch dressing. He feels like he is not as bloated as he was. When last here he was referred to bariatrics, cardiology and behavioral health. Was prescribed wellbutrin. He did have a positive d dimer and was sent to er, ct of chest was negative. Duplex was negative at that time. He did not follow up after or seek any of the consults that were placed. No redness or warmth in the legs. He feels when he was on lasix it did help his morbid obesity. We had a zaida discussion regarding the fact that he needs to correct the obesity to improve things. Again discussed sleep study as well. He is unable to get on the scale today due to unable to close his legs. He has been going to the [employer]. Walks in the pool. Working on portion control Some shortness of breath with exertion still. Has had ekg's. No chest pain. Took a months worth of wellbutrin and did not resume. Still down. Not suicidal. MEDICATIONS: Current Outpatient Medications Medication Sig furosemide (LASIX) 20 mg tablet Take 1 tablet by mouth once daily. albuterol HFA (VENTOLIN HFA) 90 mcg/actuation inhaler Inhale 2 Puffs as instructed every 4 hours as needed for Wheezing/Shortness of Breath. fluticasone (FLONASE) 50 mcg/actuation nasal spray Use 2 Sprays in each nostril once daily. Rinse mouth after use. (Patient not taking: Reported on 04/08/2022) No current facility-administered medications for this visit. ALLERGIES: ALLERGIES Allergen Reactions Bees Swelling Shrimp [Other] Swelling PAST MEDICAL HISTORY Diagnosis Date Abdominal pain, unspecified site PAST SURGICAL HISTORY Procedure Laterality Date PAST SURGICAL HISTORY OF thyroid surgery x 2 FAMILY HISTORY Problem Relation Age of Onset None Other Ischemic Heart Disease Mother 53 LAD lesion/CAD other (lung cancer) Mother other (unknown) Father Social History Tobacco Use Smoking status: Never Smokeless tobacco: Former Substance Use Topics Alcohol use: No Drug use: No Reviewed current medications, allergies, past medical history, surgical history, family history and social history today. REVIEW OF SYSTEMS All other reviewed and negative other than HPI. HEALTH MAINTENANCE: Reviewed health maintenance issues today and recommended the following in detail. COVID-19 VACCINE(1) Never done HEPATITIS C SCREENING Never done HIV SCREENING Never done DEPRESSION ASSESSMENT Never done INFLUENZA(1) Never done VITALS: BP 130/90 Pulse 96 Ht 180.3 cm (5' 11) Wt (!) 264.9 kg (584 lb) SpO2 96% BMI 81.45 kg/m Last 4 Encounter Wt Readings: Date: Wt: 06/24/2021 264.9 kg (584 lb) 07/10/2020 263.1 kg (580 lb) 06/30/2020 0 kg () 08/13/2017 251.3 kg (554 lb) PHYSICAL EXAMINATION: General appearance: Well appearing, alert, in no acute distress, well-hydrated, well nourished. Morbidly obese Head: Normocephalic, no masses, lesions, tenderness or abnormalities Lungs: Lungs clear to auscultation. No wheezing, rhonchi, rales Heart: RRR without murmur, gallop, or rubs. No ectopy Abdomen: Normal abdominal exam, Abdomen soft, non-tender. Bowel sounds normal. No masses, organomegaly, has diastasis recti Extremities: two plus edema. Is actually better than before PSYCH:Affect normal. Normal speech. Normal eye contact ASSESSMENT/PLAN: 1. Essential hypertension - ICD9: 401.9, ICD10: I10 (primary diagnosis) - fair control - Encouraged dietary sodium restriction/DASH diet - Recommend home blood pressure monitoring, to bring results in on next visit - Goal of BP <130/80 2. Lymphedema - ICD9: 457.1, ICD10: I89.0 - stay on meds. - FUROSEMIDE 20 MG TABLET 3. Morbid obesity, BMI unknown (HCC) - ICD9: 278.01, ICD10: E66.01 - CONSULT [facility] 4. SOB (shortness of breath) - ICD9: 786.05, ICD10: R06.02 - work on weight loss. - ALBUTEROL SULFATE HFA 90 MCG/ACTUATION AEROSOL INHALER - POLYSOMNOGRAM (PSG) - SPIROMETRY - BASELINE AND POST DILATOR - OXIMETRY WITH AMBULATION - LUNG DIFFUSION CAPACITY (DLCO) - LUNG VOLUMES - CBC + DIFF - NT PRO BNP - XR CHEST 2V FRONTAL/LAT - ECG COMPLETE - CONSULT TO CARDIOLOGY - CONSULT TO PULM/CRITICAL CARE 5. Hyperglycemia - ICD9: 790.29, ICD10: R73.9 - a1c 6. Anxiety with depression - ICD9: 300.4, ICD10: F41.8 - reinforced compliance. - BUPROPION XL 150 MG TAB 7. Abdominal pain, right upper quadrant - ICD9: 789.01, ICD10: R10.11 - continue meds. - COMP METABOLIC PANEL - LIPASE BLD - US ABD RT UPPER QUADRANT 8. Nausea - ICD9: 787.02, ICD10: R11.0 - follow above 9. Chronic midline low back pain with right-sided sciatica - ICD9: 724.2, 724.3, 338.29, ICD10: M54.41, G89.29 10. Rectal bleeding - ICD9: 569.3, ICD10: K62.5 - call if recurds. Check labs. - CONSULT TO GENERAL SURGERY 11. GERD without esophagitis - ICD9: 530.81, ICD10: K21.9 - CONSULT TO GENERAL SURGERY 12. Need for hepatitis C screening test - ICD9: V73.89, ICD10: Z11.59 - HEP C AB IA W/CONF SCRN 13. Screening for HIV (human immunodeficiency virus) - ICD9: V73.89, ICD10: Z11.4 - HIV 1 2 COMBO(AG/AB),WITH REFLEX TO DIFFERENTIATION David Grissom MD documented in this encounter [facility] 12-17-2008 History of Past i llness Narrative Problem Noted Date Diagnosed Date Resolved Date Abdominal pain, right upper quadrant 12/17/2008 04/13/2023 Nausea 12/17/2008 04/13/2023 Abdominal pain, unspecified site 04/13/2023 documented as of this encounter (statuses as of 06/14/2023) [facility]08-18-2009 History of Past illness Narrative* Problem Noted Date Diagnosed Date Resolved Date Abdominal pain, right upper quadrant 12/17/2008 04/13/2023 Nausea 12/17/2008 04/13/2023 Abdominal pain, unspecified site 04/13/2023 documented as of this encounter (statuses as of 07/04/2023) [facility] History of Past illness Narrative* Problem Noted Date Diagnosed Date Resolved Date Abdominal pain, right upper quadrant 12/17/2008 04/13/2023 Nausea 12/17/2008 04/13/2023 Abdominal pain, unspecified site 04/13/2023 documented as of this encounter (statuses as of 07/05/2023) [facility] History of Past illness Narrative* Problem Noted Date Diagnosed Date Resolved Date Abdominal pain, right upper quadrant 12/17/2008 04/13/2023 Nausea 12/17/2008 04/13/2023 Abdominal pain, unspecified site 04/13/2023 documented as of this encounter (statuses as of 07/05/2023) [facility] History of Past illness Narrative* Problem Noted Date Diagnosed Date Resolved Date Abdominal pain, right upper quadrant 12/17/2008 04/13/2023 Nausea 12/17/2008 04/13/2023 Abdominal pain, unspecified site 04/13/2023 documented as of this encounter (statuses as of 07/08/2023) [facility] Diagnosis Essential hypertension- Primary Unspecified essential hypertension Lymphedema Other lymphedema Morbid obesity, BMI unknown (HCC) Morbid obesity SOB (shortness of breath) Shortness of breath Hyperglycemia Other abnormal glucose Anxiety with depression Abdominal pain, right upper quadrant Nausea Nausea alone Chronic midline low back pain with right-sided sciatica Rectal bleeding Hemorrhage of rectum and anus GERD without esophagitis Esophageal reflux Need for hepatitis C screening test Special screening examination for other specified viral diseases Screening for HIV (human immunodeficiency virus) Special screening examination for other specified viral diseases Need for influenza vaccination Need for prophylactic vaccination and inoculation against influenza [facility] Rectal bleeding- Primary Hemorrhage of rectum and anus Upper abdominal pain Abdominal pain, other specified site Abdominal wall bulge Abdominal or pelvic swelling, mass or lump, unspecified site Diarrhea, unspecified type [facility] Diagnosis Wheezing [facility]* Diagnosis SOB (shortness of breath) Shortness of breath [facility] Diagnosis Asthma, moderate persistent, poorly-controlled- Primary Unspecified asthma Morbid obesity (HCC) Morbid obesity documented in this encounter [facility] note* Diagnosis Obesity, morbid (HCC)- Primary Morbid obesity SOB (shortness of breath) Shortness of breath POSADAS (dyspnea on exertion) Other dyspnea and respiratory abnormality Essential hypertension Unspecified essential hypertension documented in this encounter [facility] note* Diagnosis Asthma, moderate persistent, poorly-controlled Unspecified asthma documented in this encounter [facility] note* Diagnosis Asthma, moderate persistent, poorly-controlled- Primary Unspecified asthma Wheezing Morbid obesity (HCC) Morbid obesity documented in this encounter [facility] note* Diagnosis SOB (shortness of breath) Shortness of breath POSADAS (dyspnea on exertion) Other dyspnea and respiratory abnormality [facility] Diagnosis Pre-operative examination- Primary Preoperative examination, unspecified POSADAS (dyspnea on exertion) Other dyspnea and respiratory abnormality Obesity, morbid (HCC) Morbid obesity Lymphedema Other lymphedema GERD without esophagitis Esophageal reflux Essential hypertension Unspecified essential hypertension Chronic midline low back pain with right-sided sciatica Asthma, moderate persistent, poorly-controlled Unspecified asthma Snoring Other dyspnea and respiratory abnormality Anxiety and depression Dysthymic disorder documented in this encounter [facility] note* Diagnosis SOB (shortness of breath) Shortness of breath Lymphedema Other lymphedema [facility] Diagnosis Abdominal pain, right upper quadrant [facility] Diagnosis Dysphagia, unspecified type- Primary [facility] Diagnosis SOB (shortness of breath)- Primary Shortness of breath POSADAS (dyspnea on exertion) Other dyspnea and respiratory abnormality Essential hypertension Unspecified essential hypertension History of echocardiogram Other specified personal history presenting hazards to health Non-smoker Other specified conditions influencing health status [facility]* Diagnosis Dysphagia, unspecified type documented in this encounter [facility] note* Diagnosis Abnormality of esophagus- Primary Unspecified disorder of esophagus [facility] Diagnosis URI, acute- Primary Acute upper respiratory infections of unspecified site Dysphagia, unspecified type Asthma, moderate persistent, poorly-controlled Unspecified asthma Anxiety and depression Dysthymic disorder Obesity, Class III, BMI >= 40 Morbid obesity Lymphedema Other lymphedema Essential hypertension Unspecified essential hypertension Obesity, morbid (HCC) Morbid obesity [facility] Lymphedema- Primary Other lymphedema documented in this encounter [facility] note* Diagnosis Asthma, moderate persistent, poorly-controlled Unspecified asthma documented in this encounter [facility] note* Diagnosis Essential hypertension- Primary Unspecified essential hypertension Asthma, moderate persistent, poorly-controlled Unspecified asthma GERD without esophagitis Esophageal reflux Obesity, morbid (HCC) Morbid obesity POSADAS (dyspnea on exertion) Other dyspnea and respiratory abnormality Snoring Other dyspnea and respiratory abnormality Fatigue, unspecified type CRHISTOPHER (obstructive sleep apnea) Obstructive sleep apnea (adult) (pediatric) documented in this encounter [facility] note* Diagnosis Lymphedema Other lymphedema documented in this encounter [facility] note* Diagnosis Pre-operative examination- Primary Preoperative examination, unspecified POSADAS (dyspnea on exertion) Other dyspnea and respiratory abnormality Obesity, morbid (HCC) Morbid obesity Lymphedema Other lymphedema GERD without esophagitis Esophageal reflux Essential hypertension Unspecified essential hypertension Chronic midline low back pain with right-sided sciatica Asthma, moderate persistent, poorly-controlled Unspecified asthma Snoring Other dyspnea and respiratory abnormality Anxiety and depression Dysthymic disorder Lymphedema Other lymphedema documented in this encounter [facility] note* Diagnosis Pre-operative examination- Primary Preoperative examination, unspecified POSADAS (dyspnea on exertion) Other dyspnea and respiratory abnormality Obesity, morbid (HCC) Morbid obesity Lymphedema Other lymphedema GERD without esophagitis Esophageal reflux Essential hypertension Unspecified essential hypertension Chronic midline low back pain with right-sided sciatica Asthma, moderate persistent, poorly-controlled Unspecified asthma Snoring Other dyspnea and respiratory abnormality Anxiety and depression Dysthymic disorder Epigastric pain- Primary Abdominal pain, epigastric Abnormal esophagram Nonspecific (abnormal) findings on radiological and other examination of gastrointestinal tract Rectal bleeding Hemorrhage of rectum and anus documented in this encounter [facility] note* Diagnosis SOB (shortness of breath) Shortness of breath Pre-operative examination- Primary Preoperative examination, unspecified POSADAS (dyspnea on exertion) Other dyspnea and respiratory abnormality Obesity, morbid (HCC) Morbid obesity Lymphedema Other lymphedema GERD without esophagitis Esophageal reflux Essential hypertension Unspecified essential hypertension Chronic midline low back pain with right-sided sciatica Asthma, moderate persistent, poorly-controlled Unspecified asthma Snoring Other dyspnea and respiratory abnormality Anxiety and depression Dysthymic disorder documented in this encounter [facility] note* Diagnosis Pre-operative examination- Primary Preoperative examination, unspecified POSADAS (dyspnea on exertion) Other dyspnea and respiratory abnormality Obesity, morbid (HCC) Morbid obesity Lymphedema Other lymphedema GERD without esophagitis Esophageal reflux Essential hypertension Unspecified essential hypertension Chronic midline low back pain with right-sided sciatica Asthma, moderate persistent, poorly-controlled Unspecified asthma Snoring Other dyspnea and respiratory abnormality Anxiety and depression Dysthymic disorder Pre-op evaluation- Primary Preoperative examination, unspecified Obesity, Class III, BMI >= 40 Morbid obesity Lymphedema Other lymphedema Asthma, moderate persistent, poorly-controlled Unspecified asthma POSADAS (dyspnea on exertion) Other dyspnea and respiratory abnormality Snoring Other dyspnea and respiratory abnormality GERD without esophagitis Esophageal reflux Chronic midline low back pain with right-sided sciatica Anxiety and depression Dysthymic disorder Essential hypertension Unspecified essential hypertension Marijuana use Cannabis abuse, unspecified * Assessment & Plan Note - Susana Pizano PA-C - 01/30/2024 3:57 PM EDTAssociated Problem(s): Marijuana use Assessment: smokes nightly, advised to refrain week before surgery * Assessment & Plan Note - Susana Pizano PA-C - 01/30/2024 3:56 PM EDTAssociated Problem(s): Essential hypertension Assessment: BP today in clinic 140/94. Reports stopped lisinopril (ZESTRIL, PRINIVIL) due to SE andPCP aware * Assessment & Plan Note - Susana Pizano PA-C - 01/30/2024 3:55 PM EDTAssociated Problem(s): Anxiety and depression Assessment: Stable on RX, denies concerning symptoms * Assessment & Plan Note - Susana Pizano PA-C - 01/30/2024 3:55 PM EDTAssociated Problem(s): Chronic midline low back pain with right-sided sciatica Assessment: chronic, severe obesity, no surgeries, occasional APAP * Assessment & Plan Note - Susana Pizano PA-C - 01/30/2024 3:55 PM EDTAssociated Problem(s): GERD without esophagitis Assessment: omeprazole magnesium (PRILOSEC ORAL) prn * Assessment & Plan Note - Susana Pizano PA-C - 01/30/2024 3:55 PM EDTAssociated Problem(s): Snoring Assessment: Reports inability to tolerate sleep study due to body habitus, STOP BANG= 6 * Assessment & Plan Note - Susana Pizano PA-C - 01/30/2024 3:54 PM EDTAssociated Problem(s): POSADAS (dyspnea on exertion) Assessment: chronic, echo 07/22 with EF 55% Severe obesity with BMI 80+ Reports mets 2.75 * Assessment & Plan Note - Susana Pizano PA-C - 01/30/2024 3:53 PM EDTAssociated Problem(s): Asthma, moderate persistent, poorly-controlled Assessment: reports advair daily with almost nightly use of albuterol, CTAB 98%RA * Assessment & Plan Note - Susana Pizano PA-C - 01/30/2024 3:52 PM EDTAssociated Problem(s): Lymphedema Assessment: severe, especially bilateral thighs with plaque like sores on inner thighs. Photos taken * Assessment & Plan Note - Susana Pizano PA-C - 01/30/2024 3:52 PM EDTAssociated Problem(s): Obesity, Class III, BMI >= 40 Assessment: Body mass index is 84.68 kg/m . documented in this encounter [facility] note* Diagnosis Pre-operative examination- Primary Preoperative examination, unspecified POSADAS (dyspnea on exertion) Other dyspnea and respiratory abnormality Obesity, morbid (HCC) Morbid obesity Lymphedema Other lymphedema GERD without esophagitis Esophageal reflux Essential hypertension Unspecified essential hypertension Chronic midline low back pain with right-sided sciatica Asthma, moderate persistent, poorly-controlled Unspecified asthma Snoring Other dyspnea and respiratory abnormality Anxiety and depression Dysthymic disorder Pre-op evaluation- Primary Preoperative examination, unspecified Obesity, Class III, BMI >= 40 Morbid obesity Lymphedema Other lymphedema Asthma, moderate persistent, poorly-controlled Unspecified asthma POSADAS (dyspnea on exertion) Other dyspnea and respiratory abnormality Snoring Other dyspnea and respiratory abnormality GERD without esophagitis Esophageal reflux Chronic midline low back pain with right-sided sciatica Anxiety and depression Dysthymic disorder Essential hypertension Unspecified essential hypertension Marijuana use Cannabis abuse, unspecified Epigastric pain- Primary Abdominal pain, epigastric Abnormal esophagram Nonspecific (abnormal) findings on radiological and other examination of gastrointestinal tract Rectal bleeding Hemorrhage of rectum and anus documented in this encounter [facility] note* Diagnosis Pre-operative examination- Primary Preoperative examination, unspecified POSADAS (dyspnea on exertion) Other dyspnea and respiratory abnormality Obesity, morbid (HCC) Morbid obesity Lymphedema Other lymphedema GERD without esophagitis Esophageal reflux Essential hypertension Unspecified essential hypertension Chronic midline low back pain with right-sided sciatica Asthma, moderate persistent, poorly-controlled Unspecified asthma Snoring Other dyspnea and respiratory abnormality Anxiety and depression Dysthymic disorder Pre-op evaluation- Primary Preoperative examination, unspecified Obesity, Class III, BMI >= 40 Morbid obesity Lymphedema Other lymphedema Asthma, moderate persistent, poorly-controlled Unspecified asthma POSADAS (dyspnea on exertion) Other dyspnea and respiratory abnormality Snoring Other dyspnea and respiratory abnormality GERD without esophagitis Esophageal reflux Chronic midline low back pain with right-sided sciatica Anxiety and depression Dysthymic disorder Essential hypertension Unspecified essential hypertension Marijuana use Cannabis abuse, unspecified Helicobacter pylori infection- Primary Helicobacter pylori (H. pylori) documented in this encounter [facility] note* Diagnosis Pre-operative examination- Primary Preoperative examination, unspecified POSADAS (dyspnea on exertion) Other dyspnea and respiratory abnormality Obesity, morbid (HCC) Morbid obesity Lymphedema Other lymphedema GERD without esophagitis Esophageal reflux Essential hypertension Unspecified essential hypertension Chronic midline low back pain with right-sided sciatica Asthma, moderate persistent, poorly-controlled Unspecified asthma Snoring Other dyspnea and respiratory abnormality Anxiety and depression Dysthymic disorder Pre-op evaluation- Primary Preoperative examination, unspecified Obesity, Class III, BMI >= 40 Morbid obesity Lymphedema Other lymphedema Asthma, moderate persistent, poorly-controlled Unspecified asthma POSADAS (dyspnea on exertion) Other dyspnea and respiratory abnormality Snoring Other dyspnea and respiratory abnormality GERD without esophagitis Esophageal reflux Chronic midline low back pain with right-sided sciatica Anxiety and depression Dysthymic disorder Essential hypertension Unspecified essential hypertension Marijuana use Cannabis abuse, unspecified SOB (shortness of breath) Shortness of breath documented in this encounter [facility] note* Diagnosis Pre-operative examination- Primary Preoperative examination, unspecified POSADAS (dyspnea on exertion) Other dyspnea and respiratory abnormality Obesity, morbid (HCC) Morbid obesity Lymphedema Other lymphedema GERD without esophagitis Esophageal reflux Essential hypertension Unspecified essential hypertension Chronic midline low back pain with right-sided sciatica Asthma, moderate persistent, poorly-controlled (HCC) Unspecified asthma Snoring Other dyspnea and respiratory abnormality Anxiety and depression Dysthymic disorder Pre-op evaluation- Primary Preoperative examination, unspecified Obesity, Class III, BMI >= 40 Morbid obesity Lymphedema Other lymphedema Asthma, moderate persistent, poorly-controlled (HCC) Unspecified asthma POSADAS (dyspnea on exertion) Other dyspnea and respiratory abnormality Snoring Other dyspnea and respiratory abnormality GERD without esophagitis Esophageal reflux Chronic midline low back pain with right-sided sciatica Anxiety and depression Dysthymic disorder Essential hypertension Unspecified essential hypertension Marijuana use Cannabis abuse, unspecified SOB (shortness of breath) Shortness of breath documented in this encounter [facility] note* Diagnosis Pre-operative examination- Primary Preoperative examination, unspecified POSADAS (dyspnea on exertion) Other dyspnea and respiratory abnormality Obesity, morbid (HCC) Morbid obesity Lymphedema Other lymphedema GERD without esophagitis Esophageal reflux Essential hypertension Unspecified essential hypertension Chronic midline low back pain with right-sided sciatica Asthma, moderate persistent, poorly-controlled (HCC) Unspecified asthma Snoring Other dyspnea and respiratory abnormality Anxiety and depression Dysthymic disorder Pre-op evaluation- Primary Preoperative examination, unspecified Obesity, Class III, BMI >= 40 Morbid obesity Lymphedema Other lymphedema Asthma, moderate persistent, poorly-controlled (HCC) Unspecified asthma POSADAS (dyspnea on exertion) Other dyspnea and respiratory abnormality Snoring Other dyspnea and respiratory abnormality GERD without esophagitis Esophageal reflux Chronic midline low back pain with right-sided sciatica Anxiety and depression Dysthymic disorder Essential hypertension Unspecified essential hypertension Marijuana use Cannabis abuse, unspecified Asthma, moderate persistent, poorly-controlled (HCC) Unspecified asthma [facility] Diagnosis Pre-operative examination- Primary Preoperative examination, unspecified POSADAS (dyspnea on exertion) Other dyspnea and respiratory abnormality Obesity, morbid (HCC) Morbid obesity Lymphedema Other lymphedema GERD without esophagitis Esophageal reflux Essential hypertension Unspecified essential hypertension Chronic midline low back pain with right-sided sciatica Asthma, moderate persistent, poorly-controlled (HCC) Unspecified asthma Snoring Other dyspnea and respiratory abnormality Anxiety and depression Dysthymic disorder Pre-op evaluation- Primary Preoperative examination, unspecified Obesity, Class III, BMI >= 40 Morbid obesity Lymphedema Other lymphedema Asthma, moderate persistent, poorly-controlled (HCC) Unspecified asthma POSADAS (dyspnea on exertion) Other dyspnea and respiratory abnormality Snoring Other dyspnea and respiratory abnormality GERD without esophagitis Esophageal reflux Chronic midline low back pain with right-sided sciatica Anxiety and depression Dysthymic disorder Essential hypertension Unspecified essential hypertension Marijuana use Cannabis abuse, unspecified Essential hypertension- Primary Unspecified essential hypertension Lymphedema Other lymphedema Anxiety with depression BMI 70 and over, adult (HCC) Body Mass Index 70 and over, adult SOB (shortness of breath) Shortness of breath Asthma, moderate persistent, poorly-controlled (HCC) Unspecified asthma POSADAS (dyspnea on exertion) Other dyspnea and respiratory abnormality Snoring Other dyspnea and respiratory abnormality GERD without esophagitis Esophageal reflux Anxiety and depression Dysthymic disorder Venous stasis dermatitis Varicose veins of lower extremities with inflammation Screening for diabetes mellitus documented in this encounter [facility] note* Diagnosis Pre-operative examination- Primary Preoperative examination, unspecified POSADAS (dyspnea on exertion) Other dyspnea and respiratory abnormality Obesity, morbid (HCC) Morbid obesity Lymphedema Other lymphedema GERD without esophagitis Esophageal reflux Essential hypertension Unspecified essential hypertension Chronic midline low back pain with right-sided sciatica Asthma, moderate persistent, poorly-controlled (HCC) Unspecified asthma Snoring Other dyspnea and respiratory abnormality Anxiety and depression Dysthymic disorder Pre-op evaluation- Primary Preoperative examination, unspecified Obesity, Class III, BMI >= 40 Morbid obesity Lymphedema Other lymphedema Asthma, moderate persistent, poorly-controlled (HCC) Unspecified asthma POSADAS (dyspnea on exertion) Other dyspnea and respiratory abnormality Snoring Other dyspnea and respiratory abnormality GERD without esophagitis Esophageal reflux Chronic midline low back pain with right-sided sciatica Anxiety and depression Dysthymic disorder Essential hypertension Unspecified essential hypertension Marijuana use Cannabis abuse, unspecified Class 3 severe obesity due to excess calories with serious comorbidity and body mass index (BMI) greater than or equal to 70 in adult ([facility])- Primary BMI 70 and over, adult ([facility]) Body Mass Index 70 and over, adult CHRISTOPHER (obstructive sleep apnea) Obstructive sleep apnea (adult) (pediatric) Uncomplicated asthma, unspecified asthma severity, unspecified whether persistent ([facility]) Lymphedema Other lymphedema documented in this encounter [facility] note* Diagnosis Pre-operative examination- Primary Preoperative examination, unspecified POSADAS (dyspnea on exertion) Other dyspnea and respiratory abnormality Obesity, morbid ([facility]) Morbid obesity Lymphedema Other lymphedema GERD without esophagitis Esophageal reflux Essential hypertension Unspecified essential hypertension Chronic midline low back pain with right-sided sciatica Asthma, moderate persistent, poorly-controlled (HCC) Unspecified asthma Snoring Other dyspnea and respiratory abnormality Anxiety and depression Dysthymic disorder Pre-op evaluation- Primary Preoperative examination, unspecified Obesity, Class III, BMI >= 40 Morbid obesity Lymphedema Other lymphedema Asthma, moderate persistent, poorly-controlled (HCC) Unspecified asthma POSADAS (dyspnea on exertion) Other dyspnea and respiratory abnormality Snoring Other dyspnea and respiratory abnormality GERD without esophagitis Esophageal reflux Chronic midline low back pain with right-sided sciatica Anxiety and depression Dysthymic disorder Essential hypertension Unspecified essential hypertension Marijuana use Cannabis abuse, unspecified SOB (shortness of breath) Shortness of breath Essential hypertension- Primary Unspecified essential hypertension SOB (shortness of breath) Shortness of breath POSADAS (dyspnea on exertion) Other dyspnea and respiratory abnormality Morbid obesity with body mass index (BMI) greater than or equal to 70 in adult ([facility]) [facility] Diagnosis Pre-operative examination- Primary Preoperative examination, unspecified POSADAS (dyspnea on exertion) Other dyspnea and respiratory abnormality Obesity, morbid (HCC) Morbid obesity Lymphedema Other lymphedema GERD without esophagitis Esophageal reflux Essential hypertension Unspecified essential hypertension Chronic midline low back pain with right-sided sciatica Asthma, moderate persistent, poorly-controlled (HCC) Unspecified asthma Snoring Other dyspnea and respiratory abnormality Anxiety and depression Dysthymic disorder Pre-op evaluation- Primary Preoperative examination, unspecified Obesity, Class III, BMI >= 40 Morbid obesity Lymphedema Other lymphedema Asthma, moderate persistent, poorly-controlled (HCC) Unspecified asthma POSADAS (dyspnea on exertion) Other dyspnea and respiratory abnormality Snoring Other dyspnea and respiratory abnormality GERD without esophagitis Esophageal reflux Chronic midline low back pain with right-sided sciatica Anxiety and depression Dysthymic disorder Essential hypertension Unspecified essential hypertension Marijuana use Cannabis abuse, unspecified SOB (shortness of breath) Shortness of breath [facility] Diagnostic Procedure Only (Routine) - Authorized Specialty Diagnoses / Procedures Referred By Contac t Referred To Contact US IMAGING Diagnoses Abdominal pain, right upper quadrant Procedures US ABD RT UPPER QUADRANT US ABDOMINAL REAL TIME W/IMAGE LIMITED David Grissom MD [address] [place] [address] [facility] Referral ID Status Reason Start Date Expiration Date Visits Requested Visits Authorized [id number] Authorized Auto-Generat ed Referral 04/08/2022 05/08/2023 1 1 * Consult, Test, Treat (Routine) - Authorized Specialty Diagnoses / Procedures Referred By Contac t Referred To Contact Diagnoses Morbid obesity, BMI unknown (HCC) Procedures CONSULT [facility] OFFICE/OUTPATIENT [facility] 60-74 MINUTES David Grissom MD [address] [place] [address] Referral ID Status Reason Start Date Expiration Date Visits Requested Visits Authorized [id number] Authorized PCP Requested Referral 04/08/2022 04/08/2023 1 1 * Consult, Test, Treat (Routine) - Authorized Specialty Diagnoses / Procedures Referred By Contac t Referred To Contact Pulmonary and Critical Care Medicine Diagnoses SOB (shortness of breath) Procedures CONSULT TO PULM/CRITICAL CARE OFFICE/OUTPATIENT [facility] 60-74 MINUTES David Grissom MD [address] [place] [address] Referral ID Status Reason Start Date Expiration Date Visits Requested Visits Authorized [id number] Authorized PCP Requested Referral 04/08/2022 04/08/2023 1 1 * Consult, Test, Treat (Routine) - Authorized Specialty Diagnoses / Procedures Referred By Contac t Referred To Contact Cardiology Diagnoses SOB (shortness of breath) Procedures CONSULT TO CARDIOLOGY OFFICE/OUTPATIENT [facility] 60-[place] [address] [place] [address] Referral ID Status Reason Start Date Expiration Date Visits Requested Visits Authorized [id number] Authorized PCP Requested Referral 04/08/2022 04/08/2023 1 1 * Outpatient Procedure (Routine) - Authorized Specialty Diagnoses / Procedures Referred By Contac t Referred To Contact [facility] Diagnoses SOB (shortness of breath) Procedures ECG COMPLETE ECG ROUTINE ECG W/LEAST 12 LDS [place]/I&[place] [address] [place] [address] [facility] [place] [address] [place] [address] Referral ID Status Reason Start Date Expiration Date Visits Requested Visits Authorized [id number] Authorized Auto-Generat ed Referral 04/08/2022 04/08/2023 1 1 * Consult, Test, Treat (Routine) - Authorized Specialty Diagnoses / Procedures Referred By Contac t Referred To Contact General Surgery Diagnoses Rectal bleeding GERD without esophagitis Procedures CONSULT TO GENERAL SURGERY OFFICE/OUTPATIENT [facility] 60-74 MINUTES David Grissom MD [address] [place] [address] Referral ID Status Reason Start Date Expiration Date Visits Requested Visits Authorized [id number] Authorized PCP Requested Referral 04/08/2022 04/08/2023 1 1 * Outpatient Procedure (Routine) - Pending Review Specialty Diagnoses / Procedures Referred By Contac t Referred To Contact [facility] Diagnoses SOB (shortness of breath) Procedures LUNG VOLUMES David Grissom MD [address] [place] [address] [address] Referral ID Status Reason Start Date Expiration Date Visits Requested Visits Authorized [id number] Pending Review Auto-Generat ed Referral 04/08/2022 05/08/2023 1 1 * Outpatient Procedure (Routine) - Authorized Specialty Diagnoses / Procedures Referred By Contac t Referred To [facility] [place] Diagnoses SOB (shortness of breath) Procedures LUNG DIFFUSION CAPACITY (DLCO) DIFFUSING CAPACITY David Grissom MD [address] [place] [address] [address] Referral ID Status Reason Start Date Expiration Date Visits Requested Visits Authorized [id number] Authorized Auto-Generat ed Referral 04/08/2022 05/08/2023 1 1 * Outpatient Procedure (Routine) - Authorized Specialty Diagnoses / Procedures Referred By Contac t Referred To [facility] [place] Diagnoses SOB (shortness of breath) Procedures OXIMETRY WITH AMBULATION NONINVASIVE EAR/PULSE OXIMETRY David Doherty MD [address] [place] [address] [address] Referral ID Status Reason Start Date Expiration Date Visits Requested Visits Authorized [id number] Authorized Auto-Generat ed Referral 04/08/2022 05/08/2023 1 1 * Outpatient Procedure (Routine) - Authorized Specialty Diagnoses / Procedures Referred By Tia t Referred To Contact [facility] Diagnoses SOB (shortness of breath) Procedures SPIROMETRY - BASELINE AND POST DILATOR BRNCDILAT RSPSE SPMTRY PRE&POST-BRNCDILAT ADMN David Grissom MD [address] [place] [address] [facility] [place] [address] [place] [address] Referral ID Status Reason Start Date Expiration Date Visits Requested Visits Authorized [id number] Authorized Auto-Generat ed Referral 04/08/2022 05/08/2023 1 1 * Medication Prior Authorization - Closed Specialty Diagnoses / Procedures Referred By Tia mendoza Referred To Contact Diagnoses Lymphedema David Grissom MD [address] [place] [address] Referral ID Status Reason Start Date Expiration Date Visits Re quested Visits Authorized [id number] Closed 1 1 * Medication Prior Authorization - Closed Specialty Diagnoses / Procedures Referred By Tia mendoza Referred To Contact Diagnoses SOB (shortness of breath) David Grissom MD [address] [place] [address] Referral ID Status Reason Start Date Expiration Date Visits Re quested Visits Authorized [id number] Closed [address] [facility] for referral (narrative)* Outpatient Procedure (Routine) - Pending Review Specialty Diagnoses / Procedures Referred By Tia mendoza Referred To Contact [facility] Diagnoses Upper abdominal pain Abdominal wall bulge Diarrhea, unspecified type Procedures EGD DIAGNOSTIC EGD DIAGNOSTIC ESOPHAGOGASTRODUODENOSC OPY TRANSORAL DIAGNOSTIC Zafar Castrejon MD [address] [place] [address] [facility] [address] [address] Referral ID Status Reason Start Date Expiration Date Visits Requested Visits Authorized [id number] Pending Review Auto-Generat ed Referral 2 04/16/2023 1 1 * Outpatient Procedure (Routine) - Pending Review Specialty Diagnoses / Procedures Referred By Contac t Referred To Contact [facility] Diagnoses Rectal bleeding Diarrhea, unspecified type Procedures COLONOSCOPY DIAGNOSTIC COLONOSCOPY DIAGNOSTIC COLONOSCOPY FLX DX W/COLLJ SPEC WHEN PFRMD Zafar Castrejon MD [address] [place] [address] [facility] Disease [address] [address] Referral ID Status Reason Start Date Expiration Date Visits Requested Visits Authorized [id number] Pending Review Auto-Generat ed Referral 2 04/16/2023 [address] [facility] for referral (narrative)* Outpatient Procedure (Routine) - Pending Review Specialty Diagnoses / Procedures Referred By Contac t Referred To Contact [facility] Diagnoses Asthma, moderate persistent, poorly-controlled Procedures NITRIC OXIDE, EXHALED NITRIC OXIDE GAS DETERMINATION Kayleen Villalpando MD [address] [place] [address] [facility] [place] [address] [place] [address] Referral ID Status Reason Start Date Expiration Date Visits Requested Visits Authorized [id number] Pending Review Auto-Generat ed Referral 05/13/2022 06/12/2023 1 1 * Medication Prior Authorization - Closed Specialty Diagnoses / Procedures Referred By Tia t Referred To Contact Kayleen Villalpando MD [address] [place] [address] Referral ID Status Reason Start Date Expiration Date Visits Re quested Visits Authorized [id number] Closed 1 1 * Outpatient Procedure (Routine) - Pending Review Specialty Diagnoses / Procedures Referred By Contac t Referred To Contact [facility] Diagnoses Wheezing Procedures NITRIC OXIDE, EXHALED NITRIC OXIDE GAS DETERMINATION Kayleen Villalpando MD [address] [facility] [place] [place] [address] [address] Referral ID Status Reason Start Date Expiration Date Visits Requested Visits Authorized [id number] Pending Review Auto-Generat ed Referral 05/12/2022 06/11/2023 [address] [facility] for referral (narrative)* Outpatient Procedure (Routine) - Authorized Specialty Diagnoses / Procedures Referred By Contac t Referred To Contact [facility] [place] Diagnoses SOB (shortness of breath) POSADAS (dyspnea on exertion) Procedures ECHO ECHO TTHRC R-T 2D W/WOM-MODE COMPL SPEC&COLR Raman Travis MD [address] [place] [address] [address] Referral ID Status Reason Start Date Expiration Date Visits Requested Visits Authorized [id number] Authorized Auto-Generat ed Referral 06/14/2022 06/14/[address] [facility] for referral (narrative)* Outpatient Procedure (Routine) - Pending Review Specialty Diagnoses / Procedures Referred By Contac t Referred To Contact [facility] Diagnoses Asthma, moderate persistent, poorly-controlled Procedures NITRIC OXIDE, EXHALED NITRIC OXIDE GAS DETERMINATION Sofya Bower PA-C [address] [place] [address] [address] Referral ID Status Reason Start Date Expiration Date Visits Requested Visits Authorized [id number] Pending Review Auto-Generat ed Referral 06/28/2022 07/28/[address] [facility] for referral (narrative)* Diagnostic Procedure Only (Routine) - Closed Specialty Diagnoses / Procedures Referred By Contac t Referred To Contact US IMAGING Diagnoses Abdominal pain, right upper quadrant Procedures US ABD RT UPPER QUADRANT US ABDOMINAL REAL TIME W/IMAGE LIMITED David Grissom MD [address] [place] [address] [place] [address] Referral ID Status Reason Start Date Expiration Date V isits Requested Visits Authorized [id number] Closed Auto-Generate d Referral 04/08/2022 05/08/[address] [facility] for referral (narrative)* Diagnostic Procedure Only (Routine) - Authorized Specialty Diagnoses / Procedures Referred By Contac t Referred To Contact XR IMAGING Diagnoses Dysphagia, unspecified type Procedures XR ESOPHAGRAM RADIOLOGIC EXAM ESOPHAGUS SINGLE CONTRAST STUDY David Grissom MD [address] [place] [address] [place] [address] Referral ID Status Reason Start Date Expiration Date Visits Requested Visits Authorized [id number] Authorized Auto-Generat ed Referral 05/16/2023 06/14/[address] [facility] for referral (narrative)* Outpatient Procedure (Routine) - Pending Review Specialty Diagnoses / Procedures Referred By Contac t Referred To Contact [facility] Diagnoses SOB (shortness of breath) Procedures ECG COMPLETE ECG ROUTINE ECG W/LEAST 12 LDS W/I&R Osmany Mendiola DO [address] [address] [facility] [place] [address] [place] [address] Referral ID Status Reason Start Date Expiration Date Visits Requested Visits Authorized [id number] Pending Review Auto-Generat ed Referral 06/30/2023 06/29/2024 [address] [facility] for referral (narrative)* Diagnostic Procedure Only (Routine) - Closed Specialty Diagnoses / Procedures [facility] XR IM[facility] Diagnoses Dysphagia, unspecified type Procedures XR ESOPHAGRAM RADIOLOGIC EXAM ESOPHAGUS SINGLE CONTRAST STUDY David Grissom MD [address] [place] [address] [place] [address] Referral ID Status Reason Start Date Expiration Date V isits Requested Visits Authorized [id number] Closed Auto-Generate d Referral 05/16/2023 06/14/2024 [address] [facility] for referral (narrative)* Outpatient Procedure (Routine) - Pending Review Specialty Diagnoses / Procedures [facility] Diagnoses Rectal bleeding Procedures COLONOSCOPY DIAGNOSTIC COLONOSCOPY FLX DX W/COLLJ SPEC WHEN PFRMD Lorraine Aviles PA-C [address] [place] [address] [facility] [place] [address] [place] [address] Referral ID Status Reason Start Date Expiration Date Visits Requested Visits Authorized [id number] Pending Review Auto-Generat ed Referral 01/16/2024 01/15/2025 1 1 * Outpatient Procedure (Routine) - Pending Review Specialty Diagnoses / Procedures [facility] Diagnoses Epigastric pain Abnormal esophagram Procedures EGD DIAGNOSTIC ESOPHAGOGASTRODUODENOS COPY TRANSORAL DIAGNOSTIC Lorraine Aviles PA-C [address] [place] [address] [facility] [place] [address] [place] [address] Referral ID Status Reason Start Date Expiration Date Visits Requested Visits Authorized [id number] Pending Review Auto-Generat ed Referral 01/16/2024 01/15/2025 [address] [facility] for referral (narrative)* Outpatient Procedure (Routine) - Closed Specialty Diagnoses / Procedures Referred By Tia mendoza Referred To Contact Diagnoses Rectal bleeding Procedures COLONOSCOPY DIAGNOSTIC COLONOSCOPY FLX DX W/COLLJ SPEC WHEN PFRMD Lorraine Aviles PA-C [address] [place] [address] [facility] [address] [facility]. [place] [address] Referral ID Status Reason Start Date Expiration Date V isits Requested Visits Authorized [id number] Closed Auto-Generate d Referral 02/10/2024 05/10/2024 1 1 * Outpatient Procedure (Routine) - Closed Specialty Diagnoses / Procedures Referred By Tia mendoza Referred To Contact Diagnoses Epigastric pain Abnormal esophagram Procedures EGD DIAGNOSTIC ESOPHAGOGASTRODUODENOSCOPY TRANSORAL DIAGNOSTIC Lorraine Aviles PA-C [address] [place] [address] [facility] [address] [facility] [place] [address] Referral ID Status Reason Start Date Expiration Date V isits Requested Visits Authorized [id number] Closed Auto-Generate d Referral 02/10/2024 05/10/2024 [address] [facility] for visit Narrative* Outpatient Procedure (Routine) - Closed Specialty Diagnoses / Procedures Referred By Tia mendoza Referred [facility] Diagnoses SOB (shortness of breath) POSADAS (dyspnea on exertion) Procedures ECHO ECHO TTHRC R-T 2D W/WOM-MODE COMPL SPEC&COLR D Raman Martinez MD [address] [place] [address] [facility] [address] [place] [address] Referral ID Status Reason Start Date Expiration Date V isits Requested Visits Authorized [id number] Closed Auto-Generate d Referral 06/14/2022 06/14/2023 [address] [facility] for visit Narrative* Diagnostic Procedure Only (Routine) - Closed Specialty Diagnoses / Procedures Referred By Contac t Referred To Contact XR IMAGING Diagnoses Dysphagia, unspecified type Procedures XR ESOPHAGRAM RADIOLOGIC EXAM ESOPHAGUS SINGLE CONTRAST STUDY David Grissom MD [address] [place] [address] [place] [id number] Referral ID Status Reason Start Date Expiration Date V isits Requested Visits Authorized [id number] Closed Auto-Generate d Referral 05/16/2023 06/14/2024 [address] [facility] for visit Narrative* Outpatient Procedure (Routine) - Closed Specialty Diagnoses / Procedures Referred By Contac t Referred To Contact Diagnoses Rectal bleeding Procedures COLONOSCOPY DIAGNOSTIC COLONOSCOPY FLX DX W/COLLJ SPEC WHEN PFRMD Lorraine Aviles PA-C [address] [place] [address] [facility] [address] [facility] [place] [address] Referral ID Status Reason Start Date Expiration Date V isits Requested Visits Authorized [id number] Closed Auto-Generate d Referral 02/10/2024 05/10/2024 1 1 [facility] Summary Purpose Family History No Family History Records FoundNo Family History Records FoundNo Family History Records FoundNo Family History Records FoundNo Family History Records FoundNo Family History Records FoundNo Family History Records FoundNo Family History Records FoundNo Family History Records Found Advance Directives No Advanced Directives Records FoundNo Advanced Directives Records FoundNo Advanced Directives Records FoundNo Advanced Directives Records FoundNo Advanced Directives Records FoundNo Advanced Directives Records FoundNo Advanced Directives Records FoundNo Advanced Directives Records FoundNo Advanced Directives Records Found Reason for Referral Specialty Diagnoses / Procedures Referred By Contac t Referred To Contact Gastroenterology Diagnoses Abnormality of esophagus Procedures CONSULT TO GASTROENTEROLOGY OFFICE/OUTPATIENT NEW HIGH MDM 60 MINUTES Marisabel Ramirez, WOOD CUT ENGRAVER.MARKET RESEARCH SENIOR PROJECT MANAGER [address] [place] [address] Referral ID Status Reason Start Date Expiration Date Visits Requested Visits Authorized [id number] Authorized PCP Requested Referral 07/04/2023 07/03/2024 1 1 Specialty Diagnoses / Procedures Referred By Contac t Referred To Contact [facility] Diagnoses Lymphedema Procedures PT REHAB FOLLOW UP ORDER THERAPEUTIC EXERCISES RE, EA 15 MIN. Rebeca Wahl, PT [facility] [place] [address] [place] [address] Referral ID Status Reason Start Date Expiration Date Visits Requested Visits Authorized [id number] Pending Review PCP Requested Referral Auto-Generate d Referral 08/22/2023 11/20/2023 1 1 Additional Source Comments (unrecognized sect ion and content) No Status Records FoundNo Status Records FoundNo Status Records FoundNo Status Records FoundNo Status Records FoundNo Status Records FoundNo Status Records FoundNo Status Records FoundNo Status Records Found INFORMATION SOURCE (unrecogn ized section and content) DATE CREATED AUTHOR 10/20/2017 [facility] DATE CREATED AUTHOR AUTHOR'S ORGANIZ ATION 11/03/2017 [facility] DATE CREATED AUTHOR AUTHOR'S ORGANIZ ATION 12/03/2018 [facility] DATE CREATED AUTHOR AUTHOR'S ORGANIZ ATION 12/03/2018 [facility] DATE CREATED AUTHOR AUTHOR'S ORGANIZ ATION 07/04/2023 [facility] DATE CREATED AUTHOR AUTHOR'S ORGANIZ ATION 01/31/2024 [facility] DATE CREATED AUTHOR AUTHOR'S ORGANIZ ATION 02/19/2024 [facility] DATE CREATED AUTHOR AUTHOR'S ORGANIZ ATION 11/12/2024 [facility] DATE CREATED AUTHOR AUTHOR'S ORGANIZ ATION 01/07/2025 [facility] Source Comments (unrecognize d section and content) In the event this informatio n is protected by the Federal Confidentiality of Alcohol and Drug Abuse Patient Records regulations: The Federal rules restrict any use of the information to criminally investigate or prosecute any alcohol or drug abuse patient.[facility] the event this information is protected by the Federal Confidentiality of Alcohol and Drug Abuse Patient Records regulations: The Federal rules restrict any use of the information to criminally investigate or prosecute any alcohol or drug abuse patient.[facility] HospitalIn the event this information is protected by the Federal Confidentiality of Alcohol and Drug Abuse Patient Records regulations: The Federal rules restrict any use of the information to criminally investigate or prosecute any alcohol or drug abuse patient.[facility] HospitalIn the event this information is protected by the Federal Confidentiality of Alcohol and Drug Abuse Patient Records regulations: The Federal rules restrict any use of the information to criminally investigate or prosecute any alcohol or drug abuse patient.[facility] HospitalIn the event this information is protected by the Federal Confidentiality of Alcohol and Drug Abuse Patient Records regulations: The Federal rules restrict any use of the information to criminally investigate or prosecute any alcohol or drug abuse patient.[facility] HospitalIn the event this information is protected by the Federal Confidentiality of Alcohol and Drug Abuse Patient Records regulations: The Federal rules restrict any use of the information to criminally investigate or prosecute any alcohol or drug abuse patient.[facility] HospitalIn the event this information is protected by the Federal Confidentiality of Alcohol and Drug Abuse Patient Records regulations: The Federal rules restrict any use of the information to criminally investigate or prosecute any alcohol or drug abuse patient.[facility] HospitalIn the event this information is protected by the Federal Confidentiality of Alcohol and Drug Abuse Patient Records regulations: The Federal rules restrict any use of the information to criminally investigate or prosecute any alcohol or drug abuse patient.[facility] HospitalIn the event this information is protected by the Federal Confidentiality of Alcohol and Drug Abuse Patient Records regulations: The Federal rules restrict any use of the information to criminally investigate or prosecute any alcohol or drug abuse patient.[facility] HospitalIn the event this information is protected by the Federal Confidentiality of Alcohol and Drug Abuse Patient Records regulations: The Federal rules restrict any use of the information to criminally investigate or prosecute any alcohol or drug abuse patient.[facility] HospitalIn the event this information is protected by the Federal Confidentiality of Alcohol and Drug Abuse Patient Records regulations: The Federal rules restrict any use of the information to criminally investigate or prosecute any alcohol or drug abuse patient.[facility] HospitalIn the event this information is protected by the Federal Confidentiality of Alcohol and Drug Abuse Patient Records regulations: The Federal rules restrict any use of the information to criminally investigate or prosecute any alcohol or drug abuse patient.[facility] HospitalIn the event this information is protected by the Federal Confidentiality of Alcohol and Drug Abuse Patient Records regulations: The Federal rules restrict any use of the information to criminally investigate or prosecute any alcohol or drug abuse patient.[facility] HospitalIn the event this information is protected by the Federal Confidentiality of Alcohol and Drug Abuse Patient Records regulations: The Federal rules restrict any use of the information to criminally investigate or prosecute any alcohol or drug abuse patient.[facility] HospitalIn the event this information is protected by the Federal Confidentiality of Alcohol and Drug Abuse Patient Records regulations: The Federal rules restrict any use of the information to criminally investigate or prosecute any alcohol or drug abuse patient.[facility] HospitalIn the event this information is protected by the Federal Confidentiality of Alcohol and Drug Abuse Patient Records regulations: The Federal rules restrict any use of the information to criminally investigate or prosecute any alcohol or drug abuse patient.[facility] HospitalIn the event this information is protected by the Federal Confidentiality of Alcohol and Drug Abuse Patient Records regulations: The Federal rules restrict any use of the information to criminally investigate or prosecute any alcohol or drug abuse patient.[facility] HospitalIn the event this information is protected by the Federal Confidentiality of Alcohol and Drug Abuse Patient Records regulations: The Federal rules restrict any use of the information to criminally investigate or prosecute any alcohol or drug abuse patient.[facility] HospitalIn the event this information is protected by the Federal Confidentiality of Alcohol and Drug Abuse Patient Records regulations: The Federal rules restrict any use of the information to criminally investigate or prosecute any alcohol or drug abuse patient.[facility] HospitalIn the event this information is protected by the Federal Confidentiality of Alcohol and Drug Abuse Patient Records regulations: The Federal rules restrict any use of the information to criminally investigate or prosecute any alcohol or drug abuse patient.[facility] HospitalIn the event this information is protected by the Federal Confidentiality of Alcohol and Drug Abuse Patient Records regulations: The Federal rules restrict any use of the information to criminally investigate or prosecute any alcohol or drug abuse patient.[facility] HospitalIn the event this information is protected by the Federal Confidentiality of Alcohol and Drug Abuse Patient Records regulations: The Federal rules restrict any use of the information to criminally investigate or prosecute any alcohol or drug abuse patient.[facility] HospitalIn the event this information is protected by the Federal Confidentiality of Alcohol and Drug Abuse Patient Records regulations: The Federal rules restrict any use of the information to criminally investigate or prosecute any alcohol or drug abuse patient.[facility] HospitalIn the event this information is protected by the Federal Confidentiality of Alcohol and Drug Abuse Patient Records regulations: The Federal rules restrict any use of the information to criminally investigate or prosecute any alcohol or drug abuse patient.[facility] HospitalIn the event this information is protected by the Federal Confidentiality of Alcohol and Drug Abuse Patient Records regulations: The Federal rules restrict any use of the information to criminally investigate or prosecute any alcohol or drug abuse patient.[facility] HospitalIn the event this information is protected by the Federal Confidentiality of Alcohol and Drug Abuse Patient Records regulations: The Federal rules restrict any use of the information to criminally investigate or prosecute any alcohol or drug abuse patient.[facility] HospitalIn the event this information is protected by the Federal Confidentiality of Alcohol and Drug Abuse Patient Records regulations: The Federal rules restrict any use of the information to criminally investigate or prosecute any alcohol or drug abuse patient.[facility] HospitalIn the event this information is protected by the Federal Confidentiality of Alcohol and Drug Abuse Patient Records regulations: The Federal rules restrict any use of the information to criminally investigate or prosecute any alcohol or drug abuse patient.[facility] HospitalIn the event this information is protected by the Federal Confidentiality of Alcohol and Drug Abuse Patient Records regulations: The Federal rules restrict any use of the information to criminally investigate or prosecute any alcohol or drug abuse patient.[facility] HospitalIn the event this information is protected by the Federal Confidentiality of Alcohol and Drug Abuse Patient Records regulations: The Federal rules restrict any use of the information to criminally investigate or prosecute any alcohol or drug abuse patient.[facility] HospitalIn the event this information is protected by the Federal Confidentiality of Alcohol and Drug Abuse Patient Records regulations: The Federal rules restrict any use of the information to criminally investigate or prosecute any alcohol or drug abuse patient.[facility] HospitalIn the event this information is protected by the Federal Confidentiality of Alcohol and Drug Abuse Patient Records regulations: The Federal rules restrict any use of the information to criminally investigate or prosecute any alcohol or drug abuse patient.[facility] HospitalIn the event this information is protected by the Federal Confidentiality of Alcohol and Drug Abuse Patient Records regulations: The Federal rules restrict any use of the information to criminally investigate or prosecute any alcohol or drug abuse patient.[facility] HospitalIn the event this information is protected by the Federal Confidentiality of Alcohol and Drug Abuse Patient Records regulations: The Federal rules restrict any use of the information to criminally investigate or prosecute any alcohol or drug abuse patient.[facility] HospitalIn the event this information is protected by the Federal Confidentiality of Alcohol and Drug Abuse Patient Records regulations: The Federal rules restrict any use of the information to criminally investigate or prosecute any alcohol or drug abuse patient.[facility] HospitalIn the event this information is protected by the Federal Confidentiality of Alcohol and Drug Abuse Patient Records regulations: The Federal rules restrict any use of the information to criminally investigate or prosecute any alcohol or drug abuse patient.[facility] HospitalIn the event this information is protected by the Federal Confidentiality of Alcohol and Drug Abuse Patient Records regulations: The Federal rules restrict any use of the information to criminally investigate or prosecute any alcohol or drug abuse patient.[facility] HospitalIn the event this information is protected by the Federal Confidentiality of Alcohol and Drug Abuse Patient Records regulations: The Federal rules restrict any use of the information to criminally investigate or prosecute any alcohol or drug abuse patient.[facility] HospitalIn the event this information is protected by the Federal Confidentiality of Alcohol and Drug Abuse Patient Records regulations: The Federal rules restrict any use of the information to criminally investigate or prosecute any alcohol or drug abuse patient.[facility] ClinicIn the event this information is protected by the Federal Confidentiality of Alcohol and Drug Abuse Patient Records regulations: The Federal rules restrict any use of the information to criminally investigate or prosecute any alcohol or drug abuse patient.[facility] HospitalIn the event this information is protected by the Federal Confidentiality of Alcohol and Drug Abuse Patient Records regulations: The Federal rules restrict any use of the information to criminally investigate or prosecute any alcohol or drug abuse patient.[facility] HospitalIn the event this information is protected by the Federal Confidentiality of Alcohol and Drug Abuse Patient Records regulations: The Federal rules restrict any use of the information to criminally investigate or prosecute any alcohol or drug abuse patient.[facility] HospitalIn the event this information is protected by the Federal Confidentiality of Alcohol and Drug Abuse Patient Records regulations: The Federal rules restrict any use of the information to criminally investigate or prosecute any alcohol or drug abuse patient.[facility] HospitalIn the event this information is protected by the Federal Confidentiality of Alcohol and Drug Abuse Patient Records regulations: The Federal rules restrict any use of the information to criminally investigate or prosecute any alcohol or drug abuse patient.[facility] HospitalIn the event this information is protected by the Federal Confidentiality of Alcohol and Drug Abuse Patient Records regulations: The Federal rules restrict any use of the information to criminally investigate or prosecute any alcohol or drug abuse patient.[facility] HospitalIn the event this information is protected by the Federal Confidentiality of Alcohol and Drug Abuse Patient Records regulations: The Federal rules restrict any use of the information to criminally investigate or prosecute any alcohol or drug abuse patient.[facility] HospitalIn the event this information is protected by the Federal Confidentiality of Alcohol and Drug Abuse Patient Records regulations: The Federal rules restrict any use of the information to criminally investigate or prosecute any alcohol or drug abuse patient.[facility] HospitalIn the event this information is protected by the Federal Confidentiality of Alcohol and Drug Abuse Patient Records regulations: The Federal rules restrict any use of the information to criminally investigate or prosecute any alcohol or drug abuse patient.[facility] Reason for Visit (unrecogniz ed section and content) Reason Onset Date Comments Follow Up Immunizations 04/08/2022 Flu vaccination Reason Comments Results Reason Comments Consult GERD and Rectal Blee ding Specialty Diagnoses / Procedures Referred By Contac t Referred To Contact General Surgery Diagnoses Upper abdominal pain Abdominal wall bulge Procedures CONSULT TO GENERAL SURGERY OFFICE/OUTPATIENT [facility] MDM 60-74 MINUTES Verónica Sandoval APRN.ROLLED GOLD PLATER [address] [place] [address] Referral ID Status Reason Start Date Expiration Date V isits Requested Visits Authorized [id number] Closed PCP Requested Referral 06/24/2021 06/24/2022 1 1 Reason Comments Spirometry Specialty Diagnoses / Procedures Referred By Contac t Referred To Contact [facility] Diagnoses Wheezing Procedures NITRIC OXIDE, EXHALED NITRIC OXIDE GAS DETERMINATION Kayleen Villalpando MD [address] [place] [address] [facility] [place] [address] [place] [address] Referral ID Status Reason Start Date Expiration Date Visits Requested Visits Authorized [id number] Pending Review Auto-Generat ed Referral 05/12/2022 06/11/2023 1 1 Specialty Diagnoses / Procedures Referred By Contac t Referred To Contact [facility] Diagnoses SOB (shortness of breath) Procedures LUNG DIFFUSION CAPACITY (DLCO) DIFFUSING CAPACITY David Grissom MD [address] [place] [address] [facility] [place] [address] [place] [address] Referral ID Status Reason Start Date Expiration Date V isits Requested Visits Authorized [id number] Closed Auto-Generate d Referral 04/08/2022 05/08/2023 1 1 Specialty Diagnoses / Procedures Referred By Contac t Referred To Contact [facility] Diagnoses SOB (shortness of breath) Procedures LUNG VOLUMES David Grissom MD [address] [place] [address] [facility] [place] [address] [place] [address] Referral ID Status Reason Start Date Expiration Date V isits Requested Visits Authorized [id number] Closed Auto-Generate d Referral 04/08/2022 05/01/2022 1 1 Reason Comments New Patient Dyspnea Specialty Diagnoses / Procedures Referred By Contac t Referred To Contact [facility]monary [facility] Critical Care Medicine Diagnoses SOB (shortness of breath) Procedures CONSULT TO PULM/CRITICAL CARE OFFICE/OUTPATIENT [facility] 60-74 MINUTES David Grissom MD [facility] [place] [address] Referral ID Status Reason Start Date Expiration Date V isits Requested Visits Authorized [id number] Closed PCP Requested Referral 04/08/2022 04/08/2023 1 1 Reason Comments Consult Specialty Diagnoses / Procedures Referred By Contac t Referred To Contact Cardiology Diagnoses SOB (shortness of breath) Procedures CONSULT TO CARDIOLOGY OFFICE/OUTPATIENT [facility] 60-74 MINUTES David Grissom MD [address] [place] [address] Referral ID Status Reason Start Date Expiration Date V isits Requested Visits Authorized [id number] Closed PCP Requested Referral 04/08/2022 04/08/2023 1 1 Specialty Diagnoses / Procedures Referred By Contac t Referred To Contact [facility] Diagnoses Asthma, moderate persistent, poorly-controlled Procedures NITRIC OXIDE, EXHALED NITRIC OXIDE GAS DETERMINATION Kayleen Villalpando MD [address] [place] [address] [facility] [place] [address] [place] [address] Referral ID Status Reason Start Date Expiration Date V isits Requested Visits Authorized [id number] Closed Auto-Generate d Referral 05/13/2022 06/12/2023 1 1 Reason Comments Established Patient 6 week follow up Reason Comments Appointment Reason Comments Consult Reason Onset Date Comments Refill Request 11/01/2022 Reason Comments Radiology US Specialty Diagnoses / Procedures Referred By Contac t Referred To Contact US IMAGING Diagnoses Abdominal pain, right upper quadrant Procedures US ABD RT UPPER QUADRANT US ABDOMINAL REAL TIME W/IMAGE LIMITED David Grissom MD [address] [place] [address] [place] [id number] Referral ID Status Reason Start Date Expiration Date V isits Requested Visits Authorized [id number] Closed Auto-Generate d Referral 04/08/2022 05/08/2023 1 1 Reason Comments Orders Reason Comments CARD New Patient Consult Shortness of br eath and Dyspnea on Exertion. Specialty Diagnoses / Procedures Referred By Contac t Referred To Contact Cardiology Diagnoses SOB (shortness of breath) POSADAS (dyspnea on exertion) Procedures CONSULT TO CARDIOLOGY OFFICE/OUTPATIENT NEW HIGH MDM 60-74 MINUTES David Grissom MD [address] [place] [id number] Referral ID Status Reason Start Date Expiration Date V isits Requested Visits Authorized [id number] Closed PCP Requested Referral 04/13/2023 04/12/2024 1 1 Reason Comments Results Reason Comments Follow Up Cough Reason Comments PT Progress Note Specialty Diagnoses / Procedures Referred By Contac t Referred To Contact [facility] Diagnoses Lymphedema Procedures PT REHAB FOLLOW UP ORDER THERAPEUTIC EXERCISES RE, EA 15 MIN. David Grissom MD [address] [place] [address] [facility] [address] [address] Referral ID Status Reason Start Date Expiration Date Visits Requested Visits Authorized [id number] Authorized PCP Requested Referral Auto-Generate d Referral 05/25/2023 08/24/2023 24 24 Reason Comments Refill Request Reason Comments Follow Up Reason Onset Date Comments Refill Request 11/02/2023 Reason Onset Date Comments Refill Request 01/11/2024 Reason Comments Abnormality of Esophagus Diarrhea Blood in stool Specialty Diagnoses / Procedures Referred By Contac t Referred To Contact Gastroenterology Diagnoses Abnormality of esophagus Procedures CONSULT TO GASTROENTEROLOGY OFFICE/OUTPATIENT [facility] 60 MINUTES Marisabel Ramirez APRN.CNP [address] [place] [address] Referral ID Status Reason Start Date Expiration Date V isits Requested Visits Authorized [id number] Closed PCP Requested Referral 07/04/2023 07/03/2024 1 1 Reason Comments Scheduling Reason Comments Anesthesia Consult Reason Onset Date Comments Refill Request 06/25/2024 Reason Onset Date Comments Refill Request 08/31/2024 Reason Comments 6 Month Exam Reason Comments Obesity Specialty Diagnoses / Procedures Referred By Contac t Referred To Contact Diagnoses Obesity, morbid (HCC) Procedures CONSULT [facility] OFFICE/OUTPATIENT [facility] 60 MINUTES David Grissom MD [address] [place] [address] Phone: tel: fax: Referral ID Status Reason Start Date Expiration Date V isits Requested Visits Authorized [id number] Closed PCP Requested Referral 10/16/2024 10/16/2025 1 1 Reason Onset Date Comments Refill Request 12/10/2024 Reason Comments PSG Check In Reason Onset Date Comments Refill Request 01/10/2025 Care Teams (unrecognized sec tion and content) Charge Account Identification Clerk Relationship Specialty Start Date End Date David Grissom MD [address] [place], [place] [id number] PCP - General Family Medicine 08/15/17 Charge Account Identification Clerk Relationship Specialty Start Date End Date David Grissom MD [address] [place], [place] [id number] PCP - General Family Medicine 08/15/17 Charge Account Identification Clerk Relationship Specialty Start Date End Date David Grissom MD [address] [place], [place] [id number] PCP - General Family Medicine 08/15/17 Charge Account Identification Clerk Relationship Specialty Start Date End Date David Grissom MD [address] [facility] [place] [address] PCP - General Family Medicine 08/15/17 Charge Account Identification Clerk Relationship Specialty Start Date End Date David Grissom MD [address] [facility] [place] [address] PCP - General Family Medicine 08/15/17 Charge Account Identification Clerk Relationship Specialty Start Date End Date David Grissom MD [address] [facility] [place] [address] PCP - General Family Medicine 08/15/17 Charge Account Identification Clerk Relationship Specialty Start Date End Date David Grissom MD [address] [facility] [place] [address] PCP - General Family Medicine 08/15/17 Charge Account Identification Clerk Relationship Specialty Start Date End Date David Grissom MD [address] [facility] [place] [address] PCP - General Family Medicine 08/15/17 Charge Account Identification Clerk Relationship Specialty Start Date End Date David Grissom MD [address] [facility] [place] [address] PCP - General Family Medicine 08/15/17 Charge Account Identification Clerk Relationship Specialty Start Date End Date David Grissom MD [address] [facility] [place] [address] PCP - General Family Medicine 08/15/17 Charge Account Identification Clerk Relationship Specialty Start Date End Date David Grissom MD [address] [facility] [place] [address] PCP - General Family Medicine 08/15/17 Charge Account Identification Clerk Relationship Specialty Start Date End Date David Grissom MD [address] [facility] [place] [address] PCP - General Family Medicine 08/15/17 Charge Account Identification Clerk Relationship Specialty Start Date End Date David Grissom MD [address] [facility] [place] [address] PCP - General Family Medicine 08/15/17 Charge Account Identification Clerk Relationship Specialty Start Date End Date David Grissom MD [address] [facility] [place] [address] PCP - General Family Medicine 08/15/17 Charge Account Identification Clerk Relationship Specialty Start Date End Date David Grissom MD [address] [facility] [place] [address] PCP - General Family Medicine 08/15/17 Charge Account Identification Clerk Relationship Specialty Start Date End Date David Grissom MD [address] [facility] [place] [address] PCP - General Family Medicine 08/15/17 Charge Account Identification Clerk Relationship Specialty Start Date End Date David Grissom MD [address] [facility] [place] [address] PCP - General Family Medicine 08/15/17 Charge Account Identification Clerk Relationship Specialty Start Date End Date David Grissom MD [address] [facility] [place] [address] PCP - General Family Medicine 08/15/17 Charge Account Identification Clerk Relationship Specialty Start Date End Date David Grissom MD [address] [facility] [place] [address] PCP - General Family Medicine 08/15/17 Charge Account Identification Clerk Relationship Specialty Start Date End Date David Grissom MD [address] [facility] [place] [address] PCP - General Family Medicine 08/15/17 Charge Account Identification Clerk Relationship Specialty Start Date End Date David Grissom MD [address] [place] [address] PCP - General Family Medicine 08/15/17 Charge Account Identification Clerk Relationship Specialty Start Date End Date David Grissom MD [address] [place] [address] PCP - General Family Medicine 08/15/17 Charge Account Identification Clerk Relationship Specialty Start Date End Date David Grissom MD [address] [place] [address] PCP - General Family Medicine 08/15/17 Charge Account Identification Clerk Relationship Specialty Start Date End Date David Grissom MD [address] [place] [address] PCP - General Family Medicine 08/15/17 Charge Account Identification Clerk Relationship Specialty Start Date End Date David Grissom MD [address] [place] [address] PCP - General Family Medicine 08/15/17 Charge Account Identification Clerk Relationship Specialty Start Date End Date David Grissom MD [address] [place] [address] PCP - General Family Medicine 08/15/17 Charge Account Identification Clerk Relationship Specialty Start Date End Date David Grissom MD [address] [place], [place] [address] PCP - General Family Medicine 08/15/17 Charge Account Identification Clerk Relationship Specialty Start Date End Date David Grissom MD [address] [place] [address] PCP - General Family Medicine 08/15/17 Charge Account Identification Clerk Relationship Specialty Start Date End Date David Grissom MD [address] [place], [place] [address] PCP - General Family Medicine 08/15/17 Charge Account Identification Clerk Relationship Specialty Start Date End Date David Grissom MD [address] [place], [place] [phone] PCP - General Family Medicine 08/15/17 Charge Account Identification Clerk Relationship Specialty Start Date End Date David Grissom MD [address] [place], [place] [address] PCP - General Family Medicine 08/15/17 Charge Account Identification Clerk Relationship Specialty Start Date End Date David Grissom MD [address] [place] [address] PCP - General Family Medicine 08/15/17 Charge Account Identification Clerk Relationship Specialty Start Date End Date David Grissom MD [address] [place], [place] [address] PCP - General Family Medicine 08/15/17 Concepcion Mckeon APRN.[employer] [address] [place] [address] Chemical Supervisor Family Medicine 04/09/24 Marisabel Ramirez APRN.[employer] G[employer] [address] [place], [place] [address] Chemical Supervisor Family Medicine 04/09/24 Charge Account Identification Clerk Relationship Specialty Start Date End Date David Grissom MD [address] [place], [place] [address] PCP - General Family Medicine 08/15/17 Concepcion Mckeon, JEMAL.[employer]ED GOLD PLATER [address] [facility] [place] [address] Chemical Supervisor Family Medicine 04/09/24 Marisabel Ramirez APRN.[employer] G[employer] [address] [facility] [place] [address] Chemical Supervisor Family Medicine 04/09/24 Charge Account Identification Clerk Relationship Specialty Start Date End Date David Grissom MD [address] [facility] [place] [address] PCP - General Family Medicine 08/15/17 Concepcion Mckeon, JEMAL.[employer] G[employer]ATER [address] [facility] [place] [address] Chemical Supervisor Family Medicine 04/09/24 Marisabel Ramirez WOOD CUT ENGRAVER.[employer] G[employer] [address] [facility] [place] [address] Chemical Supervisor Family [facility] 04/09/24 Charge Account Identification Clerk Relationship Specialty Start Date End Date David Grissom MD [address] [facility] [place] [address] PCP - General Family Medicine 08/15/17 Concepcion Mckeon, WOOD CUT ENGRAVER.RO[employer]ED GOLD PLATER [address] [facility] [place] [address] Chemical Supervisor Family Medicine 04/09/24 Marisabel Ramirez APRN.[employer] G[employer]ATER [address] [facility] [place] [address] Chemical Supervisor Family Medicine 04/09/24 Charge Account Identification Clerk Relationship Specialty Start Date End Date David Grissom MD [address] [facility] [place] [address] PCP - General Family Medicine 08/15/17 Concepcion Mckeon APRN.[employer] GOLD PLATER [address] [place] [address] Chemical Supervisor Family Medicine 04/09/24 Marisabel Ramirez APRN.[employer] G[employer]ATER [address] [place] [address] Chemical Supervisor Family Medicine 04/09/24 Charge Account Identification Clerk Relationship Specialty Start Date End Date David Grissom MD [address] [place] [address] PCP - General Family Medicine 08/15/17 Concepcion Mckeon APRN.[employer] G[employer]ATER [address] [place] [address] Chemical Supervisor Family Medicine 04/09/24 Marisabel Ramirez APRN.[employer] GOLD [employer]ATER [address] [place] [address] Chemical Supervisor Family [facility] 04/09/24 Charge Account Identification Clerk Relationship Specialty Start Date End Date David Grissom MD [address] [place] [address] PCP - General Family Medicine 08/15/17 Concepcion Mckeon APRN.RO[employer]ED GOLD PLATER [address] [place] [address] Chemical Supervisor Family Medicine 04/09/24 Marisabel Ramirez APRN.RO[employer] GOLD [employer]ATER [address] [place] [address] Chemical Supervisor Family Medicine 04/09/24 Charge Account Identification Clerk Relationship Specialty Start Date End Date David Grissom MD [address] [facility] [place] [address] PCP - General Family Medicine 08/15/17 Concepcion Mckeon APRN.RO[employer]ED GOLD PLATER [address] [facility] [place] [address] Chemical Supervisor Family Medicine 04/09/24 Marisabel Ramirez APRN.RO[employer]ED GOLD PLATER [address] [facility] [place] [address] [facility] 04/09/24 Charge Account Identification Clerk Relationship Specialty Start Date End Date David Grissom MD [address] [facility] [place] [address] PCP - General Family Medicine 08/15/17 Concepcion Mckeon, WOOD CUT ENGRAVER.ROLLED GOLD PLATER [address] [facility] [place] [address] Chemical Supervisor Family Medicine 04/09/24 Marisabel Ramirez WOOD CUT ENGRAVER.ROLLED GOLD PLATER [address] [facility] [place] [address] Chemical Supervisor Family Medicine 04/09/24 Charge Account Identification Clerk Relationship Specialty Start Date End Date David Grissom MD [address] [facility] [place] [address] PCP - General Family Medicine 08/15/17 Concepcion Mckeon WOOD CUT ENGRAVER.ROLLED GOLD PLATER [address] [facility] [place] [address] Chemical Supervisor Family Medicine 04/09/24 Marisabel Ramirez APRN.[facility] [address] [place] [address] [facility] 04/09/24 FOR RECORDS PERTAINING TO PATIENTS WHO ARE OR HAVE BEEN ENROLLED IN A CHEMICAL DEPENDENCY/SUBSTANCEABUSE PROGRAM, SOME INFORMATION MAY BE OMITTED. This clinical summary was aggregated from multiple sources. Caution should be exercised in using it in the provision of clinical care. This summary normalizes information from multiple sources, and as a consequence, information in this document may materially change the coding, format and clinical context of patient data. In addition, data may be omitted in some cases. CLINICAL DECISIONS SHOULD BE BASED ON THE PRIMARY CLINICAL RECORDS. [facility], [facility]. provides no warranty or guarantee of the accuracy or completeness of information in this document.
[2025-01-13 17:21] LABS: Hematocrit 40.2 % (40-54); Hemoglobin 13.1 g/dL (13.0-16.5); Mean Corp Hgb Conc 32.6 g/dL (32-36); Mean Corpuscular Volume 85.5 fL (80-94); Mean Platelet Vol. 10.6 fl (6.2-12.0); Platelet Count 274 K/mm3 (150-450); RBC Distribution Width CV 13.6 % (11.6-14.6); RBC Distribution Width SD 43.1 fl (35.1-43.9); Red Blood Count 4.70 M/mm3 (4.6-6.2); White Blood Count 12.3 K/mm3 (4.4-11.0)
[2025-01-13 17:26] LABS: D-Dimer Quantitative (DVT/PE) 0.73 FEU/ug/m (0.27-0.49)
[2025-01-13 17:28] VITALS: BP 125/72; PULSE 93; RESP 16; TEMP 37.3; O2SAT 95
--- NOTE | 2025-01-13 17:30 | CT_ITS ---
PROCEDURE: CTA CHEST W/ CONTRAST 01/13/2025 REASON FOR EXAM: SOB, ELEVATED D-DIMER TECHNIQUE: Procedure Code: [id number] Modality: CT Procedure: CTA CHEST W/WO CONTRAST Axial CTA images obtained of the chest after the administration of intravenous contrast. MIP reconstructed images were created and reviewed. CONTRAST: Isovue 370 VOLUME: 100 mL One or more dose reduction techniques were used (e.g., Automated exposure control, adjustment of the mA and/or kV according to patient size, use of iterative reconstruction technique). RADIATION DOSE SUMMARY: CTDlvol: 33.84, 27.07, 54.14, 28.20 mGy DLP: 1960 mGycm FINDINGS: PULMONARY ARTERIES Suboptimal contrast phase to adequately evaluate the pulmonary arteries. No evidence of large pulmonary embolus in the central pulmonary arteries. AORTA No thoracic aortic aneurysm or dissection. LUNGS No focal airspace consolidation. No pulmonary mass. Minimal dependent atelectasis bilaterally. PLEURAL SPACES No pleural effusion. No pneumothorax. HEART No cardiomegaly. No significant pericardial effusion. MEDIASTINUM/HILUM No significant lymphadenopathy. CHEST WALL The chest wall is unremarkable. BONES No focal osseous abnormality or acute fracture. UPPER ABDOMEN Enlarged spleen measuring 18.[address] in [address] dimension[address] CT/CTA Chest W/WO Contrast IMPRESSION: 1. Inadequate contrast phase to evaluate for pulmonary embolus. 2. No acute lung disease. Reading Location: [id number]
[2025-01-13 17:46] LABS: AST(SGOT) 22 U/L (<=37); Alanine Aminotransfer ALT/SGPT 22 U/L (<=46); Albumin, Serum 3.8 g/dL (3.5-5.0); Alkaline Phosphatase 74 U/L (40-129); Anion Gap 12 (5-15); BUN 13 mg/dL (4-19); BUN/Creat Ratio 11.5 RATIO (10-20); Calcium,Total 8.9 mg/dL (7.6-11.0); Carbon Dioxide 22.6 mmol/L (21.0-32.0); Chloride 100 mmol/L (98-108); Estimated Creatinine Clearance 187.63 ml/min (50-250); Globulin 4.1 g/dL (2.2-4.2); Glucose 125 mg/dL (70-99); Potassium 3.6 mmol/L (3.3-5.1); Pro- Brain NATRIURETIC PEPTIDE 126 pg/mL (<=450); Troponin T High Sensitivity < 6 ng/L (<=22)
[2025-01-13 19:00] VITALS: BP 125/78; PULSE 88; RESP 16; TEMP 37.2; O2SAT 97
[2025-01-13 19:24] LABS: Troponin T High Sens 2 HR 6 ng/L (<=22)
[2025-01-13 19:56] VITALS: BP 129/77; PULSE 91; RESP 22; TEMP 37.1; O2SAT 96
[2025-01-13] MEDS: Smz/Tmp Ds Tablet 1 TABLET PO (19:59)
== END 2025-01-13 20:04 | disposition home or self-care (01) ==
PROVIDERS: Emergency Provider Emergency Medicine; PCP Family Medicine; Visit Provider Emergency Medicine
DX: L03.116 Cellulitis of left lower limb (principal); E66.01 Morbid (severe) obesity due to excess calories; I89.0 Lymphedema, not elsewhere classified; J45.909 Unspecified asthma, uncomplicated; G47.30 Sleep apnea, unspecified; F17.290 Nicotine dependence, other tobacco product, uncomplicated
CPT/HCPCS: 71045; 71275; 80053; 83605; 83880; 84484; 85027; 85379; 87040; 87631; 93005; 96361; 96374; 96375; 96376; 99285; Q9967; A4216; J2405